=== PATIENT | male | born 1940 | race Caucasian/White ===

== ENCOUNTER 2017-03-12 09:56 | Inpatient (IN) | payer MEDICARE, OTHER ==
[~2017-03-12] VITALS: Ht 182.9 cm; Wt 81.2 kg
[2017-03-12 10:35] VITALS: BP 125/80
[2017-03-12] MEDS ORDERED: EZET10TA3 PO (11:02)
[2017-03-12] MEDS ORDERED: NITR0.4T SL (11:02)
[2017-03-12] MEDS ORDERED: METO25TA4 PO (11:02)
[2017-03-12] MEDS ORDERED: METF500T4 PO (11:02)
[2017-03-12] MEDS ORDERED: ASPI81TA2 PO (11:02)
[2017-03-12] MEDS ORDERED: TRAZ50TA15 PO (11:05)
[2017-03-12] MEDS ORDERED: CRESTOR20 MG PO (11:05)
[2017-03-12] MEDS ORDERED: ACETAMINOPHEN 325 MG TABLET PO PRN (11:15)
[2017-03-12] MEDS ORDERED: MAG HYDROX/AL HYDROX/SIMETH 30 ML ORAL.SUSP PO PRN (11:15)
[2017-03-12] MEDS ORDERED: METHYL SALICYLATE/MENTHOL TOPICAL OINTMENT 29GM TUBE. TP PRN (11:15)
[2017-03-12] MEDS ORDERED: MAGNESIUM HYDROXIDE 2,400 MG/30 ML ORAL.SUSP. PO PRN (11:15)
[2017-03-12 11:37] LABS: BASO % 1 % (0-3); EOS # 0.1 x10^3/uL (0.0-0.7); EOS % 4 % (0-3); HEMATOCRIT 38.8 % (39.0-53.0); LYMPH # 0.7 x10^3/uL (1.0-4.8); LYMPH % 19 % (24-48); MEAN CORPUSCULAR HEMOGLOBIN 32 pg (25-35); MEAN CORPUSCULAR HGB CONC 34 g/dL (31-37); MEAN CORPUSCULAR VOLUME 95 fL (79-100); MONO # 0.4 x10^3/uL (0.0-1.1); MONO % 9 % (0-9); NEUT # 2.5 x10^3uL (1.8-7.7); NEUT % 66 % (31-73); PLATELET COUNT 113 x10^3/uL (140-400); RED BLOOD COUNT 4.08 x10^6/uL (4.30-5.70); RED CELL DISTRIBUTION WIDTH 12.6 % (11.5-14.5); WHITE BLOOD COUNT 3.7 x10^3/uL (4.0-11.0)
[2017-03-12] MEDS ORDERED: NITROGLYCERIN SUBLINGUAL 0.4 MG BOTTLE OF 25. SL PRN (11:45)
[2017-03-12 11:48] LABS: ALBUMIN 3.4 g/dL (3.4-5.0); ALBUMIN/GLOBULIN RATIO 1.1 (1.0-1.7); CALCIUM 10.1 mg/dL (8.5-10.1); CREATININE 1.5 mg/dL (0.7-1.3); GFR 45.5; MAGNESIUM 2.1 mg/dL (1.8-2.4); POTASSIUM 4.8 mmol/L (3.5-5.1); TOTAL BILIRUBIN 1.3 mg/dL (0.2-1.0); TOTAL PROTEIN 6.4 g/dL (6.4-8.2)
[2017-03-12] MEDS ORDERED: INSULIN ASPART 300 UNITS/3 ML INSULN.PEN SQ ONE (12:00)
[2017-03-12] MEDS ORDERED: DEXTROSE 50% 25 GM / 50ML DISP.SYRIN. IV PRN (12:00)
[2017-03-12] MEDS: INSULIN ASPART 300 UNITS/3 ML INSULN.PEN SQ SCH ×3 (12:24→19:51)
[2017-03-12 14:42] LABS: THYROID STIM HORMONE (TSH) 0.644 uIU/mL (0.358-3.740)
[2017-03-12 15:46] VITALS: BP 125/81
[2017-03-12] MEDS: OLANZAPINE ZYDIS 5 MG TAB.RAPDIS PO PRN ×2 (16:36→23:51)
[2017-03-12] MEDS: METFORMIN 500 MG TABLET. PO SCH (16:36)
[2017-03-12 18:08] LABS: T3 TOTAL 77 ng/dL (71-180); THYROXINE 6.7 ug/dL (4.5-12.0)
[2017-03-12] MEDS: GLIMEPIRIDE 1 MG TABLET PO SCH (19:49)
[2017-03-12] MEDS: ATORVASTATIN CALCIUM 20 MG TABLET PO SCH (19:49)
[2017-03-12] MEDS: METOPROLOL TART IMMED RELEASE 25 MG TABLET PO SCH (19:49)
--- NOTE | 2017-03-12 20:55 | EKG ---
[address] [address] Test Date: 2017-03-12 Test Time: 19:55:36 Pat Name: VIJAY DURÁN Department: Room: [facility] 1 Gender: M 911 Emergency Services Dispatcher: : 1940 Requested By: GHULAM LEMON Order Number: [id number] Reading MD: Gino Bryant Measurements Intervals [place] Rate: 101 P: -141 ID: [id number] QRS: -49 QRSD: 104 T: 29 QT: 344 QTc: 447 Interpretive Statements SINUS TACHYCARDIA LEFT AXIS DEVIATION POOR R-WAVE PROGRESSION Electronically Signed On 03-24-2017 12:26:41 CDT by Gino Bryant
[2017-03-12] MEDS ORDERED: traZODone 50 MG TABLET. PO SCH (21:00)
--- NOTE | 2017-03-12 21:12 | PDOC ---
Exam Geraldo Demential Exam: Geraldo Note: Please also refer to the separate dictated note~for this date of service dictated separately.~Patient seen individually. Discussed the patient with Nursing staff reviewed the chart.~Reviewed interim history and current functioning. Reviewed vital signs,~Labs/ Radiology~and current medications noted below. Continue current treatment with the changes noted in the dictated addendum note Assessment: Vital Signs: Vital Signs Date Time Temp Pulse Resp B/P Pulse Ox O2 Delivery O2 Flow Rate FiO2 03/12/17 19:49 92 125/81 03/12/17 15:46 97.3 18 97 03/12/17 10:35 Room Air Labs: Laboratory Tests Test 03/12/17 11:24 03/12/17 12:20 03/12/17 16:29 03/12/17 19:28 White Blood Count 3.7x10^3/uL (4.0-11.0) L Red Blood Count 4.08x10^6/uL (4.30-5.70) L Hemoglobin 13.0g/dL (13.0-17.5) Hematocrit 38.8% (39.0-53.0) L Mean Corpuscular Volume 95fL (79-100) Mean Corpuscular Hemoglobin 32pg (25-35) Mean Corpuscular Hemoglobin Concent 34g/dL (31-37) Red Cell Distribution Width 12.6% (11.5-14.5) Platelet Count 113x10^3/uL (140-400) L Neutrophils (%) (Auto) 66% (31-73) Lymphocytes (%) (Auto) 19% (24-48) L Monocytes (%) (Auto) 9% (0-9) Eosinophils (%) (Auto) 4% (0-3) H Basophils (%) (Auto) 1% (0-3) Neutrophils # (Auto) 2.5x10^3uL (1.8-7.7) Lymphocytes # (Auto) 0.7x10^3/uL (1.0-4.8) L Monocytes # (Auto) 0.4x10^3/uL (0.0-1.1) Eosinophils # (Auto) 0.1x10^3/uL (0.0-0.7) Basophils # (Auto) 0.0x10^3/uL (0.0-0.2) Sodium Level 131mmol/L (136-145) L Potassium Level 4.8mmol/L (3.5-5.1) Chloride Level 99mmol/L (98-107) Carbon Dioxide Level 27mmol/L (21-32) Anion Gap 5 (6-14) L Blood Urea Nitrogen 15mg/dL (8-26) Creatinine 1.5mg/dL (0.7-1.3) H Estimated GFR (Cockcroft-Gault) 45.5 BUN/Creatinine Ratio 10 (6-20) Glucose Level 589mg/dL (70-99) *H Calcium Level 10.1mg/dL (8.5-10.1) Magnesium Level 2.1mg/dL (1.8-2.4) Iron Level 74ug/dL (65-175) Total Iron Binding Capacity 224ug/dL (250-450) L Iron Saturation 33% (15-34) Total Bilirubin 1.3mg/dL (0.2-1.0) H Aspartate Amino Transferase (AST) 11U/L (15-37) L Alanine Aminotransferase (ALT) 18U/L (16-63) Alkaline Phosphatase 95U/L (46-116) Total Protein 6.4g/dL (6.4-8.2) Albumin 3.4g/dL (3.4-5.0) Albumin/Globulin Ratio 1.1 (1.0-1.7) Triglycerides Level 108mg/dL (0-150) Cholesterol Level 124mg/dL (0-200) LDL Cholesterol, Calculated 56mg/dL (0-100) VLDL Cholesterol, Calculated 21mg/dL (0-40) HDL Cholesterol 47mg/dL (40-60) Cholesterol/HDL Ratio 2.0 25-Hydroxy Vitamin D Total Pending Thyroid Stimulating Hormone (TSH) 0.644uIU/mL (0.358-3.740) Thyroxine (T4) 6.7ug/dL (4.5-12.0) Total Triiodothyronine (TT3) 77ng/dL (71-180) RPR Titer Additional Testing Pending Glucose (Fingerstick) 548mg/dL (70-99) *H 246mg/dL (70-99) H 239mg/dL (70-99) H Current Medications: Meds: Current Medications Vitamin D (Vitamin D3) 2,000 unit DAILY PO ; Start 03/13/17 at 09:00 Acetaminophen (Tylenol) 650 mg PRN Q6HRS PRN PO PAIN / TEMP; Start 03/12/17 at 11:15 Multi-Ingredient Ointment (Analgesic [place]) 1 jesus PRN QID PRN TP MUSCLE PAIN; Start 03/12/17 at 11:15 Al Hydroxide/Mg Hydroxide (Mylanta Plus Xs) 15 ml PRN AFTMEALHC PRN PO DYSPEPSIA; Start 03/12/17 at 11:15 Magnesium Hydroxide (Milk Of Magnesia) 2,400 mg PRN QHS PRN PO CONSTIPATION; Start 03/12/17 at 11:15 Aspirin (Children'S Aspirin) 81 mg DAILY PO ; Start 03/13/17 at 09:00 EZETIMIBE (Zetia) 10 mg DAILY PO ; Start 03/13/17 at 09:00 Metformin HCl (Glucophage) 1,000 mg BIDWMEALS PO Last administered on 16:36; Start 03/12/17 at 17:00 Metoprolol Tartrate (Lopressor) 37.5 mg BID PO Last administered on 03/12/17 19:49; Start 03/12/17 at 21:00 Nitroglycerin (Nitrostat) 0.4 mg PRN Q5MIN PRN SL CHEST PAIN; Start 03/12/17 at 11:45 Trazodone HCl (Desyrel) 25 mg QHS PO Last administered on 03/12/17 19:49; Start 03/12/17 at 21:00 Atorvastatin Calcium (Lipitor) 80 mg QHS PO Last administered on 03/12/17 19: 49; Start 03/12/17 at 21:00 Insulin Aspart (Novolog) 10 units 1X ONCE SQ Last administered on 03/12/17 12 :00; Start 03/12/17 at 12:00; Stop 03/12/17 at 12:02; Status DC Insulin Aspart (Novolog) 0-9 UNITS TIDWMEALHC SQ Last administered on 19:51; Start 03/12/17 at 12:00 Dextrose 12.5 gm PRN Q15MIN PRN IV SEE COMMENTS; Start 03/12/17 at 12:00 Olanzapine (Zyprexa Zydis) 2.5 mg PRN Q2HR PRN PO PSYCHOSIS Last administered on 03/12/17 16:36; Start 03/12/17 at 16:30 Polyethylene Glycol (miraLAX) 17 gm DAILY PO ; Start 03/13/17 at 09:00 Glimepiride (Amaryl) 4 mg DAILY PO ; Start 03/13/17 at 09:00 Glimepiride (Amaryl) 1 mg QHS PO Last administered on 03/12/17 19:49; Start at 21:00 Active Scripts Active Reported Trazodone Hcl 50 Mg Tablet 25 Mg PO QHS Crestor (Rosuvastatin Calcium) 20 Mg Tablet 1 Tab PO HS Nitrostat (Nitroglycerin) 0.4 Mg Tab.subl 1 Tab SL UD PRN Metoprolol Tartrate 25 Mg Tablet 37.5 Mg PO BID Metformin Hcl 500 Mg Tablet 1,000 Mg PO BIDWMEALS Zetia (Ezetimibe) 10 Mg Tablet 1 Tab PO DAILY Aspirin 81 Mg Tab.chew 81 Mg PO DAILY GHULAM LEMON MD Mar 12, 2017 21:12
[2017-03-12 23:12] LABS: HEMOGLOBIN A1C 11.5 % (4.8-5.6)
[2017-03-13] MEDS: OLANZAPINE ZYDIS 5 MG TAB.RAPDIS PO PRN ×2 (02:12→19:14)
--- NOTE | 2017-03-13 03:47 | CONS ---
DATE OF CONSULTATION: 03/12/2017 REASON FOR CONSULTATION: Medical management. HISTORY OF PRESENT ILLNESS: The patient a 77-year-old male patient who was admitted directly from home as he has been wondering, agitated, noncompliant with medication, verbally aggressive towards his , who is unable to take care of him and he is also fearful of his aggression. He has a background of Alzheimer dementia and he is here for inpatient psychiatric stabilization. He has been apparently noncompliant with the medication. He is not allowing his to check his blood sugar or give him insulin and his blood sugar was extremely poorly controlled. His primary care physician decided to stop the insulin and put him on metformin. However, by the time he arrived to our facility, his blood sugar was 589 mg/dL. PAST MEDICAL HISTORY: Significant for diabetes mellitus type 2 that is insulin requiring, coronary artery disease, ischemic cardiomyopathy, benign prostatic hypertrophy, aneurysm, prostate cancer, abdominal aortic aneurysm, hyperlipidemia, chronic kidney disease, left ventricular diastolic congestive heart failure. PAST SURGICAL HISTORY: Significant for coronary artery bypass graft surgery as well as mitral valve repair. ALLERGIES: HE IS ALLERGIC TO CODEINE, MEPERIDINE, IODINE, AND SHELLFISH. MEDICATIONS: He is currently on following medications: Aspirin 81 mg once a day, Zetia 10 mg once a day, metformin 1000 mg p.o. b.i.d., metoprolol tartrate 7.5 mg p.o. b.i.d., nitroglycerin 0.4 mg sublingually as needed, Crestor 20 mg at bedtime, and trazodone 25 mg at bedtime. FAMILY HISTORY: Unobtainable. SOCIAL HISTORY: Apparently resides with his . He does not smoke, drink alcohol, or use recreational drugs. REVIEW OF SYSTEMS: Unobtainable. The patient is extremely psychotic, seemed to have some form of visual hallucinations, talking about the people that are not seen; however, he denied any complaint. PHYSICAL EXAMINATION: GENERAL: When I examined him, he was sitting comfortably in his chair, in no apparent respiratory distress, pale. No jaundice, cyanosis or thyromegaly. No jugular venous distention. No limb edema. VITAL SIGNS: His heart rate was 92, blood pressure 125/81, temperature was 97.3, respiratory rate was 18, and oxygen saturation was 97%. HEAD, EARS, EYES, NOSE, AND THROAT: Normocephalic, atraumatic. NECK: Supple. HEART: Showed normal first and second heart sounds with no gallop, rub, or murmur. CHEST: Clear to auscultation. No wheezes or rhonchi. ABDOMEN: Distended, soft, nontender. NEUROLOGIC: He was demented without any obvious lateralizing sign. All his cranial nerves are intact. EXTREMITIES: He moves extremities without difficulty, ambulates without assistance or assistive devices. LABORATORY WORK: This morning showed a serum sodium 131, potassium 4.8, chloride 99, bicarbonate 27, anion gap of 5, BUN 15, creatinine 1.5, estimated GFR was 45 mL per minute. His glucose was 589. His calcium was high at 10.1 and magnesium was 2.1. Total bilirubin, AST, ALT, alkaline phosphatase were normal. Total protein was 6.4, albumin 3.4. Serum iron was 74, total iron binding capacity was 224 and percent saturation was . His triglycerides were 108. Cholesterol 124, LDL cholesterol was 56, VLDL was 21, and HDL cholesterol was 47 and HDL cholesterol ratio was 2. His TSH was 0.644. His white cell count was 3700, hemoglobin 13, hematocrit 39, MCV 95, and platelet count of 113,000. The manual differential showed 66% polymorphs, 19% lymphocytes, and 9% monocytes. ASSESSMENT AND PLAN: In summary, this is a 77-year-old male patient who currently lives at home with his and who is demented, very noncompliant with medication, wondering, agitated and verbally aggressive to his . He refused to have his blood sugar checked or allow her to give him his insulin. His primary care physician decided to stop the insulin and put him on metformin; however, his blood sugar is extremely poorly controlled, in fact on arrival to our facility, his blood sugar was almost 600 mg with the attendant dilutional hyponatremia. PLAN: My plan is to add glimepiride to start with 2 mg 4 mg in the morning and continue with insulin sliding scale and we might have to increase the glimepiride to 4 mg twice a day. We will check his hemoglobin A1c. We will review all the other lab work tests that are still pending at the time of this dictation and make any necessary recommendation. Thank you, Dr. Westfall for allowing me to participate in the care of this patient. GIBSON CORTEZ MD DR: KAILA/germaine JOB#: [id number] / [id number]
--- NOTE | 2017-03-13 09:24 | HP ---
ADMIT DATE: 03/12/2017 PSYCHIATRIC ADMISSION HISTORY/EVALUATION IDENTIFYING DATA: The patient is a 78-year-old male referred to us from the [facility] after he was evaluated by his primary care physician there earlier in the day of admission and referred on account of worsening confusion, wandering agitation, being noncompliant with medications, verbally aggressive. Concerns noted were that he lives at home with his , it is potentially dangerous, unable to be managed by his , needing psychiatric stabilization and perhaps fci placement. Reviewed current past records, records from . CHIEF COMPLAINT: "No." HISTORY OF PRESENT ILLNESS: The patient is extremely confused, unable to answer direct questions, perhaps oriented just to himself. I have already been called on him earlier in the day today on account of his marked agitation, aggression, and I was pages as an emergency and we started Zyprexa p.r.n., which has helped. Additionally, he has blood sugar was elevated at 589 and we started on insulin, which again might be helping somewhat with his agitation. The patient has a long history of dementia, Alzheimer's vascular type. Recently, he has been getting more abrasive, aggressive, agitated with his , wandering out of the house. No clear symptoms of bipolar disorder, suicidal or homicidal ideation. PAST PSYCHIATRIC HISTORY: As above. MEDICAL HISTORY: Diabetes mellitus, mitral valve repair, cardiomegaly, coronary artery disease status post coronary artery bypass graft, BPH, aneurysm, prostate cancer, abdominal aortic aneurysm, hyperlipidemia, chronic kidney disease, left heart failure, upper respiratory tract infection. ALLERGIES: CODEINE, MEPERIDINE, IODINE, SHELLFISH. CURRENT PSYCHOTROPICS: Trazodone 25 mg at bedtime, Zyprexa p.r.n. He is on vitamin D supplements. He is a full code. FAMILY HISTORY: Noncontributory. SOCIAL HISTORY: The patient lives at home with his . No alcohol, drug abuse, physical, sexual or elder abuse history is noted. He is not known to be a perpetrator. MENTAL STATUS EXAMINATION: The patient is oriented to himself. Insight, judgment, recent and remote memory, attention, concentration, fund of knowledge poor, consistent with his diagnosis. He appears quite paranoid, suspicious, labile in his mood, unable to quite follow along how to eat his dinner and staff had to assist him. LABORATORY DATA: Reviewed. VITAL SIGNS: Temperature 97.3, pulse 92 and BP 125/81. IMPRESSION: Major neurocognitive disorder, Alzheimer, vascular with depression, delusion, behavioral disturbance; anxiety disorder, unspecified; impulse control disorder, unspecified. Rest diagnoses as above. PLAN: Admit to geropsychiatry unit at [facility]. I will see the patient daily individually from a psychiatric standpoint and medical followup with Dr. Benjamin/Dr. Jaimes. Continue the patient on his current psychotropics, observe baseline, adjust further as clinically indicated. MAN Telma LEMON MD DR: ARMEN/germaine JOB#: [id number] / [id number]
[2017-03-13] MEDS: METFORMIN 500 MG TABLET. PO SCH ×3 (09:54→17:25)
[2017-03-13] MEDS: METOPROLOL TART IMMED RELEASE 25 MG TABLET PO SCH ×2 (09:55→19:45)
[2017-03-13] MEDS: INSULIN ASPART 300 UNITS/3 ML INSULN.PEN SQ SCH ×4 (09:59→19:49)
[2017-03-13] MEDS: GLIMEPIRIDE 4 MG TABLET PO SCH (10:06)
[2017-03-13] MEDS: CHOLECALCIFEROL (VITAMIN D3) 1,000 UNIT TABLET PO SCH (10:06)
[2017-03-13] MEDS: ASPIRIN 81 MG TAB.CHEW PO SCH (10:06)
[2017-03-13] MEDS: POLYETHYLENE GLYCOL 3350 17 GM PACKET. PO SCH (10:06)
[2017-03-13] MEDS: EZETIMIBE 10 MG TABLET PO SCH (10:07)
[2017-03-13 15:57] VITALS: BP 132/91
--- NOTE | 2017-03-13 16:54 | RAD ---
Renal ultrasound, 03/13/2017: History: Impaired renal function, enlarged prostate The right kidney measures 10.1 cm in length while the left kidney measures 11.5 cm. 4 simple cysts are evident in the right kidney. The largest of these measures 2.2 cm. There is a 3.1 cm cyst in the lower pole of the left kidney. The renal parenchymal echogenicity is otherwise within normal limits. The kidneys show no evidence of obstruction. Limited views of urinary bladder show no abnormality. IMPRESSION: 1. Bilateral renal cysts. 2. No evidence of renal obstruction.
[2017-03-13] MEDS: GLIMEPIRIDE 1 MG TABLET PO SCH (19:42)
[2017-03-13] MEDS: ATORVASTATIN CALCIUM 20 MG TABLET PO SCH (19:43)
[2017-03-13] MEDS ORDERED: traZODone 50 MG TABLET. PO PRN (20:00)
[2017-03-13] MEDS: HYDROXYZINE PAMOATE 25 MG CAPSULE PO PRN (20:13)
--- NOTE | 2017-03-13 20:13 | PDOC ---
Exam Geraldo Demential Exam: Geraldo Note: Please also refer to the separate dictated note~for this date of service dictated separately.~Patient seen individually. Discussed the patient with Nursing staff reviewed the chart.~Reviewed interim history and current functioning. Reviewed vital signs,~Labs/ Radiology~and current medications noted below. Continue current treatment with the changes noted in the dictated addendum note Assessment: Vital Signs: Vital Signs Date Time Temp Pulse Resp B/P Pulse Ox O2 Delivery O2 Flow Rate FiO2 03/13/17 19:45 69 132/91 03/13/17 15:57 97.3 16 96 03/12/17 10:35 Room Air I&O Intake and Output 03/13/17 07:00 Intake Total 1080 ml Balance 1080 ml Intake Oral 1080 ml Labs: Laboratory Tests Test 03/13/17 07:46 03/13/17 11:07 03/13/17 17:06 03/13/17 19:24 Glucose (Fingerstick) 245mg/dL (70-99) H 240mg/dL (70-99) H 149mg/dL (70-99) H 253mg/dL (70-99) H Current Medications: Meds: Current Medications Vitamin D (Vitamin D3) 2,000 unit DAILY PO Last administered on 03/13/17 10:06 ; Start 03/13/17 at 09:00 Acetaminophen (Tylenol) 650 mg PRN Q6HRS PRN PO PAIN / TEMP; Start 03/12/17 at 11:15 Multi-Ingredient Ointment (Analgesic [place]) 1 jesus PRN QID PRN TP MUSCLE PAIN; Start 03/12/17 at 11:15 Al Hydroxide/Mg Hydroxide (Mylanta Plus Xs) 15 ml PRN AFTMEALHC PRN PO DYSPEPSIA; Start 03/12/17 at 11:15 Magnesium Hydroxide (Milk Of Magnesia) 2,400 mg PRN QHS PRN PO CONSTIPATION; Start 03/12/17 at 11:15 Aspirin (Children'S Aspirin) 81 mg DAILY PO Last administered on 03/13/17 10: 06; Start 03/13/17 at 09:00 EZETIMIBE (Zetia) 10 mg DAILY PO Last administered on 03/13/17 10:07; Start at 09:00 Metformin HCl (Glucophage) 1,000 mg BIDWMEALS PO Last administered on 09:54; Start 03/12/17 at 17:00 Metoprolol Tartrate (Lopressor) 37.5 mg BID PO Last administered on 03/13/17 19:45; Start 03/12/17 at 21:00 Nitroglycerin (Nitrostat) 0.4 mg PRN Q5MIN PRN SL CHEST PAIN; Start 03/12/17 at 11:45 Trazodone HCl (Desyrel) 25 mg QHS PO Last administered on 03/12/17 19:49; Start 03/12/17 at 21:00; Stop 03/13/17 at 19:57; Status DC Atorvastatin Calcium (Lipitor) 80 mg QHS PO Last administered on 03/13/17 19: 43; Start 03/12/17 at 21:00 Insulin Aspart (Novolog) 10 units 1X ONCE SQ Last administered on 03/12/17 12 :00; Start 03/12/17 at 12:00; Stop 03/12/17 at 12:02; Status DC Insulin Aspart (Novolog) 0-9 UNITS TIDWMEALHC SQ Last administered on 19:49; Start 03/12/17 at 12:00 Dextrose 12.5 gm PRN Q15MIN PRN IV SEE COMMENTS; Start 03/12/17 at 12:00 Olanzapine (Zyprexa Zydis) 2.5 mg PRN Q2HR PRN PO PSYCHOSIS Last administered on 03/13/17 19:14; Start 03/12/17 at 16:30 Polyethylene Glycol (miraLAX) 17 gm DAILY PO Last administered on 03/13/17 10: 06; Start 03/13/17 at 09:00 Glimepiride (Amaryl) 4 mg DAILY PO Last administered on 03/13/17 10:06; Start 03/13/17 at 09:00 Glimepiride (Amaryl) 1 mg QHS PO Last administered on 03/13/17 19:42; Start at 21:00 Sertraline HCl (Zoloft) 50 mg DAILY PO ; Start 03/14/17 at 09:00 Trazodone HCl (Desyrel) 50 mg QHS PO Last administered on 03/13/17 19:58; Start 03/13/17 at 21:00 Trazodone HCl (Desyrel) 50 mg PRN QHS PRN PO INSOMNIA; Start 03/13/17 at 20:00 Hydroxyzine Pamoate (Vistaril) 25 mg PRN Q2HR PRN PO agitation; Start 03/13/17 at 20:15 Active Scripts Active Reported Trazodone Hcl 50 Mg Tablet 25 Mg PO QHS Crestor (Rosuvastatin Calcium) 20 Mg Tablet 1 Tab PO HS Nitrostat (Nitroglycerin) 0.4 Mg Tab.subl 1 Tab SL UD PRN Metoprolol Tartrate 25 Mg Tablet 37.5 Mg PO BID Metformin Hcl 500 Mg Tablet 1,000 Mg PO BIDWMEALS Zetia (Ezetimibe) 10 Mg Tablet 1 Tab PO DAILY Aspirin 81 Mg Tab.chew 81 Mg PO DAILY GHULAM LEMON MD Mar 13, 2017 20:13
[2017-03-13 20:17] LABS: BILIRUBIN,URINE NEG (NEG); CLARITY,URINE CLEAR; COLOR,URINE YELLOW; GLUCOSE,URINE >=1000 mg/dL (NEG); NITRITE,URINE NEG (NEG); UROBILINOGEN,URINE 1 mg/dL (0.2 mg/dL)
[2017-03-13 20:18] LABS: BACTERIA,URINE FEW /HPF (0-FEW); RBC,URINE 0 /HPF (0-2); SQUAMOUS EPITHELIAL CELL,UR FEW /LPF
[2017-03-13] MEDS ORDERED: traZODone 50 MG TABLET. PO SCH (21:00)
[2017-03-14] MEDS: HYDROXYZINE PAMOATE 25 MG CAPSULE PO PRN
[2017-03-14] MEDS: OLANZAPINE ZYDIS 5 MG TAB.RAPDIS PO PRN (01:47)
[2017-03-14] MEDS: INSULIN ASPART 300 UNITS/3 ML INSULN.PEN SQ SCH ×4 (09:24→20:44)
[2017-03-14] MEDS: POLYETHYLENE GLYCOL 3350 17 GM PACKET. PO SCH (09:25)
[2017-03-14] MEDS: CHOLECALCIFEROL (VITAMIN D3) 1,000 UNIT TABLET PO SCH (09:25)
[2017-03-14] MEDS: GLIMEPIRIDE 4 MG TABLET PO SCH (09:25)
[2017-03-14] MEDS: ASPIRIN 81 MG TAB.CHEW PO SCH (09:25)
[2017-03-14] MEDS: EZETIMIBE 10 MG TABLET PO SCH (09:25)
[2017-03-14] MEDS: METFORMIN 500 MG TABLET. PO SCH ×2 (09:25→17:30)
[2017-03-14] MEDS: METOPROLOL TART IMMED RELEASE 25 MG TABLET PO SCH ×2 (09:28→19:37)
[2017-03-14] MEDS: SERTRALINE 50 MG TABLET. PO SCH (09:32)
[2017-03-14 16:06] VITALS: BP 110/71
[2017-03-14] MEDS: MELATONIN 3 MG TABLET PO SCH ×2 (19:35→19:58)
[2017-03-14] MEDS: GLIMEPIRIDE 1 MG TABLET PO SCH (19:35)
[2017-03-14] MEDS: ATORVASTATIN CALCIUM 20 MG TABLET PO SCH (19:36)
[2017-03-14] MEDS: MIRTAZAPINE 7.5 MG TABLET. PO SCH (20:43)
--- NOTE | 2017-03-14 22:08 | PDOC ---
Exam Geraldo Demential Exam: Geraldo Note: Please also refer to the separate dictated note~for this date of service dictated separately.~Patient seen individually. Discussed the patient with Nursing staff reviewed the chart.~Reviewed interim history and current functioning. Reviewed vital signs,~Labs/ Radiology~and current medications noted below. Continue current treatment with the changes noted in the dictated addendum note Assessment: Vital Signs: Vital Signs Date Time Temp Pulse Resp B/P Pulse Ox O2 Delivery O2 Flow Rate FiO2 03/14/17 19:37 83 110/71 03/14/17 16:06 97.9 20 92 Room Air I&O Intake and Output 03/14/17 07:00 Intake Total 240 ml Balance 240 ml Intake Oral 240 ml Labs: Laboratory Tests Test 03/14/17 07:40 03/14/17 12:54 03/14/17 17:08 03/14/17 19:45 Glucose (Fingerstick) 237mg/dL (70-99) H 166mg/dL (70-99) H 210mg/dL (70-99) H 195mg/dL (70-99) H Current Medications: Meds: Current Medications Vitamin D (Vitamin D3) 2,000 unit DAILY PO Last administered on 03/14/17 09:25 ; Start 03/13/17 at 09:00 Acetaminophen (Tylenol) 650 mg PRN Q6HRS PRN PO PAIN / TEMP; Start 03/12/17 at 11:15 Multi-Ingredient Ointment (Analgesic [place]) 1 jesus PRN QID PRN TP MUSCLE PAIN; Start 03/12/17 at 11:15 Al Hydroxide/Mg Hydroxide (Mylanta Plus Xs) 15 ml PRN AFTMEALHC PRN PO DYSPEPSIA; Start 03/12/17 at 11:15 Magnesium Hydroxide (Milk Of Magnesia) 2,400 mg PRN QHS PRN PO CONSTIPATION; Start 03/12/17 at 11:15 Aspirin (Children'S Aspirin) 81 mg DAILY PO Last administered on 03/14/17 09: 25; Start 03/13/17 at 09:00 EZETIMIBE (Zetia) 10 mg DAILY PO Last administered on 03/14/17 09:25; Start at 09:00 Metformin HCl (Glucophage) 1,000 mg BIDWMEALS PO Last administered on 17:30; Start 03/12/17 at 17:00 Metoprolol Tartrate (Lopressor) 37.5 mg BID PO Last administered on 03/14/17 19:37; Start 03/12/17 at 21:00 Nitroglycerin (Nitrostat) 0.4 mg PRN Q5MIN PRN SL CHEST PAIN; Start 03/12/17 at 11:45 Trazodone HCl (Desyrel) 25 mg QHS PO Last administered on 03/12/17 19:49; Start 03/12/17 at 21:00; Stop 03/13/17 at 19:57; Status DC Atorvastatin Calcium (Lipitor) 80 mg QHS PO Last administered on 03/14/17 19: 36; Start 03/12/17 at 21:00 Insulin Aspart (Novolog) 10 units 1X ONCE SQ Last administered on 03/12/17 12 :00; Start 03/12/17 at 12:00; Stop 03/12/17 at 12:02; Status DC Insulin Aspart (Novolog) 0-9 UNITS TIDWMEALHC SQ Last administered on 20:44; Start 03/12/17 at 12:00 Dextrose 12.5 gm PRN Q15MIN PRN IV SEE COMMENTS; Start 03/12/17 at 12:00 Olanzapine (Zyprexa Zydis) 2.5 mg PRN Q2HR PRN PO PSYCHOSIS Last administered on 03/14/17 01:47; Start 03/12/17 at 16:30 Polyethylene Glycol (miraLAX) 17 gm DAILY PO Last administered on 03/14/17 09: 25; Start 03/13/17 at 09:00 Glimepiride (Amaryl) 4 mg DAILY PO Last administered on 03/14/17 09:25; Start 03/13/17 at 09:00 Glimepiride (Amaryl) 1 mg QHS PO Last administered on 03/14/17 19:35; Start at 21:00 Sertraline HCl (Zoloft) 50 mg DAILY PO Last administered on 03/14/17 09:32; Start 03/14/17 at 09:00 Trazodone HCl (Desyrel) 50 mg QHS PO Last administered on 03/13/17 19:58; Start 03/13/17 at 21:00; Stop 03/14/17 at 06:33; Status DC Trazodone HCl (Desyrel) 50 mg PRN QHS PRN PO INSOMNIA Last administered on 03/13 23:30; Start 03/13/17 at 20:00; Stop 03/14/17 at 06:33; Status DC Hydroxyzine Pamoate (Vistaril) 25 mg PRN Q2HR PRN PO agitation Last administered on 03/14/17 00:00; Start 03/13/17 at 20:15 Melatonin 6 mg QHS PO ; Start 03/14/17 at 21:00 Mirtazapine (Remeron) 7.5 mg QHS PO Last administered on 03/14/17 20:43; Start 03/14/17 at 21:00 Active Scripts Active Reported Trazodone Hcl 50 Mg Tablet 25 Mg PO QHS Crestor (Rosuvastatin Calcium) 20 Mg Tablet 1 Tab PO HS Nitrostat (Nitroglycerin) 0.4 Mg Tab.subl 1 Tab SL UD PRN Metoprolol Tartrate 25 Mg Tablet 37.5 Mg PO BID Metformin Hcl 500 Mg Tablet 1,000 Mg PO BIDWMEALS Zetia (Ezetimibe) 10 Mg Tablet 1 Tab PO DAILY Aspirin 81 Mg Tab.chew 81 Mg PO DAILY Diagnosis: Problems: (1) Anxiety disorder (2) Impulse control disorder (3) Dementia in Alzheimer's disease with delusions (4) Dementia in Alzheimer's disease with depression (5) Dementia, vascular, with depression (6) Diabetes mellitus GHULAM LEMON MD Mar 14, 2017 22:08
[2017-03-15 06:29] VITALS: BP 100/58
[2017-03-15] MEDS: INSULIN ASPART 300 UNITS/3 ML INSULN.PEN SQ SCH ×4 (08:00→21:00)
[2017-03-15] MEDS: GLIMEPIRIDE 4 MG TABLET PO SCH (08:30)
[2017-03-15] MEDS: METOPROLOL TART IMMED RELEASE 25 MG TABLET PO SCH ×2 (08:30→20:39)
[2017-03-15] MEDS: ASPIRIN 81 MG TAB.CHEW PO SCH (08:30)
[2017-03-15] MEDS: CHOLECALCIFEROL (VITAMIN D3) 1,000 UNIT TABLET PO SCH (08:30)
[2017-03-15] MEDS: SERTRALINE 50 MG TABLET. PO SCH (08:30)
[2017-03-15] MEDS: EZETIMIBE 10 MG TABLET PO SCH (08:31)
[2017-03-15] MEDS: METFORMIN 500 MG TABLET. PO SCH ×3 (08:31→17:17)
[2017-03-15] MEDS: POLYETHYLENE GLYCOL 3350 17 GM PACKET. PO SCH (08:31)
[2017-03-15 16:14] VITALS: BP 110/72
[2017-03-15] MEDS: MELATONIN 3 MG TABLET PO SCH (20:36)
[2017-03-15] MEDS: MIRTAZAPINE 7.5 MG TABLET. PO SCH (20:37)
[2017-03-15] MEDS: GLIMEPIRIDE 1 MG TABLET PO SCH (20:39)
[2017-03-15] MEDS: ATORVASTATIN CALCIUM 20 MG TABLET PO SCH (20:40)
--- NOTE | 2017-03-15 21:30 | PDOC ---
Exam Geraldo Demential Exam: Geraldo Note: Please also refer to the separate dictated note~for this date of service dictated separately.~Patient seen individually. Discussed the patient with Nursing staff reviewed the chart.~Reviewed interim history and current functioning. Reviewed vital signs,~Labs/ Radiology~and current medications noted below. Continue current treatment with the changes noted in the dictated addendum note Assessment: Vital Signs: Vital Signs Date Time Temp Pulse Resp B/P Pulse Ox O2 Delivery O2 Flow Rate FiO2 03/15/17 20:39 84 110/72 03/15/17 16:14 97.8 19 97 03/15/17 06:29 Room Air I&O Intake and Output 03/15/17 07:00 Intake Total 240 ml Balance 240 ml Intake Oral 240 ml # Bowel Movements 1 Labs: Laboratory Tests Test 03/15/17 07:30 03/15/17 11:17 03/15/17 16:31 03/15/17 19:38 Glucose (Fingerstick) 94mg/dL (70-99) 98mg/dL (70-99) 332mg/dL (70-99) H 161mg/dL (70-99) H Current Medications: Meds: Current Medications Vitamin D (Vitamin D3) 2,000 unit DAILY PO Last administered on 03/15/17 08:30 ; Start 03/13/17 at 09:00 Acetaminophen (Tylenol) 650 mg PRN Q6HRS PRN PO PAIN / TEMP Last administered on 03/15/17 20:54; Start 03/12/17 at 11:15 Multi-Ingredient Ointment (Analgesic Ewing) 1 jesus PRN QID PRN TP MUSCLE PAIN; Start 03/12/17 at 11:15 Al Hydroxide/Mg Hydroxide (Mylanta Plus Xs) 15 ml PRN AFTMEALHC PRN PO DYSPEPSIA; Start 03/12/17 at 11:15 Magnesium Hydroxide (Milk Of Magnesia) 2,400 mg PRN QHS PRN PO CONSTIPATION; Start 03/12/17 at 11:15 Aspirin (Children'S Aspirin) 81 mg DAILY PO Last administered on 03/15/17 08: 30; Start 03/13/17 at 09:00 EZETIMIBE (Zetia) 10 mg DAILY PO Last administered on 03/15/17 08:31; Start at 09:00 Metformin HCl (Glucophage) 1,000 mg BIDWMEALS PO Last administered on 08:31; Start 03/12/17 at 17:00 Metoprolol Tartrate (Lopressor) 37.5 mg BID PO Last administered on 03/15/17 20:39; Start 03/12/17 at 21:00 Nitroglycerin (Nitrostat) 0.4 mg PRN Q5MIN PRN SL CHEST PAIN; Start 03/12/17 at 11:45 Trazodone HCl (Desyrel) 25 mg QHS PO Last administered on 03/12/17 19:49; Start 03/12/17 at 21:00; Stop 03/13/17 at 19:57; Status DC Atorvastatin Calcium (Lipitor) 80 mg QHS PO Last administered on 03/15/17 20: 40; Start 03/12/17 at 21:00 Insulin Aspart (Novolog) 10 units 1X ONCE SQ Last administered on 03/12/17 12 :00; Start 03/12/17 at 12:00; Stop 03/12/17 at 12:02; Status DC Insulin Aspart (Novolog) 0-9 UNITS TIDWMEALHC SQ Last administered on 17:24; Start 03/12/17 at 12:00 Dextrose 12.5 gm PRN Q15MIN PRN IV SEE COMMENTS; Start 03/12/17 at 12:00 Olanzapine (Zyprexa Zydis) 2.5 mg PRN Q2HR PRN PO PSYCHOSIS Last administered on 03/14/17 01:47; Start 03/12/17 at 16:30 Polyethylene Glycol (miraLAX) 17 gm DAILY PO Last administered on 03/15/17 08: 31; Start 03/13/17 at 09:00 Glimepiride (Amaryl) 4 mg DAILY PO Last administered on 03/15/17 08:30; Start 03/13/17 at 09:00 Glimepiride (Amaryl) 1 mg QHS PO Last administered on 03/15/17 20:39; Start at 21:00 Sertraline HCl (Zoloft) 50 mg DAILY PO Last administered on 03/15/17 08:30; Start 03/14/17 at 09:00 Trazodone HCl (Desyrel) 50 mg QHS PO Last administered on 03/13/17 19:58; Start 03/13/17 at 21:00; Stop 03/14/17 at 06:33; Status DC Trazodone HCl (Desyrel) 50 mg PRN QHS PRN PO INSOMNIA Last administered on 03/13 23:30; Start 03/13/17 at 20:00; Stop 03/14/17 at 06:33; Status DC Hydroxyzine Pamoate (Vistaril) 25 mg PRN Q2HR PRN PO agitation Last administered on 03/14/17 00:00; Start 03/13/17 at 20:15 Melatonin 6 mg QHS PO Last administered on 03/15/17 20:36; Start 03/14/17 at 21:00 Mirtazapine (Remeron) 7.5 mg QHS PO Last administered on 03/15/17 20:37; Start 03/14/17 at 21:00 Active Scripts Active Reported Trazodone Hcl 50 Mg Tablet 25 Mg PO QHS Crestor (Rosuvastatin Calcium) 20 Mg Tablet 1 Tab PO HS Nitrostat (Nitroglycerin) 0.4 Mg Tab.subl 1 Tab SL UD PRN Metoprolol Tartrate 25 Mg Tablet 37.5 Mg PO BID Metformin Hcl 500 Mg Tablet 1,000 Mg PO BIDWMEALS Zetia (Ezetimibe) 10 Mg Tablet 1 Tab PO DAILY Aspirin 81 Mg Tab.chew 81 Mg PO DAILY Diagnosis: Problems: (1) Anxiety disorder (2) Impulse control disorder (3) Dementia in Alzheimer's disease with delusions (4) Dementia in Alzheimer's disease with depression (5) Dementia, vascular, with depression (6) Diabetes mellitus GHULAM LEMON MD Mar 15, 2017 21:30
--- NOTE | 2017-03-15 22:02 | PN ---
DATE: 03/13/2017 PSYCHIATRIC PROGRESS NOTE This is late entry of 03/13/2017, covers elements not covered in my initial note. SUBJECTIVE: The patient was seen individually at length, individually discussed with staff, reviewed the chart. I was also called by nursing staff around midnight the previous night and around 6:00 a.m. again, the patient not sleeping at all, agitated, we increased the trazodone to 50 mg at bedtime, march repeat x 1, started Zyprexa p.r.n., hydroxyzine, all of which were ineffective. He is up all night asking for pliers and switch plate. REVIEW OF SYSTEMS: No eye, ENT, CV, , pulmonary system symptoms on review. Reliability poor. MENTAL STATUS EXAMINATION: Oriented to himself. Insight, judgment, recent and remote memory, attention, concentration, fund of knowledge poor, consistent with his diagnosis. IMPRESSION: Major neurocognitive disorder, Alzheimer, vascular with depression, delusion and behavioral disturbances. Rest diagnosis unchanged from initial note. PLAN: Continue the increased trazodone along with Zyprexa, hydroxyzine, consider Remeron, melatonin for insomnia, started on Zoloft 50 mg a day for his mood and anxiety symptoms, unable to recognize what the toilet is for, extremely disorganized. We will adjust further as clinically indicated. GHULAM LEMON MD DR: ARMEN/germaine JOB#: [id number] / [id number]
[2017-03-16 06:10] VITALS: BP 140/89
--- NOTE | 2017-03-16 06:34 | PN ---
DATE: 03/14/2017 This is a late entry for 03/13/2017 covers elements not covered in my initial note. 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 He has not been sleeping well, agitated, restless, disorganized, disruptive. REVIEW OF SYSTEMS: No CV, , eye, ENT, pulmonary system symptoms on review. Reliability poor. MENTAL STATUS EXAM: Oriented to himself. Insight, judgment, recent and remote memory, attention, concentration, fund of knowledge poor, consistent with his diagnosis mentioned in my initial note. PLAN: Start Remeron 7.5 mg at bedtime. Continue rest of the psychotropics as mentioned in my initial note. Adjust further as clinically indicated. He is also on Zoloft. We will consider Depakote as a mood stabilizer. MAN Temla LEMON MD DR: ARMEN/germaine JOB#: [id number] / [id number]
[2017-03-16] MEDS: INSULIN ASPART 300 UNITS/3 ML INSULN.PEN SQ SCH ×4 (08:00→20:22)
[2017-03-16] MEDS: ASPIRIN 81 MG TAB.CHEW PO SCH (08:58)
[2017-03-16] MEDS: GLIMEPIRIDE 4 MG TABLET PO SCH (08:58)
[2017-03-16] MEDS: POLYETHYLENE GLYCOL 3350 17 GM PACKET. PO SCH (08:58)
[2017-03-16] MEDS: METFORMIN 500 MG TABLET. PO SCH ×2 (08:58→17:15)
[2017-03-16] MEDS: EZETIMIBE 10 MG TABLET PO SCH (08:58)
[2017-03-16] MEDS: SERTRALINE 50 MG TABLET. PO SCH (08:58)
[2017-03-16] MEDS: METOPROLOL TART IMMED RELEASE 25 MG TABLET PO SCH ×2 (08:58→20:17)
[2017-03-16] MEDS: CHOLECALCIFEROL (VITAMIN D3) 1,000 UNIT TABLET PO SCH (08:58)
[2017-03-16 15:29] VITALS: BP 99/66
[2017-03-16] MEDS: ATORVASTATIN CALCIUM 20 MG TABLET PO SCH (20:16)
[2017-03-16] MEDS: MIRTAZAPINE 7.5 MG TABLET. PO SCH (20:16)
[2017-03-16] MEDS: MELATONIN 3 MG TABLET PO SCH (20:16)
[2017-03-16] MEDS: GLIMEPIRIDE 1 MG TABLET PO SCH (20:17)
--- NOTE | 2017-03-16 21:02 | PDOC ---
Exam Geraldo Demential Exam: Geraldo Note: Please also refer to the separate dictated note~for this date of service dictated separately.~Patient seen individually. Discussed the patient with Nursing staff reviewed the chart.~Reviewed interim history and current functioning. Reviewed vital signs,~Labs/ Radiology~and current medications noted below. Continue current treatment with the changes noted in the dictated addendum note Assessment: Vital Signs: Vital Signs Date Time Temp Pulse Resp B/P Pulse Ox O2 Delivery O2 Flow Rate FiO2 03/16/17 20:17 68 99/66 03/16/17 15:29 97.5 19 98 03/15/17 06:29 Room Air I&O Intake and Output 03/16/17 07:00 Intake Total 360 ml Balance 360 ml Intake Oral 360 ml Labs: Laboratory Tests Test 03/16/17 07:09 03/16/17 11:57 03/16/17 17:01 03/16/17 19:11 Glucose (Fingerstick) 146mg/dL (70-99) H 218mg/dL (70-99) H 197mg/dL (70-99) H 202mg/dL (70-99) H Current Medications: Meds: Current Medications Vitamin D (Vitamin D3) 2,000 unit DAILY PO Last administered on 03/16/17 08:58 ; Start 03/13/17 at 09:00 Acetaminophen (Tylenol) 650 mg PRN Q6HRS PRN PO PAIN / TEMP Last administered on 03/15/17 20:54; Start 03/12/17 at 11:15 Multi-Ingredient Ointment (Analgesic [place]kin[place]ones) 1 jesus PRN QID PRN TP MUSCLE PAIN; Start 03/12/17 at 11:15 Al Hydroxide/Mg Hydroxide (Mylanta Plus Xs) 15 ml PRN AFTMEALHC PRN PO DYSPEPSIA; Start 03/12/17 at 11:15 Magnesium Hydroxide (Milk Of Magnesia) 2,400 mg PRN QHS PRN PO CONSTIPATION; Start 03/12/17 at 11:15 Aspirin (Children'S Aspirin) 81 mg DAILY PO Last administered on 03/16/17 08: 58; Start 03/13/17 at 09:00 EZETIMIBE (Zetia) 10 mg DAILY PO Last administered on 03/16/17 08:58; Start at 09:00 Metformin HCl (Glucophage) 1,000 mg BIDWMEALS PO Last administered on 17:15; Start 03/12/17 at 17:00 Metoprolol Tartrate (Lopressor) 37.5 mg BID PO Last administered on 03/16/17 20:17; Start 03/12/17 at 21:00 Nitroglycerin (Nitrostat) 0.4 mg PRN Q5MIN PRN SL CHEST PAIN; Start 03/12/17 at 11:45 Trazodone HCl (Desyrel) 25 mg QHS PO Last administered on 03/12/17 19:49; Start 03/12/17 at 21:00; Stop 03/13/17 at 19:57; Status DC Atorvastatin Calcium (Lipitor) 80 mg QHS PO Last administered on 03/16/17 20: 16; Start 03/12/17 at 21:00 Insulin Aspart (Novolog) 10 units 1X ONCE SQ Last administered on 03/12/17 12 :00; Start 03/12/17 at 12:00; Stop 03/12/17 at 12:02; Status DC Insulin Aspart (Novolog) 0-9 UNITS TIDWMEALHC SQ Last administered on 20:22; Start 03/12/17 at 12:00 Dextrose 12.5 gm PRN Q15MIN PRN IV SEE COMMENTS; Start 03/12/17 at 12:00 Olanzapine (Zyprexa Zydis) 2.5 mg PRN Q2HR PRN PO PSYCHOSIS Last administered on 03/14/17 01:47; Start 03/12/17 at 16:30 Polyethylene Glycol (miraLAX) 17 gm DAILY PO Last administered on 03/16/17 08: 58; Start 03/13/17 at 09:00 Glimepiride (Amaryl) 4 mg DAILY PO Last administered on 03/16/17 08:58; Start 03/13/17 at 09:00 Glimepiride (Amaryl) 1 mg QHS PO Last administered on 03/16/17 20:17; Start at 21:00 Sertraline HCl (Zoloft) 50 mg DAILY PO Last administered on 03/16/17 08:58; Start 03/14/17 at 09:00 Trazodone HCl (Desyrel) 50 mg QHS PO Last administered on 03/13/17 19:58; Start 03/13/17 at 21:00; Stop 03/14/17 at 06:33; Status DC Trazodone HCl (Desyrel) 50 mg PRN QHS PRN PO INSOMNIA Last administered on 03/13 23:30; Start 03/13/17 at 20:00; Stop 03/14/17 at 06:33; Status DC Hydroxyzine Pamoate (Vistaril) 25 mg PRN Q2HR PRN PO agitation Last administered on 03/14/17 00:00; Start 03/13/17 at 20:15 Melatonin 6 mg QHS PO Last administered on 03/16/17 20:16; Start 03/14/17 at 21:00 Mirtazapine (Remeron) 7.5 mg QHS PO Last administered on 03/16/17 20:16; Start 03/14/17 at 21:00 Active Scripts Active Reported Trazodone Hcl 50 Mg Tablet 25 Mg PO QHS Crestor (Rosuvastatin Calcium) 20 Mg Tablet 1 Tab PO HS Nitrostat (Nitroglycerin) 0.4 Mg Tab.subl 1 Tab SL UD PRN Metoprolol Tartrate 25 Mg Tablet 37.5 Mg PO BID Metformin Hcl 500 Mg Tablet 1,000 Mg PO BIDWMEALS Zetia (Ezetimibe) 10 Mg Tablet 1 Tab PO DAILY Aspirin 81 Mg Tab.chew 81 Mg PO DAILY Diagnosis: Problems: (1) Anxiety disorder (2) Impulse control disorder (3) Dementia in Alzheimer's disease with delusions (4) Dementia in Alzheimer's disease with depression (5) Dementia, vascular, with depression (6) Diabetes mellitus GHULAM LEMON MD Mar 16, 2017 21:02
--- NOTE | 2017-03-16 22:06 | PN ---
DATE: 03/15/2017 PSYCHIATRIC PROGRESS NOTE This is late entry of 03/15/2017, covers elements not covered in my initial note. SUBJECTIVE: Per nursing report, the patient slept much better the previous night, 5-3/4 hours as opposed to 0 hours the night before. He had a bowel movement which seemed to help together with starting Remeron. He remains confused, resistive at times during cares, eventually compliant with meds and care, is confused, delusional at 1700 hours, blood sugar was elevated ____ oral medications as times. REVIEW OF SYSTEMS: No CV, , pulmonary, eye, ENT system symptoms on review. MENTAL STATUS EXAMINATION: I met with him in the hallway where he was seated on a sofa and I sat with him. Insight, judgment, recent and remote memory, attention, concentration, fund of knowledge poor, consistent with his diagnosis mentioned in my initial note. PLAN: Continue current psychotropics, Zoloft 50 mg a day, Remeron 7.5 at bedtime, Zyprexa, Vistaril p.r.n. Adjust as indicated. MAN Telma LEMON MD DR: ARMEN/germaine JOB#: [id number] / [id number]
[2017-03-17 05:42] VITALS: BP 113/78
[2017-03-17 06:51] LABS: BASO % 1 % (0-3); EOS # 0.2 x10^3/uL (0.0-0.7); EOS % 6 % (0-3); HEMATOCRIT 39.4 % (39.0-53.0); HEMOGLOBIN 13.6 g/dL (13.0-17.5); LYMPH # 1.2 x10^3/uL (1.0-4.8); LYMPH % 27 % (24-48); MEAN CORPUSCULAR HEMOGLOBIN 32 pg (25-35); MEAN CORPUSCULAR HGB CONC 35 g/dL (31-37); MEAN CORPUSCULAR VOLUME 93 fL (79-100); MONO # 0.4 x10^3/uL (0.0-1.1); MONO % 10 % (0-9); NEUT # 2.5 x10^3uL (1.8-7.7); NEUT % 56 % (31-73); PLATELET COUNT 132 x10^3/uL (140-400); RED BLOOD COUNT 4.23 x10^6/uL (4.30-5.70); RED CELL DISTRIBUTION WIDTH 12.9 % (11.5-14.5); WHITE BLOOD COUNT 4.4 x10^3/uL (4.0-11.0)
[2017-03-17 07:05] LABS: ALBUMIN 3.5 g/dL (3.4-5.0); ALBUMIN/GLOBULIN RATIO 1.1 (1.0-1.7); CALCIUM 10.9 mg/dL (8.5-10.1); CREATININE 1.4 mg/dL (0.7-1.3); GFR 49.3; POTASSIUM 4.2 mmol/L (3.5-5.1); TOTAL BILIRUBIN 1.7 mg/dL (0.2-1.0); TOTAL PROTEIN 6.6 g/dL (6.4-8.2)
[2017-03-17] MEDS: INSULIN ASPART 300 UNITS/3 ML INSULN.PEN SQ SCH ×4 (08:00→19:57)
[2017-03-17] MEDS: METOPROLOL TART IMMED RELEASE 25 MG TABLET PO SCH ×2 (08:39→19:56)
[2017-03-17] MEDS: GLIMEPIRIDE 4 MG TABLET PO SCH (08:39)
[2017-03-17] MEDS: CHOLECALCIFEROL (VITAMIN D3) 1,000 UNIT TABLET PO SCH (08:39)
[2017-03-17] MEDS: METFORMIN 500 MG TABLET. PO SCH ×2 (08:40→16:54)
[2017-03-17] MEDS: ASPIRIN 81 MG TAB.CHEW PO SCH (08:40)
[2017-03-17] MEDS: EZETIMIBE 10 MG TABLET PO SCH (08:40)
[2017-03-17] MEDS: SERTRALINE 50 MG TABLET. PO SCH (08:40)
[2017-03-17] MEDS: POLYETHYLENE GLYCOL 3350 17 GM PACKET. PO SCH (08:41)
[2017-03-17 15:19] VITALS: BP 131/97
[2017-03-17] MEDS: MIRTAZAPINE 7.5 MG TABLET. PO SCH (19:56)
[2017-03-17] MEDS: GLIMEPIRIDE 1 MG TABLET PO SCH (19:56)
[2017-03-17] MEDS: MELATONIN 3 MG TABLET PO SCH (19:56)
[2017-03-17] MEDS: ATORVASTATIN CALCIUM 20 MG TABLET PO SCH (19:57)
--- NOTE | 2017-03-17 20:01 | PN ---
DATE: 03/16/2017 PSYCHIATRIC PROGRESS NOTE This is late entry of 03/16/2017, covers elements not covered in my initial note. SUBJECTIVE: Per nursing report, the patient slept 6-1/2 hours previous night, which is quite an improvement from the first couple of nights he was admitted. He remains confused, oriented to himself, occasionally answers questions, but answers are not connected to the questions asked of him. He wanders the hallways, redirects. REVIEW OF SYSTEMS: No CV, , eye, ENT or pulmonary system symptoms on review. Reliability poor. MENTAL STATUS EXAMINATION: Oriented to himself. Insight, judgment, recent and remote memory, attention, concentration, fund of knowledge poor, consistent with his diagnosis. IMPRESSION: Major neurocognitive disorder, Alzheimer, vascular with depression, delusion, behavioral disturbance; anxiety disorder, unspecified; impulse control disorder, unspecified. PLAN: From a psychiatric standpoint, continue Remeron 7.5 mg at bedtime, Zyprexa p.r.n., Vistaril p.r.n., Zoloft 50 mg a day. Adjust further as clinically indicated. MAN Telma LEMON MD DR: ARMEN/germaine JOB#: [id number] / [id number]
--- NOTE | 2017-03-17 21:04 | PDOC ---
Exam Geraldo Demential Exam: Geraldo Note: Please also refer to the separate dictated note~for this date of service dictated separately.~Patient seen individually. Discussed the patient with Nursing staff reviewed the chart.~Reviewed interim history and current functioning. Reviewed vital signs,~Labs/ Radiology~and current medications noted below. Continue current treatment with the changes noted in the dictated addendum note Assessment: Vital Signs: Vital Signs Date Time Temp Pulse Resp B/P Pulse Ox O2 Delivery O2 Flow Rate FiO2 03/17/17 19:56 77 131/97 03/17/17 15:19 97.8 18 97 03/15/17 06:29 Room Air I&O Intake and Output 03/17/17 07:00 Intake Total 1320 ml Balance 1320 ml Intake Oral 1320 ml # Voids 2 Labs: Laboratory Tests Test 03/17/17 06:29 03/17/17 07:11 03/17/17 11:05 03/17/17 16:47 White Blood Count 4.4x10^3/uL (4.0-11.0) Red Blood Count 4.23x10^6/uL (4.30-5.70) L Hemoglobin 13.6g/dL (13.0-17.5) Hematocrit 39.4% (39.0-53.0) Mean Corpuscular Volume 93fL (79-100) Mean Corpuscular Hemoglobin 32pg (25-35) Mean Corpuscular Hemoglobin Concent 35g/dL (31-37) Red Cell Distribution Width 12.9% (11.5-14.5) Platelet Count 132x10^3/uL (140-400) L Neutrophils (%) (Auto) 56% (31-73) Lymphocytes (%) (Auto) 27% (24-48) Monocytes (%) (Auto) 10% (0-9) H Eosinophils (%) (Auto) 6% (0-3) H Basophils (%) (Auto) 1% (0-3) Neutrophils # (Auto) 2.5x10^3uL (1.8-7.7) Lymphocytes # (Auto) 1.2x10^3/uL (1.0-4.8) Monocytes # (Auto) 0.4x10^3/uL (0.0-1.1) Eosinophils # (Auto) 0.2x10^3/uL (0.0-0.7) Basophils # (Auto) 0.0x10^3/uL (0.0-0.2) Sodium Level 142mmol/L (136-145) Potassium Level 4.2mmol/L (3.5-5.1) Chloride Level 108mmol/L (98-107) H Carbon Dioxide Level 29mmol/L (21-32) Anion Gap 5 (6-14) L Blood Urea Nitrogen 31mg/dL (8-26) H Creatinine 1.4mg/dL (0.7-1.3) H Estimated GFR (Cockcroft-Gault) 49.3 BUN/Creatinine Ratio 22 (6-20) H Glucose Level 137mg/dL (70-99) H Calcium Level 10.9mg/dL (8.5-10.1) H Total Bilirubin 1.7mg/dL (0.2-1.0) H Aspartate Amino Transferase (AST) 18U/L (15-37) Alanine Aminotransferase (ALT) 19U/L (16-63) Alkaline Phosphatase 88U/L (46-116) Total Protein 6.6g/dL (6.4-8.2) Albumin 3.5g/dL (3.4-5.0) Albumin/Globulin Ratio 1.1 (1.0-1.7) Glucose (Fingerstick) 118mg/dL (70-99) H 253mg/dL (70-99) H 134mg/dL (70-99) H Test 03/17/17 19:09 Glucose (Fingerstick) 109mg/dL (70-99) H Current Medications: Meds: Current Medications Vitamin D (Vitamin D3) 2,000 unit DAILY PO Last administered on 03/17/17 08:39 ; Start 03/13/17 at 09:00 Acetaminophen (Tylenol) 650 mg PRN Q6HRS PRN PO PAIN / TEMP Last administered on 03/15/17 20:54; Start 03/12/17 at 11:15 Multi-Ingredient Ointment (Analgesic [place]ater) 1 jesus PRN QID PRN TP MUSCLE PAIN; Start 03/12/17 at 11:15 Al Hydroxide/Mg Hydroxide (Mylanta Plus Xs) 15 ml PRN AFTMEALHC PRN PO DYSPEPSIA; Start 03/12/17 at 11:15 Magnesium Hydroxide (Milk Of Magnesia) 2,400 mg PRN QHS PRN PO CONSTIPATION; Start 03/12/17 at 11:15 Aspirin (Children'S Aspirin) 81 mg DAILY PO Last administered on 03/17/17 08: 40; Start 03/13/17 at 09:00 EZETIMIBE (Zetia) 10 mg DAILY PO Last administered on 03/17/17 08:40; Start at 09:00 Metformin HCl (Glucophage) 1,000 mg BIDWMEALS PO Last administered on 16:54; Start 03/12/17 at 17:00 Metoprolol Tartrate (Lopressor) 37.5 mg BID PO Last administered on 03/17/17 19:56; Start 03/12/17 at 21:00 Nitroglycerin (Nitrostat) 0.4 mg PRN Q5MIN PRN SL CHEST PAIN; Start 03/12/17 at 11:45 Trazodone HCl (Desyrel) 25 mg QHS PO Last administered on 03/12/17 19:49; Start 03/12/17 at 21:00; Stop 03/13/17 at 19:57; Status DC Atorvastatin Calcium (Lipitor) 80 mg QHS PO Last administered on 03/17/17 19: 57; Start 03/12/17 at 21:00 Insulin Aspart (Novolog) 10 units 1X ONCE SQ Last administered on 03/12/17 12 :00; Start 03/12/17 at 12:00; Stop 03/12/17 at 12:02; Status DC Insulin Aspart (Novolog) 0-9 UNITS TIDWMEALHC SQ Last administered on 12:19; Start 03/12/17 at 12:00 Dextrose 12.5 gm PRN Q15MIN PRN IV SEE COMMENTS; Start 03/12/17 at 12:00 Olanzapine (Zyprexa Zydis) 2.5 mg PRN Q2HR PRN PO PSYCHOSIS Last administered on 03/14/17 01:47; Start 03/12/17 at 16:30 Polyethylene Glycol (miraLAX) 17 gm DAILY PO Last administered on 03/17/17 08: 41; Start 03/13/17 at 09:00 Glimepiride (Amaryl) 4 mg DAILY PO Last administered on 03/17/17 08:39; Start 03/13/17 at 09:00 Glimepiride (Amaryl) 1 mg QHS PO Last administered on 03/17/17 19:56; Start at 21:00 Sertraline HCl (Zoloft) 50 mg DAILY PO Last administered on 03/17/17 08:40; Start 03/14/17 at 09:00 Trazodone HCl (Desyrel) 50 mg QHS PO Last administered on 03/13/17 19:58; Start 03/13/17 at 21:00; Stop 03/14/17 at 06:33; Status DC Trazodone HCl (Desyrel) 50 mg PRN QHS PRN PO INSOMNIA Last administered on 03/13 23:30; Start 03/13/17 at 20:00; Stop 03/14/17 at 06:33; Status DC Hydroxyzine Pamoate (Vistaril) 25 mg PRN Q2HR PRN PO agitation Last administered on 03/14/17 00:00; Start 03/13/17 at 20:15 Melatonin 6 mg QHS PO Last administered on 03/17/17 19:56; Start 03/14/17 at 21:00 Mirtazapine (Remeron) 7.5 mg QHS PO Last administered on 03/17/17 19:56; Start 03/14/17 at 21:00 Active Scripts Active Reported Trazodone Hcl 50 Mg Tablet 25 Mg PO QHS Crestor (Rosuvastatin Calcium) 20 Mg Tablet 1 Tab PO HS Nitrostat (Nitroglycerin) 0.4 Mg Tab.subl 1 Tab SL UD PRN Metoprolol Tartrate 25 Mg Tablet 37.5 Mg PO BID Metformin Hcl 500 Mg Tablet 1,000 Mg PO BIDWMEALS Zetia (Ezetimibe) 10 Mg Tablet 1 Tab PO DAILY Aspirin 81 Mg Tab.chew 81 Mg PO DAILY Diagnosis: Problems: (1) Anxiety disorder (2) Impulse control disorder (3) Dementia in Alzheimer's disease with delusions (4) Dementia in Alzheimer's disease with depression (5) Dementia, vascular, with depression (6) Diabetes mellitus GHULAM LEMON MD Mar 17, 2017 21:04
[2017-03-18] MEDS: INSULIN ASPART 300 UNITS/3 ML INSULN.PEN SQ SCH ×4 (08:00→19:39)
[2017-03-18] MEDS: METFORMIN 500 MG TABLET. PO SCH ×2 (08:00→17:00)
[2017-03-18] MEDS: SERTRALINE 50 MG TABLET. PO SCH (08:14)
[2017-03-18] MEDS: ASPIRIN 81 MG TAB.CHEW PO SCH (08:14)
[2017-03-18] MEDS: EZETIMIBE 10 MG TABLET PO SCH (08:14)
[2017-03-18] MEDS: CHOLECALCIFEROL (VITAMIN D3) 1,000 UNIT TABLET PO SCH (08:14)
[2017-03-18] MEDS: POLYETHYLENE GLYCOL 3350 17 GM PACKET. PO SCH (08:14)
[2017-03-18] MEDS: METOPROLOL TART IMMED RELEASE 25 MG TABLET PO SCH ×2 (09:00→19:35)
[2017-03-18] MEDS: GLIMEPIRIDE 4 MG TABLET PO SCH (09:00)
[2017-03-18] MEDS: OLANZAPINE ZYDIS 5 MG TAB.RAPDIS PO PRN ×2 (12:08→18:48)
[2017-03-18 16:17] VITALS: BP 130/63
[2017-03-18] MEDS: MIRTAZAPINE 7.5 MG TABLET. PO SCH (19:32)
[2017-03-18] MEDS: MELATONIN 3 MG TABLET PO SCH (19:35)
[2017-03-18] MEDS: GLIMEPIRIDE 1 MG TABLET PO SCH (19:35)
[2017-03-18] MEDS: ATORVASTATIN CALCIUM 20 MG TABLET PO SCH (19:38)
--- NOTE | 2017-03-18 20:35 | PN ---
DATE: 03/17/2017 PSYCHIATRIC PROGRESS NOTE This is late entry of 03/17/2017, covers elements not covered in my initial note. SUBJECTIVE: The patient remains somewhat delusional. Speech is rambling, non-sensible, not combative, trying to be helpful to other peers, slept 6-1/4 hours. His called. He is oblivious of his circumstances. REVIEW OF SYSTEMS: No CV, , eye, ENT or pulmonary system symptoms on review. MENTAL STATUS EXAMINATION: Oriented to himself. Insight, judgment, recent and remote memory, attention, concentration, fund of knowledge poor, consistent with his diagnosis mentioned in my initial note. IMPRESSION: Major neurocognitive disorder, Alzheimer, vascular with depression, delusion and behavioral disturbance. Rest unchanged. PLAN: Maintain Remeron 7.5 at bedtime, Zyprexa and Vistaril p.r.n., Zoloft 50 mg a day. Adjust as clinically indicated. MAN Telma LEMON MD DR: ARMEN/germaine JOB#: [id number] / [id number]
--- NOTE | 2017-03-18 21:04 | PDOC ---
Exam Geraldo Demential Exam: Geraldo Note: Please also refer to the separate dictated note~for this date of service dictated separately.~Patient seen individually. Discussed the patient with Nursing staff reviewed the chart.~Reviewed interim history and current functioning. Reviewed vital signs,~Labs/ Radiology~and current medications noted below. Continue current treatment with the changes noted in the dictated addendum note Assessment: Vital Signs: Vital Signs Date Time Temp Pulse Resp B/P Pulse Ox O2 Delivery O2 Flow Rate FiO2 03/18/17 19:35 74 130/63 03/18/17 16:17 96.9 18 99 03/15/17 06:29 Room Air I&O Intake and Output 03/18/17 07:00 Intake Total 840 ml Balance 840 ml Intake Oral 840 ml Labs: Laboratory Tests Test 03/18/17 07:28 03/18/17 11:53 03/18/17 16:43 03/18/17 19:18 Glucose (Fingerstick) 83mg/dL (70-99) 237mg/dL (70-99) H 228mg/dL (70-99) H 176mg/dL (70-99) H Current Medications: Meds: Current Medications Vitamin D (Vitamin D3) 2,000 unit DAILY PO Last administered on 03/18/17 08:14 ; Start 03/13/17 at 09:00 Acetaminophen (Tylenol) 650 mg PRN Q6HRS PRN PO PAIN / TEMP Last administered on 03/15/17 20:54; Start 03/12/17 at 11:15 Multi-Ingredient Ointment (Analgesic [place]) 1 jesus PRN QID PRN TP MUSCLE PAIN; Start 03/12/17 at 11:15 Al Hydroxide/Mg Hydroxide (Mylanta Plus Xs) 15 ml PRN AFTMEALHC PRN PO DYSPEPSIA; Start 03/12/17 at 11:15 Magnesium Hydroxide (Milk Of Magnesia) 2,400 mg PRN QHS PRN PO CONSTIPATION; Start 03/12/17 at 11:15 Aspirin (Children'S Aspirin) 81 mg DAILY PO Last administered on 03/18/17 08: 14; Start 03/13/17 at 09:00 EZETIMIBE (Zetia) 10 mg DAILY PO Last administered on 03/18/17 08:14; Start at 09:00 Metformin HCl (Glucophage) 1,000 mg BIDWMEALS PO Last administered on 17:00; Start 03/12/17 at 17:00 Metoprolol Tartrate (Lopressor) 37.5 mg BID PO Last administered on 03/18/17 19:35; Start 03/12/17 at 21:00 Nitroglycerin (Nitrostat) 0.4 mg PRN Q5MIN PRN SL CHEST PAIN; Start 03/12/17 at 11:45 Trazodone HCl (Desyrel) 25 mg QHS PO Last administered on 03/12/17 19:49; Start 03/12/17 at 21:00; Stop 03/13/17 at 19:57; Status DC Atorvastatin Calcium (Lipitor) 80 mg QHS PO Last administered on 03/18/17 19: 38; Start 03/12/17 at 21:00 Insulin Aspart (Novolog) 10 units 1X ONCE SQ Last administered on 03/12/17 12 :00; Start 03/12/17 at 12:00; Stop 03/12/17 at 12:02; Status DC Insulin Aspart (Novolog) 0-9 UNITS TIDWMEALHC SQ Last administered on 19:39; Start 03/12/17 at 12:00 Dextrose 12.5 gm PRN Q15MIN PRN IV SEE COMMENTS; Start 03/12/17 at 12:00 Olanzapine (Zyprexa Zydis) 2.5 mg PRN Q2HR PRN PO PSYCHOSIS Last administered on 03/18/17 18:48; Start 03/12/17 at 16:30 Polyethylene Glycol (miraLAX) 17 gm DAILY PO Last administered on 03/18/17 08: 14; Start 03/13/17 at 09:00 Glimepiride (Amaryl) 4 mg DAILY PO Last administered on 03/17/17 08:39; Start 03/13/17 at 09:00 Glimepiride (Amaryl) 1 mg QHS PO Last administered on 03/18/17 19:35; Start at 21:00 Sertraline HCl (Zoloft) 50 mg DAILY PO Last administered on 03/18/17 08:14; Start 03/14/17 at 09:00 Trazodone HCl (Desyrel) 50 mg QHS PO Last administered on 03/13/17 19:58; Start 03/13/17 at 21:00; Stop 03/14/17 at 06:33; Status DC Trazodone HCl (Desyrel) 50 mg PRN QHS PRN PO INSOMNIA Last administered on 03/13 23:30; Start 03/13/17 at 20:00; Stop 03/14/17 at 06:33; Status DC Hydroxyzine Pamoate (Vistaril) 25 mg PRN Q2HR PRN PO agitation Last administered on 03/14/17 00:00; Start 03/13/17 at 20:15 Melatonin 6 mg QHS PO Last administered on 03/18/17 19:35; Start 03/14/17 at 21:00 Mirtazapine (Remeron) 7.5 mg QHS PO Last administered on 03/18/17 19:32; Start 03/14/17 at 21:00 Divalproex Sodium (Depakote Sprinkles) 125 mg BID92 PO ; Start 03/19/17 at 09:00 Active Scripts Active Reported Trazodone Hcl 50 Mg Tablet 25 Mg PO QHS Crestor (Rosuvastatin Calcium) 20 Mg Tablet 1 Tab PO HS Nitrostat (Nitroglycerin) 0.4 Mg Tab.subl 1 Tab SL UD PRN Metoprolol Tartrate 25 Mg Tablet 37.5 Mg PO BID Metformin Hcl 500 Mg Tablet 1,000 Mg PO BIDWMEALS Zetia (Ezetimibe) 10 Mg Tablet 1 Tab PO DAILY Aspirin 81 Mg Tab.chew 81 Mg PO DAILY Diagnosis: Problems: (1) Anxiety disorder (2) Impulse control disorder (3) Dementia in Alzheimer's disease with delusions (4) Dementia in Alzheimer's disease with depression (5) Dementia, vascular, with depression (6) Diabetes mellitus GHULAM LEMON MD Mar 18, 2017 21:04
[2017-03-19 05:54] VITALS: BP 128/71
[2017-03-19] MEDS: INSULIN ASPART 300 UNITS/3 ML INSULN.PEN SQ SCH ×4 (08:00→21:00)
[2017-03-19] MEDS: POLYETHYLENE GLYCOL 3350 17 GM PACKET. PO SCH (08:45)
[2017-03-19] MEDS: ASPIRIN 81 MG TAB.CHEW PO SCH (08:46)
[2017-03-19] MEDS: EZETIMIBE 10 MG TABLET PO SCH (08:46)
[2017-03-19] MEDS: METOPROLOL TART IMMED RELEASE 25 MG TABLET PO SCH ×2 (08:46→19:47)
[2017-03-19] MEDS: CHOLECALCIFEROL (VITAMIN D3) 1,000 UNIT TABLET PO SCH (08:46)
[2017-03-19] MEDS: GLIMEPIRIDE 4 MG TABLET PO SCH (08:46)
[2017-03-19] MEDS: SERTRALINE 50 MG TABLET. PO SCH (08:46)
[2017-03-19] MEDS: METFORMIN 500 MG TABLET. PO SCH ×2 (08:47→17:04)
[2017-03-19] MEDS: DIVALPROEX 125 MG CAP.SPRINK PO SCH ×2 (08:48→14:49)
[2017-03-19] MEDS: DOCUSATE CALCIUM 240 MG CAPSULE PO SCH (11:00)
[2017-03-19 15:41] VITALS: BP 99/65
[2017-03-19] MEDS: MELATONIN 3 MG TABLET PO SCH (19:44)
[2017-03-19] MEDS: MIRTAZAPINE 7.5 MG TABLET. PO SCH (19:47)
[2017-03-19] MEDS: GLIMEPIRIDE 1 MG TABLET PO SCH (19:47)
[2017-03-19] MEDS: ATORVASTATIN CALCIUM 20 MG TABLET PO SCH (19:48)
[2017-03-19] MEDS: SENNOSIDES 8.6 MG TABLET PO SCH (19:50)
--- NOTE | 2017-03-19 21:08 | PDOC ---
Exam Geraldo Demential Exam: Geraldo Note: Please also refer to the separate dictated note~for this date of service dictated separately.~Patient seen individually. Discussed the patient with Nursing staff reviewed the chart.~Reviewed interim history and current functioning. Reviewed vital signs,~Labs/ Radiology~and current medications noted below. Continue current treatment with the changes noted in the dictated addendum note Assessment: Vital Signs: Vital Signs Date Time Temp Pulse Resp B/P Pulse Ox O2 Delivery O2 Flow Rate FiO2 03/19/17 19:47 70 120/70 03/19/17 15:41 97.2 18 97 03/15/17 06:29 Room Air I&O Intake and Output 03/19/17 07:00 Intake Total 360 ml Balance 360 ml Intake Oral 360 ml Labs: Laboratory Tests Test 03/19/17 07:14 03/19/17 11:10 03/19/17 16:26 03/19/17 19:25 Glucose (Fingerstick) 97mg/dL (70-99) 309mg/dL (70-99) H 115mg/dL (70-99) H 182mg/dL (70-99) H Current Medications: Meds: Current Medications Vitamin D (Vitamin D3) 2,000 unit DAILY PO Last administered on 03/19/17 08:46 ; Start 03/13/17 at 09:00 Acetaminophen (Tylenol) 650 mg PRN Q6HRS PRN PO PAIN / TEMP Last administered on 03/15/17 20:54; Start 03/12/17 at 11:15 Multi-Ingredient Ointment (Analgesic [place]) 1 jesus PRN QID PRN TP MUSCLE PAIN; Start 03/12/17 at 11:15 Al Hydroxide/Mg Hydroxide (Mylanta Plus Xs) 15 ml PRN AFTMEALHC PRN PO DYSPEPSIA; Start 03/12/17 at 11:15 Magnesium Hydroxide (Milk Of Magnesia) 2,400 mg PRN QHS PRN PO CONSTIPATION; Start 03/12/17 at 11:15 Aspirin (Children'S Aspirin) 81 mg DAILY PO Last administered on 03/19/17 08: 46; Start 03/13/17 at 09:00 EZETIMIBE (Zetia) 10 mg DAILY PO Last administered on 03/19/17 08:46; Start at 09:00 Metformin HCl (Glucophage) 1,000 mg BIDWMEALS PO Last administered on 17:04; Start 03/12/17 at 17:00 Metoprolol Tartrate (Lopressor) 37.5 mg BID PO Last administered on 03/19/17 19:47; Start 03/12/17 at 21:00 Nitroglycerin (Nitrostat) 0.4 mg PRN Q5MIN PRN SL CHEST PAIN; Start 03/12/17 at 11:45 Trazodone HCl (Desyrel) 25 mg QHS PO Last administered on 03/12/17 19:49; Start 03/12/17 at 21:00; Stop 03/13/17 at 19:57; Status DC Atorvastatin Calcium (Lipitor) 80 mg QHS PO Last administered on 03/19/17 19: 48; Start 03/12/17 at 21:00 Insulin Aspart (Novolog) 10 units 1X ONCE SQ Last administered on 03/12/17 12 :00; Start 03/12/17 at 12:00; Stop 03/12/17 at 12:02; Status DC Insulin Aspart (Novolog) 0-9 UNITS TIDWMEALHC SQ Last administered on 11:52; Start 03/12/17 at 12:00 Dextrose 12.5 gm PRN Q15MIN PRN IV SEE COMMENTS; Start 03/12/17 at 12:00 Olanzapine (Zyprexa Zydis) 2.5 mg PRN Q2HR PRN PO PSYCHOSIS Last administered on 03/18/17 18:48; Start 03/12/17 at 16:30 Polyethylene Glycol (miraLAX) 17 gm DAILY PO Last administered on 03/19/17 08: 45; Start 03/13/17 at 09:00 Glimepiride (Amaryl) 4 mg DAILY PO Last administered on 03/19/17 08:46; Start 03/13/17 at 09:00 Glimepiride (Amaryl) 1 mg QHS PO Last administered on 03/19/17 19:47; Start at 21:00 Sertraline HCl (Zoloft) 50 mg DAILY PO Last administered on 03/19/17 08:46; Start 03/14/17 at 09:00 Trazodone HCl (Desyrel) 50 mg QHS PO Last administered on 03/13/17 19:58; Start 03/13/17 at 21:00; Stop 03/14/17 at 06:33; Status DC Trazodone HCl (Desyrel) 50 mg PRN QHS PRN PO INSOMNIA Last administered on 03/13 23:30; Start 03/13/17 at 20:00; Stop 03/14/17 at 06:33; Status DC Hydroxyzine Pamoate (Vistaril) 25 mg PRN Q2HR PRN PO agitation Last administered on 03/14/17 00:00; Start 03/13/17 at 20:15 Melatonin 6 mg QHS PO Last administered on 03/19/17 19:44; Start 03/14/17 at 21:00 Mirtazapine (Remeron) 7.5 mg QHS PO Last administered on 03/19/17 19:47; Start 03/14/17 at 21:00 Divalproex Sodium (Depakote Sprinkles) 125 mg BID92 PO Last administered on 14:49; Start 03/19/17 at 09:00 Sennosides (Senna) 8.6 mg BID PO Last administered on 03/19/17 19:50; Start at 21:00 Docusate Calcium (Surfak) 240 mg DAILY PO ; Start 03/19/17 at 11:00 Active Scripts Active Reported Trazodone Hcl 50 Mg Tablet 25 Mg PO QHS Crestor (Rosuvastatin Calcium) 20 Mg Tablet 1 Tab PO HS Nitrostat (Nitroglycerin) 0.4 Mg Tab.subl 1 Tab SL UD PRN Metoprolol Tartrate 25 Mg Tablet 37.5 Mg PO BID Metformin Hcl 500 Mg Tablet 1,000 Mg PO BIDWMEALS Zetia (Ezetimibe) 10 Mg Tablet 1 Tab PO DAILY Aspirin 81 Mg Tab.chew 81 Mg PO DAILY Diagnosis: Problems: (1) Anxiety disorder (2) Impulse control disorder (3) Dementia in Alzheimer's disease with delusions (4) Dementia in Alzheimer's disease with depression (5) Dementia, vascular, with depression (6) Diabetes mellitus GHULAM LEMON MD Mar 19, 2017 21:08
[2017-03-20 05:44] VITALS: BP 117/72
[2017-03-20] MEDS: INSULIN ASPART 300 UNITS/3 ML INSULN.PEN SQ SCH ×4 (08:00→21:00)
[2017-03-20] MEDS: POLYETHYLENE GLYCOL 3350 17 GM PACKET. PO SCH (08:06)
[2017-03-20] MEDS: ASPIRIN 81 MG TAB.CHEW PO SCH (08:07)
[2017-03-20] MEDS: DIVALPROEX 125 MG CAP.SPRINK PO SCH ×2 (08:07→13:50)
[2017-03-20] MEDS: GLIMEPIRIDE 4 MG TABLET PO SCH (08:07)
[2017-03-20] MEDS: SERTRALINE 50 MG TABLET. PO SCH (08:08)
[2017-03-20] MEDS: DOCUSATE CALCIUM 240 MG CAPSULE PO SCH (08:08)
[2017-03-20] MEDS: METOPROLOL TART IMMED RELEASE 25 MG TABLET PO SCH ×2 (08:08→19:17)
[2017-03-20] MEDS: SENNOSIDES 8.6 MG TABLET PO SCH ×2 (08:09→19:15)
[2017-03-20] MEDS: CHOLECALCIFEROL (VITAMIN D3) 1,000 UNIT TABLET PO SCH (08:09)
[2017-03-20] MEDS: EZETIMIBE 10 MG TABLET PO SCH (08:09)
[2017-03-20] MEDS: METFORMIN 500 MG TABLET. PO SCH ×2 (08:11→17:05)
[2017-03-20 15:26] VITALS: BP 104/75
[2017-03-20] MEDS: ATORVASTATIN CALCIUM 20 MG TABLET PO SCH (19:15)
[2017-03-20] MEDS: MIRTAZAPINE 7.5 MG TABLET. PO SCH (19:15)
[2017-03-20] MEDS: GLIMEPIRIDE 1 MG TABLET PO SCH (19:15)
[2017-03-20] MEDS: MELATONIN 3 MG TABLET PO SCH (19:15)
--- NOTE | 2017-03-20 21:01 | PDOC ---
Exam Geraldo Demential Exam: Geraldo Note: Please also refer to the separate dictated note~for this date of service dictated separately.~Patient seen individually. Discussed the patient with Nursing staff reviewed the chart.~Reviewed interim history and current functioning. Reviewed vital signs,~Labs/ Radiology~and current medications noted below. Continue current treatment with the changes noted in the dictated addendum note Assessment: Vital Signs: Vital Signs Date Time Temp Pulse Resp B/P Pulse Ox O2 Delivery O2 Flow Rate FiO2 03/20/17 19:17 90 104/75 03/20/17 15:26 97.8 18 98 03/15/17 06:29 Room Air I&O Intake and Output 03/20/17 07:00 Intake Total 1080 ml Balance 1080 ml Intake Oral 1080 ml Labs: Laboratory Tests Test 03/20/17 07:05 03/20/17 12:56 03/20/17 15:59 03/20/17 19:13 Glucose (Fingerstick) 134mg/dL (70-99) H 170mg/dL (70-99) H 161mg/dL (70-99) H 158mg/dL (70-99) H Current Medications: Meds: Current Medications Vitamin D (Vitamin D3) 2,000 unit DAILY PO Last administered on 03/20/17 08:09 ; Start 03/13/17 at 09:00 Acetaminophen (Tylenol) 650 mg PRN Q6HRS PRN PO PAIN / TEMP Last administered on 03/15/17 20:54; Start 03/12/17 at 11:15 Multi-Ingredient Ointment (Analgesic [place]) 1 jesus PRN QID PRN TP MUSCLE PAIN; Start 03/12/17 at 11:15 Al Hydroxide/Mg Hydroxide (Mylanta Plus Xs) 15 ml PRN AFTMEALHC PRN PO DYSPEPSIA; Start 03/12/17 at 11:15 Magnesium Hydroxide (Milk Of Magnesia) 2,400 mg PRN QHS PRN PO CONSTIPATION; Start 03/12/17 at 11:15 Aspirin (Children'S Aspirin) 81 mg DAILY PO Last administered on 03/20/17 08: 07; Start 03/13/17 at 09:00 EZETIMIBE (Zetia) 10 mg DAILY PO Last administered on 03/20/17 08:09; Start at 09:00 Metformin HCl (Glucophage) 1,000 mg BIDWMEALS PO Last administered on 17:05; Start 03/12/17 at 17:00 Metoprolol Tartrate (Lopressor) 37.5 mg BID PO Last administered on 03/20/17 19:17; Start 03/12/17 at 21:00 Nitroglycerin (Nitrostat) 0.4 mg PRN Q5MIN PRN SL CHEST PAIN; Start 03/12/17 at 11:45 Trazodone HCl (Desyrel) 25 mg QHS PO Last administered on 03/12/17 19:49; Start 03/12/17 at 21:00; Stop 03/13/17 at 19:57; Status DC Atorvastatin Calcium (Lipitor) 80 mg QHS PO Last administered on 03/20/17 19: 15; Start 03/12/17 at 21:00 Insulin Aspart (Novolog) 10 units 1X ONCE SQ Last administered on 03/12/17 12 :00; Start 03/12/17 at 12:00; Stop 03/12/17 at 12:02; Status DC Insulin Aspart (Novolog) 0-9 UNITS TIDWMEALHC SQ Last administered on 17:13; Start 03/12/17 at 12:00 Dextrose 12.5 gm PRN Q15MIN PRN IV SEE COMMENTS; Start 03/12/17 at 12:00 Olanzapine (Zyprexa Zydis) 2.5 mg PRN Q2HR PRN PO PSYCHOSIS Last administered on 03/18/17 18:48; Start 03/12/17 at 16:30 Polyethylene Glycol (miraLAX) 17 gm DAILY PO Last administered on 03/20/17 08: 06; Start 03/13/17 at 09:00 Glimepiride (Amaryl) 4 mg DAILY PO Last administered on 03/20/17 08:07; Start 03/13/17 at 09:00 Glimepiride (Amaryl) 1 mg QHS PO Last administered on 03/20/17 19:15; Start at 21:00 Sertraline HCl (Zoloft) 50 mg DAILY PO Last administered on 03/20/17 08:08; Start 03/14/17 at 09:00 Trazodone HCl (Desyrel) 50 mg QHS PO Last administered on 03/13/17 19:58; Start 03/13/17 at 21:00; Stop 03/14/17 at 06:33; Status DC Trazodone HCl (Desyrel) 50 mg PRN QHS PRN PO INSOMNIA Last administered on 03/13 23:30; Start 03/13/17 at 20:00; Stop 03/14/17 at 06:33; Status DC Hydroxyzine Pamoate (Vistaril) 25 mg PRN Q2HR PRN PO agitation Last administered on 03/14/17 00:00; Start 03/13/17 at 20:15 Melatonin 6 mg QHS PO Last administered on 03/20/17 19:15; Start 03/14/17 at 21:00 Mirtazapine (Remeron) 7.5 mg QHS PO Last administered on 03/20/17 19:15; Start 03/14/17 at 21:00 Divalproex Sodium (Depakote Sprinkles) 125 mg BID92 PO Last administered on 13:50; Start 03/19/17 at 09:00 Sennosides (Senna) 8.6 mg BID PO Last administered on 03/20/17 19:15; Start at 21:00 Docusate Calcium (Surfak) 240 mg DAILY PO Last administered on 03/20/17 08:08 ; Start 03/19/17 at 11:00 Active Scripts Active Reported Trazodone Hcl 50 Mg Tablet 25 Mg PO QHS Crestor (Rosuvastatin Calcium) 20 Mg Tablet 1 Tab PO HS Nitrostat (Nitroglycerin) 0.4 Mg Tab.subl 1 Tab SL UD PRN Metoprolol Tartrate 25 Mg Tablet 37.5 Mg PO BID Metformin Hcl 500 Mg Tablet 1,000 Mg PO BIDWMEALS Zetia (Ezetimibe) 10 Mg Tablet 1 Tab PO DAILY Aspirin 81 Mg Tab.chew 81 Mg PO DAILY Diagnosis: Problems: (1) Anxiety disorder (2) Impulse control disorder (3) Dementia in Alzheimer's disease with delusions (4) Dementia in Alzheimer's disease with depression (5) Dementia, vascular, with depression (6) Diabetes mellitus GHULAM LEMON MD Mar 20, 2017 21:01
--- NOTE | 2017-03-20 23:03 | PN ---
DATE: 03/18/2017 PSYCHIATRIC PROGRESS NOTE This is a late entry for 03/18/2017, covers elements not covered in my initial note. Overall, the patient remains confused, little agitated in the morning, did better with Zyprexa Zydis. He hit at the staff member who would come to draw his blood for the blood sugar, was anxious, exit seeking, but redirectable. REVIEW OF SYSTEMS: No CV, , eye, ENT or pulmonary system symptoms on review. Reliability poor. MENTAL STATUS EXAM: Oriented to himself. Insight, judgment, recent and remote memory, attention, concentration, fund of knowledge poor, consistent with his diagnosis mentioned in my initial note. IMPRESSION: Major neurocognitive disorder, Alzheimer, vascular with depression, delusion, behavioral disturbance, rest of diagnosis unchanged. PLAN: Continue Remeron 7.5 mg at bedtime, Zyprexa p.r.n., Vistaril p.r.n., Zoloft 50 mg a day, start Depakote Sprinkles 125 mg twice a day. Check labs level in 3 days. Adjust further as clinically indicated. MAN Telma LEMON MD DR: ARMEN/germaine JOB#: [id number] / [id number]
--- NOTE | 2017-03-20 23:07 | PN ---
DATE: 03/19/2017 This is a late entry 03/19/2017, covers elements not covered in my initial note. The patient was staffed at a treatment team meeting morning of 03/19/2017, met with him individually evening of 03/19/2017. The patient's participated in the treatment team meeting. We reviewed the patient's history at length, diagnosis, and current medication changes. described how there is extensive family history of GI problems and was not surprised with his constipation problems, which worsened his irritability, but these are better now. Discussed discharge and aftercare plans. REVIEW OF SYSTEMS: No CV, , pulmonary, eye, or ENT system symptoms on review. Reliability poor. MENTAL STATUS EXAM: Oriented to himself. Insight, judgment, recent and remote memory, attention, concentration, fund of knowledge poor, consistent with his diagnosis mentioned in my initial note. IMPRESSION: Major neurocognitive disorder, Alzheimer, vascular with depression, delusions and behavioral disturbance. Rest diagnoses unchanged. PLAN: Check valproic acid level on the 03/21/2017. Continue current psychotropics mentioned in my initial note. Transition plan is for [facility] next week. MAN Telma LEMON MD DR: ARMEN/germaine JOB#: [id number] / [id number]
[2017-03-21 06:30] VITALS: BP 139/87
[2017-03-21 07:51] LABS: BASO % 1 % (0-3); EOS # 0.2 x10^3/uL (0.0-0.7); EOS % 5 % (0-3); HEMATOCRIT 37.6 % (39.0-53.0); HEMOGLOBIN 12.8 g/dL (13.0-17.5); LYMPH # 1.1 x10^3/uL (1.0-4.8); LYMPH % 20 % (24-48); MEAN CORPUSCULAR HEMOGLOBIN 32 pg (25-35); MEAN CORPUSCULAR HGB CONC 34 g/dL (31-37); MEAN CORPUSCULAR VOLUME 93 fL (79-100); MONO # 0.5 x10^3/uL (0.0-1.1); MONO % 9 % (0-9); NEUT # 3.7 x10^3uL (1.8-7.7); NEUT % 66 % (31-73); PLATELET COUNT 136 x10^3/uL (140-400); RED BLOOD COUNT 4.04 x10^6/uL (4.30-5.70); RED CELL DISTRIBUTION WIDTH 12.9 % (11.5-14.5); WHITE BLOOD COUNT 5.6 x10^3/uL (4.0-11.0)
[2017-03-21 08:03] LABS: ALBUMIN 3.3 g/dL (3.4-5.0); ALBUMIN/GLOBULIN RATIO 1.1 (1.0-1.7); ALK PHOS 86 U/L (46-116); ALT (SGPT) 24 U/L (16-63); ANION GAP 8 (6-14); AST (SGOT) 21 U/L (15-37); BLOOD UREA NITROGEN 24 mg/dL (8-26); BUN/CREATININE RATIO 20 (6-20); CALCIUM 10.3 mg/dL (8.5-10.1); CARBON DIOXIDE 27 mmol/L (21-32); CHLORIDE 107 mmol/L (98-107); CREATININE 1.2 mg/dL (0.7-1.3); GFR 58.9; GLUCOSE 102 mg/dL (70-99); POTASSIUM 4.3 mmol/L (3.5-5.1); SODIUM 142 mmol/L (136-145); TOTAL BILIRUBIN 1.1 mg/dL (0.2-1.0); TOTAL PROTEIN 6.4 g/dL (6.4-8.2)
[2017-03-21 08:04] LABS: VAL ACID 17 mcg/mL (50-100)
[2017-03-21] MEDS: INSULIN ASPART 300 UNITS/3 ML INSULN.PEN SQ SCH ×4 (08:09→19:31)
[2017-03-21] MEDS: METFORMIN 500 MG TABLET. PO SCH ×2 (08:09→17:04)
[2017-03-21] MEDS: GLIMEPIRIDE 4 MG TABLET PO SCH (08:09)
[2017-03-21] MEDS: DIVALPROEX 125 MG CAP.SPRINK PO SCH ×2 (08:10→14:14)
[2017-03-21] MEDS: ASPIRIN 81 MG TAB.CHEW PO SCH (08:10)
[2017-03-21] MEDS: DOCUSATE CALCIUM 240 MG CAPSULE PO SCH (08:10)
[2017-03-21] MEDS: POLYETHYLENE GLYCOL 3350 17 GM PACKET. PO SCH (08:11)
[2017-03-21] MEDS: SENNOSIDES 8.6 MG TABLET PO SCH ×2 (08:11→19:30)
[2017-03-21] MEDS: METOPROLOL TART IMMED RELEASE 25 MG TABLET PO SCH ×2 (08:11→19:30)
[2017-03-21] MEDS: CHOLECALCIFEROL (VITAMIN D3) 1,000 UNIT TABLET PO SCH (08:11)
[2017-03-21] MEDS: EZETIMIBE 10 MG TABLET PO SCH (08:11)
[2017-03-21] MEDS: SERTRALINE 50 MG TABLET. PO SCH (08:12)
[2017-03-21 16:13] VITALS: BP 108/66
[2017-03-21] MEDS: GLIMEPIRIDE 1 MG TABLET PO SCH (19:28)
[2017-03-21] MEDS: MELATONIN 3 MG TABLET PO SCH (19:29)
[2017-03-21] MEDS: ATORVASTATIN CALCIUM 20 MG TABLET PO SCH (19:29)
[2017-03-21] MEDS: MIRTAZAPINE 7.5 MG TABLET. PO SCH (19:30)
--- NOTE | 2017-03-21 21:09 | PDOC ---
Exam Geraldo Demential Exam: Geraldo Note: Please also refer to the separate dictated note~for this date of service dictated separately.~Patient seen individually. Discussed the patient with Nursing staff reviewed the chart.~Reviewed interim history and current functioning. Reviewed vital signs,~Labs/ Radiology~and current medications noted below. Continue current treatment with the changes noted in the dictated addendum note Assessment: Vital Signs: Vital Signs Date Time Temp Pulse Resp B/P Pulse Ox O2 Delivery O2 Flow Rate FiO2 03/21/17 19:30 81 108/66 03/21/17 16:13 97.2 18 95 03/21/17 06:30 Room Air I&O Intake and Output 03/21/17 07:00 Intake Total 720 ml Balance 720 ml Intake Oral 720 ml Labs: Laboratory Tests Test 03/21/17 07:10 03/21/17 07:36 03/21/17 11:45 03/21/17 16:51 Glucose (Fingerstick) 108mg/dL (70-99) H 187mg/dL (70-99) H 194mg/dL (70-99) H White Blood Count 5.6x10^3/uL (4.0-11.0) Red Blood Count 4.04x10^6/uL (4.30-5.70) L Hemoglobin 12.8g/dL (13.0-17.5) L Hematocrit 37.6% (39.0-53.0) L Mean Corpuscular Volume 93fL (79-100) Mean Corpuscular Hemoglobin 32pg (25-35) Mean Corpuscular Hemoglobin Concent 34g/dL (31-37) Red Cell Distribution Width 12.9% (11.5-14.5) Platelet Count 136x10^3/uL (140-400) L Neutrophils (%) (Auto) 66% (31-73) Lymphocytes (%) (Auto) 20% (24-48) L Monocytes (%) (Auto) 9% (0-9) Eosinophils (%) (Auto) 5% (0-3) H Basophils (%) (Auto) 1% (0-3) Neutrophils # (Auto) 3.7x10^3uL (1.8-7.7) Lymphocytes # (Auto) 1.1x10^3/uL (1.0-4.8) Monocytes # (Auto) 0.5x10^3/uL (0.0-1.1) Eosinophils # (Auto) 0.2x10^3/uL (0.0-0.7) Basophils # (Auto) 0.0x10^3/uL (0.0-0.2) Sodium Level 142mmol/L (136-145) Potassium Level 4.3mmol/L (3.5-5.1) Chloride Level 107mmol/L (98-107) Carbon Dioxide Level 27mmol/L (21-32) Anion Gap 8 (6-14) Blood Urea Nitrogen 24mg/dL (8-26) Creatinine 1.2mg/dL (0.7-1.3) Estimated GFR (Cockcroft-Gault) 58.9 BUN/Creatinine Ratio 20 (6-20) Glucose Level 102mg/dL (70-99) H Calcium Level 10.3mg/dL (8.5-10.1) H Total Bilirubin 1.1mg/dL (0.2-1.0) H Aspartate Amino Transferase (AST) 21U/L (15-37) Alanine Aminotransferase (ALT) 24U/L (16-63) Alkaline Phosphatase 86U/L (46-116) Total Protein 6.4g/dL (6.4-8.2) Albumin 3.3g/dL (3.4-5.0) L Albumin/Globulin Ratio 1.1 (1.0-1.7) Valproic Acid Level 17mcg/mL (50-100) L Valproic Acid Last Dose Date 03/20/2107 Valproic Acid Last Dose Time 2100 Test 03/21/17 19:18 Glucose (Fingerstick) 165mg/dL (70-99) H Current Medications: Meds: Current Medications Vitamin D (Vitamin D3) 2,000 unit DAILY PO Last administered on 03/21/17 08:11 ; Start 03/13/17 at 09:00 Acetaminophen (Tylenol) 650 mg PRN Q6HRS PRN PO PAIN / TEMP Last administered on 03/15/17 20:54; Start 03/12/17 at 11:15 Multi-Ingredient Ointment (Analgesic [place]) 1 jesus PRN QID PRN TP MUSCLE PAIN; Start 03/12/17 at 11:15 Al Hydroxide/Mg Hydroxide (Mylanta Plus Xs) 15 ml PRN AFTMEALHC PRN PO DYSPEPSIA; Start 03/12/17 at 11:15 Magnesium Hydroxide (Milk Of Magnesia) 2,400 mg PRN QHS PRN PO CONSTIPATION; Start 03/12/17 at 11:15 Aspirin (Children'S Aspirin) 81 mg DAILY PO Last administered on 03/21/17 08: 10; Start 03/13/17 at 09:00 EZETIMIBE (Zetia) 10 mg DAILY PO Last administered on 03/21/17 08:11; Start at 09:00 Metformin HCl (Glucophage) 1,000 mg BIDWMEALS PO Last administered on 17:04; Start 03/12/17 at 17:00 Metoprolol Tartrate (Lopressor) 37.5 mg BID PO Last administered on 03/21/17 19:30; Start 03/12/17 at 21:00 Nitroglycerin (Nitrostat) 0.4 mg PRN Q5MIN PRN SL CHEST PAIN; Start 03/12/17 at 11:45 Trazodone HCl (Desyrel) 25 mg QHS PO Last administered on 03/12/17 19:49; Start 03/12/17 at 21:00; Stop 03/13/17 at 19:57; Status DC Atorvastatin Calcium (Lipitor) 80 mg QHS PO Last administered on 03/21/17 19: 29; Start 03/12/17 at 21:00 Insulin Aspart (Novolog) 10 units 1X ONCE SQ Last administered on 03/12/17 12 :00; Start 03/12/17 at 12:00; Stop 03/12/17 at 12:02; Status DC Insulin Aspart (Novolog) 0-9 UNITS TIDWMEALHC SQ Last administered on 17:05; Start 03/12/17 at 12:00 Dextrose 12.5 gm PRN Q15MIN PRN IV SEE COMMENTS; Start 03/12/17 at 12:00 Olanzapine (Zyprexa Zydis) 2.5 mg PRN Q2HR PRN PO PSYCHOSIS Last administered on 03/18/17 18:48; Start 03/12/17 at 16:30 Polyethylene Glycol (miraLAX) 17 gm DAILY PO Last administered on 03/21/17 08: 11; Start 03/13/17 at 09:00 Glimepiride (Amaryl) 4 mg DAILY PO Last administered on 03/21/17 08:09; Start 03/13/17 at 09:00 Glimepiride (Amaryl) 1 mg QHS PO Last administered on 03/21/17 19:28; Start at 21:00 Sertraline HCl (Zoloft) 50 mg DAILY PO Last administered on 03/21/17 08:12; Start 03/14/17 at 09:00 Trazodone HCl (Desyrel) 50 mg QHS PO Last administered on 03/13/17 19:58; Start 03/13/17 at 21:00; Stop 03/14/17 at 06:33; Status DC Trazodone HCl (Desyrel) 50 mg PRN QHS PRN PO INSOMNIA Last administered on 03/13 23:30; Start 03/13/17 at 20:00; Stop 03/14/17 at 06:33; Status DC Hydroxyzine Pamoate (Vistaril) 25 mg PRN Q2HR PRN PO agitation Last administered on 03/14/17 00:00; Start 03/13/17 at 20:15 Melatonin 6 mg QHS PO Last administered on 03/21/17 19:29; Start 03/14/17 at 21:00 Mirtazapine (Remeron) 7.5 mg QHS PO Last administered on 03/21/17 19:30; Start 03/14/17 at 21:00 Divalproex Sodium (Depakote Sprinkles) 125 mg BID92 PO Last administered on 14:14; Start 03/19/17 at 09:00 Sennosides (Senna) 8.6 mg BID PO Last administered on 03/21/17 19:30; Start at 21:00 Docusate Calcium (Surfak) 240 mg DAILY PO Last administered on 03/21/17 08:10 ; Start 03/19/17 at 11:00 Active Scripts Active Reported Trazodone Hcl 50 Mg Tablet 25 Mg PO QHS Crestor (Rosuvastatin Calcium) 20 Mg Tablet 1 Tab PO HS Nitrostat (Nitroglycerin) 0.4 Mg Tab.subl 1 Tab SL UD PRN Metoprolol Tartrate 25 Mg Tablet 37.5 Mg PO BID Metformin Hcl 500 Mg Tablet 1,000 Mg PO BIDWMEALS Zetia (Ezetimibe) 10 Mg Tablet 1 Tab PO DAILY Aspirin 81 Mg Tab.chew 81 Mg PO DAILY Diagnosis: Problems: (1) Anxiety disorder (2) Impulse control disorder (3) Dementia in Alzheimer's disease with delusions (4) Dementia in Alzheimer's disease with depression (5) Dementia, vascular, with depression (6) Diabetes mellitus GHULAM LEMON MD Mar 21, 2017 21:09
[2017-03-22 07:03] VITALS: BP 99/64
[2017-03-22] MEDS: INSULIN ASPART 300 UNITS/3 ML INSULN.PEN SQ SCH ×4 (08:16→19:45)
[2017-03-22] MEDS: METFORMIN 500 MG TABLET. PO SCH ×2 (08:17→17:17)
[2017-03-22] MEDS: SENNOSIDES 8.6 MG TABLET PO SCH ×2 (08:18→19:43)
[2017-03-22] MEDS: GLIMEPIRIDE 4 MG TABLET PO SCH (08:18)
[2017-03-22] MEDS: DIVALPROEX 125 MG CAP.SPRINK PO SCH ×2 (08:18→13:36)
[2017-03-22] MEDS: ASPIRIN 81 MG TAB.CHEW PO SCH (08:18)
[2017-03-22] MEDS: POLYETHYLENE GLYCOL 3350 17 GM PACKET. PO SCH (08:18)
[2017-03-22] MEDS: EZETIMIBE 10 MG TABLET PO SCH (08:19)
[2017-03-22] MEDS: CHOLECALCIFEROL (VITAMIN D3) 1,000 UNIT TABLET PO SCH (08:19)
[2017-03-22] MEDS: SERTRALINE 50 MG TABLET. PO SCH (08:19)
[2017-03-22] MEDS: DOCUSATE CALCIUM 240 MG CAPSULE PO SCH (08:19)
[2017-03-22] MEDS: METOPROLOL TART IMMED RELEASE 25 MG TABLET PO SCH ×2 (09:38→19:43)
[2017-03-22 17:07] VITALS: BP 116/71
--- NOTE | 2017-03-22 18:16 | PN ---
DATE: 03/20/2017 PSYCHIATRIC PROGRESS NOTE This is late entry of 03/20/2017, covers elements not covered in my initial note. SUBJECTIVE: Per nursing report, the patient remains confused, wanders the hallways, redirects, nonsensical in his speech, not aggressive. REVIEW OF SYSTEMS: No CV, , pulmonary, eye, ENT system symptoms on review. Reliability poor. MENTAL STATUS EXAMINATION: Oriented to himself. Insight, judgment, recent and remote memory, attention, concentration, fund of knowledge poor, consistent with his diagnosis mentioned in my initial note. PLAN: Continue current psychotropics mentioned in my initial note. Adjust as clinically indicated. MAN Telma LEMON MD DR: ARMEN/germaine JOB#: [id number] / [id number]
--- NOTE | 2017-03-22 18:19 | PN ---
DATE: 03/21/2017 PSYCHIATRIC PROGRESS NOTE This is late entry of 03/21/2017, covers elements not covered in my initial note. SUBJECTIVE: Overall, per nursing report, the patient was somewhat delusional previous evening, believed he was at work, at times his verbalization seems a little more coherent, but this is very brief short sentences and then he is back to much of his nonsensical verbalizations consistent with his diagnosis, but paranoia seems better. REVIEW OF SYSTEMS: No CV, , pulmonary, eye, ENT system symptoms on review as I met with him individually. Reliability poor. MENTAL STATUS EXAMINATION: Oriented to himself. Insight, judgment, recent and remote memory, attention, concentration, fund of knowledge poor, consistent with his diagnosis mentioned in my initial note. PLAN: Continue psychotropics mentioned in my initial note. Adjust further as clinically indicated. MAN Telma LEMON MD DR: ARMEN/germaine JOB#: [id number] / [id number]
[2017-03-22] MEDS: GLIMEPIRIDE 1 MG TABLET PO SCH (19:43)
[2017-03-22] MEDS: MELATONIN 3 MG TABLET PO SCH (19:43)
[2017-03-22] MEDS: MIRTAZAPINE 7.5 MG TABLET. PO SCH (19:43)
[2017-03-22] MEDS: ATORVASTATIN CALCIUM 20 MG TABLET PO SCH (19:43)
--- NOTE | 2017-03-22 21:05 | PDOC ---
Exam Geraldo Demential Exam: Geraldo Note: Please also refer to the separate dictated note~for this date of service dictated separately.~Patient seen individually. Discussed the patient with Nursing staff reviewed the chart.~Reviewed interim history and current functioning. Reviewed vital signs,~Labs/ Radiology~and current medications noted below. Continue current treatment with the changes noted in the dictated addendum note Assessment: Vital Signs: Vital Signs Date Time Temp Pulse Resp B/P Pulse Ox O2 Delivery O2 Flow Rate FiO2 03/22/17 19:43 108 116/71 03/22/17 17:07 97.5 18 97 03/21/17 06:30 Room Air I&O Intake and Output 03/22/17 07:00 Intake Total 1200 ml Balance 1200 ml Intake Oral 1200 ml Labs: Laboratory Tests Test 03/22/17 07:10 03/22/17 11:42 03/22/17 17:09 03/22/17 19:02 Glucose (Fingerstick) 112mg/dL (70-99) H 147mg/dL (70-99) H 228mg/dL (70-99) H 172mg/dL (70-99) H Current Medications: Meds: Current Medications Vitamin D (Vitamin D3) 2,000 unit DAILY PO Last administered on 03/22/17 08:19 ; Start 03/13/17 at 09:00 Acetaminophen (Tylenol) 650 mg PRN Q6HRS PRN PO PAIN / TEMP Last administered on 03/15/17 20:54; Start 03/12/17 at 11:15 Multi-Ingredient Ointment (Analgesic [place]) 1 jesus PRN QID PRN TP MUSCLE PAIN; Start 03/12/17 at 11:15 Al Hydroxide/Mg Hydroxide (Mylanta Plus Xs) 15 ml PRN AFTMEALHC PRN PO DYSPEPSIA; Start 03/12/17 at 11:15 Magnesium Hydroxide (Milk Of Magnesia) 2,400 mg PRN QHS PRN PO CONSTIPATION; Start 03/12/17 at 11:15 Aspirin (Children'S Aspirin) 81 mg DAILY PO Last administered on 03/22/17 08: 18; Start 03/13/17 at 09:00 EZETIMIBE (Zetia) 10 mg DAILY PO Last administered on 03/22/17 08:19; Start at 09:00 Metformin HCl (Glucophage) 1,000 mg BIDWMEALS PO Last administered on 17:17; Start 03/12/17 at 17:00 Metoprolol Tartrate (Lopressor) 37.5 mg BID PO Last administered on 03/22/17 19:43; Start 03/12/17 at 21:00 Nitroglycerin (Nitrostat) 0.4 mg PRN Q5MIN PRN SL CHEST PAIN; Start 03/12/17 at 11:45 Trazodone HCl (Desyrel) 25 mg QHS PO Last administered on 03/12/17 19:49; Start 03/12/17 at 21:00; Stop 03/13/17 at 19:57; Status DC Atorvastatin Calcium (Lipitor) 80 mg QHS PO Last administered on 03/22/17 19: 43; Start 03/12/17 at 21:00 Insulin Aspart (Novolog) 10 units 1X ONCE SQ Last administered on 03/12/17 12 :00; Start 03/12/17 at 12:00; Stop 03/12/17 at 12:02; Status DC Insulin Aspart (Novolog) 0-9 UNITS TIDWMEALHC SQ Last administered on 17:18; Start 03/12/17 at 12:00 Dextrose 12.5 gm PRN Q15MIN PRN IV SEE COMMENTS; Start 03/12/17 at 12:00 Olanzapine (Zyprexa Zydis) 2.5 mg PRN Q2HR PRN PO PSYCHOSIS Last administered on 03/18/17 18:48; Start 03/12/17 at 16:30 Polyethylene Glycol (miraLAX) 17 gm DAILY PO Last administered on 03/22/17 08: 18; Start 03/13/17 at 09:00 Glimepiride (Amaryl) 4 mg DAILY PO Last administered on 03/22/17 08:18; Start 03/13/17 at 09:00 Glimepiride (Amaryl) 1 mg QHS PO Last administered on 03/22/17 19:43; Start at 21:00 Sertraline HCl (Zoloft) 50 mg DAILY PO Last administered on 03/22/17 08:19; Start 03/14/17 at 09:00 Trazodone HCl (Desyrel) 50 mg QHS PO Last administered on 03/13/17 19:58; Start 03/13/17 at 21:00; Stop 03/14/17 at 06:33; Status DC Trazodone HCl (Desyrel) 50 mg PRN QHS PRN PO INSOMNIA Last administered on 03/13 23:30; Start 03/13/17 at 20:00; Stop 03/14/17 at 06:33; Status DC Hydroxyzine Pamoate (Vistaril) 25 mg PRN Q2HR PRN PO agitation Last administered on 03/14/17 00:00; Start 03/13/17 at 20:15 Melatonin 6 mg QHS PO Last administered on 03/22/17 19:43; Start 03/14/17 at 21:00 Mirtazapine (Remeron) 7.5 mg QHS PO Last administered on 03/22/17 19:43; Start 03/14/17 at 21:00 Divalproex Sodium (Depakote Sprinkles) 125 mg BID92 PO Last administered on 13:36; Start 03/19/17 at 09:00 Sennosides (Senna) 8.6 mg BID PO Last administered on 03/22/17 19:43; Start at 21:00 Docusate Calcium (Surfak) 240 mg DAILY PO Last administered on 03/22/17 08:19 ; Start 03/19/17 at 11:00 Active Scripts Active Reported Trazodone Hcl 50 Mg Tablet 25 Mg PO QHS Crestor (Rosuvastatin Calcium) 20 Mg Tablet 1 Tab PO HS Nitrostat (Nitroglycerin) 0.4 Mg Tab.subl 1 Tab SL UD PRN Metoprolol Tartrate 25 Mg Tablet 37.5 Mg PO BID Metformin Hcl 500 Mg Tablet 1,000 Mg PO BIDWMEALS Zetia (Ezetimibe) 10 Mg Tablet 1 Tab PO DAILY Aspirin 81 Mg Tab.chew 81 Mg PO DAILY Diagnosis: Problems: (1) Anxiety disorder (2) Impulse control disorder (3) Dementia in Alzheimer's disease with delusions (4) Dementia in Alzheimer's disease with depression (5) Dementia, vascular, with depression (6) Diabetes mellitus GHULAM LEMON MD Mar 22, 2017 21:05
[2017-03-23 06:57] VITALS: BP 117/74
[2017-03-23] MEDS: INSULIN ASPART 300 UNITS/3 ML INSULN.PEN SQ SCH ×4 (08:08→20:35)
[2017-03-23] MEDS: METFORMIN 500 MG TABLET. PO SCH ×2 (08:08→17:29)
[2017-03-23] MEDS: DIVALPROEX 125 MG CAP.SPRINK PO SCH ×2 (08:09→14:05)
[2017-03-23] MEDS: ASPIRIN 81 MG TAB.CHEW PO SCH (08:09)
[2017-03-23] MEDS: METOPROLOL TART IMMED RELEASE 25 MG TABLET PO SCH ×2 (08:09→20:20)
[2017-03-23] MEDS: GLIMEPIRIDE 4 MG TABLET PO SCH (08:09)
[2017-03-23] MEDS: POLYETHYLENE GLYCOL 3350 17 GM PACKET. PO SCH (08:10)
[2017-03-23] MEDS: SENNOSIDES 8.6 MG TABLET PO SCH ×2 (08:10→20:20)
[2017-03-23] MEDS: SERTRALINE 50 MG TABLET. PO SCH (08:10)
[2017-03-23] MEDS: DOCUSATE CALCIUM 240 MG CAPSULE PO SCH (08:10)
[2017-03-23] MEDS: EZETIMIBE 10 MG TABLET PO SCH (08:10)
[2017-03-23] MEDS: CHOLECALCIFEROL (VITAMIN D3) 1,000 UNIT TABLET PO SCH (08:10)
--- NOTE | 2017-03-23 15:57 | PN ---
DATE: 03/22/2017 PSYCHIATRIC PROGRESS NOTE This is late entry of 03/22/2017, covers elements not covered in my initial note. SUBJECTIVE: Per nursing report, the patient remains confused, wanders the hallways, sleeping better. REVIEW OF SYSTEMS: No CV, , pulmonary, eye, ENT system symptoms on review. Reliability poor. MENTAL STATUS EXAMINATION: Oriented to himself. Insight, judgment, recent and remote memory, attention, concentration, fund of knowledge poor, consistent with his diagnosis mentioned in my initial note. PLAN: Continue current psychotropics, Remeron 7.5 at bedtime, Vistaril p.r.n., Zoloft 50 mg a day, Depakote 125 b.i.d., level is 17, despite being subtherapeutic seems clinically adequate for now. MAN Telma LEMON MD DR: ARMEN/germaine JOB#: [id number] / [id number]
[2017-03-23 16:12] VITALS: BP 102/61
[2017-03-23] MEDS ORDERED: ACET325T9 PO (17:42)
[2017-03-23] MEDS ORDERED: CHOL10003 PO (17:43)
[2017-03-23] MEDS ORDERED: DOCU240C30 PO (17:43)
[2017-03-23] MEDS ORDERED: GLIM4TAB PO (17:44)
[2017-03-23] MEDS ORDERED: GLIM1TAB PO (17:44)
[2017-03-23] MEDS ORDERED: INSU100I17 SQ (17:46)
[2017-03-23] MEDS ORDERED: MAG30ORA2 PO (17:52)
[2017-03-23] MEDS ORDERED: METH29OI TP (17:53)
[2017-03-23] MEDS ORDERED: MAGN2400 PO (17:53)
[2017-03-23] MEDS ORDERED: SENN8.6T3 PO (17:54)
[2017-03-23] MEDS ORDERED: POLY17PO5 PO (17:54)
[2017-03-23] MEDS ORDERED: HYDR25CA PO (17:58)
[2017-03-23] MEDS ORDERED: DIVA125C PO (17:58)
[2017-03-23] MEDS ORDERED: MELA3TAB PO (18:01)
[2017-03-23] MEDS ORDERED: MIRT15TA PO (18:10)
[2017-03-23] MEDS ORDERED: OLAN5TAB5 PO (18:10)
[2017-03-23] MEDS ORDERED: SERT50TA PO (18:11)
[2017-03-23] MEDS: MIRTAZAPINE 7.5 MG TABLET. PO SCH (20:19)
[2017-03-23] MEDS: ATORVASTATIN CALCIUM 20 MG TABLET PO SCH (20:19)
[2017-03-23] MEDS: MELATONIN 3 MG TABLET PO SCH (20:19)
[2017-03-23] MEDS: GLIMEPIRIDE 1 MG TABLET PO SCH (20:35)
--- NOTE | 2017-03-23 23:46 | PDOC ---
Exam Geraldo Demential Exam: Geraldo Note: Please also refer to the separate dictated note~for this date of service dictated separately.~Patient seen individually. Discussed the patient with Nursing staff reviewed the chart.~Reviewed interim history and current functioning. Reviewed vital signs,~Labs/ Radiology~and current medications noted below. Continue current treatment with the changes noted in the dictated addendum note Assessment: Vital Signs: Vital Signs Date Time Temp Pulse Resp B/P Pulse Ox O2 Delivery O2 Flow Rate FiO2 03/23/17 16:12 97.5 68 16 102/61 97 03/21/17 06:30 Room Air I&O Intake and Output 03/23/17 07:00 Intake Total 960 ml Balance 960 ml Intake Oral 960 ml Labs: Laboratory Tests Test 03/23/17 07:22 03/23/17 11:45 03/23/17 17:05 03/23/17 19:24 Glucose (Fingerstick) 135mg/dL (70-99) H 198mg/dL (70-99) H 88mg/dL (70-99) 114mg/dL (70-99) H Current Medications: Meds: Current Medications Vitamin D (Vitamin D3) 2,000 unit DAILY PO Last administered on 03/23/17 08:10 ; Start 03/13/17 at 09:00 Acetaminophen (Tylenol) 650 mg PRN Q6HRS PRN PO PAIN / TEMP Last administered on 03/15/17 20:54; Start 03/12/17 at 11:15 Multi-Ingredient Ointment (Analgesic [place]) 1 prisca PRN QID PRN TP MUSCLE PAIN; Start 03/12/17 at 11:15 Al Hydroxide/Mg Hydroxide (Mylanta Plus Xs) 15 ml PRN AFTMEALHC PRN PO DYSPEPSIA; Start 03/12/17 at 11:15 Magnesium Hydroxide (Milk Of Magnesia) 2,400 mg PRN QHS PRN PO CONSTIPATION; Start 03/12/17 at 11:15 Aspirin (Children'S Aspirin) 81 mg DAILY PO Last administered on 03/23/17 08: 09; Start 03/13/17 at 09:00 EZETIMIBE (Zetia) 10 mg DAILY PO Last administered on 03/23/17 08:10; Start at 09:00 Metformin HCl (Glucophage) 1,000 mg BIDWMEALS PO Last administered on 17:29; Start 03/12/17 at 17:00 Metoprolol Tartrate (Lopressor) 37.5 mg BID PO Last administered on 03/23/17 08:09; Start 03/12/17 at 21:00 Nitroglycerin (Nitrostat) 0.4 mg PRN Q5MIN PRN SL CHEST PAIN; Start 03/12/17 at 11:45 Trazodone HCl (Desyrel) 25 mg QHS PO Last administered on 03/12/17 19:49; Start 03/12/17 at 21:00; Stop 03/13/17 at 19:57; Status DC Atorvastatin Calcium (Lipitor) 80 mg QHS PO Last administered on 03/23/17 20: 19; Start 03/12/17 at 21:00 Insulin Aspart (Novolog) 10 units 1X ONCE SQ Last administered on 03/12/17 12 :00; Start 03/12/17 at 12:00; Stop 03/12/17 at 12:02; Status DC Insulin Aspart (Novolog) 0-9 UNITS TIDWMEALHC SQ Last administered on 12:17; Start 03/12/17 at 12:00 Dextrose 12.5 gm PRN Q15MIN PRN IV SEE COMMENTS; Start 03/12/17 at 12:00 Olanzapine (Zyprexa Zydis) 2.5 mg PRN Q2HR PRN PO PSYCHOSIS Last administered on 03/18/17 18:48; Start 03/12/17 at 16:30 Polyethylene Glycol (miraLAX) 17 gm DAILY PO Last administered on 03/23/17 08: 10; Start 03/13/17 at 09:00 Glimepiride (Amaryl) 4 mg DAILY PO Last administered on 03/23/17 08:09; Start 03/13/17 at 09:00 Glimepiride (Amaryl) 1 mg QHS PO Last administered on 03/23/17 20:35; Start at 21:00 Sertraline HCl (Zoloft) 50 mg DAILY PO Last administered on 03/23/17 08:10; Start 03/14/17 at 09:00 Trazodone HCl (Desyrel) 50 mg QHS PO Last administered on 03/13/17 19:58; Start 03/13/17 at 21:00; Stop 03/14/17 at 06:33; Status DC Trazodone HCl (Desyrel) 50 mg PRN QHS PRN PO INSOMNIA Last administered on 03/13 23:30; Start 03/13/17 at 20:00; Stop 03/14/17 at 06:33; Status DC Hydroxyzine Pamoate (Vistaril) 25 mg PRN Q2HR PRN PO agitation Last administered on 03/14/17 00:00; Start 03/13/17 at 20:15 Melatonin 6 mg QHS PO Last administered on 03/23/17 20:19; Start 03/14/17 at 21:00 Mirtazapine (Remeron) 7.5 mg QHS PO Last administered on 03/23/17 20:19; Start 03/14/17 at 21:00 Divalproex Sodium (Depakote Sprinkles) 125 mg BID92 PO Last administered on 14:05; Start 03/19/17 at 09:00 Sennosides (Senna) 8.6 mg BID PO Last administered on 03/23/17 20:20; Start at 21:00 Docusate Calcium (Surfak) 240 mg DAILY PO Last administered on 03/23/17 08:10 ; Start 03/19/17 at 11:00 Active Scripts Active Reported Zoloft (Sertraline Hcl) 50 Mg Tablet 1 Tab PO DAILY Zyprexa Zydis (Olanzapine) 5 Mg Tab.rapdis 2.5 Mg PO PRN Q2HR PRN Remeron (Mirtazapine) 15 Mg Tablet 0.5 Tab PO QHS Melatonin 3 Mg Tablet 2 Tab PO QHS Vistaril (Hydroxyzine Pamoate) 25 Mg Capsule 1 Cap PO PRN Q2HR PRN Depakote Sprinkle (Divalproex Sodium) 125 Mg Cap.sprink 125 Mg PO BID92 Senna (Sennosides) 8.6 Mg Tablet 8.6 Mg PO BID Miralax (Polyethylene Glycol 3350) 17 Gm Powd.pack 1 Packet PO DAILY Analgesic [place] (Methyl Salicylate/Menthol) 29 Gm Oint...g. 1 Prisca TP QIDPRN PRN Milk Of Magnesia (Magnesium Hydroxide) 2,400 Mg/10 Ml Oral.susp 2,400 Mg PO HS PRN Mag-Al Plus Xs Suspension (Mag Hydrox/Al Hydrox/Simeth) 30 Ml Oral.susp 15 Ml PO QIDPRN PRN Novolog Flexpen (Insulin Aspart) 100 Unit/1 Ml Insuln.pen 0-9 Unit SQ TIDWMEALS Amaryl (Glimepiride) 1 Mg Tablet 1 Mg PO HS Amaryl (Glimepiride) 4 Mg Tablet 1 Tab PO DAILY Surfak (Docusate Calcium) 240 Mg Capsule 240 Mg PO DAILY Vitamin D3 (Cholecalciferol (Vitamin D3)) 1,000 Unit Tablet 2 Tab PO DAILY Tylenol (Acetaminophen) 325 Mg Tablet 2 Tab PO PRN Q6HRS PRN Trazodone Hcl 50 Mg Tablet 25 Mg PO QHS Crestor (Rosuvastatin Calcium) 20 Mg Tablet 1 Tab PO HS Nitrostat (Nitroglycerin) 0.4 Mg Tab.subl 1 Tab SL UD PRN Metoprolol Tartrate 25 Mg Tablet 37.5 Mg PO BID Metformin Hcl 500 Mg Tablet 1,000 Mg PO BIDWMEALS Zetia (Ezetimibe) 10 Mg Tablet 1 Tab PO DAILY Aspirin 81 Mg Tab.chew 81 Mg PO DAILY Diagnosis: Problems: (1) Anxiety disorder (2) Impulse control disorder (3) Dementia in Alzheimer's disease with delusions (4) Dementia in Alzheimer's disease with depression (5) Dementia, vascular, with depression GHULAM LEMON MD Mar 23, 2017 23:46
[2017-03-23] MEDS ORDERED: ATORVASTATIN CA80 MG PO (23:53)
[2017-03-24 06:18] VITALS: BP 125/85
[2017-03-24] MEDS: INSULIN ASPART 300 UNITS/3 ML INSULN.PEN SQ SCH ×4 (08:00→20:12)
[2017-03-24] MEDS: DOCUSATE CALCIUM 240 MG CAPSULE PO SCH (09:59)
[2017-03-24] MEDS: ASPIRIN 81 MG TAB.CHEW PO SCH (09:59)
[2017-03-24] MEDS: DIVALPROEX 125 MG CAP.SPRINK PO SCH ×3 (09:59→20:11)
[2017-03-24] MEDS: GLIMEPIRIDE 4 MG TABLET PO SCH (09:59)
[2017-03-24] MEDS: METOPROLOL TART IMMED RELEASE 25 MG TABLET PO SCH ×2 (10:00→20:09)
[2017-03-24] MEDS: SERTRALINE 50 MG TABLET. PO SCH (10:00)
[2017-03-24] MEDS: EZETIMIBE 10 MG TABLET PO SCH (10:01)
[2017-03-24] MEDS: POLYETHYLENE GLYCOL 3350 17 GM PACKET. PO SCH (10:01)
[2017-03-24] MEDS: SENNOSIDES 8.6 MG TABLET PO SCH ×2 (10:01→20:10)
[2017-03-24] MEDS: CHOLECALCIFEROL (VITAMIN D3) 1,000 UNIT TABLET PO SCH (10:01)
[2017-03-24] MEDS: METFORMIN 500 MG TABLET. PO SCH ×3 (10:01→17:45)
[2017-03-24 16:21] VITALS: BP 119/69
[2017-03-24] MEDS: MELATONIN 3 MG TABLET PO SCH (20:09)
[2017-03-24] MEDS: GLIMEPIRIDE 1 MG TABLET PO SCH (20:10)
[2017-03-24] MEDS: ATORVASTATIN CALCIUM 20 MG TABLET PO SCH (20:10)
[2017-03-24] MEDS: MIRTAZAPINE 15 MG TABLET PO SCH (20:11)
--- NOTE | 2017-03-24 21:44 | PDOC ---
Exam Geraldo Demential Exam: Geraldo Note: Please also refer to the separate dictated note~for this date of service dictated separately.~Patient seen individually. Discussed the patient with Nursing staff reviewed the chart.~Reviewed interim history and current functioning. Reviewed vital signs,~Labs/ Radiology~and current medications noted below. Continue current treatment with the changes noted in the dictated addendum note Assessment: Vital Signs: Vital Signs Date Time Temp Pulse Resp B/P Pulse Ox O2 Delivery O2 Flow Rate FiO2 03/24/17 20:09 71 119/69 03/24/17 16:21 97.4 20 98 03/21/17 06:30 Room Air I&O Intake and Output 03/24/17 07:00 Intake Total 720 ml Balance 720 ml Intake Oral 720 ml Labs: Laboratory Tests Test 03/24/17 07:13 03/24/17 11:05 03/24/17 16:43 03/24/17 19:05 Glucose (Fingerstick) 95mg/dL (70-99) 225mg/dL (70-99) H 112mg/dL (70-99) H 105mg/dL (70-99) H Current Medications: Meds: Current Medications Vitamin D (Vitamin D3) 2,000 unit DAILY PO Last administered on 03/24/17 10:01 ; Start 03/13/17 at 09:00 Acetaminophen (Tylenol) 650 mg PRN Q6HRS PRN PO PAIN / TEMP Last administered on 03/15/17 20:54; Start 03/12/17 at 11:15 Multi-Ingredient Ointment (Analgesic [place]) 1 prisca PRN QID PRN TP MUSCLE PAIN; Start 03/12/17 at 11:15 Al Hydroxide/Mg Hydroxide (Mylanta Plus Xs) 15 ml PRN AFTMEALHC PRN PO DYSPEPSIA; Start 03/12/17 at 11:15 Magnesium Hydroxide (Milk Of Magnesia) 2,400 mg PRN QHS PRN PO CONSTIPATION; Start 03/12/17 at 11:15 Aspirin (Children'S Aspirin) 81 mg DAILY PO Last administered on 03/24/17 09: 59; Start 03/13/17 at 09:00 EZETIMIBE (Zetia) 10 mg DAILY PO Last administered on 03/24/17 10:01; Start at 09:00 Metformin HCl (Glucophage) 1,000 mg BIDWMEALS PO Last administered on 10:01; Start 03/12/17 at 17:00 Metoprolol Tartrate (Lopressor) 37.5 mg BID PO Last administered on 03/24/17 20:09; Start 03/12/17 at 21:00 Nitroglycerin (Nitrostat) 0.4 mg PRN Q5MIN PRN SL CHEST PAIN; Start 03/12/17 at 11:45 Trazodone HCl (Desyrel) 25 mg QHS PO Last administered on 03/12/17 19:49; Start 03/12/17 at 21:00; Stop 03/13/17 at 19:57; Status DC Atorvastatin Calcium (Lipitor) 80 mg QHS PO Last administered on 03/24/17 20: 10; Start 03/12/17 at 21:00 Insulin Aspart (Novolog) 10 units 1X ONCE SQ Last administered on 03/12/17 12 :00; Start 03/12/17 at 12:00; Stop 03/12/17 at 12:02; Status DC Insulin Aspart (Novolog) 0-9 UNITS TIDWMEALHC SQ Last administered on 12:53; Start 03/12/17 at 12:00 Dextrose 12.5 gm PRN Q15MIN PRN IV SEE COMMENTS; Start 03/12/17 at 12:00 Olanzapine (Zyprexa Zydis) 2.5 mg PRN Q2HR PRN PO PSYCHOSIS Last administered on 03/18/17 18:48; Start 03/12/17 at 16:30 Polyethylene Glycol (miraLAX) 17 gm DAILY PO Last administered on 03/24/17 10: 01; Start 03/13/17 at 09:00 Glimepiride (Amaryl) 4 mg DAILY PO Last administered on 03/24/17 09:59; Start 03/13/17 at 09:00 Glimepiride (Amaryl) 1 mg QHS PO Last administered on 03/24/17 20:10; Start at 21:00 Sertraline HCl (Zoloft) 50 mg DAILY PO Last administered on 03/24/17 10:00; Start 03/14/17 at 09:00 Trazodone HCl (Desyrel) 50 mg QHS PO Last administered on 03/13/17 19:58; Start 03/13/17 at 21:00; Stop 03/14/17 at 06:33; Status DC Trazodone HCl (Desyrel) 50 mg PRN QHS PRN PO INSOMNIA Last administered on 03/13 23:30; Start 03/13/17 at 20:00; Stop 03/14/17 at 06:33; Status DC Hydroxyzine Pamoate (Vistaril) 25 mg PRN Q2HR PRN PO agitation Last administered on 03/14/17 00:00; Start 03/13/17 at 20:15 Melatonin 6 mg QHS PO Last administered on 03/24/17 20:09; Start 03/14/17 at 21:00 Mirtazapine (Remeron) 7.5 mg QHS PO Last administered on 03/23/17 20:19; Start 03/14/17 at 21:00; Stop 03/24/17 at 18:32; Status DC Divalproex Sodium (Depakote Sprinkles) 125 mg BID92 PO Last administered on 13:22; Start 03/19/17 at 09:00; Stop 03/24/17 at 18:34; Status DC Sennosides (Senna) 8.6 mg BID PO Last administered on 03/24/17 20:10; Start at 21:00 Docusate Calcium (Surfak) 240 mg DAILY PO Last administered on 03/24/17 09:59 ; Start 03/19/17 at 11:00 Mirtazapine (Remeron) 15 mg QHS PO Last administered on 03/24/17 20:11; Start 03/24/17 at 21:00 Divalproex Sodium (Depakote Sprinkles) 125 mg TID PO Last administered on 20:11; Start 03/24/17 at 21:00 Active Scripts Active Reported Atorvastatin Calcium 80 Mg Tablet 1 Tab PO HS Zoloft (Sertraline Hcl) 50 Mg Tablet 1 Tab PO DAILY Zyprexa Zydis (Olanzapine) 5 Mg Tab.rapdis 2.5 Mg PO PRN Q2HR PRN Remeron (Mirtazapine) 15 Mg Tablet 0.5 Tab PO QHS Melatonin 3 Mg Tablet 2 Tab PO QHS Vistaril (Hydroxyzine Pamoate) 25 Mg Capsule 1 Cap PO PRN Q2HR PRN Depakote Sprinkle (Divalproex Sodium) 125 Mg Cap.sprink 125 Mg PO BID92 Senna (Sennosides) 8.6 Mg Tablet 8.6 Mg PO BID Miralax (Polyethylene Glycol 3350) 17 Gm Powd.pack 1 Packet PO DAILY Analgesic [place] (Methyl Salicylate/Menthol) 29 Gm Oint...g. 1 Prisca TP QIDPRN PRN Milk Of Magnesia (Magnesium Hydroxide) 2,400 Mg/10 Ml Oral.susp 2,400 Mg PO HS PRN Mag-Al Plus Xs Suspension (Mag Hydrox/Al Hydrox/Simeth) 30 Ml Oral.susp 15 Ml PO QIDPRN PRN Novolog Flexpen (Insulin Aspart) 100 Unit/1 Ml Insuln.pen 0-9 Unit SQ TIDWMEALS Amaryl (Glimepiride) 1 Mg Tablet 1 Mg PO HS Amaryl (Glimepiride) 4 Mg Tablet 1 Tab PO DAILY Surfak (Docusate Calcium) 240 Mg Capsule 240 Mg PO DAILY Vitamin D3 (Cholecalciferol (Vitamin D3)) 1,000 Unit Tablet 2 Tab PO DAILY Tylenol (Acetaminophen) 325 Mg Tablet 2 Tab PO PRN Q6HRS PRN Trazodone Hcl 50 Mg Tablet 25 Mg PO QHS Crestor (Rosuvastatin Calcium) 20 Mg Tablet 1 Tab PO HS Nitrostat (Nitroglycerin) 0.4 Mg Tab.subl 1 Tab SL UD PRN Metoprolol Tartrate 25 Mg Tablet 37.5 Mg PO BID Metformin Hcl 500 Mg Tablet 1,000 Mg PO BIDWMEALS Zetia (Ezetimibe) 10 Mg Tablet 1 Tab PO DAILY Aspirin 81 Mg Tab.chew 81 Mg PO DAILY Diagnosis: Problems: (1) Anxiety disorder (2) Impulse control disorder (3) Dementia in Alzheimer's disease with delusions (4) Dementia in Alzheimer's disease with depression (5) Dementia, vascular, with depression (6) Diabetes mellitus GHULAM LEMON MD Mar 24, 2017 21:44
--- NOTE | 2017-03-25 03:01 | PN ---
DATE: 03/23/2017 PSYCHIATRIC PROGRESS NOTE This is a late entry for 03/23/2017, covers elements not covered in my initial note. SUBJECTIVE: The patient remains confused, had a good night and reasonably redirectable during the day. He gets a little anxious, restless at times. REVIEW OF SYSTEMS: No CV, , pulmonary, eye, ENT system symptoms on review. Reliability poor. MENTAL STATUS EXAM: Oriented to himself. Insight, judgment, recent and remote memory, attention, concentration, fund of knowledge poor, consistent with his diagnosis mentioned in my initial note. IMPRESSION: Major neurocognitive disorder, Alzheimer, vascular with delusion, depression, behavioral disturbance. Rest unchanged. PLAN: Continue current psychotropics, Remeron 7.5 mg at bedtime, Zyprexa p.r.n., Vistaril p.r.n., Zoloft 50 mg a day, Depakote 125 mg twice a day, level is low at 17. We may need to adjust this depending on his progress. GHULAM LEMON MD DR: ARMEN/germaine JOB#: [id number] / [id number]
[2017-03-25 06:32] VITALS: BP 109/63
[2017-03-25] MEDS: INSULIN ASPART 300 UNITS/3 ML INSULN.PEN SQ SCH ×4 (08:00→21:00)
[2017-03-25] MEDS: POLYETHYLENE GLYCOL 3350 17 GM PACKET. PO SCH (08:20)
[2017-03-25] MEDS: GLIMEPIRIDE 4 MG TABLET PO SCH (08:21)
[2017-03-25] MEDS: SERTRALINE 50 MG TABLET. PO SCH (08:21)
[2017-03-25] MEDS: DOCUSATE CALCIUM 240 MG CAPSULE PO SCH (08:21)
[2017-03-25] MEDS: ASPIRIN 81 MG TAB.CHEW PO SCH (08:21)
[2017-03-25] MEDS: METFORMIN 500 MG TABLET. PO SCH ×2 (08:22→17:39)
[2017-03-25] MEDS: CHOLECALCIFEROL (VITAMIN D3) 1,000 UNIT TABLET PO SCH (08:22)
[2017-03-25] MEDS: DIVALPROEX 125 MG CAP.SPRINK PO SCH ×3 (08:23→21:03)
[2017-03-25] MEDS: EZETIMIBE 10 MG TABLET PO SCH (08:23)
[2017-03-25] MEDS: SENNOSIDES 8.6 MG TABLET PO SCH ×2 (08:23→21:03)
[2017-03-25] MEDS: METOPROLOL TART IMMED RELEASE 25 MG TABLET PO SCH ×2 (08:49→21:02)
[2017-03-25 15:55] VITALS: BP 119/69
[2017-03-25] MEDS: MIRTAZAPINE 15 MG TABLET PO SCH (21:03)
[2017-03-25] MEDS: GLIMEPIRIDE 1 MG TABLET PO SCH (21:03)
[2017-03-25] MEDS: ATORVASTATIN CALCIUM 20 MG TABLET PO SCH (21:03)
[2017-03-25] MEDS: MELATONIN 3 MG TABLET PO SCH (21:03)
--- NOTE | 2017-03-25 21:10 | PDOC ---
Exam Geraldo Demential Exam: Geraldo Note: Please also refer to the separate dictated note~for this date of service dictated separately.~Patient seen individually. Discussed the patient with Nursing staff reviewed the chart.~Reviewed interim history and current functioning. Reviewed vital signs,~Labs/ Radiology~and current medications noted below. Continue current treatment with the changes noted in the dictated addendum note Assessment: Vital Signs: Vital Signs Date Time Temp Pulse Resp B/P Pulse Ox O2 Delivery O2 Flow Rate FiO2 03/25/17 21:02 78 119/69 03/25/17 15:55 97.1 20 97 03/21/17 06:30 Room Air I&O Intake and Output 03/25/17 07:00 Intake Total 1200 ml Balance 1200 ml Intake Oral 1200 ml # Bowel Movements 1 Labs: Laboratory Tests Test 03/25/17 07:58 03/25/17 12:22 03/25/17 16:45 03/25/17 19:12 Glucose (Fingerstick) 88mg/dL (70-99) 110mg/dL (70-99) H 81mg/dL (70-99) 126mg/dL (70-99) H Current Medications: Meds: Current Medications Vitamin D (Vitamin D3) 2,000 unit DAILY PO Last administered on 03/25/17 08:22 ; Start 03/13/17 at 09:00 Acetaminophen (Tylenol) 650 mg PRN Q6HRS PRN PO PAIN / TEMP Last administered on 03/15/17 20:54; Start 03/12/17 at 11:15 Multi-Ingredient Ointment (Analgesic Hope) 1 prisca PRN QID PRN TP MUSCLE PAIN; Start 03/12/17 at 11:15 Al Hydroxide/Mg Hydroxide (Mylanta Plus Xs) 15 ml PRN AFTMEALHC PRN PO DYSPEPSIA; Start 03/12/17 at 11:15 Magnesium Hydroxide (Milk Of Magnesia) 2,400 mg PRN QHS PRN PO CONSTIPATION; Start 03/12/17 at 11:15 Aspirin (Children'S Aspirin) 81 mg DAILY PO Last administered on 03/25/17 08: 21; Start 03/13/17 at 09:00 EZETIMIBE (Zetia) 10 mg DAILY PO Last administered on 03/25/17 08:23; Start at 09:00 Metformin HCl (Glucophage) 1,000 mg BIDWMEALS PO Last administered on 17:39; Start 03/12/17 at 17:00 Metoprolol Tartrate (Lopressor) 37.5 mg BID PO Last administered on 03/25/17 21:02; Start 03/12/17 at 21:00 Nitroglycerin (Nitrostat) 0.4 mg PRN Q5MIN PRN SL CHEST PAIN; Start 03/12/17 at 11:45 Trazodone HCl (Desyrel) 25 mg QHS PO Last administered on 03/12/17 19:49; Start 03/12/17 at 21:00; Stop 03/13/17 at 19:57; Status DC Atorvastatin Calcium (Lipitor) 80 mg QHS PO Last administered on 03/25/17 21: 03; Start 03/12/17 at 21:00 Insulin Aspart (Novolog) 10 units 1X ONCE SQ Last administered on 03/12/17 12 :00; Start 03/12/17 at 12:00; Stop 03/12/17 at 12:02; Status DC Insulin Aspart (Novolog) 0-9 UNITS TIDWMEALHC SQ Last administered on 12:53; Start 03/12/17 at 12:00 Dextrose 12.5 gm PRN Q15MIN PRN IV SEE COMMENTS; Start 03/12/17 at 12:00 Olanzapine (Zyprexa Zydis) 2.5 mg PRN Q2HR PRN PO PSYCHOSIS Last administered on 03/18/17 18:48; Start 03/12/17 at 16:30 Polyethylene Glycol (miraLAX) 17 gm DAILY PO Last administered on 03/25/17 08: 20; Start 03/13/17 at 09:00 Glimepiride (Amaryl) 4 mg DAILY PO Last administered on 03/25/17 08:21; Start 03/13/17 at 09:00 Glimepiride (Amaryl) 1 mg QHS PO Last administered on 03/25/17 21:03; Start at 21:00 Sertraline HCl (Zoloft) 50 mg DAILY PO Last administered on 03/25/17 08:21; Start 03/14/17 at 09:00 Trazodone HCl (Desyrel) 50 mg QHS PO Last administered on 03/13/17 19:58; Start 03/13/17 at 21:00; Stop 03/14/17 at 06:33; Status DC Trazodone HCl (Desyrel) 50 mg PRN QHS PRN PO INSOMNIA Last administered on 03/13 23:30; Start 03/13/17 at 20:00; Stop 03/14/17 at 06:33; Status DC Hydroxyzine Pamoate (Vistaril) 25 mg PRN Q2HR PRN PO agitation Last administered on 03/14/17 00:00; Start 03/13/17 at 20:15 Melatonin 6 mg QHS PO Last administered on 03/25/17 21:03; Start 03/14/17 at 21:00 Mirtazapine (Remeron) 7.5 mg QHS PO Last administered on 03/23/17 20:19; Start 03/14/17 at 21:00; Stop 03/24/17 at 18:32; Status DC Divalproex Sodium (Depakote Sprinkles) 125 mg BID92 PO Last administered on 13:22; Start 03/19/17 at 09:00; Stop 03/24/17 at 18:34; Status DC Sennosides (Senna) 8.6 mg BID PO Last administered on 03/25/17 21:03; Start at 21:00 Docusate Calcium (Surfak) 240 mg DAILY PO Last administered on 03/25/17 08:21 ; Start 03/19/17 at 11:00 Mirtazapine (Remeron) 15 mg QHS PO Last administered on 03/25/17 21:03; Start 03/24/17 at 21:00 Divalproex Sodium (Depakote Sprinkles) 125 mg TID PO Last administered on 21:03; Start 03/24/17 at 21:00 Active Scripts Active Reported Atorvastatin Calcium 80 Mg Tablet 1 Tab PO HS Zoloft (Sertraline Hcl) 50 Mg Tablet 1 Tab PO DAILY Zyprexa Zydis (Olanzapine) 5 Mg Tab.rapdis 2.5 Mg PO PRN Q2HR PRN Remeron (Mirtazapine) 15 Mg Tablet 0.5 Tab PO QHS Melatonin 3 Mg Tablet 2 Tab PO QHS Vistaril (Hydroxyzine Pamoate) 25 Mg Capsule 1 Cap PO PRN Q2HR PRN Depakote Sprinkle (Divalproex Sodium) 125 Mg Cap.sprink 125 Mg PO BID92 Senna (Sennosides) 8.6 Mg Tablet 8.6 Mg PO BID Miralax (Polyethylene Glycol 3350) 17 Gm Powd.pack 1 Packet PO DAILY Analgesic Hope (Methyl Salicylate/Menthol) 29 Gm Oint...g. 1 Prisca TP QIDPRN PRN Milk Of Magnesia (Magnesium Hydroxide) 2,400 Mg/10 Ml Oral.susp 2,400 Mg PO HS PRN Mag-Al Plus Xs Suspension (Mag Hydrox/Al Hydrox/Simeth) 30 Ml Oral.susp 15 Ml PO QIDPRN PRN Novolog Flexpen (Insulin Aspart) 100 Unit/1 Ml Insuln.pen 0-9 Unit SQ TIDWMEALS Amaryl (Glimepiride) 1 Mg Tablet 1 Mg PO HS Amaryl (Glimepiride) 4 Mg Tablet 1 Tab PO DAILY Surfak (Docusate Calcium) 240 Mg Capsule 240 Mg PO DAILY Vitamin D3 (Cholecalciferol (Vitamin D3)) 1,000 Unit Tablet 2 Tab PO DAILY Tylenol (Acetaminophen) 325 Mg Tablet 2 Tab PO PRN Q6HRS PRN Trazodone Hcl 50 Mg Tablet 25 Mg PO QHS Crestor (Rosuvastatin Calcium) 20 Mg Tablet 1 Tab PO HS Nitrostat (Nitroglycerin) 0.4 Mg Tab.subl 1 Tab SL UD PRN Metoprolol Tartrate 25 Mg Tablet 37.5 Mg PO BID Metformin Hcl 500 Mg Tablet 1,000 Mg PO BIDWMEALS Zetia (Ezetimibe) 10 Mg Tablet 1 Tab PO DAILY Aspirin 81 Mg Tab.chew 81 Mg PO DAILY Diagnosis: Problems: (1) Anxiety disorder (2) Impulse control disorder (3) Dementia in Alzheimer's disease with delusions (4) Dementia in Alzheimer's disease with depression (5) Dementia, vascular, with depression (6) Diabetes mellitus GHULAM LEMON MD Mar 25, 2017 21:10
[2017-03-26 06:47] VITALS: BP 135/85
[2017-03-26] MEDS: INSULIN ASPART 300 UNITS/3 ML INSULN.PEN SQ SCH (08:00)
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
[2017-03-26] MEDS: SERTRALINE 50 MG TABLET. PO SCH (08:50)
[2017-03-26] MEDS: POLYETHYLENE GLYCOL 3350 17 GM PACKET. PO SCH (08:50)
[2017-03-26] MEDS: ASPIRIN 81 MG TAB.CHEW PO SCH (08:50)
[2017-03-26] MEDS: DOCUSATE CALCIUM 240 MG CAPSULE PO SCH (08:50)
[2017-03-26] MEDS: CHOLECALCIFEROL (VITAMIN D3) 1,000 UNIT TABLET PO SCH (08:50)
[2017-03-26] MEDS: GLIMEPIRIDE 4 MG TABLET PO SCH (08:50)
[2017-03-26] MEDS: EZETIMIBE 10 MG TABLET PO SCH (08:50)
[2017-03-26] MEDS: DIVALPROEX 125 MG CAP.SPRINK PO SCH (08:50)
[2017-03-26] MEDS: SENNOSIDES 8.6 MG TABLET PO SCH (08:50)
[2017-03-26] MEDS: METFORMIN 500 MG TABLET. PO SCH (08:51)
[2017-03-26 08:52] VITALS: BP 135/85
[2017-03-26] MEDS: METOPROLOL TART IMMED RELEASE 25 MG TABLET PO SCH (08:52)
--- NOTE | 2017-03-27 19:25 | DS ---
DATE OF DISCHARGE: 03/26/2017 DISCHARGE SUMMARY/PSYCHIATRIC PROGRESS NOTE This is late entry of 03/26/2017. REASON FOR ADMISSION: Please refer to the admission history for details. Briefly, the patient is a 77-year-old male referred to us since he was unmanageable being taken care of at home by his due to his progressive dementia. He was wandering outside at night, verbally aggressive with the spouse, noncompliant with medications, paranoid, delusional, agitated. Behaviors were deemed to be dangerous. Having failed outpatient psychiatric interventions, he was referred for inpatient psychiatric stabilization. SIGNIFICANT FINDINGS AND CLINICAL COURSE: Following admission, the patient was seen daily individually by myself, followed medically per Dr. Benjamin/Dr. Jaimes. He was somewhat paranoid, agitated and aggressive initially. Adjustments were made in his psychotropics and he seemed to respond to a combination of Remeron 7.5 mg at bedtime, Zyprexa p.r.n., Vistaril p.r.n., Zoloft 50 mg a day and Depakote 125 mg twice a day. Valproic acid level was subtherapeutic at 17, but clinically adequate as his behaviors and impulse control improved even though the dementia, memory deficits persisted. Prior to discharge on 03/26/2017, temperature 98.2, pulse 74, respirations 18 and BP 117/74. REVIEW OF SYSTEMS: No eye, ENT, CV, , pulmonary system symptoms on review. Reliability poor. MENTAL STATUS EXAMINATION: Oriented to himself. Insight, judgment, recent and remote memory, attention, concentration, fund of knowledge poor, consistent with his diagnosis. No suicidal or homicidal ideation at discharge and he was much less paranoid and psychotic. FINAL DIAGNOSES: Major neurocognitive disorder, Alzheimer, vascular with depression, delusion, behavioral disturbance; anxiety disorder, unspecified; impulse control disorder, unspecified. Rest diagnoses unchanged from admission. DISCHARGE MEDICATIONS: Please refer to the MRAD. DISCHARGE INSTRUCTIONS: Outpatient psychiatric and medical followup at the [facility]. Time for discharge day management greater than 30 minutes. MAN Telma LEMON MD DR: ARMEN/germaine JOB#: [id number] / [id number]
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
== END 2017-03-26 11:08 | DRG 884 ==
LOC: GEROPSY 09:59
PROVIDERS: ADMIT Psychiatry & Neurology Psychiatry; ATTEND Psychiatry & Neurology Psychiatry
DX: F01.51 Vascular dementia, unspecified severity, with behavioral disturbance (principal); F02.81 Dementia in other diseases classified elsewhere, unspecified severity, with behavioral disturbance; E87.1 Hypo-osmolality and hyponatremia; I50.32 Chronic diastolic (congestive) heart failure; G30.9 Alzheimer's disease, unspecified; E11.22 Type 2 diabetes mellitus with diabetic chronic kidney disease; E11.65 Type 2 diabetes mellitus with hyperglycemia; E78.5 Hyperlipidemia, unspecified; F22 Delusional disorders; F32.9 Major depressive disorder, single episode, unspecified; F41.9 Anxiety disorder, unspecified; F63.9 Impulse disorder, unspecified; I25.10 Atherosclerotic heart disease of native coronary artery without angina pectoris; I25.5 Ischemic cardiomyopathy; N18.9 Chronic kidney disease, unspecified; N40.0 Benign prostatic hyperplasia without lower urinary tract symptoms; Z79.4 Long term (current) use of insulin; Z85.46 Personal history of malignant neoplasm of prostate; Z91.14 Patient's other noncompliance with medication regimen; Z95.1 Presence of aortocoronary bypass graft; Z88.5 Allergy status to narcotic agent; Z88.8 Allergy status to other drugs, medicaments and biological substances; Z91.013 Allergy to seafood
CPT/HCPCS: 36415; 76770; 80053; 80061; 80164; 81001; 82306; 82607; 82947; 83036; 83540; 83550; 83735; 84436; 84443; 84480; 85027; 86592; 86593; 87086; 93005; J1815; Q0177

== ENCOUNTER 2017-05-07 10:47 | Inpatient (IN) | payer MEDICARE, OTHER ==
[~2017-05-07] VITALS: Ht 182.9 cm; Wt 79.0 kg
[~2017-05-07 10:47] MED LIST: ACET325T9 PO; ASPI-630 PO; ATORVASTATIN CA80 MG PO; CHOL10003 PO; CRESTOR20 MG PO; DIVA125C PO; DOCU240C30 PO; EZET10TA18 PO; GLIM1TAB PO; GLIM4TAB PO; HYDR25CA PO; INSU100I17 SQ; MAG30ORA2 PO; MAGN2400 PO; MELA3TAB2 PO; METF500T4 PO; METH29OI TP; METO25TA4 PO; MIRT15TA PO; NITR0.4T SL; OLAN5TAB5 PO; POLY17PO5 PO; SENN-79 PO; SERT50TA PO; TRAZ50TA15 PO
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
[2017-05-07] MEDS ORDERED: DOCU100C28 PO (15:56)
[2017-05-07] MEDS ORDERED: TAMS0.4C97 PO (15:58)
[2017-05-07] MEDS ORDERED: NITROGLYCERIN SUBLINGUAL 0.4 MG BOTTLE OF 25. SL PRN (16:00)
[2017-05-07] MEDS ORDERED: CRESTOR20 MG PO (16:08)
[2017-05-07] MEDS ORDERED: TRAM50TA PO (16:08)
[2017-05-07] MEDS ORDERED: INSU100I13 SQ (16:08)
[2017-05-07 16:13] VITALS: BP 134/81
[2017-05-07] MEDS ORDERED: METHYL SALICYLATE/MENTHOL TOPICAL OINTMENT 29GM TUBE. TP PRN (16:15)
[2017-05-07] MEDS ORDERED: MAG HYDROX/AL HYDROX/SIMETH 30 ML ORAL.SUSP PO PRN (16:15)
[2017-05-07] MEDS ORDERED: MAGNESIUM HYDROXIDE 2,400 MG/30 ML ORAL.SUSP. PO PRN (16:30)
[2017-05-07] MEDS: metFORMIN 500 MG TABLET PO SCH (17:00)
[2017-05-07] MEDS: DIVALPROEX 125 MG CAP.SPRINK PO SCH (18:15)
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
[2017-05-07] MEDS ORDERED: INSULIN DETEMIR 300 UNITS/3 ML INSULN.PEN. SQ SCH (21:00)
--- NOTE | 2017-05-07 21:12 | PDOC ---
Exam Geraldo Demential Exam: Geraldo Note: Please also refer to the separate dictated note~for this date of service dictated separately.~Patient seen individually. Discussed the patient with Nursing staff reviewed the chart.~Reviewed interim history and current functioning. Reviewed vital signs,~Labs/ Radiology~and current medications noted below. Continue current treatment with the changes noted in the dictated addendum note Assessment: Vital Signs: Vital Signs Date Time Temp Pulse Resp B/P (MAP) Pulse Ox O2 Delivery O2 Flow Rate FiO2 05/07/17 16:13 97.2 81 18 134/81 (98) 97 Labs: Laboratory Tests Test 05/07/17 16:19 05/07/17 19:19 Glucose (Fingerstick) 151 mg/dL (70-99) H 344 mg/dL (70-99) H Current Medications: Meds: Current Medications Docusate Sodium (Colace) 100 mg DAILY PO ; Start 05/08/17 at 09:00 Aspirin (Children'S Aspirin) 81 mg DAILY PO ; Start 05/08/17 at 09:00 Vitamin D (Vitamin D3) 2,000 unit DAILY PO ; Start 05/08/17 at 09:00 Metformin HCl (Glucophage) 1,000 mg BIDWMEALS PO Last administered on 05/07/17t 17:00; Start 05/07/17 at 17:00 Metoprolol Tartrate (Lopressor) 37.5 mg BID PO ; Start 05/07/17 at 21:00 Nitroglycerin (Nitrostat) 0.4 mg PRN Q15MIN PRN SL CHEST PAIN; Start 05/07/17 at 16:00 Polyethylene Glycol (miraLAX) 17 gm DAILY PO ; Start 05/08/17 at 09:00 Tamsulosin HCl (Flomax) 0.4 mg HS PO ; Start 05/07/17 at 21:00 Acetaminophen (Tylenol) 650 mg PRN Q6HRS PRN PO PAIN / TEMP; Start 05/07/17 at 16:15 Al Hydroxide/Mg Hydroxide (Mylanta Plus Xs) 15 ml QIDPRN PRN PO HEARTBURN / GAS ; Start 05/07/17 at 16:15 Multi-Ingredient Ointment (Analgesic Spencer) 1 prisca QIDPRN PRN TP MUSCLE PAIN; Start 05/07/17 at 16:15 Tramadol HCl (Ultram) 50 mg PRN Q8HRS PRN PO PAIN; Start 05/07/17 at 16:15 Insulin Detemir (Levemir) 8 units QHS SQ ; Start 05/07/17 at 21:00 Magnesium Hydroxide (Milk Of Magnesia) 2,400 mg PRN QHS PRN PO CONSTIPATION; Start 05/07/17 at 16:30 Atorvastatin Calcium (Lipitor) 80 mg QHS PO ; Start 05/07/17 at 21:00 Divalproex Sodium (Depakote Sprinkles) 125 mg BID76 PO Last administered on 05/07t 18:15; Start 05/07/17 at 18:15 Active Scripts Active Reported Lantus Solostar (Insulin Glargine,Hum.rec.anlog) 100 Unit/1 Ml Insuln.pen 8 Unit SQ QHS Tramadol Hcl (Tramadol HCl) 50 Mg Tablet 50 Mg PO PRN Q8HRS PRN Crestor (Rosuvastatin Calcium) 20 Mg Tablet 1 Tab PO HS Flomax (Tamsulosin Hcl) 0.4 Mg Cap.er.24h 1 Cap PO HS Docusate Sodium 100 Mg Capsule 1 Cap PO DAILY Atorvastatin Calcium 80 Mg Tablet 80 Mg PO HS hIGH CHOLESTEROL Zoloft (Sertraline Hcl) 50 Mg Tablet 50 Mg PO DAILY Zyprexa Zydis (Olanzapine) 5 Mg Tab.rapdis 2.5 Mg PO PRN Q2HR PRN Remeron (Mirtazapine) 15 Mg Tablet 15 Mg PO QHS Melatonin 3 Mg Tablet 6 Mg PO QHS Vistaril (Hydroxyzine Pamoate) 25 Mg Capsule 25 Mg PO PRN Q2HR PRN Depakote Sprinkle (Divalproex Sodium) 125 Mg Cap.sprink 125 Mg PO TID Senna (Sennosides) 8.6 Mg Tablet 8.6 Mg PO BID Miralax (Polyethylene Glycol 3350) 17 Gm Powd.pack 1 Packet PO BID Analgesic Spencer (Methyl Salicylate/Menthol) 29 Gm Oint...g. 1 Prisca TP QIDPRN PRN Milk Of Magnesia (Magnesium Hydroxide) 2,400 Mg/10 Ml Oral.susp 2,400 Mg PO HS PRN Mag-Al Plus Xs Suspension (Mag Hydrox/Al Hydrox/Simeth) 30 Ml Oral.susp 15 Ml PO QIDPRN PRN Novolog Flexpen (Insulin Aspart) 100 Unit/1 Ml Insuln.pen 0-9 Unit SQ TIDWMEALS Amaryl (Glimepiride) 1 Mg Tablet 1 Mg PO HS Amaryl (Glimepiride) 4 Mg Tablet 4 Mg PO DAILY Vitamin D3 (Cholecalciferol (Vitamin D3)) 1,000 Unit Tablet 2,000 Unit PO DAILY Tylenol (Acetaminophen) 325 Mg Tablet 650 Mg PO PRN Q6HRS PRN Nitrostat (Nitroglycerin) 0.4 Mg Tab.subl 0.4 Mg SL PRN PRN Metoprolol Tartrate 25 Mg Tablet 37.5 Mg PO BID Metformin Hcl 500 Mg Tablet 1,000 Mg PO BIDWMEALS Zetia (Ezetimibe) 10 Mg Tablet 10 Mg PO DAILY Aspirin 81 Mg Tab.chew 81 Mg PO DAILY Diagnosis: Problems: (1) Anxiety disorder (2) Impulse control disorder (3) Dementia in Alzheimer's disease with delusions (4) Dementia in Alzheimer's disease with depression (5) Dementia, vascular, with depression (6) Diabetes mellitus GHULAM LEMON MD May 07, 2017 21:12
[2017-05-07] MEDS: traMADol 50 MG TABLET PO PRN (21:38)
[2017-05-07] MEDS: METOPROLOL TART IMMED RELEASE 25 MG TABLET PO SCH (21:39)
[2017-05-07] MEDS: ATORVASTATIN CALCIUM 20 MG TABLET PO SCH (21:40)
[2017-05-07] MEDS: ACETAMINOPHEN 325 MG TABLET PO PRN (21:41)
[2017-05-07] MEDS: TAMSULOSIN 0.4 MG CAP.ER.24H. PO SCH (21:41)
--- NOTE | 2017-05-07 23:00 | NUR ---
Behavior Intervention Response and Plan: BIRP Note: Behavior: Assumed Care of patient, patient located in Day Room at shift change. Patient exhibited the following behavior Restless, Interactive, Irritable. Brief assessment on rounds of vital signs, medication needs, lab studies, and pain. Treatment plan problems: Dementia with BD and Fall Risk. Intervention: Patient assessed and the following interventions initiated safety checks 15 Minute Checks Cognitive Assessment , Head to toe Assessment , Medications, Oral Hydration, Nutrition. Response: After interactions and interventions patient responded in the following manner, Calm , Wandering ,Cooperative. Continue to assess behaviors and condition will continue to monitor throughout the shift as needed. Plan: Continue to monitor Master Treatment Plan for patient's progress toward short term goals of Decreased Agitation, Medication Compliance, intermediate designer goals to return to previous living setting vs placement. Continue to assess patient for changes in above assessment. Monitor for medication needs, pain, and safety concerns. Hourly rounding performed to ensure safe environment.
[2017-05-08] MEDS: DIVALPROEX 125 MG CAP.SPRINK PO SCH ×2 (06:08→17:27)
[2017-05-08 06:28] VITALS: BP 105/67
[2017-05-08 07:15] LABS: BASO % 0 % (0-3); EOS # 0.1 x10^3/uL (0.0-0.7); EOS % 2 % (0-3); HEMATOCRIT 36.7 % (39.0-53.0); HEMOGLOBIN 12.5 g/dL (13.0-17.5); LYMPH # 0.7 x10^3/uL (1.0-4.8); LYMPH % 15 % (24-48); MEAN CORPUSCULAR HEMOGLOBIN 32 pg (25-35); MEAN CORPUSCULAR HGB CONC 34 g/dL (31-37); MEAN CORPUSCULAR VOLUME 94 fL (79-100); MONO # 0.5 x10^3/uL (0.0-1.1); MONO % 11 % (0-9); NEUT # 3.4 x10^3uL (1.8-7.7); NEUT % 72 % (31-73); PLATELET COUNT 129 x10^3/uL (140-400); RED BLOOD COUNT 3.92 x10^6/uL (4.30-5.70); WHITE BLOOD COUNT 4.8 x10^3/uL (4.0-11.0)
[2017-05-08 07:17] LABS: ALBUMIN 3.2 g/dL (3.4-5.0); ALBUMIN/GLOBULIN RATIO 1.1 (1.0-1.7); CALCIUM 10.4 mg/dL (8.5-10.1); CREATININE 1.5 mg/dL (0.7-1.3); GFR 45.5; MAGNESIUM 1.8 mg/dL (1.8-2.4); POTASSIUM 3.9 mmol/L (3.5-5.1); TOTAL BILIRUBIN 1.6 mg/dL (0.2-1.0); TOTAL PROTEIN 6.1 g/dL (6.4-8.2)
[2017-05-08] MEDS: metFORMIN 500 MG TABLET PO SCH (08:00)
--- NOTE | 2017-05-08 08:25 | NUR ---
SW reviewed pt insurance upon admit. Face sheet, C-Snap and intake state Pt's insurance is Medicare primary with [employer].
--- NOTE | 2017-05-08 08:28 | NUR ---
SW called Judy (DPOA) left message for her regarding pt.
[2017-05-08] MEDS ORDERED: CHOLECALCIFEROL (VITAMIN D3) 1,000 UNIT TABLET PO SCH (09:00)
[2017-05-08] MEDS: METOPROLOL TART IMMED RELEASE 25 MG TABLET PO SCH ×2 (09:43→22:04)
[2017-05-08] MEDS: DOCUSATE SODIUM 100 MG CAPSULE PO SCH ×2 (09:46→22:05)
[2017-05-08] MEDS: ASPIRIN 81 MG TAB.CHEW PO SCH (09:46)
[2017-05-08] MEDS: POLYETHYLENE GLYCOL 3350 17 GM PACKET. PO SCH (09:46)
[2017-05-08] MEDS: traMADol 50 MG TABLET PO PRN ×2 (09:54→22:05)
--- NOTE | 2017-05-08 10:15 | NUR ---
Patient lying down in quiet room when nurse went to administer medications. Patient states, "my back hurts so bad, I can barely move." PRN tramadol given for pain, will continue to monitor.
--- NOTE | 2017-05-08 11:00 | NUR ---
ACTIVITY THERAPY ASSESSMENT Completed based on observations and interview on this day at this time in the day room. 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 He said he likes to do "just about anything." During assessment, Pt. closed his eyes off and on. For groups, he needs constant prompting. His sentences do not make sense most of the time. Pt. is slow to redirect, needs time to process but is mostly compliant. Pt. has minimal interaction with peers but stays around group. Initial goal aimed to increase socialization and involvement: Pt. will participate in all group activities he is invited to.
--- NOTE | 2017-05-08 11:36 | NUR ---
Behavior Intervention Response and Plan: BIRP Note: Behavior: Assumed Care of patient, patient located in Day Room at shift change. Patient exhibited the following behavior Disorganized, Cooperative, Drowsy. Brief assessment on rounds of vital signs, medication needs, lab studies, and pain. Treatment plan problems . Intervention: Patient assessed and the following interventions initiated safety checks 15 Minute Checks Cognitive Assessment , Head to toe Assessment , Medications. Response: After interactions and interventions patient responded in the following manner, Calm , Compliant ,Cooperative. Continue to assess behaviors and condition will continue to monitor throughout the shift as needed. Plan: Continue to monitor Master Treatment Plan for patient's progress toward short term goals of Decreased Agitation, Decreased Aggression, lobsterman goals to return to previous living setting vs placement. Continue to assess patient for changes in above assessment. Monitor for medication needs, pain, and safety concerns. Hourly rounding performed to ensure safe environment.
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
--- NOTE | 2017-05-08 14:00 | NUR ---
THERAPEUTIC RECREATION GROUP NOTE TITLE :Movie ACTIVITY : Activities and Games GOAL : Increase alertness/focus, decrease stress DURATION : 90 Minutes RESPONSE : No participation.
[2017-05-08] MEDS ORDERED: DEXTROSE 50% 25 GM / 50ML DISP.SYRIN. IV PRN (14:15)
[2017-05-08 15:30] VITALS: BP 105/64
--- NOTE | 2017-05-08 16:32 | ACF ---
Admission Criteria Forms PSYCHIATRIC DISORDERS Clinical Indications for Inpatient Care (Place 'X' for any and all applicable criteria): Ongoing inpatient care may be needed for 1 or more of the following(1)(2)(3)(4)( 6)(7)(8): [ ]I. Danger to self or others not manageable at lower level of care. [ ]II. Grave disability (eg, inability to perform self care necessary at lower level of care) [X ]III. Agitation or inappropriate behavior interfering with care for primary condition (eg, attempting to discontinue lines or drains prematurely, unable to cooperate with respiratory care) [ ]IV. Severe disability or disorder indicated by ALL of the following: [ ]a) Severe behavioral health disorder-related symptoms or condition indicated by 1 or more of the following: [ ]i) Severe problem with cognition, memory, judgment, or impulse control [ ]ii) Severe clinical manifestations (eg, hallucinations, delusions, other acute psychotic symptoms, rosi, extreme agitation or anxiety) [ ]b) Patient management at lower level of care is not feasible until acute intervention or modification is initiated. Extended stay beyond goal length of stay for the primary condition may be needed untilALLof the following are present(1)(2)(3)(4)(722)(23): [ ]a) Danger to self or others is absent or manageable at lower level of care [ ]b) Behavior crisis management, including physical or chemical restraints, is required and is not available at a lower level of care. [ ]c) Behavioral symptoms (e.g., agitation, somnolence, inappropriate behavior) are present, and are not manageable at a lower level of care. [ ]d) Patient cannot understand follow-up treatment and crisis plan. [ ]e) Provider and supports are sufficiently available at lower level of care. [ ]f) Patient can participate (e.g., verify absence of plan for harm) and is in needed of monitoring. The original [facility] [employer] content created by [facility] [email or web address] has been revised. The portions of the content which have been revised are identified through the use of italic text, and [facility] [employer] has neither reviewed nor approved the modified material. All other unmodified content is copyright [facility]. Please see references footnoted in the original [facility] edition 2015 Admission Criteria Met?: Yes STEVIE SHAVER May 08, 2017 16:32
[2017-05-08] MEDS: INSULIN ASPART 300 UNITS/3 ML INSULN.PEN SQ SCH (17:26)
[2017-05-08 19:11] LABS: T3 TOTAL 67 ng/dL (71-180); THYROXINE 7.1 ug/dL (4.5-12.0)
[2017-05-08 21:07] LABS: THYROID STIM HORMONE (TSH) 0.615 uIU/mL (0.358-3.740)
--- NOTE | 2017-05-08 21:33 | PDOC ---
Exam Geraldo Demential Exam: Geraldo Note: Please also refer to the separate dictated note~for this date of service dictated separately.~Patient seen individually. Discussed the patient with Nursing staff reviewed the chart.~Reviewed interim history and current functioning. Reviewed vital signs,~Labs/ Radiology~and current medications noted below. Continue current treatment with the changes noted in the dictated addendum note Assessment: Vital Signs: Vital Signs Date Time Temp Pulse Resp B/P (MAP) Pulse Ox O2 Delivery O2 Flow Rate FiO2 05/08/17 15:30 97.3 76 16 105/64 (78) 100 Room Air I&O Intake and Output 05/08/17 07:00 Intake Total 440 ml Output Total 400 ml Balance 40 ml Intake Oral 440 ml Output Urine Total 400 ml Labs: Laboratory Tests Test 05/08/17 06:34 05/08/17 07:17 05/08/17 11:07 05/08/17 16:48 White Blood Count 4.8 x10^3/uL (4.0-11.0) Red Blood Count 3.92 x10^6/uL (4.30-5.70) L Hemoglobin 12.5 g/dL (13.0-17.5) L Hematocrit 36.7 % (39.0-53.0) L Mean Corpuscular Volume 94 fL (79-100) Mean Corpuscular Hemoglobin 32 pg (25-35) Mean Corpuscular Hemoglobin Concent 34 g/dL (31-37) Red Cell Distribution Width 14.0 % (11.5-14.5) Platelet Count 129 x10^3/uL (140-400) L Neutrophils (%) (Auto) 72 % (31-73) Lymphocytes (%) (Auto) 15 % (24-48) L Monocytes (%) (Auto) 11 % (0-9) H Eosinophils (%) (Auto) 2 % (0-3) Basophils (%) (Auto) 0 % (0-3) Neutrophils # (Auto) 3.4 x10^3uL (1.8-7.7) Lymphocytes # (Auto) 0.7 x10^3/uL (1.0-4.8) L Monocytes # (Auto) 0.5 x10^3/uL (0.0-1.1) Eosinophils # (Auto) 0.1 x10^3/uL (0.0-0.7) Basophils # (Auto) 0.0 x10^3/uL (0.0-0.2) Prothrombin Time 10.5 SEC (9.4-11.4) Prothrombin Time INR 1.0 (0.9-1.1) Sodium Level 145 mmol/L (136-145) Potassium Level 3.9 mmol/L (3.5-5.1) Chloride Level 110 mmol/L (98-107) H Carbon Dioxide Level 25 mmol/L (21-32) Anion Gap 10 (6-14) Blood Urea Nitrogen 22 mg/dL (8-26) Creatinine 1.5 mg/dL (0.7-1.3) H Estimated GFR (Cockcroft-Gault) 45.5 BUN/Creatinine Ratio 15 (6-20) Glucose Level 175 mg/dL (70-99) H Calcium Level 10.4 mg/dL (8.5-10.1) H Magnesium Level 1.8 mg/dL (1.8-2.4) Iron Level 25 ug/dL (65-175) L Total Iron Binding Capacity 187 ug/dL (250-450) L Iron Saturation 13 % (15-34) L Total Bilirubin 1.6 mg/dL (0.2-1.0) H Aspartate Amino Transferase (AST) 15 U/L (15-37) Alanine Aminotransferase (ALT) 16 U/L (16-63) Alkaline Phosphatase 107 U/L (46-116) Total Protein 6.1 g/dL (6.4-8.2) L Albumin 3.2 g/dL (3.4-5.0) L Albumin/Globulin Ratio 1.1 (1.0-1.7) Triglycerides Level 83 mg/dL (0-150) Cholesterol Level 141 mg/dL (0-200) LDL Cholesterol, Calculated 86 mg/dL (0-100) VLDL Cholesterol, Calculated 16 mg/dL (0-40) Non-HDL Cholesterol Calculated 102 mg/dL (0-129) HDL Cholesterol 39 mg/dL (40-60) L Cholesterol/HDL Ratio 3.0 25-Hydroxy Vitamin D Total Pending Thyroid Stimulating Hormone (TSH) 0.615 uIU/mL (0.358-3.740) Thyroxine (T4) 7.1 ug/dL (4.5-12.0) Total Triiodothyronine (TT3) 67 ng/dL (71-180) L RPR Titer Additional Testing Pending Glucose (Fingerstick) 160 mg/dL (70-99) H 170 mg/dL (70-99) H 247 mg/dL (70-99) H Test 05/08/17 19:31 Glucose (Fingerstick) 166 mg/dL (70-99) H Current Medications: Meds: Current Medications Docusate Sodium (Colace) 100 mg DAILY PO Last administered on 05/08/17 09:46; Start 05/08/17 at 09:00 Aspirin (Children'S Aspirin) 81 mg DAILY PO Last administered on 05/08/17 09:46 ; Start 05/08/17 at 09:00 Vitamin D (Vitamin D3) 2,000 unit DAILY PO Last administered on 05/08/17 09:46 ; Start 05/08/17 at 09:00; Stop 05/08/17 at 12:50; Status DC Metformin HCl (Glucophage) 1,000 mg BIDWMEALS PO Last administered on 05/07/17 17:00; Start 05/07/17 at 17:00; Stop 05/08/17 at 14:01; Status DC Metoprolol Tartrate (Lopressor) 37.5 mg BID PO Last administered on 05/08/17 09 :43; Start 05/07/17 at 21:00 Nitroglycerin (Nitrostat) 0.4 mg PRN Q15MIN PRN SL CHEST PAIN; Start 05/07/17 at 16:00 Polyethylene Glycol (miraLAX) 17 gm DAILY PO Last administered on 05/08/17 09: 46; Start 05/08/17 at 09:00 Tamsulosin HCl (Flomax) 0.4 mg HS PO Last administered on 05/07/17 21:41; Start 05/07/17 at 21:00 Acetaminophen (Tylenol) 650 mg PRN Q6HRS PRN PO PAIN / TEMP Last administered on 05/07/17 21:41; Start 05/07/17 at 16:15 Al Hydroxide/Mg Hydroxide (Mylanta Plus Xs) 15 ml QIDPRN PRN PO HEARTBURN / GAS ; Start 05/07/17 at 16:15 Multi-Ingredient Ointment (Analgesic [place]) 1 prisca QIDPRN PRN TP MUSCLE PAIN; Start 05/07/17 at 16:15 Tramadol HCl (Ultram) 50 mg PRN Q8HRS PRN PO PAIN Last administered on 09:54; Start 05/07/17 at 16:15 Insulin Detemir (Levemir) 8 units QHS SQ Last administered on 05/07/17 21:44; Start 05/07/17 at 21:00; Stop 05/08/17 at 14:01; Status DC Magnesium Hydroxide (Milk Of Magnesia) 2,400 mg PRN QHS PRN PO CONSTIPATION; Start 05/07/17 at 16:30 Atorvastatin Calcium (Lipitor) 80 mg QHS PO Last administered on 05/07/17 21:40 ; Start 05/07/17 at 21:00 Divalproex Sodium (Depakote Sprinkles) 125 mg BID76 PO Last administered on 05/08 17:27; Start 05/07/17 at 18:15 Insulin Detemir (Levemir) 10 units QHS SQ ; Start 05/08/17 at 21:00 Insulin Aspart (NovoLOG) 0-5 UNITS TIDAC SQ Last administered on 05/08/17 17:26 ; Start 05/08/17 at 16:30 Dextrose 12.5 gm PRN Q15MIN PRN IV SEE COMMENTS; Start 05/08/17 at 14:15 Escitalopram Oxalate (Lexapro) 5 mg DAILY PO ; Start 05/09/17 at 09:00 Mirtazapine (Remeron) 7.5 mg QHS PO ; Start 05/08/17 at 21:00 Active Scripts Active Reported Lantus Solostar (Insulin Glargine,Hum.rec.anlog) 100 Unit/1 Ml Insuln.pen 8 Unit SQ QHS Tramadol Hcl (Tramadol HCl) 50 Mg Tablet 50 Mg PO PRN Q8HRS PRN Crestor (Rosuvastatin Calcium) 20 Mg Tablet 1 Tab PO HS Flomax (Tamsulosin Hcl) 0.4 Mg Cap.er.24h 1 Cap PO HS Docusate Sodium 100 Mg Capsule 1 Cap PO DAILY Atorvastatin Calcium 80 Mg Tablet 80 Mg PO HS hIGH CHOLESTEROL Zoloft (Sertraline Hcl) 50 Mg Tablet 50 Mg PO DAILY Zyprexa Zydis (Olanzapine) 5 Mg Tab.rapdis 2.5 Mg PO PRN Q2HR PRN Remeron (Mirtazapine) 15 Mg Tablet 15 Mg PO QHS Melatonin 3 Mg Tablet 6 Mg PO QHS Vistaril (Hydroxyzine Pamoate) 25 Mg Capsule 25 Mg PO PRN Q2HR PRN Depakote Sprinkle (Divalproex Sodium) 125 Mg Cap.sprink 125 Mg PO TID Senna (Sennosides) 8.6 Mg Tablet 8.6 Mg PO BID Miralax (Polyethylene Glycol 3350) 17 Gm Powd.pack 1 Packet PO BID Analgesic [place] (Methyl Salicylate/Menthol) 29 Gm Oint...g. 1 Prisca TP QIDPRN PRN Milk Of Magnesia (Magnesium Hydroxide) 2,400 Mg/10 Ml Oral.susp 2,400 Mg PO HS PRN Mag-Al Plus Xs Suspension (Mag Hydrox/Al Hydrox/Simeth) 30 Ml Oral.susp 15 Ml PO QIDPRN PRN Novolog Flexpen (Insulin Aspart) 100 Unit/1 Ml Insuln.pen 0-9 Unit SQ TIDWMEALS Amaryl (Glimepiride) 1 Mg Tablet 1 Mg PO HS Amaryl (Glimepiride) 4 Mg Tablet 4 Mg PO DAILY Vitamin D3 (Cholecalciferol (Vitamin D3)) 1,000 Unit Tablet 2,000 Unit PO DAILY Tylenol (Acetaminophen) 325 Mg Tablet 650 Mg PO PRN Q6HRS PRN Nitrostat (Nitroglycerin) 0.4 Mg Tab.subl 0.4 Mg SL PRN PRN Metoprolol Tartrate 25 Mg Tablet 37.5 Mg PO BID Metformin Hcl 500 Mg Tablet 1,000 Mg PO BIDWMEALS Zetia (Ezetimibe) 10 Mg Tablet 10 Mg PO DAILY Aspirin 81 Mg Tab.chew 81 Mg PO DAILY Diagnosis: Problems: (1) Anxiety disorder (2) Impulse control disorder (3) Dementia in Alzheimer's disease with delusions (4) Dementia in Alzheimer's disease with depression (5) Dementia, vascular, with depression GHULAM LEMON MD May 08, 2017 21:33
[2017-05-08] MEDS: MIRTAZAPINE 7.5 MG TABLET. PO SCH (22:05)
[2017-05-08] MEDS: ACETAMINOPHEN 325 MG TABLET PO PRN (22:06)
[2017-05-08] MEDS: TAMSULOSIN 0.4 MG CAP.ER.24H. PO SCH (22:06)
[2017-05-08] MEDS: ATORVASTATIN CALCIUM 20 MG TABLET PO SCH (22:07)
[2017-05-08] MEDS: INSULIN DETEMIR 300 UNITS/3 ML INSULN.PEN. SQ SCH (22:11)
--- NOTE | 2017-05-08 22:30 | NUR ---
Behavior Intervention Response and Plan: BIRP Note: Behavior: Assumed Care of patient, patient located in Day Room at shift change. Patient exhibited the following behavior Disorganized, Cooperative, Drowsy. Brief assessment on rounds of vital signs, medication needs, lab studies, and pain. Treatment plan problems: 1-2. Intervention: Patient assessed and the following interventions initiated safety checks 15 Minute Checks Cognitive Assessment , Head to toe Assessment , Medications, Oral Hydration, Nutrition. Response: After interactions and interventions patient responded in the following manner, Calm , Compliant ,Cooperative. Continue to assess behaviors and condition will continue to monitor throughout the shift as needed. Plan: Continue to monitor Master Treatment Plan for patient's progress toward short term goals of Decreased Agitation, Decreased Aggression, correction goals to return to previous living setting vs placement. Continue to assess patient for changes in above assessment. Monitor for medication needs, pain, and safety concerns. Hourly rounding performed to ensure safe environment.
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
[2017-05-09] MEDS: DIVALPROEX 125 MG CAP.SPRINK PO SCH ×2 (05:08→17:05)
[2017-05-09 06:24] VITALS: BP 92/52
[2017-05-09] MEDS: INSULIN ASPART 300 UNITS/3 ML INSULN.PEN SQ SCH ×3 (08:36→17:05)
[2017-05-09] MEDS: ASPIRIN 81 MG TAB.CHEW PO SCH (08:37)
[2017-05-09] MEDS: DOCUSATE SODIUM 100 MG CAPSULE PO SCH (08:37)
[2017-05-09] MEDS: ESCITALOPRAM 5 MG TABLET PO SCH (08:38)
[2017-05-09] MEDS: POLYETHYLENE GLYCOL 3350 17 GM PACKET. PO SCH (08:39)
[2017-05-09] MEDS: METOPROLOL TART IMMED RELEASE 25 MG TABLET PO SCH ×2 (10:58→21:00)
--- NOTE | 2017-05-09 11:12 | PDOC ---
Exam Geraldo Demential Exam: Geraldo Note: Please also refer to the separate dictated note~for this date of service dictated separately.~Patient seen individually. Discussed the patient with Nursing staff reviewed the chart.~Reviewed interim history and current functioning. Reviewed vital signs,~Labs/ Radiology~and current medications noted below. Continue current treatment with the changes noted in the dictated addendum note Assessment: Vital Signs: Vital Signs Date Time Temp Pulse Resp B/P (MAP) Pulse Ox O2 Delivery O2 Flow Rate FiO2 05/09/17 06:24 97.3 94 16 92/52 (65) 95 Room Air I&O Intake and Output 05/09/17 07:00 Intake Total 160 ml Output Total 225 ml Balance -65 ml Intake Oral 160 ml Output Urine Total 225 ml Labs: Laboratory Tests Test 05/08/17 16:48 05/08/17 19:31 05/09/17 07:25 Glucose (Fingerstick) 247 mg/dL (70-99) H 166 mg/dL (70-99) H 174 mg/dL (70-99) H Current Medications: Meds: Current Medications Docusate Sodium (Colace) 100 mg DAILY PO Last administered on 05/09/17 08:37; Start 05/08/17 at 09:00 Aspirin (Children'S Aspirin) 81 mg DAILY PO Last administered on 05/09/17 08: 37; Start 05/08/17 at 09:00 Vitamin D (Vitamin D3) 2,000 unit DAILY PO Last administered on 05/08/17 09:46 ; Start 05/08/17 at 09:00; Stop 05/08/17 at 12:50; Status DC Metformin HCl (Glucophage) 1,000 mg BIDWMEALS PO Last administered on 05/07/17 17:00; Start 05/07/17 at 17:00; Stop 05/08/17 at 14:01; Status DC Metoprolol Tartrate (Lopressor) 37.5 mg BID PO Last administered on 05/08/17 22 :04; Start 05/07/17 at 21:00 Nitroglycerin (Nitrostat) 0.4 mg PRN Q15MIN PRN SL CHEST PAIN; Start 05/07/17 at 16:00 Polyethylene Glycol (miraLAX) 17 gm DAILY PO Last administered on 05/09/17 08: 39; Start 05/08/17 at 09:00 Tamsulosin HCl (Flomax) 0.4 mg HS PO Last administered on 05/08/17 22:06; Start 05/07/17 at 21:00 Acetaminophen (Tylenol) 650 mg PRN Q6HRS PRN PO PAIN / TEMP Last administered on 05/08/17 22:06; Start 05/07/17 at 16:15 Al Hydroxide/Mg Hydroxide (Mylanta Plus Xs) 15 ml QIDPRN PRN PO HEARTBURN / GAS ; Start 05/07/17 at 16:15 Multi-Ingredient Ointment (Analgesic [place]) 1 prisca QIDPRN PRN TP MUSCLE PAIN; Start 05/07/17 at 16:15 Tramadol HCl (Ultram) 50 mg PRN Q8HRS PRN PO PAIN Last administered on 22:05; Start 05/07/17 at 16:15 Insulin Detemir (Levemir) 8 units QHS SQ Last administered on 05/07/17 21:44; Start 05/07/17 at 21:00; Stop 05/08/17 at 14:01; Status DC Magnesium Hydroxide (Milk Of Magnesia) 2,400 mg PRN QHS PRN PO CONSTIPATION; Start 05/07/17 at 16:30 Atorvastatin Calcium (Lipitor) 80 mg QHS PO Last administered on 05/08/17 22:07 ; Start 05/07/17 at 21:00 Divalproex Sodium (Depakote Sprinkles) 125 mg BID76 PO Last administered on 05:08; Start 05/07/17 at 18:15 Insulin Detemir (Levemir) 10 units QHS SQ Last administered on 05/08/17 22:11; Start 05/08/17 at 21:00 Insulin Aspart (NovoLOG) 0-5 UNITS TIDAC SQ Last administered on 05/09/17 08: 36; Start 05/08/17 at 16:30 Dextrose 12.5 gm PRN Q15MIN PRN IV SEE COMMENTS; Start 05/08/17 at 14:15 Escitalopram Oxalate (Lexapro) 5 mg DAILY PO Last administered on 05/09/17 08: 38; Start 05/09/17 at 09:00 Mirtazapine (Remeron) 7.5 mg QHS PO Last administered on 05/08/17t 22:05; Start 05/08/17 at 21:00 Active Scripts Active Reported Lantus Solostar (Insulin Glargine,Hum.rec.anlog) 100 Unit/1 Ml Insuln.pen 8 Unit SQ QHS Tramadol Hcl (Tramadol HCl) 50 Mg Tablet 50 Mg PO PRN Q8HRS PRN Crestor (Rosuvastatin Calcium) 20 Mg Tablet 1 Tab PO HS Flomax (Tamsulosin Hcl) 0.4 Mg Cap.er.24h 1 Cap PO HS Docusate Sodium 100 Mg Capsule 1 Cap PO DAILY Atorvastatin Calcium 80 Mg Tablet 80 Mg PO HS hIGH CHOLESTEROL Zoloft (Sertraline Hcl) 50 Mg Tablet 50 Mg PO DAILY Zyprexa Zydis (Olanzapine) 5 Mg Tab.rapdis 2.5 Mg PO PRN Q2HR PRN Remeron (Mirtazapine) 15 Mg Tablet 15 Mg PO QHS Melatonin 3 Mg Tablet 6 Mg PO QHS Vistaril (Hydroxyzine Pamoate) 25 Mg Capsule 25 Mg PO PRN Q2HR PRN Depakote Sprinkle (Divalproex Sodium) 125 Mg Cap.sprink 125 Mg PO TID Senna (Sennosides) 8.6 Mg Tablet 8.6 Mg PO BID Miralax (Polyethylene Glycol 3350) 17 Gm Powd.pack 1 Packet PO BID Analgesic [place] (Methyl Salicylate/Menthol) 29 Gm Oint...g. 1 Prisca TP QIDPRN PRN Milk Of Magnesia (Magnesium Hydroxide) 2,400 Mg/10 Ml Oral.susp 2,400 Mg PO HS PRN Mag-Al Plus Xs Suspension (Mag Hydrox/Al Hydrox/Simeth) 30 Ml Oral.susp 15 Ml PO QIDPRN PRN Novolog Flexpen (Insulin Aspart) 100 Unit/1 Ml Insuln.pen 0-9 Unit SQ TIDWMEALS Amaryl (Glimepiride) 1 Mg Tablet 1 Mg PO HS Amaryl (Glimepiride) 4 Mg Tablet 4 Mg PO DAILY Vitamin D3 (Cholecalciferol (Vitamin D3)) 1,000 Unit Tablet 2,000 Unit PO DAILY Tylenol (Acetaminophen) 325 Mg Tablet 650 Mg PO PRN Q6HRS PRN Nitrostat (Nitroglycerin) 0.4 Mg Tab.subl 0.4 Mg SL PRN PRN Metoprolol Tartrate 25 Mg Tablet 37.5 Mg PO BID Metformin Hcl 500 Mg Tablet 1,000 Mg PO BIDWMEALS Zetia (Ezetimibe) 10 Mg Tablet 10 Mg PO DAILY Aspirin 81 Mg Tab.chew 81 Mg PO DAILY Diagnosis: Problems: (1) Anxiety disorder (2) Impulse control disorder (3) Dementia in Alzheimer's disease with delusions (4) Dementia in Alzheimer's disease with depression (5) Dementia, vascular, with depression GHULAM LEMON MD May 09, 2017 11:12
--- NOTE | 2017-05-09 13:09 | NUR ---
Behavior Intervention Response and Plan: BIRP Note: Behavior: Assumed Care of patient, patient located in Day Room at shift change. Patient exhibited the following behavior Disorganized, Cooperative, wandering, putting self on the floor. Brief assessment on rounds of vital signs, medication needs, lab studies, and pain. Treatment plan problems: 1-2. Intervention: Patient assessed and the following interventions initiated safety checks 15 Minute Checks Cognitive Assessment , Head to toe Assessment , Medications, Oral Hydration, Nutrition. Response: After interactions and interventions patient responded in the following manner, Calm, Compliant, confused, Cooperative. Continue to assess behaviors and condition will continue to monitor throughout the shift as needed. 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 Continue to assess patient for changes in above assessment. Monitor for medication needs, pain, and safety concerns. Hourly rounding performed to ensure safe environment.
[2017-05-09 15:47] VITALS: BP 103/64
[2017-05-09] MEDS: TAMSULOSIN 0.4 MG CAP.ER.24H. PO SCH (21:58)
[2017-05-09] MEDS: MIRTAZAPINE 7.5 MG TABLET. PO SCH (21:59)
[2017-05-09] MEDS: ATORVASTATIN CALCIUM 20 MG TABLET PO SCH (22:00)
[2017-05-09] MEDS: INSULIN DETEMIR 300 UNITS/3 ML INSULN.PEN. SQ SCH (22:02)
[2017-05-10 06:01] VITALS: BP 102/63
[2017-05-10] MEDS: DIVALPROEX 125 MG CAP.SPRINK PO SCH ×2 (07:05→17:40)
[2017-05-10 07:55] LABS: HEMATOCRIT 34.8 % (39.0-53.0); HEMOGLOBIN 11.9 g/dL (13.0-17.5); RED BLOOD COUNT 3.67 x10^6/uL (4.30-5.70); RED CELL DISTRIBUTION WIDTH 14.2 % (11.5-14.5); WHITE BLOOD COUNT 3.8 x10^3/uL (4.0-11.0)
[2017-05-10] MEDS: ASPIRIN 81 MG TAB.CHEW PO SCH (08:26)
[2017-05-10] MEDS: DOCUSATE SODIUM 100 MG CAPSULE PO SCH (08:26)
[2017-05-10 08:28] LABS: ALBUMIN 3.4 g/dL (3.4-5.0); ALBUMIN/GLOBULIN RATIO 1.3 (1.0-1.7); ALK PHOS 112 U/L (46-116); ALT (SGPT) 29 U/L (16-63); ANION GAP 9 (6-14); AST (SGOT) 69 U/L (15-37); BLOOD UREA NITROGEN 36 mg/dL (8-26); BUN/CREATININE RATIO 24 (6-20); CALCIUM 10.3 mg/dL (8.5-10.1); CARBON DIOXIDE 26 mmol/L (21-32); CHLORIDE 111 mmol/L (98-107); CREATININE 1.5 mg/dL (0.7-1.3); GFR 45.5; GLUCOSE 113 mg/dL (70-99); POTASSIUM 3.4 mmol/L (3.5-5.1); SODIUM 146 mmol/L (136-145); TOTAL BILIRUBIN 1.3 mg/dL (0.2-1.0)
[2017-05-10] MEDS: ESCITALOPRAM 5 MG TABLET PO SCH (08:31)
[2017-05-10] MEDS: POLYETHYLENE GLYCOL 3350 17 GM PACKET. PO SCH (08:31)
[2017-05-10 08:34] LABS: VAL ACID 15 mcg/mL (50-100)
[2017-05-10] MEDS: METOPROLOL TART IMMED RELEASE 25 MG TABLET PO SCH ×2 (08:43→19:41)
[2017-05-10] MEDS: INSULIN ASPART 300 UNITS/3 ML INSULN.PEN SQ SCH ×3 (08:43→17:41)
--- NOTE | 2017-05-10 10:44 | NUR ---
Behavior Intervention Response and Plan: BIRP Note: Behavior: Assumed Care of patient, patient located in Day Room at shift change. Patient exhibited the following behavior Disorganized, Cooperative, wandering, and confused. Brief assessment on rounds of vital signs, medication needs, lab studies, and pain. Treatment plan problems: 1-2. Intervention: Patient assessed and the following interventions initiated safety checks 15 Minute Checks Cognitive Assessment , Head to toe Assessment , Medications, Oral Hydration, Nutrition. Response: After interactions and interventions patient responded in the following manner, Calm, Compliant, confused, Cooperative. Continue to assess behaviors and condition will continue to monitor throughout the shift as needed. Plan: Continue to monitor Master Treatment Plan for patient's progress toward short term goals of Decreased Agitation, Decreased Aggression, residential goals to return to previous living setting vs placement. Continue to assess patient for changes in above assessment. Monitor for medication needs, pain, and safety concerns. Hourly rounding performed to ensure safe environment.
--- NOTE | 2017-05-10 11:25 | PN ---
DATE: 05/08/2017 SUBJECTIVE: This is a late entry covers elements not covered in my note on 05/08/2017. The patient slept 5-1/2 hours. According to nursing staff, he has been confused, wandering, and has been indwelling catheter ____ he tries to pull it out. REVIEW OF SYSTEMS: No CV, , eye, ENT, or pulmonary system symptoms on review. Reliability poor. MENTAL STATUS EXAM: Oriented to himself. Insight, judgment, recent and remote memory, attention, concentration, fund of knowledge poor consistent with his diagnosis mentioned in my initial note. PLAN: Continue Depakote Sprinkles 125 b.i.d. Start Lexapro 5 mg a day and Remeron 7.5 mg p.o. at bedtime. Follow labs level on the Depakote. Adjust further as clinically indicated. May need low dose Seroquel depending on his progress. GHULAM LEMON MD DR: ARMEN/germaine JOB#: [id number] / [id number]
--- NOTE | 2017-05-10 11:27 | PN ---
DATE: 05/09/2017 PSYCHIATRIC PROGRESS NOTE This note covers the elements not covered in my initial note. SUBJECTIVE: The patient seen individually. He did not sleep very much last night despite the Remeron, was wandering, went into the quiet room then slept later. REVIEW OF SYSTEMS: No CV, , eye, ENT or pulmonary system symptoms on review. Reliability poor. MENTAL STATUS EXAM: Oriented to himself. Insight, judgment, recent and remote memory, attention, concentration, fund of knowledge poor, consistent with his diagnosis mentioned in my initial note. PLAN: Continue Depakote, Lexapro, Remeron. Start trazodone 50 mg at bedtime p.r.n., march repeat x 1 for insomnia. Adjust further as clinically indicated. MAN Telma LEMON MD DR: ARMEN/germaine JOB#: [id number] / [id number]
[2017-05-10] MEDS ORDERED: POTASSIUM CHLORIDE 20 MEQ TABLET.ER. PO ONE (14:15)
[2017-05-10 16:16] VITALS: BP 129/92
[2017-05-10] MEDS: TAMSULOSIN 0.4 MG CAP.ER.24H. PO SCH (19:40)
[2017-05-10] MEDS: ATORVASTATIN CALCIUM 20 MG TABLET PO SCH (19:40)
[2017-05-10] MEDS: MIRTAZAPINE 7.5 MG TABLET. PO SCH (19:41)
[2017-05-10] MEDS: INSULIN DETEMIR 300 UNITS/3 ML INSULN.PEN. SQ SCH (19:44)
[2017-05-10] MEDS: traZODone 50 MG TABLET. PO PRN (19:47)
[2017-05-10] MEDS: traMADol 50 MG TABLET PO PRN (19:47)
--- NOTE | 2017-05-10 21:10 | PDOC ---
Exam Geraldo Demential Exam: Geraldo Note: Please also refer to the separate dictated note~for this date of service dictated separately.~Patient seen individually. Discussed the patient with Nursing staff reviewed the chart.~Reviewed interim history and current functioning. Reviewed vital signs,~Labs/ Radiology~and current medications noted below. Continue current treatment with the changes noted in the dictated addendum note Assessment: Vital Signs: Vital Signs Date Time Temp Pulse Resp B/P (MAP) Pulse Ox O2 Delivery O2 Flow Rate FiO2 05/10/17 19:47 18 Room Air 05/10/17 19:41 60 05/10/17 16:16 97.8 129/92 (104) 97 I&O Intake and Output 05/10/17 07:00 Intake Total 600 ml Output Total 200 ml Balance 400 ml Intake Oral 600 ml Output Urine Total 200 ml Labs: Laboratory Tests Test 05/10/17 07:31 05/10/17 07:40 05/10/17 11:47 05/10/17 16:45 Glucose (Fingerstick) 123 mg/dL (70-99) H 327 mg/dL (70-99) H 288 mg/dL (70-99) H White Blood Count 3.8 x10^3/uL (4.0-11.0) L Red Blood Count 3.67 x10^6/uL (4.30-5.70) L Hemoglobin 11.9 g/dL (13.0-17.5) L Hematocrit 34.8 % (39.0-53.0) L Mean Corpuscular Volume 95 fL (79-100) Mean Corpuscular Hemoglobin 32 pg (25-35) Mean Corpuscular Hemoglobin Concent 34 g/dL (31-37) Red Cell Distribution Width 14.2 % (11.5-14.5) Platelet Count 114 x10^3/uL (140-400) L Sodium Level 146 mmol/L (136-145) H Potassium Level 3.4 mmol/L (3.5-5.1) L Chloride Level 111 mmol/L (98-107) H Carbon Dioxide Level 26 mmol/L (21-32) Anion Gap 9 (6-14) Blood Urea Nitrogen 36 mg/dL (8-26) H Creatinine 1.5 mg/dL (0.7-1.3) H Estimated GFR (Cockcroft-Gault) 45.5 BUN/Creatinine Ratio 24 (6-20) H Glucose Level 113 mg/dL (70-99) H Calcium Level 10.3 mg/dL (8.5-10.1) H Total Bilirubin 1.3 mg/dL (0.2-1.0) H Aspartate Amino Transferase (AST) 69 U/L (15-37) H Alanine Aminotransferase (ALT) 29 U/L (16-63) Alkaline Phosphatase 112 U/L (46-116) Total Protein 6.0 g/dL (6.4-8.2) L Albumin 3.4 g/dL (3.4-5.0) Albumin/Globulin Ratio 1.3 (1.0-1.7) Valproic Acid Level 15 mcg/mL (50-100) L Valproic Acid Last Dose Date 05/09/17 Valproic Acid Last Dose Time 2100 Test 05/10/17 19:28 Glucose (Fingerstick) 276 mg/dL (70-99) H Current Medications: Meds: Current Medications Docusate Sodium (Colace) 100 mg DAILY PO Last administered on 05/10/17 08:26; Start 05/08/17 at 09:00 Aspirin (Children'S Aspirin) 81 mg DAILY PO Last administered on 05/10/17 08: 26; Start 05/08/17 at 09:00 Vitamin D (Vitamin D3) 2,000 unit DAILY PO Last administered on 05/08/17 09:46 ; Start 05/08/17 at 09:00; Stop 05/08/17 at 12:50; Status DC Metformin HCl (Glucophage) 1,000 mg BIDWMEALS PO Last administered on 05/07/17 17:00; Start 05/07/17 at 17:00; Stop 05/08/17 at 14:01; Status DC Metoprolol Tartrate (Lopressor) 37.5 mg BID PO Last administered on 05/08/17 22 :04; Start 05/07/17 at 21:00 Nitroglycerin (Nitrostat) 0.4 mg PRN Q15MIN PRN SL CHEST PAIN; Start 05/07/17 at 16:00 Polyethylene Glycol (miraLAX) 17 gm DAILY PO Last administered on 05/10/17 08: 31; Start 05/08/17 at 09:00 Tamsulosin HCl (Flomax) 0.4 mg HS PO Last administered on 05/10/17 19:40; Start 05/07/17 at 21:00 Acetaminophen (Tylenol) 650 mg PRN Q6HRS PRN PO PAIN / TEMP Last administered on 05/08/17 22:06; Start 05/07/17 at 16:15 Al Hydroxide/Mg Hydroxide (Mylanta Plus Xs) 15 ml QIDPRN PRN PO HEARTBURN / GAS ; Start 05/07/17 at 16:15 Multi-Ingredient Ointment (Analgesic [place]) 1 prisca QIDPRN PRN TP MUSCLE PAIN; Start 05/07/17 at 16:15 Tramadol HCl (Ultram) 50 mg PRN Q8HRS PRN PO PAIN Last administered on 19:47; Start 05/07/17 at 16:15 Insulin Detemir (Levemir) 8 units QHS SQ Last administered on 05/07/17 21:44; Start 05/07/17 at 21:00; Stop 05/08/17 at 14:01; Status DC Magnesium Hydroxide (Milk Of Magnesia) 2,400 mg PRN QHS PRN PO CONSTIPATION; Start 05/07/17 at 16:30 Atorvastatin Calcium (Lipitor) 80 mg QHS PO Last administered on 05/10/17 19: 40; Start 05/07/17 at 21:00 Divalproex Sodium (Depakote Sprinkles) 125 mg BID76 PO Last administered on 17:40; Start 05/07/17 at 18:15 Insulin Detemir (Levemir) 10 units QHS SQ Last administered on 05/10/17 19:44 ; Start 05/08/17 at 21:00 Insulin Aspart (NovoLOG) 0-5 UNITS TIDAC SQ Last administered on 05/10/17 17: 41; Start 05/08/17 at 16:30 Dextrose 12.5 gm PRN Q15MIN PRN IV SEE COMMENTS; Start 05/08/17 at 14:15 Escitalopram Oxalate (Lexapro) 5 mg DAILY PO Last administered on 05/10/17 08: 31; Start 05/09/17 at 09:00 Mirtazapine (Remeron) 7.5 mg QHS PO Last administered on 05/10/17 19:41; Start 05/08/17 at 21:00 Trazodone HCl (Desyrel) 50 mg PRN QHS PRN PO INSOMNIA, MAY REPEAT X1 Last administered on 05/10/17 19:47; Start 05/09/17 at 19:00 Potassium Chloride (Klor-Con) 20 meq 1X ONCE PO Last administered on 14:37; Start 05/10/17 at 14:15; Stop 05/10/17 at 14:16; Status DC Active Scripts Active Reported Lantus Solostar (Insulin Glargine,Hum.rec.anlog) 100 Unit/1 Ml Insuln.pen 8 Unit SQ QHS Tramadol Hcl (Tramadol HCl) 50 Mg Tablet 50 Mg PO PRN Q8HRS PRN Crestor (Rosuvastatin Calcium) 20 Mg Tablet 1 Tab PO HS Flomax (Tamsulosin Hcl) 0.4 Mg Cap.er.24h 1 Cap PO HS Docusate Sodium 100 Mg Capsule 1 Cap PO DAILY Atorvastatin Calcium 80 Mg Tablet 80 Mg PO HS hIGH CHOLESTEROL Zoloft (Sertraline Hcl) 50 Mg Tablet 50 Mg PO DAILY Zyprexa Zydis (Olanzapine) 5 Mg Tab.rapdis 2.5 Mg PO PRN Q2HR PRN Remeron (Mirtazapine) 15 Mg Tablet 15 Mg PO QHS Melatonin 3 Mg Tablet 6 Mg PO QHS Vistaril (Hydroxyzine Pamoate) 25 Mg Capsule 25 Mg PO PRN Q2HR PRN Depakote Sprinkle (Divalproex Sodium) 125 Mg Cap.sprink 125 Mg PO TID Senna (Sennosides) 8.6 Mg Tablet 8.6 Mg PO BID Miralax (Polyethylene Glycol 3350) 17 Gm Powd.pack 1 Packet PO BID Analgesic [place] (Methyl Salicylate/Menthol) 29 Gm Oint...g. 1 Prisca TP QIDPRN PRN Milk Of Magnesia (Magnesium Hydroxide) 2,400 Mg/10 Ml Oral.susp 2,400 Mg PO HS PRN Mag-Al Plus Xs Suspension (Mag Hydrox/Al Hydrox/Simeth) 30 Ml Oral.susp 15 Ml PO QIDPRN PRN Novolog Flexpen (Insulin Aspart) 100 Unit/1 Ml Insuln.pen 0-9 Unit SQ TIDWMEALS Amaryl (Glimepiride) 1 Mg Tablet 1 Mg PO HS Amaryl (Glimepiride) 4 Mg Tablet 4 Mg PO DAILY Vitamin D3 (Cholecalciferol (Vitamin D3)) 1,000 Unit Tablet 2,000 Unit PO DAILY Tylenol (Acetaminophen) 325 Mg Tablet 650 Mg PO PRN Q6HRS PRN Nitrostat (Nitroglycerin) 0.4 Mg Tab.subl 0.4 Mg SL PRN PRN Metoprolol Tartrate 25 Mg Tablet 37.5 Mg PO BID Metformin Hcl 500 Mg Tablet 1,000 Mg PO BIDWMEALS Zetia (Ezetimibe) 10 Mg Tablet 10 Mg PO DAILY Aspirin 81 Mg Tab.chew 81 Mg PO DAILY Diagnosis: Problems: (1) Anxiety disorder (2) Impulse control disorder (3) Dementia in Alzheimer's disease with delusions (4) Dementia in Alzheimer's disease with depression (5) Dementia, vascular, with depression (6) Diabetes mellitus GHULAM LEMON MD May 10, 2017 21:10
--- NOTE | 2017-05-11 00:53 | NUR ---
Behavior Intervention Response and Plan: BIRP Note: Behavior: Assumed Care of patient, patient located in Hallway at shift change. Patient exhibited the following behavior Calm, Compliant, Cooperative. Brief assessment on rounds of vital signs, medication needs, lab studies, and pain. Treatment plan problems 1-2. Intervention: Patient assessed and the following interventions initiated safety checks 15 Minute Checks Cognitive Assessment , Head to toe Assessment , Medications. Response: After interactions and interventions patient responded in the following manner, Calm , Disorganized ,Cooperative. Continue to assess behaviors and condition will continue to monitor throughout the shift as needed. 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 Continue to assess patient for changes in above assessment. Monitor for medication needs, pain, and safety concerns. Hourly rounding performed to ensure safe environment.
[2017-05-11] MEDS: DIVALPROEX 125 MG CAP.SPRINK PO SCH ×2 (04:47→17:17)
[2017-05-11 06:13] VITALS: BP 100/64
[2017-05-11 07:34] LABS: CALCIUM 10.5 mg/dL (8.5-10.1); CREATININE 1.2 mg/dL (0.7-1.3); GFR 58.9; POTASSIUM 3.6 mmol/L (3.5-5.1)
[2017-05-11] MEDS: INSULIN ASPART 300 UNITS/3 ML INSULN.PEN SQ SCH ×3 (08:21→17:19)
[2017-05-11] MEDS: ESCITALOPRAM 5 MG TABLET PO SCH (08:22)
[2017-05-11] MEDS: ASPIRIN 81 MG TAB.CHEW PO SCH (08:22)
[2017-05-11] MEDS: DOCUSATE SODIUM 100 MG CAPSULE PO SCH (08:22)
[2017-05-11] MEDS: POLYETHYLENE GLYCOL 3350 17 GM PACKET. PO SCH (08:22)
[2017-05-11] MEDS: METOPROLOL TART IMMED RELEASE 25 MG TABLET PO SCH ×2 (08:31→18:59)
--- NOTE | 2017-05-11 10:00 | NUR ---
THERAPEUTIC RECREATION GROUP NOTE TITLE :Color [employer] Flag ACTIVITY : [employer] GOAL : Increase creativity and fine motor functioning, reduce stress, anxiety. DURATION : Available for 90 minutes RESPONSE : No participation.
--- NOTE | 2017-05-11 11:15 | NUR ---
Behavior Intervention Response and Plan: BIRP Note: Behavior: Assumed Care of patient, patient located in Day Room at shift change. Patient exhibited the following behavior Disorganized, Cooperative, wandering, and confused. Brief assessment on rounds of vital signs, medication needs, lab studies, and pain. Treatment plan problems: 1-2. Intervention: Patient assessed and the following interventions initiated safety checks 15 Minute Checks Cognitive Assessment , Head to toe Assessment , Medications, Oral Hydration, Nutrition. Response: After interactions and interventions patient responded in the following manner, Calm, Compliant, confused. Continue to assess behaviors and condition will continue to monitor throughout the shift as needed. Plan: Continue to monitor Master Treatment Plan for patient's progress toward short term goals of Decreased Agitation, Decreased Aggression, retirement goals to return to previous living setting vs placement. Continue to assess patient for changes in above assessment. Monitor for medication needs, pain, and safety concerns. Hourly rounding performed to ensure safe environment.
--- NOTE | 2017-05-11 13:30 | NUR ---
THERAPEUTIC RECREATION GROUP NOTE TITLE :Musical Flags ACTIVITY : Activities and Games GOAL : Increase alertness/focus, socialization, group cohesion DURATION : 40 Minutes RESPONSE : Moderate participation. Pt. had trouble following directions but was alert and talkative. He sat with the group the entire time and smiled a few times. He did not make sense when he talked but was calm the entire session. He needed prompting to pass the flag at first but did it on his own towards the end of the session.
[2017-05-11 15:48] VITALS: BP 123/73
[2017-05-11] MEDS: MIRTAZAPINE 7.5 MG TABLET. PO SCH (18:58)
[2017-05-11] MEDS: ATORVASTATIN CALCIUM 20 MG TABLET PO SCH (18:59)
[2017-05-11] MEDS: TAMSULOSIN 0.4 MG CAP.ER.24H. PO SCH (18:59)
[2017-05-11] MEDS: INSULIN DETEMIR 300 UNITS/3 ML INSULN.PEN. SQ SCH (19:53)
--- NOTE | 2017-05-11 23:11 | PDOC ---
Exam Geraldo Demential Exam: Geraldo Note: Please also refer to the separate dictated note~for this date of service dictated separately.~Patient seen individually. Discussed the patient with Nursing staff reviewed the chart.~Reviewed interim history and current functioning. Reviewed vital signs,~Labs/ Radiology~and current medications noted below. Continue current treatment with the changes noted in the dictated addendum note Assessment: Vital Signs: Vital Signs Date Time Temp Pulse Resp B/P (MAP) Pulse Ox O2 Delivery O2 Flow Rate FiO2 05/11/17 18:59 77 123/73 05/11/17 15:48 97.7 18 97 Room Air I&O Intake and Output 05/11/17 07:00 Intake Total 1080 ml Output Total 150 ml Balance 930 ml Intake Oral 1080 ml Output Urine Total 150 ml Labs: Laboratory Tests Test 05/11/17 06:34 05/11/17 07:26 Sodium Level 138 mmol/L (136-145) Potassium Level 3.6 mmol/L (3.5-5.1) Chloride Level 105 mmol/L (98-107) Carbon Dioxide Level 26 mmol/L (21-32) Anion Gap 7 (6-14) Blood Urea Nitrogen 29 mg/dL (8-26) H Creatinine 1.2 mg/dL (0.7-1.3) Estimated GFR (Cockcroft-Gault) 58.9 Glucose Level 213 mg/dL (70-99) H Calcium Level 10.5 mg/dL (8.5-10.1) H Glucose (Fingerstick) 223 mg/dL (70-99) H Current Medications: Meds: Current Medications Docusate Sodium (Colace) 100 mg DAILY PO Last administered on 05/11/17 08:22; Start 05/08/17 at 09:00 Aspirin (Children'S Aspirin) 81 mg DAILY PO Last administered on 05/11/17 08: 22; Start 05/08/17 at 09:00 Vitamin D (Vitamin D3) 2,000 unit DAILY PO Last administered on 05/08/17 09:46 ; Start 05/08/17 at 09:00; Stop 05/08/17 at 12:50; Status DC Metformin HCl (Glucophage) 1,000 mg BIDWMEALS PO Last administered on 05/07/17 17:00; Start 05/07/17 at 17:00; Stop 05/08/17 at 14:01; Status DC Metoprolol Tartrate (Lopressor) 37.5 mg BID PO Last administered on 05/11/17 18:59; Start 05/07/17 at 21:00 Nitroglycerin (Nitrostat) 0.4 mg PRN Q15MIN PRN SL CHEST PAIN; Start 05/07/17 at 16:00 Polyethylene Glycol (miraLAX) 17 gm DAILY PO Last administered on 05/11/17 08: 22; Start 05/08/17 at 09:00 Tamsulosin HCl (Flomax) 0.4 mg HS PO Last administered on 05/11/17 18:59; Start 05/07/17 at 21:00 Acetaminophen (Tylenol) 650 mg PRN Q6HRS PRN PO PAIN / TEMP Last administered on 05/08/17 22:06; Start 05/07/17 at 16:15 Al Hydroxide/Mg Hydroxide (Mylanta Plus Xs) 15 ml QIDPRN PRN PO HEARTBURN / GAS ; Start 05/07/17 at 16:15 Multi-Ingredient Ointment (Analgesic [place]) 1 prisca QIDPRN PRN TP MUSCLE PAIN; Start 05/07/17 at 16:15 Tramadol HCl (Ultram) 50 mg PRN Q8HRS PRN PO PAIN Last administered on 19:47; Start 05/07/17 at 16:15 Insulin Detemir (Levemir) 8 units QHS SQ Last administered on 05/07/17 21:44; Start 05/07/17 at 21:00; Stop 05/08/17 at 14:01; Status DC Magnesium Hydroxide (Milk Of Magnesia) 2,400 mg PRN QHS PRN PO CONSTIPATION; Start 05/07/17 at 16:30 Atorvastatin Calcium (Lipitor) 80 mg QHS PO Last administered on 05/11/17 18: 59; Start 05/07/17 at 21:00 Divalproex Sodium (Depakote Sprinkles) 125 mg BID76 PO Last administered on 17:17; Start 05/07/17 at 18:15 Insulin Detemir (Levemir) 10 units QHS SQ Last administered on 05/11/17 19:53 ; Start 05/08/17 at 21:00 Insulin Aspart (NovoLOG) 0-5 UNITS TIDAC SQ Last administered on 05/11/17 17: 19; Start 05/08/17 at 16:30 Dextrose 12.5 gm PRN Q15MIN PRN IV SEE COMMENTS; Start 05/08/17 at 14:15 Escitalopram Oxalate (Lexapro) 5 mg DAILY PO Last administered on 05/11/17 08: 22; Start 05/09/17 at 09:00 Mirtazapine (Remeron) 7.5 mg QHS PO Last administered on 05/11/17 18:58; Start 05/08/17 at 21:00 Trazodone HCl (Desyrel) 50 mg PRN QHS PRN PO INSOMNIA, MAY REPEAT X1 Last administered on 05/10/17 19:47; Start 05/09/17 at 19:00 Potassium Chloride (Klor-Con) 20 meq 1X ONCE PO Last administered on 14:37; Start 05/10/17 at 14:15; Stop 05/10/17 at 14:16; Status DC Active Scripts Active Reported Lantus Solostar (Insulin Glargine,Hum.rec.anlog) 100 Unit/1 Ml Insuln.pen 8 Unit SQ QHS Tramadol Hcl (Tramadol HCl) 50 Mg Tablet 50 Mg PO PRN Q8HRS PRN Crestor (Rosuvastatin Calcium) 20 Mg Tablet 1 Tab PO HS Flomax (Tamsulosin Hcl) 0.4 Mg Cap.er.24h 1 Cap PO HS Docusate Sodium 100 Mg Capsule 1 Cap PO DAILY Atorvastatin Calcium 80 Mg Tablet 80 Mg PO HS hIGH CHOLESTEROL Zoloft (Sertraline Hcl) 50 Mg Tablet 50 Mg PO DAILY Zyprexa Zydis (Olanzapine) 5 Mg Tab.rapdis 2.5 Mg PO PRN Q2HR PRN Remeron (Mirtazapine) 15 Mg Tablet 15 Mg PO QHS Melatonin 3 Mg Tablet 6 Mg PO QHS Vistaril (Hydroxyzine Pamoate) 25 Mg Capsule 25 Mg PO PRN Q2HR PRN Depakote Sprinkle (Divalproex Sodium) 125 Mg Cap.sprink 125 Mg PO TID Senna (Sennosides) 8.6 Mg Tablet 8.6 Mg PO BID Miralax (Polyethylene Glycol 3350) 17 Gm Powd.pack 1 Packet PO BID Analgesic [place] (Methyl Salicylate/Menthol) 29 Gm Oint...g. 1 Prisca TP QIDPRN PRN Milk Of Magnesia (Magnesium Hydroxide) 2,400 Mg/10 Ml Oral.susp 2,400 Mg PO HS PRN Mag-Al Plus Xs Suspension (Mag Hydrox/Al Hydrox/Simeth) 30 Ml Oral.susp 15 Ml PO QIDPRN PRN Novolog Flexpen (Insulin Aspart) 100 Unit/1 Ml Insuln.pen 0-9 Unit SQ TIDWMEALS Amaryl (Glimepiride) 1 Mg Tablet 1 Mg PO HS Amaryl (Glimepiride) 4 Mg Tablet 4 Mg PO DAILY Vitamin D3 (Cholecalciferol (Vitamin D3)) 1,000 Unit Tablet 2,000 Unit PO DAILY Tylenol (Acetaminophen) 325 Mg Tablet 650 Mg PO PRN Q6HRS PRN Nitrostat (Nitroglycerin) 0.4 Mg Tab.subl 0.4 Mg SL PRN PRN Metoprolol Tartrate 25 Mg Tablet 37.5 Mg PO BID Metformin Hcl 500 Mg Tablet 1,000 Mg PO BIDWMEALS Zetia (Ezetimibe) 10 Mg Tablet 10 Mg PO DAILY Aspirin 81 Mg Tab.chew 81 Mg PO DAILY Diagnosis: Problems: (1) Anxiety disorder (2) Impulse control disorder (3) Dementia in Alzheimer's disease with delusions (4) Dementia in Alzheimer's disease with depression (5) Dementia, vascular, with depression GHULAM LEMON MD May 11, 2017 23:11
--- NOTE | 2017-05-12 00:25 | NUR ---
Behavior Intervention Response and Plan: BIRP Note: Behavior: Assumed Care of patient, patient located in day room at shift change. Patient exhibited the following behavior Calm, Compliant, Cooperative. Brief assessment on rounds of vital signs, medication needs, lab studies, and pain. Treatment plan problems 1-2. Intervention: Patient assessed and the following interventions initiated safety checks 15 Minute Checks Cognitive Assessment , Head to toe Assessment , Medications. Response: After interactions and interventions patient responded in the following manner, Calm , Disorganized ,Cooperative. Continue to assess behaviors and condition will continue to monitor throughout the shift as needed. 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 Continue to assess patient for changes in above assessment. Monitor for medication needs, pain, and safety concerns. Hourly rounding performed to ensure safe environment.
--- NOTE | 2017-05-12 00:31 | PN ---
DATE: 05/11/2017 This is a late entry 05/10/2017, covers the elements not covered in my initial note. SUBJECTIVE: The patient is somewhat dehydrated and is being addressed by Dr. Jaimes. Reportedly, he has had a better night and done better during the day on 05/10/2017, less agitated, less kicking of doors and wall, less attention seeking. REVIEW OF SYSTEMS: No CV, , pulmonary, eye system symptoms on review. MENTAL STATUS EXAM: Oriented to himself. Insight, judgment, recent and remote memory, attention, concentration, fund of knowledge poor, consistent with his diagnosis as mentioned in my initial note. PLAN: Continue psychotropics as mentioned in my initial note and he slept better on Remeron seven hours previous night. We will adjust Depakote as clinically indicated. Maintain Lexapro 5 mg a day, Depakote Sprinkle 125 b.i.d., trazodone p.r.n., and Remeron 7.5 at bedtime. MAN Telma LEMON MD DR: ARMEN/geramine JOB#: [id number] / [id number]
[2017-05-12] MEDS: DIVALPROEX 125 MG CAP.SPRINK PO SCH ×2 (05:29→17:32)
[2017-05-12 05:58] VITALS: BP 113/83
[2017-05-12] MEDS: INSULIN ASPART 300 UNITS/3 ML INSULN.PEN SQ SCH ×3 (07:30→17:32)
--- NOTE | 2017-05-12 09:00 | NUR ---
THERAPEUTIC RECREATION GROUP NOTE TITLE :[employer] Ball [employer]op ACTIVITY : Movement/ Exercise GOAL : Increase morale, attention, endurance, socialization. Decrease stress/anxiety. DURATION : 50 Minutes RESPONSE : No participation.
[2017-05-12] MEDS: POLYETHYLENE GLYCOL 3350 17 GM PACKET. PO SCH (09:25)
[2017-05-12] MEDS: DOCUSATE SODIUM 100 MG CAPSULE PO SCH (09:25)
[2017-05-12] MEDS: ESCITALOPRAM 5 MG TABLET PO SCH (09:25)
[2017-05-12] MEDS: ASPIRIN 81 MG TAB.CHEW PO SCH (09:25)
[2017-05-12] MEDS: METOPROLOL TART IMMED RELEASE 25 MG TABLET PO SCH ×2 (09:25→20:48)
--- NOTE | 2017-05-12 11:30 | NUR ---
THERAPEUTIC RECREATION GROUP NOTE TITLE :Movement to Music: Flexibility ACTIVITY : Movement/ Exercise GOAL : Increase morale, attention, flexibility. Decrease stress/anxiety. DURATION : 20 Minutes RESPONSE : No participation.
--- NOTE | 2017-05-12 15:45 | NUR ---
Behavior Intervention Response and Plan: BIRP Note: Behavior: Assumed Care of patient, patient located in Patient Room at shift change. Patient exhibited the following behavior Calm, Compliant, Drowsy. Brief assessment on rounds of vital signs, medication needs, lab studies, and pain. Treatment plan problems . Intervention: Patient assessed and the following interventions initiated safety checks 15 Minute Checks Cognitive Assessment , Head to toe Assessment , Medications. Response: After interactions and interventions patient responded in the following manner, Calm , Compliant ,Cooperative. Continue to assess behaviors and condition will continue to monitor throughout the shift as needed. Plan: Continue to monitor Master Treatment Plan for patient's progress toward short term goals of Decreased Agitation, Decreased Aggression, longterm goals to return to previous living setting vs placement. Continue to assess patient for changes in above assessment. Monitor for medication needs, pain, and safety concerns. Hourly rounding performed to ensure safe environment.
[2017-05-12 15:58] VITALS: BP 104/73
--- NOTE | 2017-05-12 19:42 | PDOC ---
Exam Geraldo Demential Exam: Geraldo Note: Please also refer to the separate dictated note~for this date of service dictated separately.~Patient seen individually. Discussed the patient with Nursing staff reviewed the chart.~Reviewed interim history and current functioning. Reviewed vital signs,~Labs/ Radiology~and current medications noted below. Continue current treatment with the changes noted in the dictated addendum note Assessment: Vital Signs: Vital Signs Date Time Temp Pulse Resp B/P (MAP) Pulse Ox O2 Delivery O2 Flow Rate FiO2 05/12/17 15:58 98.0 75 19 104/73 (83) 99 05/12/17 05:58 Room Air I&O Intake and Output 05/12/17 07:00 Intake Total 720 ml Output Total 200 ml Balance 520 ml Intake Oral 720 ml Output Urine Total 200 ml Labs: Laboratory Tests Test 05/12/17 08:20 05/12/17 11:34 05/12/17 16:22 05/12/17 19:28 Glucose (Fingerstick) 132 mg/dL (70-99) H 134 mg/dL (70-99) H 338 mg/dL (70-99) H 153 mg/dL (70-99) H Current Medications: Meds: Current Medications Docusate Sodium (Colace) 100 mg DAILY PO Last administered on 05/12/17 09:25; Start 05/08/17 at 09:00 Aspirin (Children'S Aspirin) 81 mg DAILY PO Last administered on 05/12/17 09: 25; Start 05/08/17 at 09:00 Vitamin D (Vitamin D3) 2,000 unit DAILY PO Last administered on 05/08/17 09:46 ; Start 05/08/17 at 09:00; Stop 05/08/17 at 12:50; Status DC Metformin HCl (Glucophage) 1,000 mg BIDWMEALS PO Last administered on 05/07/17 17:00; Start 05/07/17 at 17:00; Stop 05/08/17 at 14:01; Status DC Metoprolol Tartrate (Lopressor) 37.5 mg BID PO Last administered on 05/12/17 09:25; Start 05/07/17 at 21:00 Nitroglycerin (Nitrostat) 0.4 mg PRN Q15MIN PRN SL CHEST PAIN; Start 05/07/17 at 16:00 Polyethylene Glycol (miraLAX) 17 gm DAILY PO Last administered on 05/12/17 09: 25; Start 05/08/17 at 09:00 Tamsulosin HCl (Flomax) 0.4 mg HS PO Last administered on 05/11/17 18:59; Start 05/07/17 at 21:00 Acetaminophen (Tylenol) 650 mg PRN Q6HRS PRN PO PAIN / TEMP Last administered on 05/08/17 22:06; Start 05/07/17 at 16:15 Al Hydroxide/Mg Hydroxide (Mylanta Plus Xs) 15 ml QIDPRN PRN PO HEARTBURN / GAS ; Start 05/07/17 at 16:15 Multi-Ingredient Ointment (Analgesic [place]) 1 prisca QIDPRN PRN TP MUSCLE PAIN; Start 05/07/17 at 16:15 Tramadol HCl (Ultram) 50 mg PRN Q8HRS PRN PO PAIN Last administered on 19:47; Start 05/07/17 at 16:15 Insulin Detemir (Levemir) 8 units QHS SQ Last administered on 05/07/17 21:44; Start 05/07/17 at 21:00; Stop 05/08/17 at 14:01; Status DC Magnesium Hydroxide (Milk Of Magnesia) 2,400 mg PRN QHS PRN PO CONSTIPATION; Start 05/07/17 at 16:30 Atorvastatin Calcium (Lipitor) 80 mg QHS PO Last administered on 05/11/17 18: 59; Start 05/07/17 at 21:00 Divalproex Sodium (Depakote Sprinkles) 125 mg BID76 PO Last administered on 17:32; Start 05/07/17 at 18:15 Insulin Detemir (Levemir) 10 units QHS SQ Last administered on 05/11/17 19:53 ; Start 05/08/17 at 21:00 Insulin Aspart (NovoLOG) 0-5 UNITS TIDAC SQ Last administered on 05/12/17 17: 32; Start 05/08/17 at 16:30 Dextrose 12.5 gm PRN Q15MIN PRN IV SEE COMMENTS; Start 05/08/17 at 14:15 Escitalopram Oxalate (Lexapro) 5 mg DAILY PO Last administered on 05/12/17 09: 25; Start 05/09/17 at 09:00 Mirtazapine (Remeron) 7.5 mg QHS PO Last administered on 05/11/17 18:58; Start 05/08/17 at 21:00 Trazodone HCl (Desyrel) 50 mg PRN QHS PRN PO INSOMNIA, MAY REPEAT X1 Last administered on 05/10/17 19:47; Start 05/09/17 at 19:00 Potassium Chloride (Klor-Con) 20 meq 1X ONCE PO Last administered on 14:37; Start 05/10/17 at 14:15; Stop 05/10/17 at 14:16; Status DC Active Scripts Active Reported Lantus Solostar (Insulin Glargine,Hum.rec.anlog) 100 Unit/1 Ml Insuln.pen 8 Unit SQ QHS Tramadol Hcl (Tramadol HCl) 50 Mg Tablet 50 Mg PO PRN Q8HRS PRN Crestor (Rosuvastatin Calcium) 20 Mg Tablet 1 Tab PO HS Flomax (Tamsulosin Hcl) 0.4 Mg Cap.er.24h 1 Cap PO HS Docusate Sodium 100 Mg Capsule 1 Cap PO DAILY Atorvastatin Calcium 80 Mg Tablet 80 Mg PO HS hIGH CHOLESTEROL Zoloft (Sertraline Hcl) 50 Mg Tablet 50 Mg PO DAILY Zyprexa Zydis (Olanzapine) 5 Mg Tab.rapdis 2.5 Mg PO PRN Q2HR PRN Remeron (Mirtazapine) 15 Mg Tablet 15 Mg PO QHS Melatonin 3 Mg Tablet 6 Mg PO QHS Vistaril (Hydroxyzine Pamoate) 25 Mg Capsule 25 Mg PO PRN Q2HR PRN Depakote Sprinkle (Divalproex Sodium) 125 Mg Cap.sprink 125 Mg PO TID Senna (Sennosides) 8.6 Mg Tablet 8.6 Mg PO BID Miralax (Polyethylene Glycol 3350) 17 Gm Powd.pack 1 Packet PO BID Analgesic [place] (Methyl Salicylate/Menthol) 29 Gm Oint...g. 1 Prisca TP QIDPRN PRN Milk Of Magnesia (Magnesium Hydroxide) 2,400 Mg/10 Ml Oral.susp 2,400 Mg PO HS PRN Mag-Al Plus Xs Suspension (Mag Hydrox/Al Hydrox/Simeth) 30 Ml Oral.susp 15 Ml PO QIDPRN PRN Novolog Flexpen (Insulin Aspart) 100 Unit/1 Ml Insuln.pen 0-9 Unit SQ TIDWMEALS Amaryl (Glimepiride) 1 Mg Tablet 1 Mg PO HS Amaryl (Glimepiride) 4 Mg Tablet 4 Mg PO DAILY Vitamin D3 (Cholecalciferol (Vitamin D3)) 1,000 Unit Tablet 2,000 Unit PO DAILY Tylenol (Acetaminophen) 325 Mg Tablet 650 Mg PO PRN Q6HRS PRN Nitrostat (Nitroglycerin) 0.4 Mg Tab.subl 0.4 Mg SL PRN PRN Metoprolol Tartrate 25 Mg Tablet 37.5 Mg PO BID Metformin Hcl 500 Mg Tablet 1,000 Mg PO BIDWMEALS Zetia (Ezetimibe) 10 Mg Tablet 10 Mg PO DAILY Aspirin 81 Mg Tab.chew 81 Mg PO DAILY Diagnosis: Problems: (1) Anxiety disorder (2) Impulse control disorder (3) Dementia in Alzheimer's disease with delusions (4) Dementia in Alzheimer's disease with depression (5) Dementia, vascular, with depression (6) Diabetes mellitus GHULAM LEMON MD May 12, 2017 19:42
[2017-05-12] MEDS: TAMSULOSIN 0.4 MG CAP.ER.24H. PO SCH (20:46)
[2017-05-12] MEDS: ATORVASTATIN CALCIUM 20 MG TABLET PO SCH (20:48)
[2017-05-12] MEDS: MIRTAZAPINE 7.5 MG TABLET. PO SCH (20:48)
[2017-05-12] MEDS: INSULIN DETEMIR 300 UNITS/3 ML INSULN.PEN. SQ SCH (20:50)
--- NOTE | 2017-05-12 21:26 | PN ---
DATE: 05/11/2017 PSYCHIATRIC PROGRESS NOTE This is late entry of 05/11/2017, covers elements not covered in my initial note. SUBJECTIVE: The patient slept 5 hours, did well the previous evening, confused, wanders. REVIEW OF SYSTEMS: No CV, , pulmonary, eye, ENT system symptoms on review. Reliability poor. MENTAL STATUS EXAMINATION: Oriented to himself. Insight, judgment, recent and remote memory, attention, concentration, fund of knowledge poor, consistent with his diagnosis. He seemed oblivious of his surroundings as I met with him. LABORATORY DATA: Reviewed. IMPRESSION: Unchanged from initial note, which also has his current psychotropics listed. MAN Telma LEMON MD DR: ARMEN/germaine JOB#: [id number] / [id number]
--- NOTE | 2017-05-12 21:45 | NUR ---
Nursing Note: During HS care pt was found to have small amount of hematuria most likely d/t pulling on Scott catheter. Pt is known for this behavior. Citrus Fruit Colorer was on the floor and was informed and witnessed. Two securing devices were placed and a very small amount of Calazime cream was place on the tip of pt's penis to sooth any irritation. Will continue to monitor.
--- NOTE | 2017-05-12 23:08 | NUR ---
Behavior Intervention Response and Plan: BIRP Note: Behavior: Assumed Care of patient, patient located in Hallway at shift change. Patient exhibited the following behavior Wandering, Calm, Cooperative. Brief assessment on rounds of vital signs, medication needs, lab studies, and pain. Treatment plan problems Dementia W/ BD and Fall Risk. Intervention: Patient assessed and the following interventions initiated safety checks 15 Minute Checks Cognitive Assessment , Head to toe Assessment , Medications. Response: After interactions and interventions patient responded in the following manner, Wandering , Calm ,Cooperative. Continue to assess behaviors and condition will continue to monitor throughout the shift as needed. Plan: Continue to monitor Master Treatment Plan for patient's progress toward short term goals of Decreased Agitation, Decreased Aggression, usp goals to return to previous living setting vs placement. Continue to assess patient for changes in above assessment. Monitor for medication needs, pain, and safety concerns. Hourly rounding performed to ensure safe environment.
[2017-05-13] MEDS: traZODone 50 MG TABLET. PO PRN (00:03)
--- NOTE | 2017-05-13 01:33 | NUR ---
Nursing Note: Pt was given repeat Trazodone just after midnight d/t inability to sleep/restlessness. Pt still awake at this time. Will continue to monitor.
[2017-05-13 05:23] VITALS: BP 111/63
[2017-05-13] MEDS: DIVALPROEX 125 MG CAP.SPRINK PO SCH ×4 (05:42→20:24)
--- NOTE | 2017-05-13 06:46 | NUR ---
NURSING NOTE: Pt refused AM medication. Pt sleepy and would not take AM medication. Multiple attempts made.
[2017-05-13] MEDS: ASPIRIN 81 MG TAB.CHEW PO SCH (08:02)
[2017-05-13] MEDS: DOCUSATE SODIUM 100 MG CAPSULE PO SCH (08:02)
[2017-05-13] MEDS: ESCITALOPRAM 5 MG TABLET PO SCH (08:02)
[2017-05-13] MEDS: METOPROLOL TART IMMED RELEASE 25 MG TABLET PO SCH ×2 (08:03→20:25)
[2017-05-13] MEDS: POLYETHYLENE GLYCOL 3350 17 GM PACKET. PO SCH (08:04)
[2017-05-13] MEDS: INSULIN ASPART 300 UNITS/3 ML INSULN.PEN SQ SCH ×3 (08:05→17:52)
--- NOTE | 2017-05-13 09:30 | NUR ---
Behavior Intervention Response and Plan: BIRP Note: Behavior: Assumed Care of patient, patient located in Hallway at shift change. Patient exhibited the following behavior Wandering, Disorganized, Cooperative. Brief assessment on rounds of vital signs, medication needs, lab studies, and pain. Treatment plan problems 1 & 2. Intervention: Patient assessed and the following interventions initiated safety checks 15 Minute Checks Cognitive Assessment , Head to toe Assessment , Medications. Response: After interactions and interventions patient responded in the following manner, Calm , Appropriate ,Compliant. Continue to assess behaviors and condition will continue to monitor throughout the shift as needed. Plan: Continue to monitor Master Treatment Plan for patient's progress toward short term goals of Decreased Agitation, Medication Compliance, long-term goals to return to previous living setting vs placement. Continue to assess patient for changes in above assessment. Monitor for medication needs, pain, and safety concerns. Hourly rounding performed to ensure safe environment.
--- NOTE | 2017-05-13 11:15 | NUR ---
THERAPEUTIC RECREATION GROUP NOTE TITLE :Match the Flag ACTIVITY : Cognitive Stimulation GOAL : Maintain or improve cognitive functioning and memory. DURATION : 45 Minutes RESPONSE : No participation.
--- NOTE | 2017-05-13 12:11 | PN ---
DATE: 05/12/2017 SUBJECTIVE: This is a late entry 05/12/2017 covers elements not covered in my initial note. The patient has been quite disorganized. Slept in the morning of 05/12/2017. No agitation noted and oblivious of his surroundings. REVIEW OF SYSTEMS: No CV, , pulmonary, eye, or ENT system symptoms on review. Reliability poor. MENTAL STATUS EXAM: Oriented to himself. Insight, judgment, recent and remote memory, attention, concentration, fund of knowledge poor consistent with his diagnosis mentioned in my initial note. PLAN: Continue current psychotropics. Adjust further as clinically indicated. MAN Telma LEMON MD DR: ARMEN/germaine JOB#: [id number] / [id number]
[2017-05-13 16:00] VITALS: BP 126/80
[2017-05-13] MEDS: traMADol 50 MG TABLET PO PRN (16:26)
--- NOTE | 2017-05-13 20:06 | PDOC ---
Exam Geraldo Demential Exam: Geraldo Note: Please also refer to the separate dictated note~for this date of service dictated separately.~Patient seen individually. Discussed the patient with Nursing staff reviewed the chart.~Reviewed interim history and current functioning. Reviewed vital signs,~Labs/ Radiology~and current medications noted below. Continue current treatment with the changes noted in the dictated addendum note Assessment: Vital Signs: Vital Signs Date Time Temp Pulse Resp B/P (MAP) Pulse Ox O2 Delivery O2 Flow Rate FiO2 05/13/17 18:12 18 96 Room Air 05/13/17 16:00 98.0 72 126/80 (95) I&O Intake and Output 05/13/17 07:00 Intake Total 600 ml Output Total 350 ml Balance 250 ml Intake Oral 600 ml Output Urine Total 350 ml Labs: Laboratory Tests Test 05/13/17 07:52 05/13/17 11:38 05/13/17 17:04 05/13/17 19:02 Glucose (Fingerstick) 193 mg/dL (70-99) H 297 mg/dL (70-99) H 242 mg/dL (70-99) H 298 mg/dL (70-99) H Current Medications: Meds: Current Medications Docusate Sodium (Colace) 100 mg DAILY PO Last administered on 05/13/17 08:02; Start 05/08/17 at 09:00 Aspirin (Children'S Aspirin) 81 mg DAILY PO Last administered on 05/13/17 08: 02; Start 05/08/17 at 09:00 Vitamin D (Vitamin D3) 2,000 unit DAILY PO Last administered on 05/08/17 09:46 ; Start 05/08/17 at 09:00; Stop 05/08/17 at 12:50; Status DC Metformin HCl (Glucophage) 1,000 mg BIDWMEALS PO Last administered on 05/07/17 17:00; Start 05/07/17 at 17:00; Stop 05/08/17 at 14:01; Status DC Metoprolol Tartrate (Lopressor) 37.5 mg BID PO Last administered on 05/13/17 08:03; Start 05/07/17 at 21:00 Nitroglycerin (Nitrostat) 0.4 mg PRN Q15MIN PRN SL CHEST PAIN; Start 05/07/17 at 16:00 Polyethylene Glycol (miraLAX) 17 gm DAILY PO Last administered on 05/13/17 08: 04; Start 05/08/17 at 09:00 Tamsulosin HCl (Flomax) 0.4 mg HS PO Last administered on 05/12/17 20:46; Start 05/07/17 at 21:00 Acetaminophen (Tylenol) 650 mg PRN Q6HRS PRN PO PAIN / TEMP Last administered on 05/08/17 22:06; Start 05/07/17 at 16:15 Al Hydroxide/Mg Hydroxide (Mylanta Plus Xs) 15 ml QIDPRN PRN PO HEARTBURN / GAS ; Start 05/07/17 at 16:15 Multi-Ingredient Ointment (Analgesic [place]) 1 prisca QIDPRN PRN TP MUSCLE PAIN; Start 05/07/17 at 16:15 Tramadol HCl (Ultram) 50 mg PRN Q8HRS PRN PO PAIN Last administered on 16:26; Start 05/07/17 at 16:15 Insulin Detemir (Levemir) 8 units QHS SQ Last administered on 05/07/17 21:44; Start 05/07/17 at 21:00; Stop 05/08/17 at 14:01; Status DC Magnesium Hydroxide (Milk Of Magnesia) 2,400 mg PRN QHS PRN PO CONSTIPATION; Start 05/07/17 at 16:30 Atorvastatin Calcium (Lipitor) 80 mg QHS PO Last administered on 05/12/17 20: 48; Start 05/07/17 at 21:00 Divalproex Sodium (Depakote Sprinkles) 125 mg BID76 PO Last administered on 17:25; Start 05/07/17 at 18:15; Stop 05/13/17 at 18:35; Status DC Insulin Detemir (Levemir) 10 units QHS SQ Last administered on 05/12/17 20:50 ; Start 05/08/17 at 21:00 Insulin Aspart (NovoLOG) 0-5 UNITS TIDAC SQ Last administered on 05/13/17 17: 52; Start 05/08/17 at 16:30 Dextrose 12.5 gm PRN Q15MIN PRN IV SEE COMMENTS; Start 05/08/17 at 14:15 Escitalopram Oxalate (Lexapro) 5 mg DAILY PO Last administered on 05/13/17 08: 02; Start 05/09/17 at 09:00 Mirtazapine (Remeron) 7.5 mg QHS PO Last administered on 05/12/17 20:48; Start 05/08/17 at 21:00 Trazodone HCl (Desyrel) 50 mg PRN QHS PRN PO INSOMNIA, MAY REPEAT X1 Last administered on 05/13/17 00:03; Start 05/09/17 at 19:00 Potassium Chloride (Klor-Con) 20 meq 1X ONCE PO Last administered on 14:37; Start 05/10/17 at 14:15; Stop 05/10/17 at 14:16; Status DC Vitamin A/Vitamin D (Vitamin A & D Ointment) 1 prisca BID TP ; Start 05/13/17 at 21 :00 Divalproex Sodium (Depakote Sprinkles) 125 mg TID PO ; Start 05/13/17 at 21:00 Active Scripts Active Reported Lantus Solostar (Insulin Glargine,Hum.rec.anlog) 100 Unit/1 Ml Insuln.pen 8 Unit SQ QHS Tramadol Hcl (Tramadol HCl) 50 Mg Tablet 50 Mg PO PRN Q8HRS PRN Crestor (Rosuvastatin Calcium) 20 Mg Tablet 1 Tab PO HS Flomax (Tamsulosin Hcl) 0.4 Mg Cap.er.24h 1 Cap PO HS Docusate Sodium 100 Mg Capsule 1 Cap PO DAILY Atorvastatin Calcium 80 Mg Tablet 80 Mg PO HS hIGH CHOLESTEROL Zoloft (Sertraline Hcl) 50 Mg Tablet 50 Mg PO DAILY Zyprexa Zydis (Olanzapine) 5 Mg Tab.rapdis 2.5 Mg PO PRN Q2HR PRN Remeron (Mirtazapine) 15 Mg Tablet 15 Mg PO QHS Melatonin 3 Mg Tablet 6 Mg PO QHS Vistaril (Hydroxyzine Pamoate) 25 Mg Capsule 25 Mg PO PRN Q2HR PRN Depakote Sprinkle (Divalproex Sodium) 125 Mg Cap.sprink 125 Mg PO TID Senna (Sennosides) 8.6 Mg Tablet 8.6 Mg PO BID Miralax (Polyethylene Glycol 3350) 17 Gm Powd.pack 1 Packet PO BID Analgesic [place] (Methyl Salicylate/Menthol) 29 Gm Oint...g. 1 Prisca TP QIDPRN PRN Milk Of Magnesia (Magnesium Hydroxide) 2,400 Mg/10 Ml Oral.susp 2,400 Mg PO HS PRN Mag-Al Plus Xs Suspension (Mag Hydrox/Al Hydrox/Simeth) 30 Ml Oral.susp 15 Ml PO QIDPRN PRN Novolog Flexpen (Insulin Aspart) 100 Unit/1 Ml Insuln.pen 0-9 Unit SQ TIDWMEALS Amaryl (Glimepiride) 1 Mg Tablet 1 Mg PO HS Amaryl (Glimepiride) 4 Mg Tablet 4 Mg PO DAILY Vitamin D3 (Cholecalciferol (Vitamin D3)) 1,000 Unit Tablet 2,000 Unit PO DAILY Tylenol (Acetaminophen) 325 Mg Tablet 650 Mg PO PRN Q6HRS PRN Nitrostat (Nitroglycerin) 0.4 Mg Tab.subl 0.4 Mg SL PRN PRN Metoprolol Tartrate 25 Mg Tablet 37.5 Mg PO BID Metformin Hcl 500 Mg Tablet 1,000 Mg PO BIDWMEALS Zetia (Ezetimibe) 10 Mg Tablet 10 Mg PO DAILY Aspirin 81 Mg Tab.chew 81 Mg PO DAILY Diagnosis: Problems: (1) Anxiety disorder (2) Impulse control disorder (3) Dementia in Alzheimer's disease with delusions (4) Dementia in Alzheimer's disease with depression (5) Dementia, vascular, with depression GHULAM LEMON MD May 13, 2017 20:06
[2017-05-13] MEDS: TAMSULOSIN 0.4 MG CAP.ER.24H. PO SCH (20:24)
[2017-05-13] MEDS: ATORVASTATIN CALCIUM 20 MG TABLET PO SCH (20:26)
[2017-05-13] MEDS: INSULIN DETEMIR 300 UNITS/3 ML INSULN.PEN. SQ SCH (20:27)
[2017-05-13] MEDS: MIRTAZAPINE 7.5 MG TABLET. PO SCH (20:28)
[2017-05-13] MEDS: VITS A & D/LANOLIN TOPICAL OINTMENT 56GM TUBE. TP SCH (20:28)
--- NOTE | 2017-05-13 23:19 | NUR ---
Behavior Intervention Response and Plan: BIRP Note: Behavior: Assumed Care of patient, patient located in Day Room at shift change. Patient exhibited the following behavior Calm, Compliant, Cooperative. Brief assessment on rounds of vital signs, medication needs, lab studies, and pain. Treatment plan problems Dementia W/ BD and Fall Risk. Intervention: Patient assessed and the following interventions initiated safety checks 15 Minute Checks Cognitive Assessment , Head to toe Assessment , Medications. Response: After interactions and interventions patient responded in the following manner, Calm , Disorganized ,Cooperative. Continue to assess behaviors and condition will continue to monitor throughout the shift as needed. 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 Continue to assess patient for changes in above assessment. Monitor for medication needs, pain, and safety concerns. Hourly rounding performed to ensure safe environment.
--- NOTE | 2017-05-14 01:21 | PN ---
DATE: 05/13/2017 This note covers elements not covered in my initial note. SUBJECTIVE: Per nursing report, the patient remains confused, but pleasant. He has not been aggressive, seems to have some incontinence of urine. REVIEW OF SYSTEMS: No CV, , pulmonary, eye, ENT system symptoms on review. MENTAL STATUS EXAM: Oriented to himself. Insight, judgment, recent and remote memory, attention, concentration, fund of knowledge poor, consistent with his diagnosis mentioned in my initial note. PLAN: Increase Depakote Sprinkles from 125 b.i.d. to 125 three times a day. Check labs level. Continue rest of the psychotropics, unchanged. MAN Telma LEMON MD DR: ARMEN/germaine JOB#: [id number] / [id number]
--- NOTE | 2017-05-14 05:44 | NUR ---
Nursing Note: Pt in bed and noted with Scott cath to be leaking a large amount of urine. Call placed to Dr. Benjamin, informed of leaking Scott and pt being started on Flomax recently for Urinary Retention, Order received to DC Scott and perform Bladder scans to monitor urinary output. Scott removed at this time
[2017-05-14 05:48] VITALS: BP 121/66
[2017-05-14] MEDS: DOCUSATE SODIUM 100 MG CAPSULE PO SCH (08:57)
[2017-05-14] MEDS: METOPROLOL TART IMMED RELEASE 25 MG TABLET PO SCH ×3 (08:57→19:53)
[2017-05-14] MEDS: ASPIRIN 81 MG TAB.CHEW PO SCH (08:58)
[2017-05-14] MEDS: DIVALPROEX 125 MG CAP.SPRINK PO SCH ×4 (08:58→19:55)
[2017-05-14] MEDS: POLYETHYLENE GLYCOL 3350 17 GM PACKET. PO SCH (08:58)
[2017-05-14] MEDS: ESCITALOPRAM 5 MG TABLET PO SCH (08:58)
[2017-05-14] MEDS: INSULIN ASPART 300 UNITS/3 ML INSULN.PEN SQ SCH ×3 (08:59→17:21)
[2017-05-14] MEDS: VITS A & D/LANOLIN TOPICAL OINTMENT 56GM TUBE. TP SCH ×2 (09:00→21:55)
--- NOTE | 2017-05-14 11:00 | NUR ---
THERAPEUTIC RECREATION GROUP NOTE TITLE :Instrument Play Along ACTIVITY : Music GOAL : Increase socialization and self expression, elevate mood, stimulate memory DURATION : 60 minutes RESPONSE : No participation.
[2017-05-14 13:49] LABS: BILIRUBIN,URINE NEG (NEG); CLARITY,URINE CLOUDY; COLOR,URINE AMBER; GLUCOSE,URINE >=1000 mg/dL (NEG)
[2017-05-14 13:50] LABS: NITRITE,URINE POS (NEG); UROBILINOGEN,URINE 1 mg/dL (0.2 mg/dL)
[2017-05-14 13:51] LABS: BACTERIA,URINE MANY /HPF (0-FEW); RBC,URINE 20-40 /HPF (0-2); SQUAMOUS EPITHELIAL CELL,UR OCC /LPF; WBC,URINE >40 /HPF (0-4)
--- NOTE | 2017-05-14 14:15 | NUR ---
THERAPEUTIC RECREATION GROUP NOTE TITLE :Movie ACTIVITY : Activities and Games GOAL : Increase alertness/focus, decrease stress DURATION : 105 Minutes RESPONSE : No participation.
[2017-05-14 15:53] VITALS: BP 104/63
--- NOTE | 2017-05-14 16:00 | NUR ---
Behavior Intervention Response and Plan: BIRP Note: Behavior: Assumed Care of patient, patient located in Patient Room at shift change. Patient exhibited the following behavior Calm, Compliant, Disorganized. Brief assessment on rounds of vital signs, medication needs, lab studies, and pain. Treatment plan problems . Intervention: Patient assessed and the following interventions initiated safety checks 15 Minute Checks Cognitive Assessment , Head to toe Assessment , Medications. Response: After interactions and interventions patient responded in the following manner, Calm , Compliant ,Cooperative. Continue to assess behaviors and condition will continue to monitor throughout the shift as needed. 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 Continue to assess patient for changes in above assessment. Monitor for medication needs, pain, and safety concerns. Hourly rounding performed to ensure safe environment.
--- NOTE | 2017-05-14 16:00 | NUR ---
Patient had indwelling catheter removed yesterday d/t pt pulling on it. Patient has history of retention, nursing has been monitoring output. Patient has voided at least three times of urine and had medium bowel movement. Patient was bladder scanned in afternoon and had 220ml of urine in bladder. UA has been obtained and was sent to culture. Patient has been given teja care several times today, and shows no s/s of distention, no tenderness observed. Dr. Benjamin is aware of patient's status, and has asked we push fluids/gatorade and monitor his urine output- not to exceed 250ml if bladder scanned, will continue to monitor.
[2017-05-14] MEDS: CHOLECALCIFEROL (VITAMIN D3) 1,000 UNIT TABLET PO SCH (17:20)
[2017-05-14] MEDS: CYANOCOBALAMIN (VITAMIN B-12) 1,000 MCG TABLET. PO SCH (17:20)
[2017-05-14] MEDS: MIRTAZAPINE 7.5 MG TABLET. PO SCH ×2 (19:00→19:53)
[2017-05-14] MEDS: ATORVASTATIN CALCIUM 20 MG TABLET PO SCH ×2 (19:30→19:54)
[2017-05-14] MEDS: TAMSULOSIN 0.4 MG CAP.ER.24H. PO SCH ×2 (19:30→19:54)
[2017-05-14] MEDS: INSULIN DETEMIR 300 UNITS/3 ML INSULN.PEN. SQ SCH (19:57)
--- NOTE | 2017-05-14 19:58 | PDOC ---
Exam Geraldo Demential Exam: Geraldo Note: Please also refer to the separate dictated note~for this date of service dictated separately.~Patient seen individually. Discussed the patient with Nursing staff reviewed the chart.~Reviewed interim history and current functioning. Reviewed vital signs,~Labs/ Radiology~and current medications noted below. Continue current treatment with the changes noted in the dictated addendum note Assessment: Vital Signs: Vital Signs Date Time Temp Pulse Resp B/P (MAP) Pulse Ox O2 Delivery O2 Flow Rate FiO2 05/14/17 15:53 98.4 73 18 104/63 (77) 99 Room Air I&O Intake and Output 05/14/17 07:00 Intake Total 600 ml Balance 600 ml Intake Oral 600 ml # Bowel Movements 1 Labs: Laboratory Tests Test 05/14/17 07:17 05/14/17 11:44 05/14/17 13:23 05/14/17 13:42 Glucose (Fingerstick) 171 mg/dL (70-99) H 310 mg/dL (70-99) H Urine Collection Type Unknown Urine Color [place] Urine Clarity Cloudy Urine pH 5.5 Urine Specific [place] 1.020 Urine Protein 100 mg/dl (NEG-TRACE) Urine Glucose (UA) >=1000 mg/dL (NEG) Urine Ketones (Stick) Neg mg/dL (NEG) Urine Blood Large (NEG) Urine Nitrite Pos (NEG) Urine Bilirubin Neg (NEG) Urine Urobilinogen Dipstick 1 mg/dL (0.2 mg/dL) Urine Leukocyte Esterase Small (NEG) Urine RBC 20-40 /HPF (0-2) Urine WBC >40 /HPF (0-4) Urine Squamous Epithelial Cells Occ /LPF Urine Bacteria Many /HPF (0-FEW) Urine Mucus Mod /LPF Magnesium Level 1.7 mg/dL (1.8-2.4) L Test 05/14/17 17:01 05/14/17 19:09 Glucose (Fingerstick) 200 mg/dL (70-99) H 198 mg/dL (70-99) H Current Medications: Meds: Current Medications Docusate Sodium (Colace) 100 mg DAILY PO Last administered on 05/14/17 08:57; Start 05/08/17 at 09:00 Aspirin (Children'S Aspirin) 81 mg DAILY PO Last administered on 05/14/17 08: 58; Start 05/08/17 at 09:00 Vitamin D (Vitamin D3) 2,000 unit DAILY PO Last administered on 05/08/17 09:46 ; Start 05/08/17 at 09:00; Stop 05/08/17 at 12:50; Status DC Metformin HCl (Glucophage) 1,000 mg BIDWMEALS PO Last administered on 05/07/17 17:00; Start 05/07/17 at 17:00; Stop 05/08/17 at 14:01; Status DC Metoprolol Tartrate (Lopressor) 37.5 mg BID PO Last administered on 05/14/17 08:57; Start 05/07/17 at 21:00 Nitroglycerin (Nitrostat) 0.4 mg PRN Q15MIN PRN SL CHEST PAIN; Start 05/07/17 at 16:00 Polyethylene Glycol (miraLAX) 17 gm DAILY PO Last administered on 05/14/17 08: 58; Start 05/08/17 at 09:00 Tamsulosin HCl (Flomax) 0.4 mg HS PO Last administered on 05/13/17 20:24; Start 05/07/17 at 21:00 Acetaminophen (Tylenol) 650 mg PRN Q6HRS PRN PO PAIN / TEMP Last administered on 05/08/17 22:06; Start 05/07/17 at 16:15 Al Hydroxide/Mg Hydroxide (Mylanta Plus Xs) 15 ml QIDPRN PRN PO HEARTBURN / GAS ; Start 05/07/17 at 16:15 Multi-Ingredient Ointment (Analgesic [place]) 1 prisca QIDPRN PRN TP MUSCLE PAIN; Start 05/07/17 at 16:15 Tramadol HCl (Ultram) 50 mg PRN Q8HRS PRN PO PAIN Last administered on 16:26; Start 05/07/17 at 16:15 Insulin Detemir (Levemir) 8 units QHS SQ Last administered on 05/07/17 21:44; Start 05/07/17 at 21:00; Stop 05/08/17 at 14:01; Status DC Magnesium Hydroxide (Milk Of Magnesia) 2,400 mg PRN QHS PRN PO CONSTIPATION; Start 05/07/17 at 16:30 Atorvastatin Calcium (Lipitor) 80 mg QHS PO Last administered on 05/13/17 20: 26; Start 05/07/17 at 21:00 Divalproex Sodium (Depakote Sprinkles) 125 mg BID76 PO Last administered on 17:25; Start 05/07/17 at 18:15; Stop 05/13/17 at 18:35; Status DC Insulin Detemir (Levemir) 10 units QHS SQ Last administered on 05/13/17 20:27 ; Start 05/08/17 at 21:00 Insulin Aspart (NovoLOG) 0-5 UNITS TIDAC SQ Last administered on 05/14/17 17: 21; Start 05/08/17 at 16:30 Dextrose 12.5 gm PRN Q15MIN PRN IV SEE COMMENTS; Start 05/08/17 at 14:15 Escitalopram Oxalate (Lexapro) 5 mg DAILY PO Last administered on 05/14/17 08: 58; Start 05/09/17 at 09:00 Mirtazapine (Remeron) 7.5 mg QHS PO Last administered on 05/13/17 20:28; Start 05/08/17 at 21:00 Trazodone HCl (Desyrel) 50 mg PRN QHS PRN PO INSOMNIA, MAY REPEAT X1 Last administered on 05/13/17 00:03; Start 05/09/17 at 19:00 Potassium Chloride (Klor-Con) 20 meq 1X ONCE PO Last administered on 14:37; Start 05/10/17 at 14:15; Stop 05/10/17 at 14:16; Status DC Vitamin A/Vitamin D (Vitamin A & D Ointment) 1 prisca BID TP Last administered on 05/14/17 09:00; Start 05/13/17 at 21:00 Divalproex Sodium (Depakote Sprinkles) 125 mg TID PO Last administered on 14:14; Start 05/13/17 at 21:00 Vitamin D (Vitamin D3) 2,000 unit DAILYBFRSUP PO Last administered on 17:20; Start 05/14/17 at 17:00 Cyanocobalamin (Vitamin B-12) 1,000 mcg DAILYBFRSUP PO Last administered on 17:20; Start 05/14/17 at 17:00 Prenat 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/ 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/Iron/Folic Ac (Multivitamin ) 1 tab DAILY PO ; Start 05/15/17 at 09:00 Active Scripts Active Reported Lantus Solostar (Insulin Glargine,Hum.rec.anlog) 100 Unit/1 Ml Insuln.pen 8 Unit SQ QHS Tramadol Hcl (Tramadol HCl) 50 Mg Tablet 50 Mg PO PRN Q8HRS PRN Crestor (Rosuvastatin Calcium) 20 Mg Tablet 1 Tab PO HS Flomax (Tamsulosin Hcl) 0.4 Mg Cap.er.24h 1 Cap PO HS Docusate Sodium 100 Mg Capsule 1 Cap PO DAILY Atorvastatin Calcium 80 Mg Tablet 80 Mg PO HS hIGH CHOLESTEROL Zoloft (Sertraline Hcl) 50 Mg Tablet 50 Mg PO DAILY Zyprexa Zydis (Olanzapine) 5 Mg Tab.rapdis 2.5 Mg PO PRN Q2HR PRN Remeron (Mirtazapine) 15 Mg Tablet 15 Mg PO QHS Melatonin 3 Mg Tablet 6 Mg PO QHS Vistaril (Hydroxyzine Pamoate) 25 Mg Capsule 25 Mg PO PRN Q2HR PRN Depakote Sprinkle (Divalproex Sodium) 125 Mg Cap.sprink 125 Mg PO TID Senna (Sennosides) 8.6 Mg Tablet 8.6 Mg PO BID Miralax (Polyethylene Glycol 3350) 17 Gm Powd.pack 1 Packet PO BID Analgesic [place] (Methyl Salicylate/Menthol) 29 Gm Oint...g. 1 Prisca TP QIDPRN PRN Milk Of Magnesia (Magnesium Hydroxide) 2,400 Mg/10 Ml Oral.susp 2,400 Mg PO HS PRN Mag-Al Plus Xs Suspension (Mag Hydrox/Al Hydrox/Simeth) 30 Ml Oral.susp 15 Ml PO QIDPRN PRN Novolog Flexpen (Insulin Aspart) 100 Unit/1 Ml Insuln.pen 0-9 Unit SQ TIDWMEALS Amaryl (Glimepiride) 1 Mg Tablet 1 Mg PO HS Amaryl (Glimepiride) 4 Mg Tablet 4 Mg PO DAILY Vitamin D3 (Cholecalciferol (Vitamin D3)) 1,000 Unit Tablet 2,000 Unit PO DAILY Tylenol (Acetaminophen) 325 Mg Tablet 650 Mg PO PRN Q6HRS PRN Nitrostat (Nitroglycerin) 0.4 Mg Tab.subl 0.4 Mg SL PRN PRN Metoprolol Tartrate 25 Mg Tablet 37.5 Mg PO BID Metformin Hcl 500 Mg Tablet 1,000 Mg PO BIDWMEALS Zetia (Ezetimibe) 10 Mg Tablet 10 Mg PO DAILY Aspirin 81 Mg Tab.chew 81 Mg PO DAILY Diagnosis: Problems: (1) Anxiety disorder (2) Impulse control disorder (3) Dementia in Alzheimer's disease with delusions (4) Dementia in Alzheimer's disease with depression (5) Dementia, vascular, with depression (6) Diabetes mellitus GHULAM LEMON MD May 14, 2017 19:58
--- NOTE | 2017-05-14 20:07 | NUR ---
Nursing Note: Pt resistive to HS medication. Will attempt to administer again later.
--- NOTE | 2017-05-14 23:04 | NUR ---
Nursing Note: Pt continued to refuse. Levemir given in the right arm once patient was settled into bed. Pt did not resist when given Levemir.
--- NOTE | 2017-05-15 02:41 | NUR ---
Behavior Intervention Response and Plan: BIRP Note: Behavior: Assumed Care of patient, patient located in Hallway at shift change. Patient exhibited the following behavior Wandering, Non Compliant, Disorganized. Brief assessment on rounds of vital signs, medication needs, lab studies, and pain. Treatment plan problems Dementia with BD and Fall risk. Intervention: Patient assessed and the following interventions initiated safety checks 15 Minute Checks Cognitive Assessment , Head to toe Assessment , Medications. Response: After interactions and interventions patient responded in the following manner, Restless , Disorganized ,Cooperative. Continue to assess behaviors and condition will continue to monitor throughout the shift as needed. 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 Continue to assess patient for changes in above assessment. Monitor for medication needs, pain, and safety concerns. Hourly rounding performed to ensure safe environment.
[2017-05-15 06:13] VITALS: BP_SYST 115; BP_SYST 130; BP_DIAS 78; BP_DIAS 90
[2017-05-15] MEDS: INSULIN ASPART 300 UNITS/3 ML INSULN.PEN SQ SCH ×3 (07:30→16:30)
--- NOTE | 2017-05-15 07:42 | PN ---
DATE: 05/14/2017 SUBJECTIVE: This is a late entry 05/14/2017 covers elements not covered in my initial note. The patient was staffed at treatment team meeting with entire team morning of 05/14/2017 and I met with him individually morning of 05/14/2017 and evening of 05/14/2017. Sleeping about 5-1/2 hours. Appetite 60% of meals, compliant with medications, and pulled his catheter. We reviewed his history about placement that gotten ____ and circumstances of admission at . UA has been collected and sent for culture. Catheter removed by the evening. We will defer medical management to Dr. Benjamin. REVIEW OF SYSTEMS: No CV, , pulmonary, eye, or ENT system symptoms on review. Reliability poor. MENTAL STATUS EXAM: Oriented to himself. Insight, judgment, recent and remote memory, attention, concentration, fund and of knowledge poor consistent with his diagnosis mentioned in my initial note. PLAN: Continue current psychotropics, Depakote Sprinkles 125 three times a day, Lexapro 5 mg a day, Remeron 7.5 at bedtime, and trazodone 50 at bedtime p.r.n., may repeat x 1. We will adjust further with respect to psychotropics depending on his progress and transition to custodial middle of next week. MAN Telma LEMON MD DR: ARMEN/germaine JOB#: [id number] / [id number]
[2017-05-15 09:54] LABS: BASO % 1 % (0-3); EOS # 0.2 x10^3/uL (0.0-0.7); EOS % 3 % (0-3); HEMATOCRIT 34.1 % (39.0-53.0); HEMOGLOBIN 11.7 g/dL (13.0-17.5); LYMPH # 0.6 x10^3/uL (1.0-4.8); LYMPH % 10 % (24-48); MEAN CORPUSCULAR HEMOGLOBIN 33 pg (25-35); MEAN CORPUSCULAR HGB CONC 35 g/dL (31-37); MEAN CORPUSCULAR VOLUME 94 fL (79-100); MONO # 0.6 x10^3/uL (0.0-1.1); MONO % 10 % (0-9); NEUT # 4.4 x10^3uL (1.8-7.7); NEUT % 76 % (31-73); PLATELET COUNT 157 x10^3/uL (140-400); RED BLOOD COUNT 3.62 x10^6/uL (4.30-5.70); RED CELL DISTRIBUTION WIDTH 13.8 % (11.5-14.5); WHITE BLOOD COUNT 5.7 x10^3/uL (4.0-11.0)
[2017-05-15 10:13] LABS: ALBUMIN 3.1 g/dL (3.4-5.0); CALCIUM 9.9 mg/dL (8.5-10.1); CREATININE 1.1 mg/dL (0.7-1.3); GFR 65.1; POTASSIUM 4.3 mmol/L (3.5-5.1); TOTAL BILIRUBIN 1.1 mg/dL (0.2-1.0); TOTAL PROTEIN 6.2 g/dL (6.4-8.2)
[2017-05-15] MEDS: DIVALPROEX 125 MG CAP.SPRINK PO SCH ×3 (10:16→20:46)
[2017-05-15] MEDS: POLYETHYLENE GLYCOL 3350 17 GM PACKET. PO SCH (10:16)
[2017-05-15] MEDS: ESCITALOPRAM 5 MG TABLET PO SCH (10:16)
[2017-05-15] MEDS: METOPROLOL TART IMMED RELEASE 25 MG TABLET PO SCH ×2 (10:17→20:46)
[2017-05-15] MEDS: DOCUSATE SODIUM 100 MG CAPSULE PO SCH (10:17)
[2017-05-15] MEDS: ASPIRIN 81 MG TAB.CHEW PO SCH (10:17)
[2017-05-15] MEDS: PRENATAL MULTIVITAMIN TABLET. PO SCH (10:18)
[2017-05-15] MEDS: CHOLECALCIFEROL (VITAMIN D3) 1,000 UNIT TABLET PO SCH (10:18)
[2017-05-15] MEDS: CYANOCOBALAMIN (VITAMIN B-12) 1,000 MCG TABLET. PO SCH (10:18)
[2017-05-15] MEDS: VITS A & D/LANOLIN TOPICAL OINTMENT 56GM TUBE. TP SCH ×2 (10:19→21:00)
--- NOTE | 2017-05-15 12:57 | NUR ---
Behavior Intervention Response and Plan: BIRP Note: Behavior: Assumed Care of patient, patient located in Patient Room at shift change. Patient exhibited the following behavior Disorganized, Compliant, Drowsy. Brief assessment on rounds of vital signs, medication needs, lab studies, and pain. Treatment plan problems . Intervention: Patient assessed and the following interventions initiated safety checks 15 Minute Checks Cognitive Assessment , Head to toe Assessment , Medications. Response: After interactions and interventions patient responded in the following manner, Calm , Disorganized ,Drowsy. Continue to assess behaviors and condition will continue to monitor throughout the shift as needed. Plan: Continue to monitor Master Treatment Plan for patient's progress toward short term goals of Decreased Agitation, Improved Mood, longterm goals to return to previous living setting vs placement. Continue to assess patient for changes in above assessment. Monitor for medication needs, pain, and safety concerns. Hourly rounding performed to ensure safe environment.
--- NOTE | 2017-05-15 13:15 | NUR ---
THERAPEUTIC RECREATION GROUP NOTE TITLE :Sing along/ Karaoke ACTIVITY : Music GOAL : Increase socialization, elevate mood, stimulate memory DURATION : 120 Minutes RESPONSE : No participation.
--- NOTE | 2017-05-15 14:22 | NUR ---
Patient drowsy, withdrawn today- urine has been sent to culture. He has voided urine several times without issues. Bladder scan showed 200ml of urine, patient taken to bathroom and voided urine, will continue to monitor. Addendum: 05/15/17 at 1834 by RENE KOHLI RN Culture shows greater than 100,000 gram negative- Dr. Benjamin notified- new orders to start cipro 250mg BID x 7days. Patient restless at this time and will not stay seated to eat dinner- novolog held.
[2017-05-15 16:25] VITALS: BP 143/77
[2017-05-15] MEDS: ATORVASTATIN CALCIUM 20 MG TABLET PO SCH (20:46)
[2017-05-15] MEDS: MIRTAZAPINE 7.5 MG TABLET. PO SCH (20:46)
[2017-05-15] MEDS: TAMSULOSIN 0.4 MG CAP.ER.24H. PO SCH (20:48)
[2017-05-15] MEDS: CIPROFLOXACIN HCL 250 MG TABLET PO SCH (20:48)
--- NOTE | 2017-05-15 20:49 | PDOC ---
Exam Geraldo Demential Exam: Geraldo Note: Please also refer to the separate dictated note~for this date of service dictated separately.~Patient seen individually. Discussed the patient with Nursing staff reviewed the chart.~Reviewed interim history and current functioning. Reviewed vital signs,~Labs/ Radiology~and current medications noted below. Continue current treatment with the changes noted in the dictated addendum note Assessment: Vital Signs: Vital Signs Date Time Temp Pulse Resp B/P (MAP) Pulse Ox O2 Delivery O2 Flow Rate FiO2 05/15/17 16:25 98.8 73 20 143/77 (99) 98 05/14/17 15:53 Room Air I&O Intake and Output 05/15/17 07:00 Intake Total 840 ml Balance 840 ml Intake Oral 840 ml Labs: Laboratory Tests Test 05/15/17 07:44 05/15/17 09:40 05/15/17 12:01 05/15/17 16:52 Glucose (Fingerstick) 137 mg/dL (70-99) H 275 mg/dL (70-99) H 192 mg/dL (70-99) H White Blood Count 5.7 x10^3/uL (4.0-11.0) Red Blood Count 3.62 x10^6/uL (4.30-5.70) L Hemoglobin 11.7 g/dL (13.0-17.5) L Hematocrit 34.1 % (39.0-53.0) L Mean Corpuscular Volume 94 fL (79-100) Mean Corpuscular Hemoglobin 33 pg (25-35) Mean Corpuscular Hemoglobin Concent 35 g/dL (31-37) Red Cell Distribution Width 13.8 % (11.5-14.5) Platelet Count 157 x10^3/uL (140-400) Neutrophils (%) (Auto) 76 % (31-73) H Lymphocytes (%) (Auto) 10 % (24-48) L Monocytes (%) (Auto) 10 % (0-9) H Eosinophils (%) (Auto) 3 % (0-3) Basophils (%) (Auto) 1 % (0-3) Neutrophils # (Auto) 4.4 x10^3uL (1.8-7.7) Lymphocytes # (Auto) 0.6 x10^3/uL (1.0-4.8) L Monocytes # (Auto) 0.6 x10^3/uL (0.0-1.1) Eosinophils # (Auto) 0.2 x10^3/uL (0.0-0.7) Basophils # (Auto) 0.0 x10^3/uL (0.0-0.2) Sodium Level 141 mmol/L (136-145) Potassium Level 4.3 mmol/L (3.5-5.1) Chloride Level 107 mmol/L (98-107) Carbon Dioxide Level 29 mmol/L (21-32) Anion Gap 5 (6-14) L Blood Urea Nitrogen 30 mg/dL (8-26) H Creatinine 1.1 mg/dL (0.7-1.3) Estimated GFR (Cockcroft-Gault) 65.1 BUN/Creatinine Ratio 27 (6-20) H Glucose Level 235 mg/dL (70-99) H Calcium Level 9.9 mg/dL (8.5-10.1) Total Bilirubin 1.1 mg/dL (0.2-1.0) H Aspartate Amino Transferase (AST) 20 U/L (15-37) Alanine Aminotransferase (ALT) 30 U/L (16-63) Alkaline Phosphatase 121 U/L (46-116) H Total Protein 6.2 g/dL (6.4-8.2) L Albumin 3.1 g/dL (3.4-5.0) L Albumin/Globulin Ratio 1.0 (1.0-1.7) Test 05/15/17 19:16 Glucose (Fingerstick) 178 mg/dL (70-99) H Current Medications: Meds: Current Medications Docusate Sodium (Colace) 100 mg DAILY PO Last administered on 05/15/17 10:17; Start 05/08/17 at 09:00 Aspirin (Children'S Aspirin) 81 mg DAILY PO Last administered on 05/15/17 10: 17; Start 05/08/17 at 09:00 Vitamin D (Vitamin D3) 2,000 unit DAILY PO Last administered on 05/08/17 09:46 ; Start 05/08/17 at 09:00; Stop 05/08/17 at 12:50; Status DC Metformin HCl (Glucophage) 1,000 mg BIDWMEALS PO Last administered on 05/07/17 17:00; Start 05/07/17 at 17:00; Stop 05/08/17 at 14:01; Status DC Metoprolol Tartrate (Lopressor) 37.5 mg BID PO Last administered on 05/15/17 10:17; Start 05/07/17 at 21:00 Nitroglycerin (Nitrostat) 0.4 mg PRN Q15MIN PRN SL CHEST PAIN; Start 05/07/17 at 16:00 Polyethylene Glycol (miraLAX) 17 gm DAILY PO Last administered on 05/15/17 10: 16; Start 05/08/17 at 09:00 Tamsulosin HCl (Flomax) 0.4 mg HS PO Last administered on 05/13/17 20:24; Start 05/07/17 at 21:00 Acetaminophen (Tylenol) 650 mg PRN Q6HRS PRN PO PAIN / TEMP Last administered on 05/08/17 22:06; Start 05/07/17 at 16:15 Al Hydroxide/Mg Hydroxide (Mylanta Plus Xs) 15 ml QIDPRN PRN PO HEARTBURN / GAS ; Start 05/07/17 at 16:15 Multi-Ingredient Ointment (Analgesic [place]) 1 prisca QIDPRN PRN TP MUSCLE PAIN; Start 05/07/17 at 16:15 Tramadol HCl (Ultram) 50 mg PRN Q8HRS PRN PO PAIN Last administered on 16:26; Start 05/07/17 at 16:15 Insulin Detemir (Levemir) 8 units QHS SQ Last administered on 05/07/17 21:44; Start 05/07/17 at 21:00; Stop 05/08/17 at 14:01; Status DC Magnesium Hydroxide (Milk Of Magnesia) 2,400 mg PRN QHS PRN PO CONSTIPATION; Start 05/07/17 at 16:30 Atorvastatin Calcium (Lipitor) 80 mg QHS PO Last administered on 05/13/17 20: 26; Start 05/07/17 at 21:00 Divalproex Sodium (Depakote Sprinkles) 125 mg BID76 PO Last administered on 17:25; Start 05/07/17 at 18:15; Stop 05/13/17 at 18:35; Status DC Insulin Detemir (Levemir) 10 units QHS SQ Last administered on 05/14/17 19:57 ; Start 05/08/17 at 21:00 Insulin Aspart (NovoLOG) 0-5 UNITS TIDAC SQ Last administered on 05/15/17 12: 08; Start 05/08/17 at 16:30 Dextrose 12.5 gm PRN Q15MIN PRN IV SEE COMMENTS; Start 05/08/17 at 14:15 Escitalopram Oxalate (Lexapro) 5 mg DAILY PO Last administered on 05/15/17 10: 16; Start 05/09/17 at 09:00 Mirtazapine (Remeron) 7.5 mg QHS PO Last administered on 05/13/17 20:28; Start 05/08/17 at 21:00 Trazodone HCl (Desyrel) 50 mg PRN QHS PRN PO INSOMNIA, MAY REPEAT X1 Last administered on 05/13/17 00:03; Start 05/09/17 at 19:00 Potassium Chloride (Klor-Con) 20 meq 1X ONCE PO Last administered on 14:37; Start 05/10/17 at 14:15; Stop 05/10/17 at 14:16; Status DC Vitamin A/Vitamin D (Vitamin A & D Ointment) 1 prisca BID TP Last administered on 05/15/17 10:19; Start 05/13/17 at 21:00 Divalproex Sodium (Depakote Sprinkles) 125 mg TID PO Last administered on 16:28; Start 05/13/17 at 21:00 Vitamin D (Vitamin D3) 2,000 unit DAILYBFRSUP PO Last administered on 10:18; Start 05/14/17 at 17:00 Cyanocobalamin (Vitamin B-12) 1,000 mcg DAILYBFRSUP PO Last administered on 10:18; Start 05/14/17 at 17:00 Prenat Multivit/ [place]/Iron/Folic Ac (Multivitamin ) 1 tab DAILY PO Last administered on 05/15/17 10:18; Start 05/15/17 at 09:00 Ciprofloxacin (Cipro) 250 mg BID PO ; Start 05/15/17 at 21:00; Stop 6/23/17 at 21:00 Active Scripts Active Reported Lantus Solostar (Insulin Glargine,Hum.rec.anlog) 100 Unit/1 Ml Insuln.pen 8 Unit SQ QHS Tramadol Hcl (Tramadol HCl) 50 Mg Tablet 50 Mg PO PRN Q8HRS PRN Crestor (Rosuvastatin Calcium) 20 Mg Tablet 1 Tab PO HS Flomax (Tamsulosin Hcl) 0.4 Mg Cap.er.24h 1 Cap PO HS Docusate Sodium 100 Mg Capsule 1 Cap PO DAILY Atorvastatin Calcium 80 Mg Tablet 80 Mg PO HS hIGH CHOLESTEROL Zoloft (Sertraline Hcl) 50 Mg Tablet 50 Mg PO DAILY Zyprexa Zydis (Olanzapine) 5 Mg Tab.rapdis 2.5 Mg PO PRN Q2HR PRN Remeron (Mirtazapine) 15 Mg Tablet 15 Mg PO QHS Melatonin 3 Mg Tablet 6 Mg PO QHS Vistaril (Hydroxyzine Pamoate) 25 Mg Capsule 25 Mg PO PRN Q2HR PRN Depakote Sprinkle (Divalproex Sodium) 125 Mg Cap.sprink 125 Mg PO TID Senna (Sennosides) 8.6 Mg Tablet 8.6 Mg PO BID Miralax (Polyethylene Glycol 3350) 17 Gm Powd.pack 1 Packet PO BID Analgesic [place] (Methyl Salicylate/Menthol) 29 Gm Oint...g. 1 Prisca TP QIDPRN PRN Milk Of Magnesia (Magnesium Hydroxide) 2,400 Mg/10 Ml Oral.susp 2,400 Mg PO HS PRN Mag-Al Plus Xs Suspension (Mag Hydrox/Al Hydrox/Simeth) 30 Ml Oral.susp 15 Ml PO QIDPRN PRN Novolog Flexpen (Insulin Aspart) 100 Unit/1 Ml Insuln.pen 0-9 Unit SQ TIDWMEALS Amaryl (Glimepiride) 1 Mg Tablet 1 Mg PO HS Amaryl (Glimepiride) 4 Mg Tablet 4 Mg PO DAILY Vitamin D3 (Cholecalciferol (Vitamin D3)) 1,000 Unit Tablet 2,000 Unit PO DAILY Tylenol (Acetaminophen) 325 Mg Tablet 650 Mg PO PRN Q6HRS PRN Nitrostat (Nitroglycerin) 0.4 Mg Tab.subl 0.4 Mg SL PRN PRN Metoprolol Tartrate 25 Mg Tablet 37.5 Mg PO BID Metformin Hcl 500 Mg Tablet 1,000 Mg PO BIDWMEALS Zetia (Ezetimibe) 10 Mg Tablet 10 Mg PO DAILY Aspirin 81 Mg Tab.chew 81 Mg PO DAILY Diagnosis: Problems: (1) Anxiety disorder (2) Impulse control disorder (3) Dementia in Alzheimer's disease with delusions (4) Dementia in Alzheimer's disease with depression (5) Dementia, vascular, with depression GHULAM LEMON MD May 15, 2017 20:49
[2017-05-15] MEDS: INSULIN DETEMIR 300 UNITS/3 ML INSULN.PEN. SQ SCH (20:53)
--- NOTE | 2017-05-16 00:09 | NUR ---
Behavior Intervention Response and Plan: BIRP Note: Behavior: Assumed Care of patient, patient located in Patient Room at shift change. Patient exhibited the following behavior Disorganized, Compliant, Drowsy. Brief assessment on rounds of vital signs, medication needs, lab studies, and pain. Treatment plan problems . Intervention: Patient assessed and the following interventions initiated safety checks 15 Minute Checks Cognitive Assessment , Head to toe Assessment , Medications. Response: After interactions and interventions patient responded in the following manner, Calm , Disorganized ,Drowsy. Continue to assess behaviors and condition will continue to monitor throughout the shift as needed. Plan: Continue to monitor Master Treatment Plan for patient's progress toward short term goals of Decreased Agitation, Improved Mood, prison goals to return to previous living setting vs placement. Continue to assess patient for changes in above assessment. Monitor for medication needs, pain, and safety concerns. Hourly rounding performed to ensure safe environment.
[2017-05-16 06:07] VITALS: BP 107/65
[2017-05-16 08:14] LABS: BASO % 1 % (0-3); EOS # 0.1 x10^3/uL (0.0-0.7); EOS % 2 % (0-3); HEMATOCRIT 36.8 % (39.0-53.0); HEMOGLOBIN 12.7 g/dL (13.0-17.5); LYMPH # 0.7 x10^3/uL (1.0-4.8); LYMPH % 12 % (24-48); MEAN CORPUSCULAR HEMOGLOBIN 32 pg (25-35); MEAN CORPUSCULAR HGB CONC 35 g/dL (31-37); MEAN CORPUSCULAR VOLUME 94 fL (79-100); MONO # 0.6 x10^3/uL (0.0-1.1); MONO % 11 % (0-9); NEUT # 4.2 x10^3uL (1.8-7.7); NEUT % 74 % (31-73); PLATELET COUNT 173 x10^3/uL (140-400); RED BLOOD COUNT 3.94 x10^6/uL (4.30-5.70); RED CELL DISTRIBUTION WIDTH 14.1 % (11.5-14.5); WHITE BLOOD COUNT 5.7 x10^3/uL (4.0-11.0)
[2017-05-16 08:23] LABS: ALBUMIN 3.4 g/dL (3.4-5.0); ALK PHOS 133 U/L (46-116); ALT (SGPT) 30 U/L (16-63); ANION GAP 4 (6-14); AST (SGOT) 16 U/L (15-37); BLOOD UREA NITROGEN 28 mg/dL (8-26); BUN/CREATININE RATIO 23 (6-20); CALCIUM 10.8 mg/dL (8.5-10.1); CARBON DIOXIDE 31 mmol/L (21-32); CHLORIDE 105 mmol/L (98-107); CREATININE 1.2 mg/dL (0.7-1.3); GFR 58.9; GLUCOSE 182 mg/dL (70-99); POTASSIUM 4.2 mmol/L (3.5-5.1); SODIUM 140 mmol/L (136-145); TOTAL BILIRUBIN 1.5 mg/dL (0.2-1.0); TOTAL PROTEIN 6.9 g/dL (6.4-8.2)
[2017-05-16 08:24] LABS: VAL ACID 27 mcg/mL (50-100)
--- NOTE | 2017-05-16 08:37 | PN ---
DATE: 05/15/2017 PSYCHIATRIC PROGRESS NOTE This is a late entry 05/15/2017, covers elements not covered in my initial note. SUBJECTIVE: Per nursing report, the patient has had poor appetite, urine output is fair and he has been voiding. He does have a UTI, we will defer to Dr. Benjamin. REVIEW OF SYSTEMS: No CV, , pulmonary, eye system symptoms on review. Reliability poor. MENTAL STATUS EXAM: Oriented to himself. Insight, judgment, recent and remote memory, attention, concentration, fund of knowledge poor, consistent with his diagnosis. IMPRESSION: Unchanged from initial note. PLAN: Treat UTI. Maintain the rest of the psychotropics as noted. MAN Telma LEMON MD DR: ARMEN/germaine JOB#: [id number] / [id number]
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
[2017-05-16] MEDS: CIPROFLOXACIN HCL 250 MG TABLET PO SCH ×2 (09:52→20:17)
[2017-05-16] MEDS: ASPIRIN 81 MG TAB.CHEW PO SCH (09:52)
[2017-05-16] MEDS: ESCITALOPRAM 5 MG TABLET PO SCH (09:53)
[2017-05-16] MEDS: PRENATAL MULTIVITAMIN TABLET. PO SCH (09:53)
[2017-05-16] MEDS: POLYETHYLENE GLYCOL 3350 17 GM PACKET. PO SCH (09:53)
[2017-05-16] MEDS: DIVALPROEX 125 MG CAP.SPRINK PO SCH ×3 (09:53→20:16)
[2017-05-16] MEDS: METOPROLOL TART IMMED RELEASE 25 MG TABLET PO SCH ×2 (09:53→20:17)
[2017-05-16] MEDS: DOCUSATE SODIUM 100 MG CAPSULE PO SCH (09:53)
[2017-05-16] MEDS: CYANOCOBALAMIN (VITAMIN B-12) 1,000 MCG TABLET. PO SCH (09:55)
[2017-05-16] MEDS: CHOLECALCIFEROL (VITAMIN D3) 1,000 UNIT TABLET PO SCH (09:55)
[2017-05-16] MEDS: VITS A & D/LANOLIN TOPICAL OINTMENT 56GM TUBE. TP SCH ×2 (09:56→20:18)
[2017-05-16] MEDS: INSULIN ASPART 300 UNITS/3 ML INSULN.PEN SQ SCH ×3 (09:58→17:54)
--- NOTE | 2017-05-16 15:09 | NUR ---
Behavior Intervention Response and Plan: BIRP Note: Behavior: Assumed Care of patient, patient located in Hallway at shift change. Patient exhibited the following behavior Wandering, Disorganized, Withdrawn. Brief assessment on rounds of vital signs, medication needs, lab studies, and pain. Treatment plan problems . Intervention: Patient assessed and the following interventions initiated safety checks 15 Minute Checks Cognitive Assessment , Head to toe Assessment , Medications. Response: After interactions and interventions patient responded in the following manner, Calm , Disorganized ,Compliant. Continue to assess behaviors and condition will continue to monitor throughout the shift as needed. 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 Continue to assess patient for changes in above assessment. Monitor for medication needs, pain, and safety concerns. Hourly rounding performed to ensure safe environment.
[2017-05-16 16:34] VITALS: BP 146/76
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
[2017-05-16] MEDS: TAMSULOSIN 0.4 MG CAP.ER.24H. PO SCH (20:16)
[2017-05-16] MEDS: MIRTAZAPINE 7.5 MG TABLET. PO SCH (20:16)
[2017-05-16] MEDS: ATORVASTATIN CALCIUM 20 MG TABLET PO SCH (20:17)
[2017-05-16] MEDS: INSULIN DETEMIR 300 UNITS/3 ML INSULN.PEN. SQ SCH (20:20)
--- NOTE | 2017-05-16 20:20 | NUR ---
Behavior Intervention Response and Plan: BIRP Note: Behavior: Assumed Care of patient, patient located in Day Room at shift change. Patient exhibited the following behavior Wandering, Restless, Compliant. Brief assessment on rounds of vital signs, medication needs, lab studies, and pain. Treatment plan problems . Intervention: Patient assessed and the following interventions initiated safety checks 15 Minute Checks Cognitive Assessment , Head to toe Assessment , Medications. Response: After interactions and interventions patient responded in the following manner, Wandering , Restless ,Compliant. Continue to assess behaviors and condition will continue to monitor throughout the shift as needed. 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 Continue to assess patient for changes in above assessment. Monitor for medication needs, pain, and safety concerns. Hourly rounding performed to ensure safe environment.
--- NOTE | 2017-05-16 22:38 | PDOC ---
Exam Geraldo Demential Exam: Geraldo Note: Please also refer to the separate dictated note~for this date of service dictated separately.~Patient seen individually. Discussed the patient with Nursing staff reviewed the chart.~Reviewed interim history and current functioning. Reviewed vital signs,~Labs/ Radiology~and current medications noted below. Continue current treatment with the changes noted in the dictated addendum note Assessment: Vital Signs: Vital Signs Date Time Temp Pulse Resp B/P (MAP) Pulse Ox O2 Delivery O2 Flow Rate FiO2 05/16/17 20:17 73 146/76 05/16/17 16:34 97.6 18 98 05/14/17 15:53 Room Air I&O Intake and Output 05/16/17 07:00 Intake Total 0 ml Balance 0 ml Intake Oral 0 ml # Bowel Movements 1 Labs: Laboratory Tests Test 05/16/17 07:19 05/16/17 07:54 05/16/17 12:03 05/16/17 16:35 Glucose (Fingerstick) 164 mg/dL (70-99) H 303 mg/dL (70-99) H 222 mg/dL (70-99) H White Blood Count 5.7 x10^3/uL (4.0-11.0) Red Blood Count 3.94 x10^6/uL (4.30-5.70) L Hemoglobin 12.7 g/dL (13.0-17.5) L Hematocrit 36.8 % (39.0-53.0) L Mean Corpuscular Volume 94 fL (79-100) Mean Corpuscular Hemoglobin 32 pg (25-35) Mean Corpuscular Hemoglobin Concent 35 g/dL (31-37) Red Cell Distribution Width 14.1 % (11.5-14.5) Platelet Count 173 x10^3/uL (140-400) Neutrophils (%) (Auto) 74 % (31-73) H Lymphocytes (%) (Auto) 12 % (24-48) L Monocytes (%) (Auto) 11 % (0-9) H Eosinophils (%) (Auto) 2 % (0-3) Basophils (%) (Auto) 1 % (0-3) Neutrophils # (Auto) 4.2 x10^3uL (1.8-7.7) Lymphocytes # (Auto) 0.7 x10^3/uL (1.0-4.8) L Monocytes # (Auto) 0.6 x10^3/uL (0.0-1.1) Eosinophils # (Auto) 0.1 x10^3/uL (0.0-0.7) Basophils # (Auto) 0.0 x10^3/uL (0.0-0.2) Sodium Level 140 mmol/L (136-145) Potassium Level 4.2 mmol/L (3.5-5.1) Chloride Level 105 mmol/L (98-107) Carbon Dioxide Level 31 mmol/L (21-32) Anion Gap 4 (6-14) L Blood Urea Nitrogen 28 mg/dL (8-26) H Creatinine 1.2 mg/dL (0.7-1.3) Estimated GFR (Cockcroft-Gault) 58.9 BUN/Creatinine Ratio 23 (6-20) H Glucose Level 182 mg/dL (70-99) H Calcium Level 10.8 mg/dL (8.5-10.1) H Total Bilirubin 1.5 mg/dL (0.2-1.0) H Aspartate Amino Transferase (AST) 16 U/L (15-37) Alanine Aminotransferase (ALT) 30 U/L (16-63) Alkaline Phosphatase 133 U/L (46-116) H Total Protein 6.9 g/dL (6.4-8.2) Albumin 3.4 g/dL (3.4-5.0) Albumin/Globulin Ratio 1.0 (1.0-1.7) Valproic Acid Level 27 mcg/mL (50-100) L Valproic Acid Last Dose Date 05/15/17 Valproic Acid Last Dose Time 2100 Test 05/16/17 19:28 Glucose (Fingerstick) 237 mg/dL (70-99) H Current Medications: Meds: Current Medications Docusate Sodium (Colace) 100 mg DAILY PO Last administered on 05/16/17 09:53; Start 05/08/17 at 09:00 Aspirin (Children'S Aspirin) 81 mg DAILY PO Last administered on 05/16/17 09: 52; Start 05/08/17 at 09:00 Vitamin D (Vitamin D3) 2,000 unit DAILY PO Last administered on 05/08/17 09:46 ; Start 05/08/17 at 09:00; Stop 05/08/17 at 12:50; Status DC Metformin HCl (Glucophage) 1,000 mg BIDWMEALS PO Last administered on 05/07/17 17:00; Start 05/07/17 at 17:00; Stop 05/08/17 at 14:01; Status DC Metoprolol Tartrate (Lopressor) 37.5 mg BID PO Last administered on 05/16/17 20:17; Start 05/07/17 at 21:00 Nitroglycerin (Nitrostat) 0.4 mg PRN Q15MIN PRN SL CHEST PAIN; Start 05/07/17 at 16:00 Polyethylene Glycol (miraLAX) 17 gm DAILY PO Last administered on 05/16/17 09: 53; Start 05/08/17 at 09:00 Tamsulosin HCl (Flomax) 0.4 mg HS PO Last administered on 05/16/17 20:16; Start 05/07/17 at 21:00 Acetaminophen (Tylenol) 650 mg PRN Q6HRS PRN PO PAIN / TEMP Last administered on 05/08/17 22:06; Start 05/07/17 at 16:15 Al Hydroxide/Mg Hydroxide (Mylanta Plus Xs) 15 ml QIDPRN PRN PO HEARTBURN / GAS ; Start 05/07/17 at 16:15 Multi-Ingredient Ointment (Analgesic [place]) 1 prisca QIDPRN PRN TP MUSCLE PAIN; Start 05/07/17 at 16:15 Tramadol HCl (Ultram) 50 mg PRN Q8HRS PRN PO PAIN Last administered on 16:26; Start 05/07/17 at 16:15 Insulin Detemir (Levemir) 8 units QHS SQ Last administered on 05/07/17 21:44; Start 05/07/17 at 21:00; Stop 05/08/17 at 14:01; Status DC Magnesium Hydroxide (Milk Of Magnesia) 2,400 mg PRN QHS PRN PO CONSTIPATION; Start 05/07/17 at 16:30 Atorvastatin Calcium (Lipitor) 80 mg QHS PO Last administered on 05/16/17 20: 17; Start 05/07/17 at 21:00 Divalproex Sodium (Depakote Sprinkles) 125 mg BID76 PO Last administered on 17:25; Start 05/07/17 at 18:15; Stop 05/13/17 at 18:35; Status DC Insulin Detemir (Levemir) 10 units QHS SQ Last administered on 05/16/17 20:20 ; Start 05/08/17 at 21:00 Insulin Aspart (NovoLOG) 0-5 UNITS TIDAC SQ Last administered on 05/16/17 17: 54; Start 05/08/17 at 16:30 Dextrose 12.5 gm PRN Q15MIN PRN IV SEE COMMENTS; Start 05/08/17 at 14:15 Escitalopram Oxalate (Lexapro) 5 mg DAILY PO Last administered on 05/16/17 09: 53; Start 05/09/17 at 09:00 Mirtazapine (Remeron) 7.5 mg QHS PO Last administered on 05/16/17 20:16; Start 05/08/17 at 21:00 Trazodone HCl (Desyrel) 50 mg PRN QHS PRN PO INSOMNIA, MAY REPEAT X1 Last administered on 05/13/17 00:03; Start 05/09/17 at 19:00 Potassium Chloride (Klor-Con) 20 meq 1X ONCE PO Last administered on 14:37; Start 05/10/17 at 14:15; Stop 05/10/17 at 14:16; Status DC Vitamin A/Vitamin D (Vitamin A & D Ointment) 1 prisca BID TP Last administered on 05/16/17 20:18; Start 05/13/17 at 21:00 Divalproex Sodium (Depakote Sprinkles) 125 mg TID PO Last administered on 20:16; Start 05/13/17 at 21:00 Vitamin D (Vitamin D3) 2,000 unit DAILYBFRSUP PO Last administered on 09:55; Start 05/14/17 at 17:00 Cyanocobalamin (Vitamin B-12) 1,000 mcg DAILYBFRSUP PO Last administered on 09:55; Start 05/14/17 at 17:00 Prenat Multivit/ [place]/Iron/Folic Ac (Multivitamin ) 1 tab DAILY PO Last administered on 05/16/17 09:53; Start 05/15/17 at 09:00 Ciprofloxacin (Cipro) 250 mg BID PO Last administered on 05/16/17t 20:17; Start 05/15/17 at 21:00; Stop 05/22/17 at 21:00 Active Scripts Active Reported Lantus Solostar (Insulin Glargine,Hum.rec.anlog) 100 Unit/1 Ml Insuln.pen 8 Unit SQ QHS Tramadol Hcl (Tramadol HCl) 50 Mg Tablet 50 Mg PO PRN Q8HRS PRN Crestor (Rosuvastatin Calcium) 20 Mg Tablet 1 Tab PO HS Flomax (Tamsulosin Hcl) 0.4 Mg Cap.er.24h 1 Cap PO HS Docusate Sodium 100 Mg Capsule 1 Cap PO DAILY Atorvastatin Calcium 80 Mg Tablet 80 Mg PO HS hIGH CHOLESTEROL Zoloft (Sertraline Hcl) 50 Mg Tablet 50 Mg PO DAILY Zyprexa Zydis (Olanzapine) 5 Mg Tab.rapdis 2.5 Mg PO PRN Q2HR PRN Remeron (Mirtazapine) 15 Mg Tablet 15 Mg PO QHS Melatonin 3 Mg Tablet 6 Mg PO QHS Vistaril (Hydroxyzine Pamoate) 25 Mg Capsule 25 Mg PO PRN Q2HR PRN Depakote Sprinkle (Divalproex Sodium) 125 Mg Cap.sprink 125 Mg PO TID Senna (Sennosides) 8.6 Mg Tablet 8.6 Mg PO BID Miralax (Polyethylene Glycol 3350) 17 Gm Powd.pack 1 Packet PO BID Analgesic [place] (Methyl Salicylate/Menthol) 29 Gm Oint...g. 1 Prisca TP QIDPRN PRN Milk Of Magnesia (Magnesium Hydroxide) 2,400 Mg/10 Ml Oral.susp 2,400 Mg PO HS PRN Mag-Al Plus Xs Suspension (Mag Hydrox/Al Hydrox/Simeth) 30 Ml Oral.susp 15 Ml PO QIDPRN PRN Novolog Flexpen (Insulin Aspart) 100 Unit/1 Ml Insuln.pen 0-9 Unit SQ TIDWMEALS Amaryl (Glimepiride) 1 Mg Tablet 1 Mg PO HS Amaryl (Glimepiride) 4 Mg Tablet 4 Mg PO DAILY Vitamin D3 (Cholecalciferol (Vitamin D3)) 1,000 Unit Tablet 2,000 Unit PO DAILY Tylenol (Acetaminophen) 325 Mg Tablet 650 Mg PO PRN Q6HRS PRN Nitrostat (Nitroglycerin) 0.4 Mg Tab.subl 0.4 Mg SL PRN PRN Metoprolol Tartrate 25 Mg Tablet 37.5 Mg PO BID Metformin Hcl 500 Mg Tablet 1,000 Mg PO BIDWMEALS Zetia (Ezetimibe) 10 Mg Tablet 10 Mg PO DAILY Aspirin 81 Mg Tab.chew 81 Mg PO DAILY Diagnosis: Problems: (1) Anxiety disorder (2) Impulse control disorder (3) Dementia in Alzheimer's disease with delusions (4) Dementia in Alzheimer's disease with depression (5) Dementia, vascular, with depression GHULAM LEMON MD May 16, 2017 22:38
[2017-05-17] MEDS: traZODone 50 MG TABLET. PO PRN (01:21)
[2017-05-17 06:36] VITALS: BP 149/87
[2017-05-17] MEDS: INSULIN ASPART 300 UNITS/3 ML INSULN.PEN SQ SCH ×3 (08:21→17:19)
[2017-05-17] MEDS: CIPROFLOXACIN HCL 250 MG TABLET PO SCH ×2 (08:22→20:04)
[2017-05-17] MEDS: ASPIRIN 81 MG TAB.CHEW PO SCH (08:22)
[2017-05-17] MEDS: DOCUSATE SODIUM 100 MG CAPSULE PO SCH (08:22)
[2017-05-17] MEDS: DIVALPROEX 125 MG CAP.SPRINK PO SCH ×3 (08:23→20:08)
[2017-05-17] MEDS: ESCITALOPRAM 5 MG TABLET PO SCH (08:23)
[2017-05-17] MEDS: METOPROLOL TART IMMED RELEASE 25 MG TABLET PO SCH ×2 (08:24→20:05)
[2017-05-17] MEDS: POLYETHYLENE GLYCOL 3350 17 GM PACKET. PO SCH (08:24)
[2017-05-17] MEDS: PRENATAL MULTIVITAMIN TABLET. PO SCH (08:24)
[2017-05-17] MEDS: VITS A & D/LANOLIN TOPICAL OINTMENT 56GM TUBE. TP SCH ×2 (08:24→20:13)
--- NOTE | 2017-05-17 10:45 | NUR ---
Behavior Intervention Response and Plan: BIRP Note: Behavior: Assumed Care of patient, patient located in Day Room at shift change. Patient exhibited the following behavior Disorganized, Cooperative, wandering, urinating in the hallway, and confused. Brief assessment on rounds of vital signs, medication needs, lab studies, and pain. Treatment plan problems: 1-2. Intervention: Patient assessed and the following interventions initiated safety checks 15 Minute Checks Cognitive Assessment , Head to toe Assessment , Medications, Oral Hydration, Nutrition. Response: After interactions and interventions patient responded in the following manner, Calm, Compliant, confused. Continue to assess behaviors and condition will continue to monitor throughout the shift as needed. Plan: Continue to monitor Master Treatment Plan for patient's progress toward short term goals of Decreased Agitation, Decreased Aggression, intermediate card tender goals to return to previous living setting vs placement. Continue to assess patient for changes in above assessment. Monitor for medication needs, pain, and safety concerns. Hourly rounding performed to ensure safe environment.
[2017-05-17 16:29] VITALS: BP 113/66
[2017-05-17] MEDS: CHOLECALCIFEROL (VITAMIN D3) 1,000 UNIT TABLET PO SCH (17:00)
[2017-05-17] MEDS: CYANOCOBALAMIN (VITAMIN B-12) 1,000 MCG TABLET. PO SCH (17:00)
[2017-05-17] MEDS: ATORVASTATIN CALCIUM 20 MG TABLET PO SCH (20:05)
[2017-05-17] MEDS: TAMSULOSIN 0.4 MG CAP.ER.24H. PO SCH (20:08)
[2017-05-17] MEDS: MIRTAZAPINE 7.5 MG TABLET. PO SCH (20:09)
[2017-05-17] MEDS: INSULIN DETEMIR 300 UNITS/3 ML INSULN.PEN. SQ SCH (20:11)
--- NOTE | 2017-05-17 21:13 | PDOC ---
Exam Geraldo Demential Exam: Geraldo Note: Please also refer to the separate dictated note~for this date of service dictated separately.~Patient seen individually. Discussed the patient with Nursing staff reviewed the chart.~Reviewed interim history and current functioning. Reviewed vital signs,~Labs/ Radiology~and current medications noted below. Continue current treatment with the changes noted in the dictated addendum note Assessment: Vital Signs: Vital Signs Date Time Temp Pulse Resp B/P (MAP) Pulse Ox O2 Delivery O2 Flow Rate FiO2 05/17/17 20:05 80 113/66 05/17/17 16:29 97.0 18 97 Room Air I&O Intake and Output 05/17/17 07:00 Intake Total 960 ml Balance 960 ml Intake Oral 960 ml Labs: Laboratory Tests Test 05/17/17 07:25 05/17/17 12:14 05/17/17 17:05 05/17/17 19:12 Glucose (Fingerstick) 227 mg/dL (70-99) H 240 mg/dL (70-99) H 290 mg/dL (70-99) H 348 mg/dL (70-99) H Current Medications: Meds: Current Medications Docusate Sodium (Colace) 100 mg DAILY PO Last administered on 05/17/17 08:22; Start 05/08/17 at 09:00 Aspirin (Children'S Aspirin) 81 mg DAILY PO Last administered on 05/17/17 08: 22; Start 05/08/17 at 09:00 Vitamin D (Vitamin D3) 2,000 unit DAILY PO Last administered on 05/08/17 09:46 ; Start 05/08/17 at 09:00; Stop 05/08/17 at 12:50; Status DC Metformin HCl (Glucophage) 1,000 mg BIDWMEALS PO Last administered on 05/07/17 17:00; Start 05/07/17 at 17:00; Stop 05/08/17 at 14:01; Status DC Metoprolol Tartrate (Lopressor) 37.5 mg BID PO Last administered on 05/17/17 20:05; Start 05/07/17 at 21:00 Nitroglycerin (Nitrostat) 0.4 mg PRN Q15MIN PRN SL CHEST PAIN; Start 05/07/17 at 16:00 Polyethylene Glycol (miraLAX) 17 gm DAILY PO Last administered on 05/17/17 08: 24; Start 05/08/17 at 09:00 Tamsulosin HCl (Flomax) 0.4 mg HS PO Last administered on 05/17/17 20:08; Start 05/07/17 at 21:00 Acetaminophen (Tylenol) 650 mg PRN Q6HRS PRN PO PAIN / TEMP Last administered on 05/08/17 22:06; Start 05/07/17 at 16:15 Al Hydroxide/Mg Hydroxide (Mylanta Plus Xs) 15 ml QIDPRN PRN PO HEARTBURN / GAS ; Start 05/07/17 at 16:15 Multi-Ingredient Ointment (Analgesic [place]) 1 prisca QIDPRN PRN TP MUSCLE PAIN; Start 05/07/17 at 16:15 Tramadol HCl (Ultram) 50 mg PRN Q8HRS PRN PO PAIN Last administered on 16:26; Start 05/07/17 at 16:15 Insulin Detemir (Levemir) 8 units QHS SQ Last administered on 05/07/17 21:44; Start 05/07/17 at 21:00; Stop 05/08/17 at 14:01; Status DC Magnesium Hydroxide (Milk Of Magnesia) 2,400 mg PRN QHS PRN PO CONSTIPATION; Start 05/07/17 at 16:30 Atorvastatin Calcium (Lipitor) 80 mg QHS PO Last administered on 05/17/17 20: 05; Start 05/07/17 at 21:00 Divalproex Sodium (Depakote Sprinkles) 125 mg BID76 PO Last administered on 17:25; Start 05/07/17 at 18:15; Stop 05/13/17 at 18:35; Status DC Insulin Detemir (Levemir) 10 units QHS SQ Last administered on 05/17/17 20:11 ; Start 05/08/17 at 21:00 Insulin Aspart (NovoLOG) 0-5 UNITS TIDAC SQ Last administered on 05/17/17 17: 19; Start 05/08/17 at 16:30 Dextrose 12.5 gm PRN Q15MIN PRN IV SEE COMMENTS; Start 05/08/17 at 14:15 Escitalopram Oxalate (Lexapro) 5 mg DAILY PO Last administered on 05/17/17 08: 23; Start 05/09/17 at 09:00 Mirtazapine (Remeron) 7.5 mg QHS PO Last administered on 05/17/17 20:09; Start 05/08/17 at 21:00 Trazodone HCl (Desyrel) 50 mg PRN QHS PRN PO INSOMNIA, MAY REPEAT X1 Last administered on 05/17/17 01:21; Start 05/09/17 at 19:00 Potassium Chloride (Klor-Con) 20 meq 1X ONCE PO Last administered on 14:37; Start 05/10/17 at 14:15; Stop 05/10/17 at 14:16; Status DC Vitamin A/Vitamin D (Vitamin A & D Ointment) 1 prisca BID TP Last administered on 05/17/17 08:24; Start 05/13/17 at 21:00 Divalproex Sodium (Depakote Sprinkles) 125 mg TID PO Last administered on 20:08; Start 05/13/17 at 21:00 Vitamin D (Vitamin D3) 2,000 unit DAILYBFRSUP PO Last administered on 09:55; Start 05/14/17 at 17:00 Cyanocobalamin (Vitamin B-12) 1,000 mcg DAILYBFRSUP PO Last administered on 09:55; Start 05/14/17 at 17:00 Prenat Multivit/ [place]/Iron/Folic Ac (Multivitamin ) 1 tab DAILY PO Last administered on 05/17/17 08:24; Start 05/15/17 at 09:00 Ciprofloxacin (Cipro) 250 mg BID PO Last administered on 05/17/17 20:04; Start 05/15/17 at 21:00; Stop 05/22/17 at 21:00 Olanzapine (ZyPREXA ZYDIS) 2.5 mg PRN Q2HR PRN PO PSYCHOSIS; Start 05/17/17 at 11:30 Active Scripts Active Reported Lantus Solostar (Insulin Glargine,Hum.rec.anlog) 100 Unit/1 Ml Insuln.pen 8 Unit SQ QHS Tramadol Hcl (Tramadol HCl) 50 Mg Tablet 50 Mg PO PRN Q8HRS PRN Crestor (Rosuvastatin Calcium) 20 Mg Tablet 1 Tab PO HS Flomax (Tamsulosin Hcl) 0.4 Mg Cap.er.24h 1 Cap PO HS Docusate Sodium 100 Mg Capsule 1 Cap PO DAILY Atorvastatin Calcium 80 Mg Tablet 80 Mg PO HS hIGH CHOLESTEROL Zoloft (Sertraline Hcl) 50 Mg Tablet 50 Mg PO DAILY Zyprexa Zydis (Olanzapine) 5 Mg Tab.rapdis 2.5 Mg PO PRN Q2HR PRN Remeron (Mirtazapine) 15 Mg Tablet 15 Mg PO QHS Melatonin 3 Mg Tablet 6 Mg PO QHS Vistaril (Hydroxyzine Pamoate) 25 Mg Capsule 25 Mg PO PRN Q2HR PRN Depakote Sprinkle (Divalproex Sodium) 125 Mg Cap.sprink 125 Mg PO TID Senna (Sennosides) 8.6 Mg Tablet 8.6 Mg PO BID Miralax (Polyethylene Glycol 3350) 17 Gm Powd.pack 1 Packet PO BID Analgesic [place] (Methyl Salicylate/Menthol) 29 Gm Oint...g. 1 Prisca TP QIDPRN PRN Milk Of Magnesia (Magnesium Hydroxide) 2,400 Mg/10 Ml Oral.susp 2,400 Mg PO HS PRN Mag-Al Plus Xs Suspension (Mag Hydrox/Al Hydrox/Simeth) 30 Ml Oral.susp 15 Ml PO QIDPRN PRN Novolog Flexpen (Insulin Aspart) 100 Unit/1 Ml Insuln.pen 0-9 Unit SQ TIDWMEALS Amaryl (Glimepiride) 1 Mg Tablet 1 Mg PO HS Amaryl (Glimepiride) 4 Mg Tablet 4 Mg PO DAILY Vitamin D3 (Cholecalciferol (Vitamin D3)) 1,000 Unit Tablet 2,000 Unit PO DAILY Tylenol (Acetaminophen) 325 Mg Tablet 650 Mg PO PRN Q6HRS PRN Nitrostat (Nitroglycerin) 0.4 Mg Tab.subl 0.4 Mg SL PRN PRN Metoprolol Tartrate 25 Mg Tablet 37.5 Mg PO BID Metformin Hcl 500 Mg Tablet 1,000 Mg PO BIDWMEALS Zetia (Ezetimibe) 10 Mg Tablet 10 Mg PO DAILY Aspirin 81 Mg Tab.chew 81 Mg PO DAILY Diagnosis: Problems: (1) Anxiety disorder (2) Impulse control disorder (3) Dementia in Alzheimer's disease with delusions (4) Dementia in Alzheimer's disease with depression (5) Dementia, vascular, with depression (6) Diabetes mellitus GHULAM LEMON MD May 17, 2017 21:13
--- NOTE | 2017-05-17 21:44 | NUR ---
Behavior Intervention Response and Plan: BIRP Note: Behavior: Assumed Care of patient, patient located in Day Room at shift change. Patient exhibited the following behavior Disorganized, Cooperative, wandering, urinating in the hallway, and confused. Brief assessment on rounds of vital signs, medication needs, lab studies, and pain. Treatment plan problems: 1-2. Intervention: Patient assessed and the following interventions initiated safety checks 15 Minute Checks Cognitive Assessment , Head to toe Assessment , Medications, Oral Hydration, Nutrition. Response: After interactions and interventions patient responded in the following manner, Calm, Compliant, confused. Continue to assess behaviors and condition will continue to monitor throughout the shift as needed. Plan: Continue to monitor Master Treatment Plan for patient's progress toward short term goals of Decreased Agitation, Decreased Aggression, exterminator goals to return to previous living setting vs placement. Continue to assess patient for changes in above assessment. Monitor for medication needs, pain, and safety concerns. Hourly rounding performed to ensure safe environment.
--- NOTE | 2017-05-17 23:30 | NUR ---
Nurses Note Pt walks around unit urinating all over. He urinated behind a sofa and on the cabinets of the day room this pm. Told him to stop and attempted redirection, but failed. Pt became combative and continued to urinate on the floor. 2 techs had to escort him to his room to get him ready for bed after he had urinated all over himself.
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
--- NOTE | 2017-05-18 01:25 | PN ---
DATE: 05/17/2017 PSYCHIATRIC PROGRESS NOTE This note covers elements not covered in my initial note of 05/17/2017. SUBJECTIVE: The patient was seen individually evening of 05/17/2017. Nursing staff had called me earlier in the day as the patient is increasingly agitated nonredirectable. We added Zyprexa Zydis p.r.n., but he seemed to settle down soon thereafter. REVIEW OF SYSTEMS: No CV, , pulmonary, eye, ENT system symptoms on review. Reliability poor. MENTAL STATUS EXAM: Oriented to himself. Insight, judgment, recent and remote memory, attention, concentration, fund of knowledge poor, consistent with his diagnosis mentioned in my initial note. IMPRESSION: Major neurocognitive disorder, Alzheimer, vascular with depression, delusion, behavioral disturbance. PLAN: Continue psychotropics, Depakote Sprinkles 125 t.i.d., Lexapro 5 mg a day, Remeron 7.5 at bedtime, trazodone p.r.n. Valproic acid level is 27 at last check despite being subtherapeutic it is clinically adequate for now. MAN Telma LEMON MD DR: ARMEN/germaine JOB#: [id number] / [id number]
[2017-05-18 06:20] VITALS: BP 136/52
[2017-05-18] MEDS: INSULIN ASPART 300 UNITS/3 ML INSULN.PEN SQ SCH ×5 (08:00→17:21)
--- NOTE | 2017-05-18 09:15 | NUR ---
THERAPEUTIC RECREATION GROUP NOTE TITLE :Beach Ball Bop ACTIVITY : Movement/ Exercise GOAL : Increase morale, attention, endurance, socialization. Decrease stress/anxiety. DURATION : 35 Minutes RESPONSE : No participation.
--- NOTE | 2017-05-18 10:12 | NUR ---
Behavior Intervention Response and Plan: BIRP Note: Behavior: Assumed Care of patient, patient located in Day Room at shift change. Patient exhibited the following behavior Disorganized, resistive with medication and assessment but then compliant with assessment. Brief assessment on rounds of vital signs, medication needs, lab studies, and pain. Treatment plan problems: 1-2. Intervention: Patient assessed and the following interventions initiated safety checks 15 Minute Checks Cognitive Assessment , Head to toe Assessment , Medications, Oral Hydration, Nutrition. Response: After interactions and interventions patient responded in the following manner, confused, disorganized. Continue to assess behaviors and condition will continue to monitor throughout the shift as needed. Plan: Continue to monitor Master Treatment Plan for patient's progress toward short term goals of Decreased Agitation, Decreased Aggression, detention goals to return to previous living setting vs placement. Continue to assess patient for changes in above assessment. Monitor for medication needs, pain, and safety concerns. Hourly rounding performed to ensure safe environment.
--- NOTE | 2017-05-18 11:15 | NUR ---
THERAPEUTIC RECREATION GROUP NOTE TITLE :Movement to Music: Strength ACTIVITY : Movement/ Exercise GOAL : Increase morale, attention, flexibility. Decrease stress/anxiety. DURATION : 45 Minutes RESPONSE : No participation.
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
[2017-05-18] MEDS: ASPIRIN 81 MG TAB.CHEW PO SCH (12:34)
[2017-05-18] MEDS: CIPROFLOXACIN HCL 250 MG TABLET PO SCH ×2 (12:34→21:45)
[2017-05-18] MEDS: ESCITALOPRAM 5 MG TABLET PO SCH (12:35)
[2017-05-18] MEDS: DOCUSATE SODIUM 100 MG CAPSULE PO SCH (12:35)
[2017-05-18] MEDS: METOPROLOL TART IMMED RELEASE 25 MG TABLET PO SCH ×2 (12:35→21:46)
[2017-05-18] MEDS: DIVALPROEX 125 MG CAP.SPRINK PO SCH ×3 (12:35→21:46)
[2017-05-18] MEDS: POLYETHYLENE GLYCOL 3350 17 GM PACKET. PO SCH (12:36)
[2017-05-18] MEDS: PRENATAL MULTIVITAMIN TABLET. PO SCH (12:36)
[2017-05-18] MEDS: VITS A & D/LANOLIN TOPICAL OINTMENT 56GM TUBE. TP SCH ×2 (12:36→21:00)
--- NOTE | 2017-05-18 14:15 | NUR ---
THERAPEUTIC RECREATION GROUP NOTE TITLE :ABC's of Leisure ACTIVITY : Leisure Awareness GOAL : Increase knowledge of leisure activities DURATION : 60 Minutes RESPONSE : No participation.
[2017-05-18 16:46] VITALS: BP 112/58
[2017-05-18] MEDS: CYANOCOBALAMIN (VITAMIN B-12) 1,000 MCG TABLET. PO SCH (17:21)
[2017-05-18] MEDS ORDERED: INSULIN DETEMIR 300 UNITS/3 ML INSULN.PEN. SQ SCH (21:00)
[2017-05-18] MEDS: ATORVASTATIN CALCIUM 20 MG TABLET PO SCH (21:45)
[2017-05-18] MEDS: TAMSULOSIN 0.4 MG CAP.ER.24H. PO SCH (21:45)
[2017-05-18] MEDS: MIRTAZAPINE 7.5 MG TABLET. PO SCH (21:47)
--- NOTE | 2017-05-18 22:38 | PDOC ---
Exam Geraldo Demential Exam: Geraldo Note: Please also refer to the separate dictated note~for this date of service dictated separately.~Patient seen individually. Discussed the patient with Nursing staff reviewed the chart.~Reviewed interim history and current functioning. Reviewed vital signs,~Labs/ Radiology~and current medications noted below. Continue current treatment with the changes noted in the dictated addendum note Assessment: Vital Signs: Vital Signs Date Time Temp Pulse Resp B/P (MAP) Pulse Ox O2 Delivery O2 Flow Rate FiO2 05/18/17 21:46 83 112/58 05/18/17 16:46 98.0 18 91 05/17/17 16:29 Room Air I&O Intake and Output 05/18/17 07:00 Intake Total 2020 ml Balance 2020 ml Intake Oral 2020 ml # Voids 2 # Bowel Movements 1 Labs: Laboratory Tests Test 05/18/17 07:26 05/18/17 11:54 05/18/17 16:58 05/18/17 19:19 Glucose (Fingerstick) 150 mg/dL (70-99) H 242 mg/dL (70-99) H 285 mg/dL (70-99) H 366 mg/dL (70-99) H Current Medications: Meds: Current Medications Docusate Sodium (Colace) 100 mg DAILY PO Last administered on 05/17/17 08:22; Start 05/08/17 at 09:00 Aspirin (Children'S Aspirin) 81 mg DAILY PO Last administered on 05/17/17 08: 22; Start 05/08/17 at 09:00 Vitamin D (Vitamin D3) 2,000 unit DAILY PO Last administered on 05/08/17 09:46 ; Start 05/08/17 at 09:00; Stop 05/08/17 at 12:50; Status DC Metformin HCl (Glucophage) 1,000 mg BIDWMEALS PO Last administered on 05/07/17 17:00; Start 05/07/17 at 17:00; Stop 05/08/17 at 14:01; Status DC Metoprolol Tartrate (Lopressor) 37.5 mg BID PO Last administered on 05/18/17 21:46; Start 05/07/17 at 21:00 Nitroglycerin (Nitrostat) 0.4 mg PRN Q15MIN PRN SL CHEST PAIN; Start 05/07/17 at 16:00 Polyethylene Glycol (miraLAX) 17 gm DAILY PO Last administered on 05/17/17 08: 24; Start 05/08/17 at 09:00 Tamsulosin HCl (Flomax) 0.4 mg HS PO Last administered on 05/18/17 21:45; Start 05/07/17 at 21:00 Acetaminophen (Tylenol) 650 mg PRN Q6HRS PRN PO PAIN / TEMP Last administered on 05/08/17 22:06; Start 05/07/17 at 16:15 Al Hydroxide/Mg Hydroxide (Mylanta Plus Xs) 15 ml QIDPRN PRN PO HEARTBURN / GAS ; Start 05/07/17 at 16:15 Multi-Ingredient Ointment (Analgesic [place]) 1 prisca QIDPRN PRN TP MUSCLE PAIN; Start 05/07/17 at 16:15 Tramadol HCl (Ultram) 50 mg PRN Q8HRS PRN PO PAIN Last administered on 16:26; Start 05/07/17 at 16:15 Insulin Detemir (Levemir) 8 units QHS SQ Last administered on 05/07/17 21:44; Start 05/07/17 at 21:00; Stop 05/08/17 at 14:01; Status DC Magnesium Hydroxide (Milk Of Magnesia) 2,400 mg PRN QHS PRN PO CONSTIPATION; Start 05/07/17 at 16:30 Atorvastatin Calcium (Lipitor) 80 mg QHS PO Last administered on 05/18/17 21: 45; Start 05/07/17 at 21:00 Divalproex Sodium (Depakote Sprinkles) 125 mg BID76 PO Last administered on 17:25; Start 05/07/17 at 18:15; Stop 05/13/17 at 18:35; Status DC Insulin Detemir (Levemir) 10 units QHS SQ Last administered on 05/17/17 20:11 ; Start 05/08/17 at 21:00; Stop 05/18/17 at 15:39; Status DC Insulin Aspart (NovoLOG) 0-5 UNITS TIDAC SQ Last administered on 05/18/17 12: 46; Start 05/08/17 at 16:30; Stop 05/18/17 at 15:43; Status DC Dextrose 12.5 gm PRN Q15MIN PRN IV SEE COMMENTS; Start 05/08/17 at 14:15 Escitalopram Oxalate (Lexapro) 5 mg DAILY PO Last administered on 05/17/17 08: 23; Start 05/09/17 at 09:00 Mirtazapine (Remeron) 7.5 mg QHS PO Last administered on 05/18/17 21:47; Start 05/08/17 at 21:00 Trazodone HCl (Desyrel) 50 mg PRN QHS PRN PO INSOMNIA, MAY REPEAT X1 Last administered on 05/17/17 01:21; Start 05/09/17 at 19:00 Potassium Chloride (Klor-Con) 20 meq 1X ONCE PO Last administered on 14:37; Start 05/10/17 at 14:15; Stop 05/10/17 at 14:16; Status DC Vitamin A/Vitamin D (Vitamin A & D Ointment) 1 prisca BID TP Last administered on 05/17/17 08:24; Start 05/13/17 at 21:00 Divalproex Sodium (Depakote Sprinkles) 125 mg TID PO Last administered on 20:08; Start 05/13/17 at 21:00; Stop 05/18/17 at 18:21; Status DC Vitamin D (Vitamin D3) 2,000 unit DAILYBFRSUP PO Last administered on 09:55; Start 05/14/17 at 17:00; Stop 05/18/17 at 15:40; Status DC Cyanocobalamin (Vitamin B-12) 1,000 mcg DAILYBFRSUP PO Last administered on 17:21; Start 05/14/17 at 17:00 Prenat Multivit/ [place]/Iron/Folic Ac (Multivitamin ) 1 tab DAILY PO Last administered on 05/17/17 08:24; Start 05/15/17 at 09:00 Ciprofloxacin (Cipro) 250 mg BID PO Last administered on 05/18/17 21:45; Start 05/15/17 at 21:00; Stop 05/22/17 at 21:00 Olanzapine (ZyPREXA ZYDIS) 2.5 mg PRN Q2HR PRN PO PSYCHOSIS; Start 05/17/17 at 11:30 Insulin Detemir (Levemir) 15 units QHS SQ Last administered on 05/18/17 21:52 ; Start 05/18/17 at 21:00 Insulin Aspart (NovoLOG) 5 units TIDAC SQ Last administered on 05/18/17 17:21 ; Start 05/18/17 at 16:30 Divalproex Sodium (Depakote Sprinkles) 125 mg QID PO Last administered on 21:46; Start 05/18/17 at 21:00 Active Scripts Active Reported Lantus Solostar (Insulin Glargine,Hum.rec.anlog) 100 Unit/1 Ml Insuln.pen 8 Unit SQ QHS Tramadol Hcl (Tramadol HCl) 50 Mg Tablet 50 Mg PO PRN Q8HRS PRN Crestor (Rosuvastatin Calcium) 20 Mg Tablet 1 Tab PO HS Flomax (Tamsulosin Hcl) 0.4 Mg Cap.er.24h 1 Cap PO HS Docusate Sodium 100 Mg Capsule 1 Cap PO DAILY Atorvastatin Calcium 80 Mg Tablet 80 Mg PO HS hIGH CHOLESTEROL Zoloft (Sertraline Hcl) 50 Mg Tablet 50 Mg PO DAILY Zyprexa Zydis (Olanzapine) 5 Mg Tab.rapdis 2.5 Mg PO PRN Q2HR PRN Remeron (Mirtazapine) 15 Mg Tablet 15 Mg PO QHS Melatonin 3 Mg Tablet 6 Mg PO QHS Vistaril (Hydroxyzine Pamoate) 25 Mg Capsule 25 Mg PO PRN Q2HR PRN Depakote Sprinkle (Divalproex Sodium) 125 Mg Cap.sprink 125 Mg PO TID Senna (Sennosides) 8.6 Mg Tablet 8.6 Mg PO BID Miralax (Polyethylene Glycol 3350) 17 Gm Powd.pack 1 Packet PO BID Analgesic [place] (Methyl Salicylate/Menthol) 29 Gm Oint...g. 1 Prisca TP QIDPRN PRN Milk Of Magnesia (Magnesium Hydroxide) 2,400 Mg/10 Ml Oral.susp 2,400 Mg PO HS PRN Mag-Al Plus Xs Suspension (Mag Hydrox/Al Hydrox/Simeth) 30 Ml Oral.susp 15 Ml PO QIDPRN PRN Novolog Flexpen (Insulin Aspart) 100 Unit/1 Ml Insuln.pen 0-9 Unit SQ TIDWMEALS Amaryl (Glimepiride) 1 Mg Tablet 1 Mg PO HS Amaryl (Glimepiride) 4 Mg Tablet 4 Mg PO DAILY Vitamin D3 (Cholecalciferol (Vitamin D3)) 1,000 Unit Tablet 2,000 Unit PO DAILY Tylenol (Acetaminophen) 325 Mg Tablet 650 Mg PO PRN Q6HRS PRN Nitrostat (Nitroglycerin) 0.4 Mg Tab.subl 0.4 Mg SL PRN PRN Metoprolol Tartrate 25 Mg Tablet 37.5 Mg PO BID Metformin Hcl 500 Mg Tablet 1,000 Mg PO BIDWMEALS Zetia (Ezetimibe) 10 Mg Tablet 10 Mg PO DAILY Aspirin 81 Mg Tab.chew 81 Mg PO DAILY Diagnosis: Problems: (1) Dementia, vascular, 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
--- NOTE | 2017-05-19 00:30 | PN ---
DATE: 05/18/2017 This note covers the elements not covered in my initial note. SUBJECTIVE: The patient slept 6-1/4 hours last night. Last night, he was agitated when redirected from urinating on the floor, refused this assessments and medications, anxious during the day. REVIEW OF SYSTEMS: No CV, , pulmonary, eye, ENT system symptoms on review. Reliability poor. MENTAL STATUS EXAM: Oriented to himself. Insight, judgment, recent and remote memory, attention, concentration, fund of knowledge poor, consistent with his diagnosis. He is having difficulty cutting his chicken breast supper as I met with him, I have cut this for him, and he seemed to appreciate it. LABORATORY DATA: Reviewed. IMPRESSION: Major neurocognitive disorder, Alzheimer vascular with depression, delusion and behavioral disturbance. Rest unchanged from initial note. PLAN: Increase Depakote from 125 t.i.d. to 125 four times a day. Check labs level and ammonia level in 3 days. Maintain Lexapro 5 mg a day, Remeron 7.5 at bedtime, trazodone p.r.n. MAN Telma LEMON MD DR: ARMEN/germaine JOB#: [id number] / [id number]
--- NOTE | 2017-05-19 00:48 | NUR ---
Behavior Intervention Response and Plan: BIRP Note: Behavior: Assumed Care of patient, patient located in Day Room at shift change. Patient exhibited the following behavior Wandering, Disorganized, Resistive. Brief assessment on rounds of vital signs, medication needs, lab studies, and pain. Treatment plan problems Dementia W/ BD and Fall Risk. Intervention: Patient assessed and the following interventions initiated safety checks 15 Minute Checks Cognitive Assessment , Head to toe Assessment , Medications. Response: After interactions and interventions patient responded in the following manner, Calm , Disorganized ,Sleeping. Continue to assess behaviors and condition will continue to monitor throughout the shift as needed. 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 Continue to assess patient for changes in above assessment. Monitor for medication needs, pain, and safety concerns. Hourly rounding performed to ensure safe environment.
[2017-05-19 05:52] VITALS: BP 99/58
[2017-05-19] MEDS: INSULIN ASPART 300 UNITS/3 ML INSULN.PEN SQ SCH ×3 (08:54→17:04)
[2017-05-19] MEDS: METOPROLOL TART IMMED RELEASE 25 MG TABLET PO SCH ×2 (08:55→20:40)
[2017-05-19] MEDS: POLYETHYLENE GLYCOL 3350 17 GM PACKET. PO SCH (08:56)
[2017-05-19] MEDS: ESCITALOPRAM 5 MG TABLET PO SCH (08:56)
[2017-05-19] MEDS: PRENATAL MULTIVITAMIN TABLET. PO SCH (08:56)
[2017-05-19] MEDS: VITS A & D/LANOLIN TOPICAL OINTMENT 56GM TUBE. TP SCH ×2 (08:56→20:46)
[2017-05-19] MEDS: DOCUSATE SODIUM 100 MG CAPSULE PO SCH (08:56)
[2017-05-19] MEDS: DIVALPROEX 125 MG CAP.SPRINK PO SCH ×4 (08:56→20:40)
[2017-05-19] MEDS: CIPROFLOXACIN HCL 250 MG TABLET PO SCH ×2 (08:56→20:39)
[2017-05-19] MEDS: ASPIRIN 81 MG TAB.CHEW PO SCH (08:56)
--- NOTE | 2017-05-19 09:20 | NUR ---
THERAPEUTIC RECREATION GROUP NOTE TITLE :Table Ball ACTIVITY : Movement/ Exercise GOAL : Increase morale, attention, endurance, socialization. Decrease stress/anxiety. DURATION : 70 Minutes RESPONSE : No participation.
--- NOTE | 2017-05-19 11:30 | NUR ---
THERAPEUTIC RECREATION GROUP NOTE TITLE :Movement to Music: Flexibility ACTIVITY : Movement/ Exercise GOAL : Increase morale, attention, flexibility. Decrease stress/anxiety. DURATION : 30 Minutes RESPONSE : Minimal participation. Pt. joined the activity towards the very end, sat with the group and moved his body to the music but did not follow along with the moves.
--- NOTE | 2017-05-19 13:05 | NUR ---
Behavior Intervention Response and Plan: BIRP Note: Behavior: Assumed Care of patient, patient located in Hallway at shift change. Patient exhibited the following behavior Wandering, Disorganized, Non Compliant with Meds. Brief assessment on rounds of vital signs, medication needs, lab studies, and pain. Treatment plan problems 1-2. Intervention: Patient assessed and the following interventions initiated safety checks 15 Minute Checks Cognitive Assessment , Head to toe Assessment , Medications. Response: After interactions and interventions patient responded in the following manner, Disorganized , Non Compliant with Meds ,Wandering. Continue to assess behaviors and condition will continue to monitor throughout the shift as needed. 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 Continue to assess patient for changes in above assessment. Monitor for medication needs, pain, and safety concerns. Hourly rounding performed to ensure safe environment.
--- NOTE | 2017-05-19 14:00 | NUR ---
THERAPEUTIC RECREATION GROUP NOTE TITLE :Sing along with Drea ACTIVITY : Music GOAL : Increase socialization, elevate mood, stimulate memory DURATION : 45 minutes RESPONSE : No participation.
--- NOTE | 2017-05-19 14:17 | NUR ---
ELVIS faxed information to [facility], Tristen Fletcher, Clarendon Blaine, Delores murrell, Miki, at this time ELVIS has only heard back form [facility] will be calling back if they will have possible male bed open in the next couple of days. Delores murrell will come and see pt in the am.
[2017-05-19 16:01] VITALS: BP 145/88
[2017-05-19] MEDS: CYANOCOBALAMIN (VITAMIN B-12) 1,000 MCG TABLET. PO SCH (17:01)
--- NOTE | 2017-05-19 19:51 | PDOC ---
Exam Geraldo Demential Exam: Geraldo Note: Please also refer to the separate dictated note~for this date of service dictated separately.~Patient seen individually. Discussed the patient with Nursing staff reviewed the chart.~Reviewed interim history and current functioning. Reviewed vital signs,~Labs/ Radiology~and current medications noted below. Continue current treatment with the changes noted in the dictated addendum note Assessment: Vital Signs: Vital Signs Date Time Temp Pulse Resp B/P (MAP) Pulse Ox O2 Delivery O2 Flow Rate FiO2 05/19/17 16:01 97.0 100 18 145/88 (107) 98 05/19/17 05:52 Room Air I&O Intake and Output 05/19/17 07:00 Intake Total 480 ml Balance 480 ml Intake Oral 480 ml # Voids 1 # Bowel Movements 2 Labs: Laboratory Tests Test 05/19/17 07:20 05/19/17 11:33 05/19/17 16:51 05/19/17 19:06 Glucose (Fingerstick) 300 mg/dL (70-99) H 371 mg/dL (70-99) H 412 mg/dL (70-99) H 415 mg/dL (70-99) H Current Medications: Meds: Current Medications Docusate Sodium (Colace) 100 mg DAILY PO Last administered on 05/19/17 08:56; Start 05/08/17 at 09:00 Aspirin (Children'S Aspirin) 81 mg DAILY PO Last administered on 05/19/17 08: 56; Start 05/08/17 at 09:00 Vitamin D (Vitamin D3) 2,000 unit DAILY PO Last administered on 05/08/17 09:46 ; Start 05/08/17 at 09:00; Stop 05/08/17 at 12:50; Status DC Metformin HCl (Glucophage) 1,000 mg BIDWMEALS PO Last administered on 05/07/17 17:00; Start 05/07/17 at 17:00; Stop 05/08/17 at 14:01; Status DC Metoprolol Tartrate (Lopressor) 37.5 mg BID PO Last administered on 05/18/17 21:46; Start 05/07/17 at 21:00 Nitroglycerin (Nitrostat) 0.4 mg PRN Q15MIN PRN SL CHEST PAIN; Start 05/07/17 at 16:00 Polyethylene Glycol (miraLAX) 17 gm DAILY PO Last administered on 05/19/17 08: 56; Start 05/08/17 at 09:00 Tamsulosin HCl (Flomax) 0.4 mg HS PO Last administered on 05/18/17 21:45; Start 05/07/17 at 21:00 Acetaminophen (Tylenol) 650 mg PRN Q6HRS PRN PO PAIN / TEMP Last administered on 05/08/17 22:06; Start 05/07/17 at 16:15 Al Hydroxide/Mg Hydroxide (Mylanta Plus Xs) 15 ml QIDPRN PRN PO HEARTBURN / GAS ; Start 05/07/17 at 16:15 Multi-Ingredient Ointment (Analgesic [place]) 1 prisca QIDPRN PRN TP MUSCLE PAIN; Start 05/07/17 at 16:15 Tramadol HCl (Ultram) 50 mg PRN Q8HRS PRN PO PAIN Last administered on 16:26; Start 05/07/17 at 16:15 Insulin Detemir (Levemir) 8 units QHS SQ Last administered on 05/07/17 21:44; Start 05/07/17 at 21:00; Stop 05/08/17 at 14:01; Status DC Magnesium Hydroxide (Milk Of Magnesia) 2,400 mg PRN QHS PRN PO CONSTIPATION; Start 05/07/17 at 16:30 Atorvastatin Calcium (Lipitor) 80 mg QHS PO Last administered on 05/18/17 21: 45; Start 05/07/17 at 21:00 Divalproex Sodium (Depakote Sprinkles) 125 mg BID76 PO Last administered on 17:25; Start 05/07/17 at 18:15; Stop 05/13/17 at 18:35; Status DC Insulin Detemir (Levemir) 10 units QHS SQ Last administered on 05/17/17 20:11 ; Start 05/08/17 at 21:00; Stop 05/18/17 at 15:39; Status DC Insulin Aspart (NovoLOG) 0-5 UNITS TIDAC SQ Last administered on 05/18/17 12: 46; Start 05/08/17 at 16:30; Stop 05/18/17 at 15:43; Status DC Dextrose 12.5 gm PRN Q15MIN PRN IV SEE COMMENTS; Start 05/08/17 at 14:15 Escitalopram Oxalate (Lexapro) 5 mg DAILY PO Last administered on 05/19/17 08: 56; Start 05/09/17 at 09:00 Mirtazapine (Remeron) 7.5 mg QHS PO Last administered on 05/18/17 21:47; Start 05/08/17 at 21:00 Trazodone HCl (Desyrel) 50 mg PRN QHS PRN PO INSOMNIA, MAY REPEAT X1 Last administered on 05/17/17 01:21; Start 05/09/17 at 19:00 Potassium Chloride (Klor-Con) 20 meq 1X ONCE PO Last administered on 14:37; Start 05/10/17 at 14:15; Stop 05/10/17 at 14:16; Status DC Vitamin A/Vitamin D (Vitamin A & D Ointment) 1 prisca BID TP Last administered on 05/19/17 08:56; Start 05/13/17 at 21:00 Divalproex Sodium (Depakote Sprinkles) 125 mg TID PO Last administered on 20:08; Start 05/13/17 at 21:00; Stop 05/18/17 at 18:21; Status DC Vitamin D (Vitamin D3) 2,000 unit DAILYBFRSUP PO Last administered on 09:55; Start 05/14/17 at 17:00; Stop 05/18/17 at 15:40; Status DC Cyanocobalamin (Vitamin B-12) 1,000 mcg DAILYBFRSUP PO Last administered on 17:01; Start 05/14/17 at 17:00 Prenat Multivit/ [place]/Iron/Folic Ac (Multivitamin ) 1 tab DAILY PO Last administered on 05/19/17 08:56; Start 05/15/17 at 09:00 Ciprofloxacin (Cipro) 250 mg BID PO Last administered on 05/19/17 08:56; Start 05/15/17 at 21:00; Stop 05/22/17 at 21:00 Olanzapine (ZyPREXA ZYDIS) 2.5 mg PRN Q2HR PRN PO PSYCHOSIS; Start 05/17/17 at 11:30 Insulin Detemir (Levemir) 15 units QHS SQ Last administered on 05/18/17 21:52 ; Start 05/18/17 at 21:00; Stop 05/19/17 at 16:30; Status DC Insulin Aspart (NovoLOG) 5 units TIDAC SQ Last administered on 05/19/17 12:35 ; Start 05/18/17 at 16:30; Stop 05/19/17 at 16:30; Status DC Divalproex Sodium (Depakote Sprinkles) 125 mg QID PO Last administered on 17:01; Start 05/18/17 at 21:00 Insulin Aspart (NovoLOG) 8 units TIDAC SQ Last administered on 05/19/17 17:04 ; Start 05/19/17 at 16:30 Insulin Detemir (Levemir) 15 units BID SQ ; Start 05/19/17 at 21:00 Active Scripts Active Reported Lantus Solostar (Insulin Glargine,Hum.rec.anlog) 100 Unit/1 Ml Insuln.pen 8 Unit SQ QHS Tramadol Hcl (Tramadol HCl) 50 Mg Tablet 50 Mg PO PRN Q8HRS PRN Crestor (Rosuvastatin Calcium) 20 Mg Tablet 1 Tab PO HS Flomax (Tamsulosin Hcl) 0.4 Mg Cap.er.24h 1 Cap PO HS Docusate Sodium 100 Mg Capsule 1 Cap PO DAILY Atorvastatin Calcium 80 Mg Tablet 80 Mg PO HS hIGH CHOLESTEROL Zoloft (Sertraline Hcl) 50 Mg Tablet 50 Mg PO DAILY Zyprexa Zydis (Olanzapine) 5 Mg Tab.rapdis 2.5 Mg PO PRN Q2HR PRN Remeron (Mirtazapine) 15 Mg Tablet 15 Mg PO QHS Melatonin 3 Mg Tablet 6 Mg PO QHS Vistaril (Hydroxyzine Pamoate) 25 Mg Capsule 25 Mg PO PRN Q2HR PRN Depakote Sprinkle (Divalproex Sodium) 125 Mg Cap.sprink 125 Mg PO TID Senna (Sennosides) 8.6 Mg Tablet 8.6 Mg PO BID Miralax (Polyethylene Glycol 3350) 17 Gm Powd.pack 1 Packet PO BID Analgesic [place] (Methyl Salicylate/Menthol) 29 Gm Oint...g. 1 Prisca TP QIDPRN PRN Milk Of Magnesia (Magnesium Hydroxide) 2,400 Mg/10 Ml Oral.susp 2,400 Mg PO HS PRN Mag-Al Plus Xs Suspension (Mag Hydrox/Al Hydrox/Simeth) 30 Ml Oral.susp 15 Ml PO QIDPRN PRN Novolog Flexpen (Insulin Aspart) 100 Unit/1 Ml Insuln.pen 0-9 Unit SQ TIDWMEALS Amaryl (Glimepiride) 1 Mg Tablet 1 Mg PO HS Amaryl (Glimepiride) 4 Mg Tablet 4 Mg PO DAILY Vitamin D3 (Cholecalciferol (Vitamin D3)) 1,000 Unit Tablet 2,000 Unit PO DAILY Tylenol (Acetaminophen) 325 Mg Tablet 650 Mg PO PRN Q6HRS PRN Nitrostat (Nitroglycerin) 0.4 Mg Tab.subl 0.4 Mg SL PRN PRN Metoprolol Tartrate 25 Mg Tablet 37.5 Mg PO BID Metformin Hcl 500 Mg Tablet 1,000 Mg PO BIDWMEALS Zetia (Ezetimibe) 10 Mg Tablet 10 Mg PO DAILY Aspirin 81 Mg Tab.chew 81 Mg PO DAILY Diagnosis: Problems: (1) Anxiety disorder (2) Impulse control disorder (3) Dementia in Alzheimer's disease with delusions (4) Dementia in Alzheimer's disease with depression (5) Dementia, vascular, with depression GHULAM LEMON MD May 19, 2017 19:51
[2017-05-19] MEDS: TAMSULOSIN 0.4 MG CAP.ER.24H. PO SCH (20:39)
[2017-05-19] MEDS: MIRTAZAPINE 7.5 MG TABLET. PO SCH (20:40)
[2017-05-19] MEDS: ATORVASTATIN CALCIUM 20 MG TABLET PO SCH (20:41)
[2017-05-19] MEDS: INSULIN DETEMIR 300 UNITS/3 ML INSULN.PEN. SQ SCH (20:43)
--- NOTE | 2017-05-19 23:36 | NUR ---
Behavior Intervention Response and Plan: BIRP Note: Behavior: Assumed Care of patient, patient located in Day Room at shift change. Patient exhibited the following behavior Restless, Disorganized, Resistive. Brief assessment on rounds of vital signs, medication needs, lab studies, and pain. Treatment plan problems dementia w/ BD and fall risk. Intervention: Patient assessed and the following interventions initiated safety checks 15 Minute Checks Cognitive Assessment , Head to toe Assessment , Medications. Response: After interactions and interventions patient responded in the following manner, Restless , Disorganized ,Cooperative. Continue to assess behaviors and condition will continue to monitor throughout the shift as needed. Plan: Continue to monitor Master Treatment Plan for patient's progress toward short term goals of Decreased Agitation, Decreased Aggression, penitentiary goals to return to previous living setting vs placement. Continue to assess patient for changes in above assessment. Monitor for medication needs, pain, and safety concerns. Hourly rounding performed to ensure safe environment.
[2017-05-20] MEDS: traZODone 50 MG TABLET. PO PRN (01:59)
--- NOTE | 2017-05-20 02:03 | NUR ---
Nursing Note: Pt continues to be restless, disturbing roommate, and unable to sleep. PRN given.
--- NOTE | 2017-05-20 03:47 | PN ---
DATE: 05/19/2017 This note covers elements not covered in my initial note. SUBJECTIVE: I met with the patient individually in the evening of 05/19/2017. Per nursing staff, the patient is confused, noncompliant with medications, takes it crushed. REVIEW OF SYSTEMS: No CV, , pulmonary, eye, ENT system symptoms on review. MENTAL STATUS EXAM: Oriented to himself. Insight, judgment, recent and remote memory, attention, concentration, fund of knowledge poor, consistent with his diagnosis mentioned in my initial note. PLAN: Continue Depakote Sprinkles 125 mg t.i.d., Lexapro 5 mg a day, Remeron 7.5 mg at bedtime, trazodone p.r.n. Valproic acid level is 27, subtherapeutic, but clinically adequate for now. Adjust further as clinically indicated. MAN Telma LEMON MD DR: ARMEN/germaine JOB#: [id number] / [id number]
[2017-05-20 05:49] VITALS: BP 116/65
[2017-05-20] MEDS: DIVALPROEX 125 MG CAP.SPRINK PO SCH ×4 (09:16→20:38)
[2017-05-20] MEDS: ASPIRIN 81 MG TAB.CHEW PO SCH (09:16)
[2017-05-20] MEDS: PRENATAL MULTIVITAMIN TABLET. PO SCH (09:16)
[2017-05-20] MEDS: METOPROLOL TART IMMED RELEASE 25 MG TABLET PO SCH ×2 (09:17→20:36)
[2017-05-20] MEDS: DOCUSATE SODIUM 100 MG CAPSULE PO SCH (09:17)
[2017-05-20] MEDS: ESCITALOPRAM 5 MG TABLET PO SCH (09:17)
[2017-05-20] MEDS: CIPROFLOXACIN HCL 250 MG TABLET PO SCH ×2 (09:17→20:38)
[2017-05-20] MEDS: VITS A & D/LANOLIN TOPICAL OINTMENT 56GM TUBE. TP SCH (09:18)
[2017-05-20] MEDS: POLYETHYLENE GLYCOL 3350 17 GM PACKET. PO SCH (09:18)
[2017-05-20] MEDS: INSULIN DETEMIR 300 UNITS/3 ML INSULN.PEN. SQ SCH ×2 (09:22→20:40)
[2017-05-20] MEDS: INSULIN ASPART 300 UNITS/3 ML INSULN.PEN SQ SCH ×3 (09:22→16:55)
--- NOTE | 2017-05-20 09:45 | NUR ---
Behavior Intervention Response and Plan: BIRP Note: Behavior: Assumed Care of patient, patient located in Hallway at shift change. Patient exhibited the following behavior Restless, Disorganized, Compliant. Brief assessment on rounds of vital signs, medication needs, lab studies, and pain. Treatment plan problems 1 & 2. Intervention: Patient assessed and the following interventions initiated safety checks 15 Minute Checks Cognitive Assessment , Head to toe Assessment , Medications. Response: After interactions and interventions patient responded in the following manner, Calm , Appropriate ,Calm. Continue to assess behaviors and condition will continue to monitor throughout the shift as needed. Plan: Continue to monitor Master Treatment Plan for patient's progress toward short term goals of Decreased Agitation, Decreased Anxiety, fpc goals to return to previous living setting vs placement. Continue to assess patient for changes in above assessment. Monitor for medication needs, pain, and safety concerns. Hourly rounding performed to ensure safe environment.
--- NOTE | 2017-05-20 10:30 | NUR ---
THERAPEUTIC RECREATION GROUP NOTE TITLE :Music Bingo ACTIVITY : Music GOAL : Increase socialization, elevate mood, stimulate memory DURATION : 60 minutes RESPONSE : No participation.
--- NOTE | 2017-05-20 14:45 | NUR ---
THERAPEUTIC RECREATION GROUP NOTE TITLE :Coloring Infini[employer] ACTIVITY : Arts and Crafts GOAL : Reduce stress, anxiety. Increase creativity and fine motor functioning DURATION : 60 minutes RESPONSE : No participation.
[2017-05-20 16:02] VITALS: BP 127/83
[2017-05-20] MEDS: CYANOCOBALAMIN (VITAMIN B-12) 1,000 MCG TABLET. PO SCH (16:54)
[2017-05-20] MEDS ORDERED: VITS A & D/LANOLIN TOPICAL OINTMENT 56GM TUBE. TP PRN (18:00)
[2017-05-20] MEDS ORDERED: OLANZapine 2.5 MG TABLET PO PRN (18:30)
--- NOTE | 2017-05-20 20:12 | PDOC ---
Exam Geraldo Demential Exam: Geraldo Note: Please also refer to the separate dictated note~for this date of service dictated separately.~Patient seen individually. Discussed the patient with Nursing staff reviewed the chart.~Reviewed interim history and current functioning. Reviewed vital signs,~Labs/ Radiology~and current medications noted below. Continue current treatment with the changes noted in the dictated addendum note Assessment: Vital Signs: Vital Signs Date Time Temp Pulse Resp B/P (MAP) Pulse Ox O2 Delivery O2 Flow Rate FiO2 05/20/17 16:02 98.2 98 18 127/83 (98) 100 Room Air I&O Intake and Output 05/20/17 07:00 Intake Total 600 ml Balance 600 ml Intake Oral 600 ml # Voids 2 Labs: Laboratory Tests Test 05/20/17 07:15 Glucose (Fingerstick) 160 mg/dL (70-99) H Current Medications: Meds: Current Medications Docusate Sodium (Colace) 100 mg DAILY PO Last administered on 05/20/17 09:17; Start 05/08/17 at 09:00 Aspirin (Children'S Aspirin) 81 mg DAILY PO Last administered on 05/20/17 09: 16; Start 05/08/17 at 09:00 Vitamin D (Vitamin D3) 2,000 unit DAILY PO Last administered on 05/08/17 09:46 ; Start 05/08/17 at 09:00; Stop 05/08/17 at 12:50; Status DC Metformin HCl (Glucophage) 1,000 mg BIDWMEALS PO Last administered on 05/07/17 17:00; Start 05/07/17 at 17:00; Stop 05/08/17 at 14:01; Status DC Metoprolol Tartrate (Lopressor) 37.5 mg BID PO Last administered on 05/20/17 09:17; Start 05/07/17 at 21:00 Nitroglycerin (Nitrostat) 0.4 mg PRN Q15MIN PRN SL CHEST PAIN; Start 05/07/17 at 16:00 Polyethylene Glycol (miraLAX) 17 gm DAILY PO Last administered on 05/20/17 09: 18; Start 05/08/17 at 09:00 Tamsulosin HCl (Flomax) 0.4 mg HS PO Last administered on 05/19/17 20:39; Start 05/07/17 at 21:00 Acetaminophen (Tylenol) 650 mg PRN Q6HRS PRN PO PAIN / TEMP Last administered on 05/08/17 22:06; Start 05/07/17 at 16:15 Al Hydroxide/Mg Hydroxide (Mylanta Plus Xs) 15 ml QIDPRN PRN PO HEARTBURN / GAS ; Start 05/07/17 at 16:15 Multi-Ingredient Ointment (Analgesic [place]) 1 prisca QIDPRN PRN TP MUSCLE PAIN; Start 05/07/17 at 16:15 Tramadol HCl (Ultram) 50 mg PRN Q8HRS PRN PO PAIN Last administered on 16:26; Start 05/07/17 at 16:15 Insulin Detemir (Levemir) 8 units QHS SQ Last administered on 05/07/17 21:44; Start 05/07/17 at 21:00; Stop 05/08/17 at 14:01; Status DC Magnesium Hydroxide (Milk Of Magnesia) 2,400 mg PRN QHS PRN PO CONSTIPATION; Start 05/07/17 at 16:30 Atorvastatin Calcium (Lipitor) 80 mg QHS PO Last administered on 05/19/17 20: 41; Start 05/07/17 at 21:00 Divalproex Sodium (Depakote Sprinkles) 125 mg BID76 PO Last administered on 17:25; Start 05/07/17 at 18:15; Stop 05/13/17 at 18:35; Status DC Insulin Detemir (Levemir) 10 units QHS SQ Last administered on 05/17/17 20:11 ; Start 05/08/17 at 21:00; Stop 05/18/17 at 15:39; Status DC Insulin Aspart (NovoLOG) 0-5 UNITS TIDAC SQ Last administered on 05/18/17 12: 46; Start 05/08/17 at 16:30; Stop 05/18/17 at 15:43; Status DC Dextrose 12.5 gm PRN Q15MIN PRN IV SEE COMMENTS; Start 05/08/17 at 14:15 Escitalopram Oxalate (Lexapro) 5 mg DAILY PO Last administered on 05/20/17 09: 17; Start 05/09/17 at 09:00; Stop 05/20/17 at 18:21; Status DC Mirtazapine (Remeron) 7.5 mg QHS PO Last administered on 05/19/17 20:40; Start 05/08/17 at 21:00 Trazodone HCl (Desyrel) 50 mg PRN QHS PRN PO INSOMNIA, MAY REPEAT X1 Last administered on 05/20/17 01:59; Start 05/09/17 at 19:00 Potassium Chloride (Klor-Con) 20 meq 1X ONCE PO Last administered on 14:37; Start 05/10/17 at 14:15; Stop 05/10/17 at 14:16; Status DC Vitamin A/Vitamin D (Vitamin A & D Ointment) 1 prisca BID TP Last administered on 05/20/17 09:18; Start 05/13/17 at 21:00; Stop 05/20/17 at 17:54; Status DC Divalproex Sodium (Depakote Sprinkles) 125 mg TID PO Last administered on 20:08; Start 05/13/17 at 21:00; Stop 05/18/17 at 18:21; Status DC Vitamin D (Vitamin D3) 2,000 unit DAILYBFRSUP PO Last administered on 09:55; Start 05/14/17 at 17:00; Stop 05/18/17 at 15:40; Status DC Cyanocobalamin (Vitamin B-12) 1,000 mcg DAILYBFRSUP PO Last administered on 16:54; Start 05/14/17 at 17:00 Prenat Multivit/ [place]/Iron/Folic Ac (Multivitamin ) 1 tab DAILY PO Last administered on 05/20/17 09:16; Start 05/15/17 at 09:00 Ciprofloxacin (Cipro) 250 mg BID PO Last administered on 05/20/17 09:17; Start 05/15/17 at 21:00; Stop 05/22/17 at 21:00 Olanzapine (ZyPREXA ZYDIS) 2.5 mg PRN Q2HR PRN PO PSYCHOSIS; Start 05/17/17 at 11:30 Insulin Detemir (Levemir) 15 units QHS SQ Last administered on 05/18/17 21:52 ; Start 05/18/17 at 21:00; Stop 05/19/17 at 16:30; Status DC Insulin Aspart (NovoLOG) 5 units TIDAC SQ Last administered on 05/19/17 12:35 ; Start 05/18/17 at 16:30; Stop 05/19/17 at 16:30; Status DC Divalproex Sodium (Depakote Sprinkles) 125 mg QID PO Last administered on 16:54; Start 05/18/17 at 21:00 Insulin Aspart (NovoLOG) 8 units TIDAC SQ Last administered on 05/20/17 16:55 ; Start 05/19/17 at 16:30 Insulin Detemir (Levemir) 15 units BID SQ Last administered on 05/20/17 09:22 ; Start 05/19/17 at 21:00 Vitamin A/Vitamin D (Vitamin A & D Ointment) 1 prisca PRN BID PRN TP SKIN PROTECTION; Start 05/20/17 at 18:00 Escitalopram Oxalate (Lexapro) 10 mg DAILY PO ; Start 05/21/17 at 09:00 Olanzapine (ZyPREXA) 2.5 mg PRN Q2HR PRN PO AGITATION; Start 05/20/17 at 18:30 Active Scripts Active Reported Lantus Solostar (Insulin Glargine,Hum.rec.anlog) 100 Unit/1 Ml Insuln.pen 8 Unit SQ QHS Tramadol Hcl (Tramadol HCl) 50 Mg Tablet 50 Mg PO PRN Q8HRS PRN Crestor (Rosuvastatin Calcium) 20 Mg Tablet 1 Tab PO HS Flomax (Tamsulosin Hcl) 0.4 Mg Cap.er.24h 1 Cap PO HS Docusate Sodium 100 Mg Capsule 1 Cap PO DAILY Atorvastatin Calcium 80 Mg Tablet 80 Mg PO HS hIGH CHOLESTEROL Zoloft (Sertraline Hcl) 50 Mg Tablet 50 Mg PO DAILY Zyprexa Zydis (Olanzapine) 5 Mg Tab.rapdis 2.5 Mg PO PRN Q2HR PRN Remeron (Mirtazapine) 15 Mg Tablet 15 Mg PO QHS Melatonin 3 Mg Tablet 6 Mg PO QHS Vistaril (Hydroxyzine Pamoate) 25 Mg Capsule 25 Mg PO PRN Q2HR PRN Depakote Sprinkle (Divalproex Sodium) 125 Mg Cap.sprink 125 Mg PO TID Senna (Sennosides) 8.6 Mg Tablet 8.6 Mg PO BID Miralax (Polyethylene Glycol 3350) 17 Gm Powd.pack 1 Packet PO BID Analgesic [place] (Methyl Salicylate/Menthol) 29 Gm Oint...g. 1 Prisca TP QIDPRN PRN Milk Of Magnesia (Magnesium Hydroxide) 2,400 Mg/10 Ml Oral.susp 2,400 Mg PO HS PRN Mag-Al Plus Xs Suspension (Mag Hydrox/Al Hydrox/Simeth) 30 Ml Oral.susp 15 Ml PO QIDPRN PRN Novolog Flexpen (Insulin Aspart) 100 Unit/1 Ml Insuln.pen 0-9 Unit SQ TIDWMEALS Amaryl (Glimepiride) 1 Mg Tablet 1 Mg PO HS Amaryl (Glimepiride) 4 Mg Tablet 4 Mg PO DAILY Vitamin D3 (Cholecalciferol (Vitamin D3)) 1,000 Unit Tablet 2,000 Unit PO DAILY Tylenol (Acetaminophen) 325 Mg Tablet 650 Mg PO PRN Q6HRS PRN Nitrostat (Nitroglycerin) 0.4 Mg Tab.subl 0.4 Mg SL PRN PRN Metoprolol Tartrate 25 Mg Tablet 37.5 Mg PO BID Metformin Hcl 500 Mg Tablet 1,000 Mg PO BIDWMEALS Zetia (Ezetimibe) 10 Mg Tablet 10 Mg PO DAILY Aspirin 81 Mg Tab.chew 81 Mg PO DAILY Diagnosis: Problems: (1) Anxiety disorder (2) Impulse control disorder (3) Dementia in Alzheimer's disease with delusions (4) Dementia in Alzheimer's disease with depression (5) Dementia, vascular, with depression (6) Diabetes mellitus GHULAM LEMON MD May 20, 2017 20:12
[2017-05-20] MEDS: MIRTAZAPINE 7.5 MG TABLET. PO SCH (20:36)
[2017-05-20] MEDS: ATORVASTATIN CALCIUM 20 MG TABLET PO SCH (20:37)
[2017-05-20] MEDS: TAMSULOSIN 0.4 MG CAP.ER.24H. PO SCH (20:38)
--- NOTE | 2017-05-21 00:56 | PN ---
DATE: 05/20/2017 PSYCHIATRIC PROGRESS NOTE This notes covers element not covered in my initial note of 05/20/2017 SUBJECTIVE: I met with the patient the evening of 05/20/2017. The patient has been confused, withdrawn, wandering, and slightly resistive to medications. He received Zyprexa and then trazodone last night to help him sleep. He remains somewhat depressed. REVIEW OF SYSTEMS: No CV, , pulmonary, eye, ENT system symptoms on review. Reliability poor. MENTAL STATUS EXAM: Oriented to himself. Insight, judgment, recent and remote memory, attention, concentration, fund of knowledge poor, consistent with his diagnosis mentioned in my initial note. IMPRESSION: Major neurocognitive disorder, Alzheimer, vascular with depression, delusion, behavioral disturbance. Rest unchanged. PLAN: Continue Depakote Sprinkles 125 t.i.d., increase Lexapro from 5 mg a day to 10 mg a day. Continue Remeron 7.5 at bedtime, trazodone 50 at bedtime p.r.n., march repeat x 1 and add Zyprexa p.r.n. for psychosis agitation. MAN Telma LEMON MD DR: ARMEN/germaine JOB#: [id number] / [id number]
--- NOTE | 2017-05-21 01:36 | NUR ---
Behavior Intervention Response and Plan: BIRP Note: Behavior: Assumed Care of patient, patient located in Hallway at shift change. Patient exhibited the following behavior Wandering, Restless, Disorganized. Brief assessment on rounds of vital signs, medication needs, lab studies, and pain. Treatment plan problems Dementia w/ BD and Fall Risk Intervention: Patient assessed and the following interventions initiated safety checks 15 Minute Checks Cognitive Assessment , Head to toe Assessment , Medications. Response: After interactions and interventions patient responded in the following manner, Restless , Disorganized ,Compliant. Continue to assess behaviors and condition will continue to monitor throughout the shift as needed. Plan: Continue to monitor Master Treatment Plan for patient's progress toward short term goals of Decreased Agitation, Decreased Aggression, usp goals to return to previous living setting vs placement. Continue to assess patient for changes in above assessment. Monitor for medication needs, pain, and safety concerns. Hourly rounding performed to ensure safe environment.
[2017-05-21 05:55] VITALS: BP 121/81
[2017-05-21 07:11] LABS: BASO % 1 % (0-3); EOS # 0.1 x10^3/uL (0.0-0.7); EOS % 1 % (0-3); HEMATOCRIT 37.8 % (39.0-53.0); HEMOGLOBIN 12.9 g/dL (13.0-17.5); LYMPH # 0.7 x10^3/uL (1.0-4.8); LYMPH % 9 % (24-48); MEAN CORPUSCULAR HEMOGLOBIN 32 pg (25-35); MEAN CORPUSCULAR HGB CONC 34 g/dL (31-37); MEAN CORPUSCULAR VOLUME 94 fL (79-100); MONO # 0.7 x10^3/uL (0.0-1.1); MONO % 9 % (0-9); NEUT # 6.5 x10^3uL (1.8-7.7); NEUT % 81 % (31-73); PLATELET COUNT 177 x10^3/uL (140-400); RED CELL DISTRIBUTION WIDTH 13.7 % (11.5-14.5); WHITE BLOOD COUNT 8.1 x10^3/uL (4.0-11.0)
[2017-05-21 07:30] LABS: ALBUMIN 3.3 g/dL (3.4-5.0); ALBUMIN/GLOBULIN RATIO 0.9 (1.0-1.7); ALK PHOS 122 U/L (46-116); ALT (SGPT) 32 U/L (16-63); ANION GAP 9 (6-14); AST (SGOT) 30 U/L (15-37); BLOOD UREA NITROGEN 34 mg/dL (8-26); BUN/CREATININE RATIO 18 (6-20); CALCIUM 10.6 mg/dL (8.5-10.1); CARBON DIOXIDE 27 mmol/L (21-32); CHLORIDE 106 mmol/L (98-107); CREATININE 1.9 mg/dL (0.7-1.3); GFR 34.6; GLUCOSE 128 mg/dL (70-99); SODIUM 142 mmol/L (136-145); TOTAL BILIRUBIN 1.2 mg/dL (0.2-1.0); TOTAL PROTEIN 7.1 g/dL (6.4-8.2)
[2017-05-21 07:31] LABS: VAL ACID 18 mcg/mL (50-100)
[2017-05-21] MEDS: PRENATAL MULTIVITAMIN TABLET. PO SCH (07:56)
[2017-05-21] MEDS: POLYETHYLENE GLYCOL 3350 17 GM PACKET. PO SCH (07:56)
[2017-05-21] MEDS: CIPROFLOXACIN HCL 250 MG TABLET PO SCH ×2 (07:57→19:34)
[2017-05-21] MEDS: DOCUSATE SODIUM 100 MG CAPSULE PO SCH (07:57)
[2017-05-21] MEDS: ASPIRIN 81 MG TAB.CHEW PO SCH (07:57)
[2017-05-21] MEDS: DIVALPROEX 125 MG CAP.SPRINK PO SCH ×4 (07:57→19:34)
[2017-05-21] MEDS: METOPROLOL TART IMMED RELEASE 25 MG TABLET PO SCH ×2 (07:57→19:35)
[2017-05-21] MEDS: ESCITALOPRAM 10 MG TABLET. PO SCH (07:59)
[2017-05-21] MEDS: INSULIN ASPART 300 UNITS/3 ML INSULN.PEN SQ SCH ×3 (08:01→17:43)
[2017-05-21] MEDS: INSULIN DETEMIR 300 UNITS/3 ML INSULN.PEN. SQ SCH ×2 (08:02→19:38)
--- NOTE | 2017-05-21 08:30 | NUR ---
Behavior Intervention Response and Plan: BIRP Note: Behavior: Assumed Care of patient, patient located in Dining Room at shift change. Patient exhibited the following behavior Disorganized, Interactive, Compliant. Brief assessment on rounds of vital signs, medication needs, lab studies, and pain. Treatment plan problems 1 & 2. Intervention: Patient assessed and the following interventions initiated safety checks 15 Minute Checks Cognitive Assessment , Head to toe Assessment , Medications. Response: After interactions and interventions patient responded in the following manner, Calm , Appropriate ,Compliant. Continue to assess behaviors and condition will continue to monitor throughout the shift as needed. 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 Continue to assess patient for changes in above assessment. Monitor for medication needs, pain, and safety concerns. Hourly rounding performed to ensure safe environment.
--- NOTE | 2017-05-21 13:43 | NUR ---
SW spoke with about placement options. Pt informed SW if she doesn't like the option or feels it is too far from her she will be taking pt home with her as she cannot drive very far to see him.
--- NOTE | 2017-05-21 13:44 | NUR ---
SW called [facility] again per 's request, no beds open on their unit.
--- NOTE | 2017-05-21 13:45 | NUR ---
Delores murrell came to screen pt., SW sending updated information out to [place], [facility], [facility] and [place].
--- NOTE | 2017-05-21 14:15 | NUR ---
THERAPEUTIC RECREATION GROUP NOTE TITLE :Radio Hour: [employer] Comedy Show ACTIVITY : Cognitive stimulation GOAL : Maintain or improve cognitive functioning, memory, imagination DURATION : 45 Minutes RESPONSE : No participation.
--- NOTE | 2017-05-21 15:44 | NUR ---
[facility] declined pt, states they had left this SW another message prior and state unable to meet pt needs.
[2017-05-21 16:49] VITALS: BP 111/65
[2017-05-21] MEDS: CYANOCOBALAMIN (VITAMIN B-12) 1,000 MCG TABLET. PO SCH (16:57)
--- NOTE | 2017-05-21 18:00 | NUR ---
Patient bladderscanned, scan reports >465mL of urine. Results printed and placed in chart. Scott initiated per orders, patient tolerated procedure well. Leg bag attached to Scott catheter.
[2017-05-21] MEDS: MIRTAZAPINE 7.5 MG TABLET. PO SCH (19:34)
[2017-05-21] MEDS: TAMSULOSIN 0.4 MG CAP.ER.24H. PO SCH (19:34)
[2017-05-21] MEDS: ATORVASTATIN CALCIUM 20 MG TABLET PO SCH (19:37)
--- NOTE | 2017-05-21 19:46 | PDOC ---
Exam Geraldo Demential Exam: Geraldo Note: Please also refer to the separate dictated note~for this date of service dictated separately.~Patient seen individually. Discussed the patient with Nursing staff reviewed the chart.~Reviewed interim history and current functioning. Reviewed vital signs,~Labs/ Radiology~and current medications noted below. Continue current treatment with the changes noted in the dictated addendum note Assessment: Vital Signs: Vital Signs Date Time Temp Pulse Resp B/P (MAP) Pulse Ox O2 Delivery O2 Flow Rate FiO2 05/21/17 19:35 70 111/65 05/21/17 16:49 98.2 16 100 05/20/17 16:02 Room Air I&O Intake and Output 05/21/17 07:00 Intake Total 1200 ml Balance 1200 ml Intake Oral 1200 ml Labs: Laboratory Tests Test 05/21/17 06:52 05/21/17 07:22 05/21/17 11:27 05/21/17 17:09 White Blood Count 8.1 x10^3/uL (4.0-11.0) Red Blood Count 4.00 x10^6/uL (4.30-5.70) L Hemoglobin 12.9 g/dL (13.0-17.5) L Hematocrit 37.8 % (39.0-53.0) L Mean Corpuscular Volume 94 fL (79-100) Mean Corpuscular Hemoglobin 32 pg (25-35) Mean Corpuscular Hemoglobin Concent 34 g/dL (31-37) Red Cell Distribution Width 13.7 % (11.5-14.5) Platelet Count 177 x10^3/uL (140-400) Neutrophils (%) (Auto) 81 % (31-73) H Lymphocytes (%) (Auto) 9 % (24-48) L Monocytes (%) (Auto) 9 % (0-9) Eosinophils (%) (Auto) 1 % (0-3) Basophils (%) (Auto) 1 % (0-3) Neutrophils # (Auto) 6.5 x10^3uL (1.8-7.7) Lymphocytes # (Auto) 0.7 x10^3/uL (1.0-4.8) L Monocytes # (Auto) 0.7 x10^3/uL (0.0-1.1) Eosinophils # (Auto) 0.1 x10^3/uL (0.0-0.7) Basophils # (Auto) 0.0 x10^3/uL (0.0-0.2) Sodium Level 142 mmol/L (136-145) Potassium Level 4.0 mmol/L (3.5-5.1) Chloride Level 106 mmol/L (98-107) Carbon Dioxide Level 27 mmol/L (21-32) Anion Gap 9 (6-14) Blood Urea Nitrogen 34 mg/dL (8-26) H Creatinine 1.9 mg/dL (0.7-1.3) H Estimated GFR (Cockcroft-Gault) 34.6 BUN/Creatinine Ratio 18 (6-20) Glucose Level 128 mg/dL (70-99) H Calcium Level 10.6 mg/dL (8.5-10.1) H Total Bilirubin 1.2 mg/dL (0.2-1.0) H Aspartate Amino Transferase (AST) 30 U/L (15-37) Alanine Aminotransferase (ALT) 32 U/L (16-63) Alkaline Phosphatase 122 U/L (46-116) H Ammonia < 10 mcmol/L (11-34) L Total Protein 7.1 g/dL (6.4-8.2) Albumin 3.3 g/dL (3.4-5.0) L Albumin/Globulin Ratio 0.9 (1.0-1.7) L Valproic Acid Level 18 mcg/mL (50-100) L Valproic Acid Last Dose Date 05/20/17 Valproic Acid Last Dose Time 2100 Glucose (Fingerstick) 133 mg/dL (70-99) H 77 mg/dL (70-99) 213 mg/dL (70-99) H Test 05/21/17 19:05 Glucose (Fingerstick) 203 mg/dL (70-99) H Current Medications: Meds: Current Medications Docusate Sodium (Colace) 100 mg DAILY PO Last administered on 05/21/17 07:57; Start 05/08/17 at 09:00 Aspirin (Children'S Aspirin) 81 mg DAILY PO Last administered on 05/21/17 07: 57; Start 05/08/17 at 09:00 Vitamin D (Vitamin D3) 2,000 unit DAILY PO Last administered on 05/08/17 09:46 ; Start 05/08/17 at 09:00; Stop 05/08/17 at 12:50; Status DC Metformin HCl (Glucophage) 1,000 mg BIDWMEALS PO Last administered on 05/07/17 17:00; Start 05/07/17 at 17:00; Stop 05/08/17 at 14:01; Status DC Metoprolol Tartrate (Lopressor) 37.5 mg BID PO Last administered on 05/21/17 19:35; Start 05/07/17 at 21:00 Nitroglycerin (Nitrostat) 0.4 mg PRN Q15MIN PRN SL CHEST PAIN; Start 05/07/17 at 16:00 Polyethylene Glycol (miraLAX) 17 gm DAILY PO Last administered on 05/21/17 07: 56; Start 05/08/17 at 09:00 Tamsulosin HCl (Flomax) 0.4 mg HS PO Last administered on 05/21/17 19:34; Start 05/07/17 at 21:00 Acetaminophen (Tylenol) 650 mg PRN Q6HRS PRN PO PAIN / TEMP Last administered on 05/08/17 22:06; Start 05/07/17 at 16:15 Al Hydroxide/Mg Hydroxide (Mylanta Plus Xs) 15 ml QIDPRN PRN PO HEARTBURN / GAS ; Start 05/07/17 at 16:15 Multi-Ingredient Ointment (Analgesic [place]) 1 prisca QIDPRN PRN TP MUSCLE PAIN; Start 05/07/17 at 16:15 Tramadol HCl (Ultram) 50 mg PRN Q8HRS PRN PO PAIN Last administered on 16:26; Start 05/07/17 at 16:15 Insulin Detemir (Levemir) 8 units QHS SQ Last administered on 05/07/17 21:44; Start 05/07/17 at 21:00; Stop 05/08/17 at 14:01; Status DC Magnesium Hydroxide (Milk Of Magnesia) 2,400 mg PRN QHS PRN PO CONSTIPATION; Start 05/07/17 at 16:30 Atorvastatin Calcium (Lipitor) 80 mg QHS PO Last administered on 05/21/17 19: 37; Start 05/07/17 at 21:00 Divalproex Sodium (Depakote Sprinkles) 125 mg BID76 PO Last administered on 17:25; Start 05/07/17 at 18:15; Stop 05/13/17 at 18:35; Status DC Insulin Detemir (Levemir) 10 units QHS SQ Last administered on 05/17/17 20:11 ; Start 05/08/17 at 21:00; Stop 05/18/17 at 15:39; Status DC Insulin Aspart (NovoLOG) 0-5 UNITS TIDAC SQ Last administered on 05/18/17 12: 46; Start 05/08/17 at 16:30; Stop 05/18/17 at 15:43; Status DC Dextrose 12.5 gm PRN Q15MIN PRN IV SEE COMMENTS; Start 05/08/17 at 14:15 Escitalopram Oxalate (Lexapro) 5 mg DAILY PO Last administered on 05/20/17 09: 17; Start 05/09/17 at 09:00; Stop 05/20/17 at 18:21; Status DC Mirtazapine (Remeron) 7.5 mg QHS PO Last administered on 05/21/17 19:34; Start 05/08/17 at 21:00 Trazodone HCl (Desyrel) 50 mg PRN QHS PRN PO INSOMNIA, MAY REPEAT X1 Last administered on 05/20/17 01:59; Start 05/09/17 at 19:00 Potassium Chloride (Klor-Con) 20 meq 1X ONCE PO Last administered on 14:37; Start 05/10/17 at 14:15; Stop 05/10/17 at 14:16; Status DC Vitamin A/Vitamin D (Vitamin A & D Ointment) 1 prisca BID TP Last administered on 05/20/17 09:18; Start 05/13/17 at 21:00; Stop 05/20/17 at 17:54; Status DC Divalproex Sodium (Depakote Sprinkles) 125 mg TID PO Last administered on 20:08; Start 05/13/17 at 21:00; Stop 05/18/17 at 18:21; Status DC Vitamin D (Vitamin D3) 2,000 unit DAILYBFRSUP PO Last administered on 09:55; Start 05/14/17 at 17:00; Stop 05/18/17 at 15:40; Status DC Cyanocobalamin (Vitamin B-12) 1,000 mcg DAILYBFRSUP PO Last administered on 16:57; Start 05/14/17 at 17:00 Prenat Multivit/ [place]/Iron/Folic Ac (Multivitamin ) 1 tab DAILY PO Last administered on 05/21/17 07:56; Start 05/15/17 at 09:00 Ciprofloxacin (Cipro) 250 mg BID PO Last administered on 05/21/17 19:34; Start 05/15/17 at 21:00; Stop 05/22/17 at 21:00 Olanzapine (ZyPREXA ZYDIS) 2.5 mg PRN Q2HR PRN PO PSYCHOSIS; Start 05/17/17 at 11:30 Insulin Detemir (Levemir) 15 units QHS SQ Last administered on 05/18/17 21:52 ; Start 05/18/17 at 21:00; Stop 05/19/17 at 16:30; Status DC Insulin Aspart (NovoLOG) 5 units TIDAC SQ Last administered on 05/19/17 12:35 ; Start 05/18/17 at 16:30; Stop 05/19/17 at 16:30; Status DC Divalproex Sodium (Depakote Sprinkles) 125 mg QID PO Last administered on 07:57; Start 05/18/17 at 21:00; Stop 05/21/17 at 10:34; Status DC Insulin Aspart (NovoLOG) 8 units TIDAC SQ Last administered on 05/21/17 17:43 ; Start 05/19/17 at 16:30 Insulin Detemir (Levemir) 15 units BID SQ Last administered on 05/21/17 19:38 ; Start 05/19/17 at 21:00 Vitamin A/Vitamin D (Vitamin A & D Ointment) 1 prisca PRN BID PRN TP SKIN PROTECTION; Start 05/20/17 at 18:00 Escitalopram Oxalate (Lexapro) 10 mg DAILY PO Last administered on 05/21/17 07 :59; Start 05/21/17 at 09:00 Olanzapine (ZyPREXA) 2.5 mg PRN Q2HR PRN PO AGITATION; Start 6/21/17 at 18:30 Divalproex Sodium (Depakote Sprinkles) 125 mg QID PO Last administered on t 19:34; Start 05/21/17 at 13:00 Active Scripts Active Reported Lantus Solostar (Insulin Glargine,Hum.rec.anlog) 100 Unit/1 Ml Insuln.pen 8 Unit SQ QHS Tramadol Hcl (Tramadol HCl) 50 Mg Tablet 50 Mg PO PRN Q8HRS PRN Crestor (Rosuvastatin Calcium) 20 Mg Tablet 1 Tab PO HS Flomax (Tamsulosin Hcl) 0.4 Mg Cap.er.24h 1 Cap PO HS Docusate Sodium 100 Mg Capsule 1 Cap PO DAILY Atorvastatin Calcium 80 Mg Tablet 80 Mg PO HS hIGH CHOLESTEROL Zoloft (Sertraline Hcl) 50 Mg Tablet 50 Mg PO DAILY Zyprexa Zydis (Olanzapine) 5 Mg Tab.rapdis 2.5 Mg PO PRN Q2HR PRN Remeron (Mirtazapine) 15 Mg Tablet 15 Mg PO QHS Melatonin 3 Mg Tablet 6 Mg PO QHS Vistaril (Hydroxyzine Pamoate) 25 Mg Capsule 25 Mg PO PRN Q2HR PRN Depakote Sprinkle (Divalproex Sodium) 125 Mg Cap.sprink 125 Mg PO TID Senna (Sennosides) 8.6 Mg Tablet 8.6 Mg PO BID Miralax (Polyethylene Glycol 3350) 17 Gm Powd.pack 1 Packet PO BID Analgesic [place] (Methyl Salicylate/Menthol) 29 Gm Oint...g. 1 Prisca TP QIDPRN PRN Milk Of Magnesia (Magnesium Hydroxide) 2,400 Mg/10 Ml Oral.susp 2,400 Mg PO HS PRN Mag-Al Plus Xs Suspension (Mag Hydrox/Al Hydrox/Simeth) 30 Ml Oral.susp 15 Ml PO QIDPRN PRN Novolog Flexpen (Insulin Aspart) 100 Unit/1 Ml Insuln.pen 0-9 Unit SQ TIDWMEALS Amaryl (Glimepiride) 1 Mg Tablet 1 Mg PO HS Amaryl (Glimepiride) 4 Mg Tablet 4 Mg PO DAILY Vitamin D3 (Cholecalciferol (Vitamin D3)) 1,000 Unit Tablet 2,000 Unit PO DAILY Tylenol (Acetaminophen) 325 Mg Tablet 650 Mg PO PRN Q6HRS PRN Nitrostat (Nitroglycerin) 0.4 Mg Tab.subl 0.4 Mg SL PRN PRN Metoprolol Tartrate 25 Mg Tablet 37.5 Mg PO BID Metformin Hcl 500 Mg Tablet 1,000 Mg PO BIDWMEALS Zetia (Ezetimibe) 10 Mg Tablet 10 Mg PO DAILY Aspirin 81 Mg Tab.chew 81 Mg PO DAILY Diagnosis: Problems: (1) Anxiety disorder (2) Impulse control disorder (3) Dementia in Alzheimer's disease with delusions (4) Dementia in Alzheimer's disease with depression (5) Dementia, vascular, with depression (6) Diabetes mellitus GHULAM LEMON MD May 21, 2017 19:46
[2017-05-21] MEDS: traZODone 50 MG TABLET. PO PRN (22:30)
--- NOTE | 2017-05-21 22:30 | NUR ---
Pt restless, irritable and attempting to pull on marin catheter tubing. Staff attempted to redirect several times without success. PRN Zydis and Trazodone administered as ordered crushed in applesauce. Pt then assisted back to bed.
--- NOTE | 2017-05-21 23:09 | NUR ---
Behavior Intervention Response and Plan: BIRP Note: Behavior: Assumed Care of patient, patient located in Patient Room at shift change. Patient exhibited the following behavior Restless, Disorganized, Cooperative. Brief assessment on rounds of vital signs, medication needs, lab studies, and pain. Treatment plan problems 1 and 2. Intervention: Patient assessed and the following interventions initiated safety checks 15 Minute Checks Cognitive Assessment , Head to toe Assessment , Medications. Response: After interactions and interventions patient responded in the following manner, Restless , Compliant ,Cooperative. Continue to assess behaviors and condition will continue to monitor throughout the shift as needed. 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 Continue to assess patient for changes in above assessment. Monitor for medication needs, pain, and safety concerns. Hourly rounding performed to ensure safe environment.
--- NOTE | 2017-05-22 01:26 | PN ---
DATE: 05/21/2017 SUBJECTIVE: The patient was seen today and requested the nursing staff as his lab work was noted to be abnormal. His kidney function has worsened, his BUN has risen from 22 to 34, and creatinine has risen from 1.2 to 1.9. His calcium was also high at 10.6 and corrected for, albumin is more than 11. He is currently on no calcium supplement or vitamin D supplement; however, he used to have a Scott catheter that was removed facing the possibility that he has obstructive uropathy. OBJECTIVE: GENERAL: On examining him, he looked well and was clearly in no apparent respiratory distress, somewhat pale, but no jaundice, cyanosis, or thyromegaly. No jugular venous distention. No lower limb edema. VITAL SIGNS: His heart rate was 88, blood pressure 121/81, temperature was 97.9, respiratory rate was 18 and oxygen saturation was 98%. HEAD, EYES, EARS, NOSE AND THROAT: Showed normocephalic, atraumatic. NECK: Supple. HEART: Showed normal first and second heart sounds with no gallop, rub or murmur. CHEST: Clear to auscultation. No crepitation or rhonchi. ABDOMEN: Distended, soft, nontender. No guarding or rigidity. No organomegaly. Hernial orifices intact. Bowel sounds normal. NEUROLOGIC: He is alert to himself, disoriented; however, all his cranial nerves are intact. He has a 2-person assist. He is unable to walk on his own with a walker. LABORATORY DATA: Today showed his white cell count to be 8100, hemoglobin 13, hematocrit 38, MCV 94 and platelet count of 177,000. His chemistry showed a serum sodium 142, potassium 4, chloride 106, bicarbonate 27, anion gap of 9, BUN 34, creatinine 1.9, estimated GFR was 35 mL per minute, his glucose 128, calcium was 10.6. Total bilirubin, AST, ALT, alkaline phosphatase were normal. Ammonia is less than 10. Total protein was 7.1, albumin was 3.3. PLAN: My plan is to scan his bladder and if he has postvoid volume more than [address] a catheter in and repeat his labs tomorrow. GIBSON CORTEZ MD DR: KAILA/germaine JOB#: [id number] / [id number]
[2017-05-22 05:55] VITALS: BP 92/59
[2017-05-22] MEDS: INSULIN ASPART 300 UNITS/3 ML INSULN.PEN SQ SCH ×3 (07:30→18:08)
--- NOTE | 2017-05-22 07:41 | NUR ---
ELVIS had message from pt regarding placement options, she would like SW to fax information to [facility]. ELVIS fax information to [facility], however they do not have a locked dementia unit.
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
--- NOTE | 2017-05-22 07:52 | NUR ---
SW faxed information this am to [facility] as well as [facility]. ELVIS will follow up at a later time regarding these referrals.
[2017-05-22 07:54] LABS: ALBUMIN 3.3 g/dL (3.4-5.0); ALBUMIN/GLOBULIN RATIO 0.9 (1.0-1.7); CALCIUM 10.6 mg/dL (8.5-10.1); CREATININE 2.1 mg/dL (0.7-1.3); GFR 30.9; POTASSIUM 3.4 mmol/L (3.5-5.1); TOTAL BILIRUBIN 1.1 mg/dL (0.2-1.0)
[2017-05-22] MEDS: DIVALPROEX 125 MG CAP.SPRINK PO SCH ×3 (08:39→18:07)
[2017-05-22] MEDS: ESCITALOPRAM 10 MG TABLET. PO SCH (08:39)
[2017-05-22] MEDS: POLYETHYLENE GLYCOL 3350 17 GM PACKET. PO SCH (08:39)
[2017-05-22] MEDS: DOCUSATE SODIUM 100 MG CAPSULE PO SCH (08:39)
[2017-05-22] MEDS: CIPROFLOXACIN HCL 250 MG TABLET PO SCH (08:40)
[2017-05-22] MEDS: METOPROLOL TART IMMED RELEASE 25 MG TABLET PO SCH (08:40)
[2017-05-22] MEDS: PRENATAL MULTIVITAMIN TABLET. PO SCH (08:40)
[2017-05-22] MEDS: ASPIRIN 81 MG TAB.CHEW PO SCH (08:40)
[2017-05-22] MEDS: INSULIN DETEMIR 300 UNITS/3 ML INSULN.PEN. SQ SCH (08:44)
--- NOTE | 2017-05-22 11:23 | NUR ---
Behavior Intervention Response and Plan: BIRP Note: Behavior: Assumed Care of patient, patient located in Dining Room at shift change. Patient exhibited the following behavior Disorganized, Calm, Sleeping. Brief assessment on rounds of vital signs, medication needs, lab studies, and pain. Treatment plan problems . Intervention: Patient assessed and the following interventions initiated safety checks 15 Minute Checks Cognitive Assessment , Head to toe Assessment , Medications. Response: After interactions and interventions patient responded in the following manner, Disorganized , Compliant ,Drowsy. Continue to assess behaviors and condition will continue to monitor throughout the shift as needed. Plan: Continue to monitor Master Treatment Plan for patient's progress toward short term goals of Decreased Agitation, Decreased Aggression, road mender goals to return to previous living setting vs placement. Continue to assess patient for changes in above assessment. Monitor for medication needs, pain, and safety concerns. Hourly rounding performed to ensure safe environment.
[2017-05-22] MEDS: CYANOCOBALAMIN (VITAMIN B-12) 1,000 MCG TABLET. PO SCH (13:30)
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
--- NOTE | 2017-05-22 16:30 | NUR ---
Dr Jaimes here to see pt. Bun Creat elevated from yest. Dr Jaimes spoke with . agreed to getting IV fluids on one south.
[2017-05-22 16:31] VITALS: BP 88/58
[2017-05-22] MEDS ORDERED: TRAZ50TA15 PO (17:27)
[2017-05-22] MEDS ORDERED: CYAN10005 PO (17:29)
[2017-05-22] MEDS ORDERED: ESCITALOPRAM OX10 MG PO (17:30)
[2017-05-22] MEDS ORDERED: PREN1TAB58 PO (17:31)
[2017-05-22] MEDS ORDERED: PETR113O TP (17:38)
--- NOTE | 2017-05-22 18:14 | NUR ---
Discharge Note [facility] Patient is not currently a tobacco user. Follow up Appointment made: Date and Time 05/22/17 1700 instructions and Social Work Discharge planning sheet sent to next level of care. [facility] contact Number for 24 hour support [phone] Discharge Packet Sent, and discusssed with patient and caregiver that includes Copies from the record of current medications with indications and frequencies, history and physical, Psychiatric Eval with reason and justification for admission, Lab values, Radiology results , follow up instructions for continuation of care, and Social Work discharge planning form: yes Discharge Packet Faxed to Provider/Next Level of Care: yes Discharge Packet Faxed with discharge Order and Discharge diagnosis sent to: Discharge Packet Discussed, and report Given to:1 [facility] Discharge instruction sheet was included in the packet and sent with the patient upon discharge. Any Pending lab results can be obtained by calling [phone] Discharge Summary will be sent to next care provider when available. This includes the reason for admission, DC diagnosis, and next level of care recommendations.
--- NOTE | 2017-05-22 23:22 | PN ---
DATE: 05/21/2017 OBJECTIVE: This is a late entry for 05/21/2017, covers elements not covered in my initial note of 05/21/2017. The patient was staffed at a treatment team meeting with the entire team morning of 05/21/2017, was seen individually evening of 05/21/2017. Discussed with nursing staff. Appetite about 60%, sleeping about 5 hours average, previous night 7-3/4 hours. BUN 34, creatinine 1.9. Valproic acid level 18, prior one was 27. He remains confused, wandering, restless and redirects. REVIEW OF SYSTEMS: No CV, , pulmonary, eye, ENT system symptoms on review. Reliability poor. MENTAL STATUS EXAM: Oriented to himself. Insight, judgment, recent and remote memory, attention, concentration, fund of knowledge poor, consistent with his diagnosis. LABORATORY DATA: Reviewed. IMPRESSION: Major neurocognitive disorder, Alzheimer, vascular with depression, delusion and behavioral disturbance. Rest unchanged. PLAN: Increase Depakote Sprinkle from 125 three times a day to 125 four times a day. Check labs level in 3 days. Continue Lexapro, Remeron, and trazodone along with Zyprexa p.r.n. as before. GHULAM LEMON MD DR: ARMEN/geramine JOB#: [id number] / [id number]
[2017-05-23 02:08] LABS: CALCIUM PTH 10.7 mg/dL (8.6-10.2); CREATININE PTH 1.95 mg/dL (0.76-1.27); PTH INTACT 127 pg/mL (15-65)
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
== END 2017-05-22 18:17 | disposition short-term general hospital (02) | DRG 884 ==
LOC: GEROPSY 15:29
PROVIDERS: ADMIT Psychiatry & Neurology Psychiatry; ATTEND Psychiatry & Neurology Psychiatry
DX: F01.51 Vascular dementia, unspecified severity, with behavioral disturbance (principal); F02.81 Dementia in other diseases classified elsewhere, unspecified severity, with behavioral disturbance; E44.0 Moderate protein-calorie malnutrition; I50.32 Chronic diastolic (congestive) heart failure; N39.0 Urinary tract infection, site not specified; G30.9 Alzheimer's disease, unspecified; E11.9 Type 2 diabetes mellitus without complications; E78.5 Hyperlipidemia, unspecified; F41.9 Anxiety disorder, unspecified; F63.9 Impulse disorder, unspecified; G47.00 Insomnia, unspecified; H90.5 Unspecified sensorineural hearing loss; I11.0 Hypertensive heart disease with heart failure; I25.10 Atherosclerotic heart disease of native coronary artery without angina pectoris; N40.1 Benign prostatic hyperplasia with lower urinary tract symptoms; F32.9 Major depressive disorder, single episode, unspecified; E86.0 Dehydration; E21.3 Hyperparathyroidism, unspecified; E55.9 Vitamin D deficiency, unspecified; Z66 Do not resuscitate; Z78.1 Physical restraint status; Z79.899 Other long term (current) drug therapy; Z82.49 Family history of ischemic heart disease and other diseases of the circulatory system; Z85.46 Personal history of malignant neoplasm of prostate; Z86.79 Personal history of other diseases of the circulatory system; Z87.01 Personal history of pneumonia (recurrent); Z90.79 Acquired absence of other genital organ(s); Z91.14 Patient's other noncompliance with medication regimen; Z95.1 Presence of aortocoronary bypass graft; Z95.2 Presence of prosthetic heart valve; Z91.041 Radiographic dye allergy status; Z88.5 Allergy status to narcotic agent; Z91.013 Allergy to seafood
CPT/HCPCS: 36415; 80048; 80053; 80061; 80164; 81001; 82140; 82306; 82607; 82947; 83036; 83540; 83550; 83735; 83970; 84100; 84436; 84443; 84480; 85027; 85610; 86592; 86593; 87086; 87186; J1815; 97530

== ENCOUNTER 2017-05-22 17:00 | Inpatient (IN) | payer MEDICARE, OTHER ==
[~2017-05-22] VITALS: Ht 182.9 cm; Wt 73.6 kg
--- NOTE | 2017-05-22 00:05 | NUR ---
Pt resting in the cardiac chair at this time. Will continue to monitor. Addendum: 05/23/17 at 0012 by AMANDEEP LUGO RN Actual time and date is 05/23 at 0005.
[~2017-05-22 17:00] MED LIST changes: +DOCU100C28 PO; +INSU100I13 SQ; +TAMS0.4C97 PO; +TRAM50TA PO
[2017-05-22] MEDS ORDERED: TRAZ50TA15 PO (17:27)
[2017-05-22] MEDS ORDERED: CYAN10005 PO (17:29)
[2017-05-22] MEDS ORDERED: ESCITALOPRAM OX10 MG PO (17:30)
[2017-05-22] MEDS ORDERED: PREN1TAB58 PO (17:31)
[2017-05-22] MEDS ORDERED: PETR113O TP (17:38)
[2017-05-22] MEDS ORDERED: DEXTROSE 50% 25 GM / 50ML DISP.SYRIN. IV PRN (19:00)
--- NOTE | 2017-05-22 19:00 | NUR ---
The patient, VIJAY DURÁN, 77 y/o, M admitted by GIBSON CORTEZ MD, was given written information regarding hospital policies, unit procedures and contact persons. Valuables were checked and logged. Pt resting peacefully. Will continue to monitor.
[2017-05-22 19:07] VITALS: BP 88/56
[2017-05-22] MEDS ORDERED: ACETAMINOPHEN 325 MG TABLET PO PRN (19:15)
[2017-05-22] MEDS ORDERED: NITROGLYCERIN SUBLINGUAL 0.4 MG BOTTLE OF 25. SL PRN (19:15)
[2017-05-22] MEDS ORDERED: METHYL SALICYLATE/MENTHOL TOPICAL OINTMENT 29GM TUBE. TP PRN (19:15)
[2017-05-22] MEDS ORDERED: MAG HYDROX/AL HYDROX/SIMETH 30 ML ORAL.SUSP PO PRN (19:15)
[2017-05-22 19:43] LABS: BASO % 1 % (0-3); EOS # 0.1 x10^3/uL (0.0-0.7); EOS % 2 % (0-3); HEMATOCRIT 31.9 % (39.0-53.0); HEMOGLOBIN 11.1 g/dL (13.0-17.5); LYMPH # 0.5 x10^3/uL (1.0-4.8); LYMPH % 9 % (24-48); MEAN CORPUSCULAR HEMOGLOBIN 33 pg (25-35); MEAN CORPUSCULAR HGB CONC 35 g/dL (31-37); MEAN CORPUSCULAR VOLUME 95 fL (79-100); MONO # 0.4 x10^3/uL (0.0-1.1); MONO % 7 % (0-9); NEUT # 5.1 x10^3uL (1.8-7.7); NEUT % 82 % (31-73); PLATELET COUNT 147 x10^3/uL (140-400); RED BLOOD COUNT 3.38 x10^6/uL (4.30-5.70); RED CELL DISTRIBUTION WIDTH 13.5 % (11.5-14.5); WHITE BLOOD COUNT 6.2 x10^3/uL (4.0-11.0)
[2017-05-22] MEDS ORDERED: PETROLATUM WHITE TP PRN (20:15)
[2017-05-22] MEDS ORDERED: MAGNESIUM HYDROXIDE 2,400 MG/30 ML ORAL.SUSP. PO PRN (20:15)
[2017-05-22] MEDS: METOPROLOL TART IMMED RELEASE 25 MG TABLET PO SCH (20:44)
[2017-05-22] MEDS: IV DEXTROSE 5% 1,000 ML IV SCH (20:59)
[2017-05-22] MEDS: MIRTAZAPINE 7.5 MG TABLET. PO SCH (21:00)
[2017-05-22] MEDS: TAMSULOSIN 0.4 MG CAP.ER.24H. PO SCH (21:00)
[2017-05-22] MEDS: ATORVASTATIN CALCIUM 20 MG TABLET PO SCH (21:00)
[2017-05-22] MEDS ORDERED: INSULIN DETEMIR 300 UNITS/3 ML INSULN.PEN. SQ SCH (21:00)
[2017-05-22] MEDS: DIVALPROEX 125 MG CAP.SPRINK PO SCH (21:00)
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
[2017-05-22] MEDS: traMADol 50 MG TABLET PO PRN ×2 (22:45→23:30)
[2017-05-22] MEDS: traZODone 50 MG TABLET. PO PRN ×2 (22:45→23:30)
[2017-05-22] MEDS ORDERED: HALOPERIDOL LACT 5 MG/ML VIAL. IVP PRN (23:00)
--- NOTE | 2017-05-22 23:00 | NUR ---
Pt ripped off tele, playing with the phone, and was pushing staff. Tried to redirect. Will continue to monitor.
[2017-05-22] MEDS: HALOPERIDOL LACT 5 MG/ML VIAL. IM PRN (23:08)
--- NOTE | 2017-05-22 23:45 | NUR ---
Pt has been fighting staff since he has woken up. Pt is pocketing medications and will not swallow. Pt finally swallowed medications. Will continue to monitor.
--- NOTE | 2017-05-23 00:03 | NUR ---
Pt in cardiac chair and resting peacefully. IV restarted. Will continue to monitor.
[2017-05-23 02:07] VITALS: BP 115/71
[2017-05-23 05:20] VITALS: BP 125/70
[2017-05-23] MEDS: IV DEXTROSE 5% 1,000 ML IV SCH ×2 (05:50→15:10)
[2017-05-23 05:57] LABS: BASO % 1 % (0-3); EOS # 0.1 x10^3/uL (0.0-0.7); EOS % 3 % (0-3); HEMATOCRIT 32.9 % (39.0-53.0); HEMOGLOBIN 11.5 g/dL (13.0-17.5); LYMPH # 0.9 x10^3/uL (1.0-4.8); LYMPH % 17 % (24-48); MEAN CORPUSCULAR HEMOGLOBIN 33 pg (25-35); MEAN CORPUSCULAR HGB CONC 35 g/dL (31-37); MEAN CORPUSCULAR VOLUME 94 fL (79-100); MONO # 0.5 x10^3/uL (0.0-1.1); MONO % 9 % (0-9); NEUT # 3.8 x10^3uL (1.8-7.7); NEUT % 70 % (31-73); PLATELET COUNT 141 x10^3/uL (140-400); RED BLOOD COUNT 3.51 x10^6/uL (4.30-5.70); RED CELL DISTRIBUTION WIDTH 13.5 % (11.5-14.5); WHITE BLOOD COUNT 5.5 x10^3/uL (4.0-11.0)
[2017-05-23 05:58] LABS: ALBUMIN 2.7 g/dL (3.4-5.0); ALBUMIN/GLOBULIN RATIO 0.8 (1.0-1.7); CREATININE 2.1 mg/dL (0.7-1.3); GFR 30.9; POTASSIUM 4.1 mmol/L (3.5-5.1); TOTAL BILIRUBIN 0.8 mg/dL (0.2-1.0)
--- NOTE | 2017-05-23 08:18 | NUR ---
Resumed pt care. pt resting quietly in cardiac chair. IV infusing.
[2017-05-23] MEDS: INSULIN ASPART 300 UNITS/3 ML INSULN.PEN SQ SCH ×3 (08:25→17:30)
[2017-05-23] MEDS ORDERED: ESCITALOPRAM 10 MG TABLET. ONE (09:00)
[2017-05-23] MEDS ORDERED: NON FORMULARY ITEM (Escitalopram Oxalate 10 MG) PO SCH (09:00)
[2017-05-23] MEDS: PRENATAL MULTIVITAMIN TABLET. PO SCH (09:35)
[2017-05-23] MEDS: DIVALPROEX 125 MG CAP.SPRINK PO SCH ×4 (09:35→20:26)
[2017-05-23] MEDS: POLYETHYLENE GLYCOL 3350 17 GM PACKET. PO SCH (09:35)
[2017-05-23] MEDS: ASPIRIN 81 MG TAB.CHEW PO SCH (09:35)
[2017-05-23] MEDS: CYANOCOBALAMIN (VITAMIN B-12) 1,000 MCG TABLET. PO SCH (09:35)
[2017-05-23] MEDS: DOCUSATE SODIUM 100 MG CAPSULE PO SCH (09:35)
[2017-05-23] MEDS: METOPROLOL TART IMMED RELEASE 25 MG TABLET PO SCH ×2 (09:36→20:26)
[2017-05-23 10:40] VITALS: BP 117/61
--- NOTE | 2017-05-23 12:08 | NUR ---
Dr Jaimes here to see pt. Pt bladder scanned with no residual noted. Order recieved for CT abd no contrast.
[2017-05-23] MEDS ORDERED: INSULIN ASPART 300 UNITS/3 ML INSULN.PEN SQ PRN (13:00)
[2017-05-23] MEDS ORDERED: DEXTROSE 50% 25 GM / 50ML DISP.SYRIN. IV PRN (13:00)
[2017-05-23] MEDS ORDERED: IV NORMAL SALINE 1,000ML 1,000 ML IV ONE (13:00)
--- NOTE | 2017-05-23 13:48 | HP ---
ADMIT DATE: 05/22/2017 HISTORY OF PRESENT ILLNESS: The patient is a 77-year-old male patient who was transferred from [facility] on the account of worsening kidney function. His sodium was high at 146, potassium was low and creatinine has risen dramatically from 1.1 up to 2.1 and despite placement of a Scott catheter, his creatinine continued to rise and also his calcium was high was at 10.6 corrected for his serum albumin. The calcium was 11.6 and therefore, a decision was made to transfer him to [address] [place] [address] to continue treatment. His intact PTH was found to be high at 127 with the normal range between 15 to 65. Given his hypernatremia and hypokalemia, he was started on D5W at 100 mL per hour. We will follow up with his labs closely and particular his sodium, potassium, and his creatinine and decide on further management accordingly. PAST MEDICAL HISTORY: Significant for hyperlipidemia, atherosclerotic cardiovascular disease, type 2 diabetes, coronary artery disease, hypertension, peripheral vascular disease, prostate cancer, vitamin D deficiency, hyperparathyroidism, sensorineural deafness, and memory loss. PAST SURGICAL HISTORY: Significant for cholecystectomy, abdominal aortic aneurysm repair, coronary bypass graft surgery and mitral valve replacement, tonsillectomy, and adenoidectomy. FAMILY HISTORY: Significant for hypertension, hyperlipidemia, coronary artery disease and dementia in his mother, cataract in his father. His brother also had dementia. SOCIAL HISTORY: He is , currently retired. Never smoked. He does not drink alcohol or use any recreational drugs. 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 ALLERGIES: He is allergic to CODEINE, MEPERIDINE, IODINE, AND SHELLFISH CONTAINING PRODUCTS. MEDICATIONS: He is currently on the following medications: Tylenol 650 mg every 6 hours as needed, aspirin 81 mg once a day, atorvastatin calcium 80 mg at bedtime, cyanocobalamin 1000 mcg once a day, divalproex 125 mcg 4 times a day, Colace 100 mg twice a day, Lexapro 10 mg once a day, NovoLog insulin 8 units with meals and 15 units of Lantus insulin at bedtime. He is on Mylanta 15 mL 4 times a day, milk of magnesia 30 mL p.o. daily p.r.n. for constipation, metoprolol tartrate 37.5 mg twice a day, mirtazapine 7.5 mg at bedtime, olanzapine 2.5 mg every 2 hours as needed, vitamin A and D ointment applied topically twice a day, polyethylene glycol 17 grams in 8 ounces of water daily p.r.n. for constipation, vitamins 1 tablet once a day, tamsulosin 0.4 mg once a day, tramadol 50 mg every 8 hours and trazodone 50 mg p.o. at bedtime. PHYSICAL EXAMINATION: GENERAL: On examining him, he looked well and was clearly in no apparent respiratory distress. He was pale, but not jaundiced, cyanosis, or thyromegaly. No jugular venous distention. No lower limb edema. VITAL SIGNS: His heart rate was 93, blood pressure was 88/56, temperature was 98.2, respiratory rate was 18, and oxygen saturation was 98% on room air. HEAD, EYES, EARS, NOSE, THROAT: Showed normocephalic, atraumatic. NECK: Supple. HEART: Showed normal first and second heart sounds with no gallop, rub, or murmur. CHEST: Clear to auscultation. No crepitation or rhonchi. ABDOMEN: Distended, soft, nontender. No guarding or rigidity. No organomegaly. Hernial orifices intact. Bowel sounds normal. NEUROLOGIC: He was very confused and demented restless, agitated. All his cranial nerves are intact. EXTREMITIES: He moves extremities without difficulty. He ambulates without assistance at least when he was up stairs. LABORATORY DATA: His lab work prior to transfer to [address] [place] [address] showed that his white cell count was 8100, hemoglobin 13, hematocrit 38, MCV 94 and platelet count of 177,000. His chemistry showed that his serum sodium was high at 146, potassium 3.4, chloride 108, bicarbonate 29, anion gap of 9, BUN 37, creatinine 2.1, estimated GFR was 30 mL per minute. His glucose was 64, calcium was 10.6, phosphorus was 3.9. Total bilirubin, AST, ALT normal. Alkaline phosphatase slightly elevated. His total protein was 7, albumin 3.3. His parathyroid hormone was high at 127, calcium was 10.7, and phosphorus was 3.8. ASSESSMENT AND PLAN: So in summary, this is a 77-year-old male patient who was admitted to [address] [place] [address] with acute kidney injury. Creatinine has risen from 1 to 2.1. Hyponatremia, hypokalemia has also hypercalcemia most likely due to secondary hyperparathyroidism as his intact PTH was 127 and his phosphorus was high at 3.8 consistent with secondary hyperparathyroidism, most likely due to chronic kidney disease. He has already had an indwelling Scott catheter. We will start him with IV fluid in the form of D5W at 100 mL per hour. We will discontinue any medication that has calcium. I will hold also his ciprofloxacin. We will follow his labs closely. We will do Accu-Cheks before meals every 6 hours as if he is not able to eat as he is on D5W and decide on further management accordingly. GIBSON CORTEZ MD DR: KAILA/germaine JOB#: [id number] / [id number]
--- NOTE | 2017-05-23 14:30 | NUR ---
pt to have CT abd/pelvis. Tolerated well. Dr Jaimes here to see pt. New orders noted.
[2017-05-23 14:31] VITALS: BP 99/72
[2017-05-23] MEDS ORDERED: PETROLATUM WHITE TP PRN (14:42)
--- NOTE | 2017-05-23 15:31 | RAD ---
PQRS Compliance Statement: One or more of the following individualized dose reduction techniques were utilized for this examination: 1. Automated exposure control 2. Adjustment of the mA and/or kV according to patient size 3. Use of iterative reconstruction technique CT ABDOMEN PELVIS WO CONTRAST Clinical Indication: urinary retention Comparison: None. Technique: Helical CT imaging of the abdomen and pelvis is performed without IV or oral contrast. Findings: Calcified granulomas posterior right lower lobe. Mild atelectasis or scarring in the right lower lobe. There are median sternotomy wires. There is mitral valve prosthesis. Cardiac size normal. Respiratory motion artifact in the upper abdomen. The liver, gallbladder, spleen, and adrenal glands are normal. Fatty replacement of the pancreas especially in the head. There is abdominal aortic aneurysm treated with aortobiiliac endovascular stent. In maximum dimension the aneurysm measures 5.5 cm. No stranding surrounding the aneurysm is seen. There is left lower pole renal cyst. There are 2 tiny nonobstructing left renal calculi versus vascular calcifications. The left ureter is normal. There are at least 4 small right renal cysts. There is a 5 mm nonobstructing calculus towards the lower pole of the right kidney. There is mild to moderate right hydroureteronephrosis secondary to a 8 x 4 mm calculus at the ureterovesicular junction, image 127. No obvious abnormality of the stomach. No dilated small bowel. There is no colon wall thickening. The appendix is normal. There is moderate stool throughout the colon. There is a Scott catheter in the bladder. Bladder is completely decompressed. The wall is thickened and irregular. Prostate size upper limits of normal. Left inguinal surgical clips. No pelvic free fluid. No acute bone abnormality. Schmorl's node superior endplates of L2 and L3. IMPRESSION: 1. Mild to moderate right obstructive uropathy secondary to an 8 x 4 mm calculus at the ureterovesicular junction. 2. Scott catheter in the bladder. Bladder is completely decompressed. The wall appears thickened and irregular. Suggest correlation with urinalysis to exclude cystitis. 3. Bilateral renal cysts. Bilateral nonobstructing renal calculi. 4. Moderate colon stool volume. 5. Abdominal aortic aneurysm post EVAR. Maximum diameter of the aneurysm is 5.5 cm.
--- NOTE | 2017-05-23 16:26 | NUR ---
called dr Jaimes CT results. Pt has kidney stone on right with mild/mod hydronephrosis. New order for Rocephin qd. will talk with family tomorrow about possible transfer to [facility] for treatment of stone.
[2017-05-23] MEDS: traMADol 50 MG TABLET PO PRN (17:14)
[2017-05-23 19:00] VITALS: BP 109/64
[2017-05-23] MEDS: MIRTAZAPINE 7.5 MG TABLET. PO SCH (20:26)
[2017-05-23] MEDS: TAMSULOSIN 0.4 MG CAP.ER.24H. PO SCH (20:26)
[2017-05-23] MEDS: ATORVASTATIN CALCIUM 20 MG TABLET PO SCH (20:26)
[2017-05-23] MEDS: traZODone 50 MG TABLET. PO PRN ×2 (21:50→23:34)
--- NOTE | 2017-05-23 21:56 | PDOC ---
Exam Geraldo Demential Exam: Geraldo Note: Please also refer to the separate dictated note~for this date of service dictated separately.~Patient seen individually. Discussed the patient with Nursing staff reviewed the chart.~Reviewed interim history and current functioning. Reviewed vital signs,~Labs/ Radiology~and current medications noted below. Continue current treatment with the changes noted in the dictated addendum note Assessment: Vital Signs: Vital Signs Date Time Temp Pulse Resp B/P (MAP) Pulse Ox O2 Delivery O2 Flow Rate FiO2 05/23/17 20:26 76 109/64 05/23/17 19:00 98.4 18 97 05/23/17 14:31 Room Air I&O Intake and Output 05/23/17 07:00 Intake Total 670 ml Output Total 550 ml Balance 120 ml IV Total 670 ml Output Urine Total 550 ml Labs: Laboratory Tests Test 05/23/17 05:10 05/23/17 07:45 05/23/17 11:42 05/23/17 17:26 White Blood Count 5.5 x10^3/uL (4.0-11.0) Red Blood Count 3.51 x10^6/uL (4.30-5.70) L Hemoglobin 11.5 g/dL (13.0-17.5) L Hematocrit 32.9 % (39.0-53.0) L Mean Corpuscular Volume 94 fL (79-100) Mean Corpuscular Hemoglobin 33 pg (25-35) Mean Corpuscular Hemoglobin Concent 35 g/dL (31-37) Red Cell Distribution Width 13.5 % (11.5-14.5) Platelet Count 141 x10^3/uL (140-400) Neutrophils (%) (Auto) 70 % (31-73) Lymphocytes (%) (Auto) 17 % (24-48) L Monocytes (%) (Auto) 9 % (0-9) Eosinophils (%) (Auto) 3 % (0-3) Basophils (%) (Auto) 1 % (0-3) Neutrophils # (Auto) 3.8 x10^3uL (1.8-7.7) Lymphocytes # (Auto) 0.9 x10^3/uL (1.0-4.8) L Monocytes # (Auto) 0.5 x10^3/uL (0.0-1.1) Eosinophils # (Auto) 0.1 x10^3/uL (0.0-0.7) Basophils # (Auto) 0.0 x10^3/uL (0.0-0.2) Sodium Level 140 mmol/L (136-145) Potassium Level 4.1 mmol/L (3.5-5.1) Chloride Level 105 mmol/L (98-107) Carbon Dioxide Level 29 mmol/L (21-32) Anion Gap 6 (6-14) Blood Urea Nitrogen 37 mg/dL (8-26) H Creatinine 2.1 mg/dL (0.7-1.3) H Estimated GFR (Cockcroft-Gault) 30.9 BUN/Creatinine Ratio 18 (6-20) Glucose Level 164 mg/dL (70-99) H Calcium Level 10.0 mg/dL (8.5-10.1) Total Bilirubin 0.8 mg/dL (0.2-1.0) Aspartate Amino Transferase (AST) 24 U/L (15-37) Alanine Aminotransferase (ALT) 28 U/L (16-63) Alkaline Phosphatase 100 U/L (46-116) Total Protein 6.0 g/dL (6.4-8.2) L Albumin 2.7 g/dL (3.4-5.0) L Albumin/Globulin Ratio 0.8 (1.0-1.7) L Glucose (Fingerstick) 177 mg/dL (70-99) H 134 mg/dL (70-99) H 187 mg/dL (70-99) H Current Medications: Meds: Current Medications Dextrose 1,000 ml @ 100 mls/hr Q10H IV Last administered on 05/23/17 15:10; Start 05/22/17 at 19:10 Dextrose 12.5 gm PRN Q15MIN PRN IV SEE COMMENTS; Start 05/22/17 at 19:00 Acetaminophen (Tylenol) 650 mg PRN Q6HRS PRN PO PAIN / TEMP; Start 05/22/17 at 19:15 Aspirin (Children'S Aspirin) 81 mg DAILY PO Last administered on 05/23/17 09: 35; Start 05/23/17 at 09:00 Cyanocobalamin (Vitamin B-12) 1,000 mcg DAILY PO Last administered on 09:35; Start 05/23/17 at 09:00 Divalproex Sodium (Depakote Sprinkles) 125 mg QID PO Last administered on 20:26; Start 05/22/17 at 21:00 Docusate Sodium (Colace) 100 mg DAILY PO Last administered on 05/23/17 09:35; Start 05/23/17 at 09:00 Insulin Aspart (NovoLOG) 8 units TIDWMEALS SQ Last administered on 05/23/17 12 :12; Start 05/23/17 at 08:00; Stop 05/23/17 at 12:56; Status DC Al Hydroxide/Mg Hydroxide (Mylanta Plus Xs) 15 ml QIDPRN PRN PO HEARTBURN / GAS ; Start 05/22/17 at 19:15 Multi-Ingredient Ointment (Analgesic Marshall) 1 prisca QIDPRN PRN TP MUSCLE PAIN; Start 05/22/17 at 19:15 Metoprolol Tartrate (Lopressor) 37.5 mg BID PO Last administered on 05/23/17 09:36; Start 05/22/17 at 21:00 Mirtazapine (Remeron) 7.5 mg QHS PO Last administered on 05/23/17 20:26; Start 05/22/17 at 21:00 Nitroglycerin (Nitrostat) 0.4 mg PRN Q5MIN PRN SL CHEST PAIN; Start 05/22/17 at 19:15 Olanzapine (ZyPREXA ZYDIS) 2.5 mg PRN Q2HR PRN PO ANXIETY / AGITATION Last administered on 05/23/17 21:25; Start 05/22/17 at 19:15 Polyethylene Glycol (miraLAX) 17 gm DAILY PO Last administered on 05/23/17 09: 35; Start 05/23/17 at 09:00 Tamsulosin HCl (Flomax) 0.4 mg HS PO Last administered on 05/23/17 20:26; Start 05/22/17 at 21:00 Tramadol HCl (Ultram) 50 mg PRN Q8HRS PRN PO PAIN Last administered on 17:14; Start 05/22/17 at 19:15 Trazodone HCl (Desyrel) 50 mg PRN QHS PRN PO INSOMNIA, MAY REPEAT X1 Last administered on 05/23/17 21:50; Start 05/22/17 at 19:15 Atorvastatin Calcium (Lipitor) 80 mg QHS PO Last administered on 05/23/17 20: 26; Start 05/22/17 at 21:00 Non-Formulary Medication 10 mg DAILY PO Last administered on 05/23/17 09:00; Start 05/23/17 at 09:00; Stop 05/23/17 at 10:03; Status DC Insulin Detemir (Levemir) 15 units QHS SQ Last administered on 05/22/17 21:01 ; Start 05/22/17 at 21:00; Stop 05/23/17 at 12:56; Status DC Magnesium Hydroxide (Milk Of Magnesia) 2,400 mg PRN QHS PRN PO CONSTIPATION Last administered on 05/23/17 17:13; Start 05/22/17 at 20:15 Petrolatum (Aquaphor Healing) 1 prisca PRN BID PRN TP meatus; Start 05/22/17 at 20 :15; Stop 05/23/17 at 14:42; Status DC Prenat Multivit/ Sample Sewer/Iron/Folic Ac (Multivitamin ) 1 tab DAILY PO Last administered on 05/23/17 09:35; Start 05/23/17 at 09:00 Haloperidol Lactate (Haldol) 5 mg PRN Q4HRS PRN IM ANXIETY / AGITATION Last administered on 05/22/17 23:08; Start 05/22/17 at 23:00 Haloperidol Lactate (Haldol) 5 mg PRN Q4HRS PRN IVP AGITATION; Start 05/22/17 at 23:00; Stop 05/22/17 at 23:05; Status DC Escitalopram Oxalate (Lexapro) 10 mg DAILY PO ; Start 05/24/17 at 09:00 Insulin Aspart (NovoLOG) 0-5 UNITS Q6H PRN SQ SEE COMMENTS; Start 05/23/17 at 13:00; Stop 05/23/17 at 14:37; Status DC Dextrose 12.5 gm PRN Q15MIN PRN IV SEE COMMENTS; Start 05/23/17 at 13:00; Status UNV Sodium Chloride 1,000 ml @ 1,000 mls/hr 1X ONCE IV Last administered on 13:36; Start 05/23/17 at 13:00; Stop 05/23/17 at 13:59; Status DC Insulin Aspart (NovoLOG) 0-5 UNITS Q6H SQ Last administered on 05/23/17 17:30 ; Start 05/23/17 at 18:00 Petrolatum (Aquaphor Healing) 1 prisca PRN BID PRN TP meatus; Start 05/23/17 at 14 :42 Ceftriaxone Sodium 1 gm/ Sodium Chloride 50 ml @ 100 mls/hr Q24H IV ; Start at 17:00; Stop 05/23/17 at 17:00; Status DC Ceftriaxone Sodium 1 gm/ Sodium Chloride 50 ml @ 100 mls/hr Q24H IV Last administered on 05/23/17 17:03; Start 05/23/17 at 17:00 Active Scripts Active Reported Vitamin A & D Ointment (Petrolatum,White/Lanolin) 113 Gm Oint...g. 1 Prisca TP PRN BID PRN Vitamins ( Vits W-Ca,Fe,Fa(<1MG)) 1 Each Tablet 1 Each PO DAILY Escitalopram Oxalate 10 Mg Tablet 10 Mg PO DAILY Vitamin B-12 (Cyanocobalamin (Vitamin B-12)) 1,000 Mcg Tablet 1,000 Mcg PO DAILY Trazodone Hcl 50 Mg Tablet 50 Mg PO PRN QHS PRN Lantus Solostar (Insulin Glargine,Hum.rec.anlog) 100 Unit/1 Ml Insuln.pen 15 Unit SQ QHS Tramadol Hcl (Tramadol HCl) 50 Mg Tablet 50 Mg PO PRN Q8HRS PRN Flomax (Tamsulosin Hcl) 0.4 Mg Cap.er.24h 1 Cap PO HS Docusate Sodium 100 Mg Capsule 1 Cap PO DAILY Atorvastatin Calcium 80 Mg Tablet 80 Mg PO HS hIGH CHOLESTEROL Zyprexa Zydis (Olanzapine) 5 Mg Tab.rapdis 2.5 Mg PO PRN Q2HR PRN Remeron (Mirtazapine) 15 Mg Tablet 7.5 Mg PO QHS Depakote Sprinkle (Divalproex Sodium) 125 Mg Cap.sprink 125 Mg PO QID Miralax (Polyethylene Glycol 3350) 17 Gm Powd.pack 1 Packet PO DAILY Analgesic Marshall (Methyl Salicylate/Menthol) 29 Gm Oint...g. 1 Prisca TP QIDPRN PRN Milk Of Magnesia (Magnesium Hydroxide) 2,400 Mg/10 Ml Oral.susp 2,400 Mg PO HS PRN Mag-Al Plus Xs Suspension (Mag Hydrox/Al Hydrox/Simeth) 30 Ml Oral.susp 15 Ml PO QIDPRN PRN Novolog Flexpen (Insulin Aspart) 100 Unit/1 Ml Insuln.pen 8 Unit SQ TIDWMEALS Tylenol (Acetaminophen) 325 Mg Tablet 650 Mg PO PRN Q6HRS PRN Nitrostat (Nitroglycerin) 0.4 Mg Tab.subl 0.4 Mg SL PRN PRN Metoprolol Tartrate 25 Mg Tablet 37.5 Mg PO BID Aspirin 81 Mg Tab.chew 81 Mg PO DAILY Diagnosis: Problems: (1) Anxiety disorder (2) Impulse control disorder (3) Dementia in Alzheimer's disease with delusions (4) Dementia in Alzheimer's disease with depression (5) Dementia, vascular, with depression (6) Diabetes mellitus GHULAM LEMON MD May 23, 2017 21:56
--- NOTE | 2017-05-23 22:30 | NUR ---
Pt agitated and will not remain in cardiac chair. Pt attempting to rip out IV and hit staff. Redirection given without success. PRN's given, see eMAR. 1:1 remaining with pt. Continuing to redirect pt. Will CTM.
[2017-05-23] MEDS: HALOPERIDOL LACT 5 MG/ML VIAL. IM PRN (22:33)
--- NOTE | 2017-05-23 23:04 | PN ---
DATE: 05/23/2017 SUBJECTIVE: The patient is resting slightly propped up, sleeping comfortably in no apparent distress. He apparently has been restless, agitated, and has received Haldol together with trazodone and olanzapine and he is somewhat sleepy. PHYSICAL EXAMINATION: GENERAL: When I examined him he looked pale, but not jaundiced, cyanosis, or thyromegaly. No jugular venous distention. No limb edema. VITAL SIGNS: His heart rate was 68, blood pressure 117/61, temperature was 97.3, respiratory rate was 18 and oxygen saturation was 98%. HEAD, EYES, EARS, NOSE AND THROAT: Showed normocephalic, atraumatic. NECK: Supple. HEART: Showed normal first and second heart sounds with no gallop, rub or murmur. CHEST: Clear to auscultation. No crepitation or rhonchi. ABDOMEN: Mild distended, soft, nontender. No guarding or rigidity. No organomegaly. Hernial orifices intact. Bowel sounds normal. NEUROLOGIC: He was sleepy, but arousable. He has cognitive impairment overall cranial nerves are intact. He moves extremities without difficulty. His intake over the last 24 hours was 670, output was 550. LABORATORY DATA: His lab work this morning showed a white cell count 5500, hemoglobin 11.5, hematocrit 33, MCV 94 and platelet count of 141,000. His chemistry showed a serum sodium of 140, potassium 4.1, chloride 105, bicarbonate 29, anion gap of 6, BUN 37, creatinine was 2.1, estimated GFR was 90 with 31 mL per minute. His glucose was 164, calcium was 10, magnesium 2. Total bilirubin, AST, ALT, alkaline phosphatase were normal. Total protein was 6, albumin 2.7. ASSESSMENT: Acute kidney injury. The serum creatinine has not really changed from yesterday. His serum creatinine is still the same at 2.1 and the BUN is still the same at 37. His sodium has improved from 146 to 140 and his potassium has improved to 4.1. His calcium is high at 10.7. PTH was 127. Phosphorus is high at 3.8. Apparently he is known to have hyperparathyroidism and surgical removal. The parathyroid gland was recommended, but given his age that recommendation was not carried out. PLAN: My plan is to give him a liter of normal saline today, do a CT scan of the abdomen and pelvis without contrast. Continue with D5W after he gets a liter of fluid. I spoke to his about all day finding. We will repeat his lab work tomorrow and decide on further management accordingly. GIBSON CORTEZ MD DR: KAILA/germaine JOB#: [id number] / [id number]
[2017-05-23 23:28] VITALS: BP 109/64
--- NOTE | 2017-05-23 23:35 | NUR ---
Pt restless and attempting to kick and punch staff. PRN's given, see eMAR. Continual redirection given. CTM.
[2017-05-24] MEDS: INSULIN ASPART 300 UNITS/3 ML INSULN.PEN SQ SCH ×4 (00:08→21:43)
--- NOTE | 2017-05-24 01:04 | NUR ---
Pt continues to be restless but remains in bed, cooperating to an extent. 1:1 still at bedside with pt. Will CTM.
[2017-05-24] MEDS: IV DEXTROSE 5% 1,000 ML IV SCH ×3 (01:10→21:10)
[2017-05-24 05:24] VITALS: BP 113/67
[2017-05-24 07:20] LABS: ALBUMIN 2.7 g/dL (3.4-5.0); ALBUMIN/GLOBULIN RATIO 0.8 (1.0-1.7); CALCIUM 9.8 mg/dL (8.5-10.1); CREATININE 1.8 mg/dL (0.7-1.3); GFR 36.9; POTASSIUM 4.3 mmol/L (3.5-5.1); TOTAL BILIRUBIN 0.7 mg/dL (0.2-1.0)
--- NOTE | 2017-05-24 07:34 | PDOC ---
Exam Geraldo Demential Exam: Geraldo Note: This is a late entry for 05/23/17. Please also refer to the separate dictated note~for this date of service dictated separately.~Patient seen individually. Discussed the patient with Nursing staff reviewed the chart.~Reviewed interim history and current functioning. Reviewed vital signs,~Labs/ Radiology~and current medications noted below. Continue current treatment with the changes noted in the dictated addendum note Assessment: Vital Signs: Vital Signs Date Time Temp Pulse Resp B/P (MAP) Pulse Ox O2 Delivery O2 Flow Rate FiO2 05/24/17 05:24 97.6 115 18 113/67 (82) 100 Room Air I&O Intake and Output 05/24/17 07:00 Intake Total 2559 ml Output Total 2250 ml Balance 309 ml Intake Oral 580 ml IV Total 1979 ml Output Urine Total 2250 ml # Bowel Movements 1 Labs: Laboratory Tests Test 05/23/17 07:45 05/23/17 11:42 05/23/17 17:26 05/24/17 00:00 Glucose (Fingerstick) 177 mg/dL (70-99) H 134 mg/dL (70-99) H 187 mg/dL (70-99) H 242 mg/dL (70-99) H Test 05/24/17 05:54 05/24/17 06:20 Glucose (Fingerstick) 229 mg/dL (70-99) H Sodium Level 141 mmol/L (136-145) Potassium Level 4.3 mmol/L (3.5-5.1) Chloride Level 106 mmol/L (98-107) Carbon Dioxide Level 29 mmol/L (21-32) Anion Gap 6 (6-14) Blood Urea Nitrogen 29 mg/dL (8-26) H Creatinine 1.8 mg/dL (0.7-1.3) H Estimated GFR (Cockcroft-Gault) 36.9 BUN/Creatinine Ratio 16 (6-20) Glucose Level 237 mg/dL (70-99) H Calcium Level 9.8 mg/dL (8.5-10.1) Magnesium Level 2.0 mg/dL (1.8-2.4) Total Bilirubin 0.7 mg/dL (0.2-1.0) Aspartate Amino Transferase (AST) 22 U/L (15-37) Alanine Aminotransferase (ALT) 28 U/L (16-63) Alkaline Phosphatase 103 U/L (46-116) C-Reactive Protein 21.0 mg/L (0-3.3) H Total Protein 6.0 g/dL (6.4-8.2) L Albumin 2.7 g/dL (3.4-5.0) L Albumin/Globulin Ratio 0.8 (1.0-1.7) L Current Medications: Meds: Current Medications Dextrose 1,000 ml @ 100 mls/hr Q10H IV Last administered on 05/23/17 15:10; Start 05/22/17 at 19:10 Dextrose 12.5 gm PRN Q15MIN PRN IV SEE COMMENTS; Start 05/22/17 at 19:00 Acetaminophen (Tylenol) 650 mg PRN Q6HRS PRN PO PAIN / TEMP; Start 05/22/17 at 19:15 Aspirin (Children'S Aspirin) 81 mg DAILY PO Last administered on 05/23/17 09: 35; Start 05/23/17 at 09:00 Cyanocobalamin (Vitamin B-12) 1,000 mcg DAILY PO Last administered on 09:35; Start 05/23/17 at 09:00 Divalproex Sodium (Depakote Sprinkles) 125 mg QID PO Last administered on 20:26; Start 05/22/17 at 21:00 Docusate Sodium (Colace) 100 mg DAILY PO Last administered on 05/23/17 09:35; Start 05/23/17 at 09:00 Insulin Aspart (NovoLOG) 8 units TIDWMEALS SQ Last administered on 05/23/17 12 :12; Start 05/23/17 at 08:00; Stop 05/23/17 at 12:56; Status DC Al Hydroxide/Mg Hydroxide (Mylanta Plus Xs) 15 ml QIDPRN PRN PO HEARTBURN / GAS ; Start 05/22/17 at 19:15 Multi-Ingredient Ointment (Analgesic Roscoe) 1 prisca QIDPRN PRN TP MUSCLE PAIN; Start 05/22/17 at 19:15 Metoprolol Tartrate (Lopressor) 37.5 mg BID PO Last administered on 05/23/17 09:36; Start 05/22/17 at 21:00 Mirtazapine (Remeron) 7.5 mg QHS PO Last administered on 05/23/17 20:26; Start 05/22/17 at 21:00 Nitroglycerin (Nitrostat) 0.4 mg PRN Q5MIN PRN SL CHEST PAIN; Start 05/22/17 at 19:15 Olanzapine (ZyPREXA ZYDIS) 2.5 mg PRN Q2HR PRN PO ANXIETY / AGITATION Last administered on 05/23/17 23:33; Start 05/22/17 at 19:15 Polyethylene Glycol (miraLAX) 17 gm DAILY PO Last administered on 05/23/17 09: 35; Start 05/23/17 at 09:00 Tamsulosin HCl (Flomax) 0.4 mg HS PO Last administered on 05/23/17 20:26; Start 05/22/17 at 21:00 Tramadol HCl (Ultram) 50 mg PRN Q8HRS PRN PO PAIN Last administered on 17:14; Start 05/22/17 at 19:15 Trazodone HCl (Desyrel) 50 mg PRN QHS PRN PO INSOMNIA, MAY REPEAT X1 Last administered on 05/23/17 23:34; Start 05/22/17 at 19:15 Atorvastatin Calcium (Lipitor) 80 mg QHS PO Last administered on 05/23/17 20: 26; Start 05/22/17 at 21:00 Non-Formulary Medication 10 mg DAILY PO Last administered on 05/23/17 09:00; Start 05/23/17 at 09:00; Stop 05/23/17 at 10:03; Status DC Insulin Detemir (Levemir) 15 units QHS SQ Last administered on 05/22/17 21:01 ; Start 05/22/17 at 21:00; Stop 05/23/17 at 12:56; Status DC Magnesium Hydroxide (Milk Of Magnesia) 2,400 mg PRN QHS PRN PO CONSTIPATION Last administered on 05/23/17 17:13; Start 05/22/17 at 20:15 Petrolatum (Aquaphor Healing) 1 prisca PRN BID PRN TP meatus; Start 05/22/17 at 20 :15; Stop 05/23/17 at 14:42; Status DC Prenat Multivit/ Mitchell/Iron/Folic Ac (Multivitamin ) 1 tab DAILY PO Last administered on 05/23/17 09:35; Start 05/23/17 at 09:00 Haloperidol Lactate (Haldol) 5 mg PRN Q4HRS PRN IM ANXIETY / AGITATION Last administered on 05/23/17 22:33; Start 05/22/17 at 23:00 Haloperidol Lactate (Haldol) 5 mg PRN Q4HRS PRN IVP AGITATION; Start 05/22/17 at 23:00; Stop 05/22/17 at 23:05; Status DC Escitalopram Oxalate (Lexapro) 10 mg DAILY PO ; Start 05/24/17 at 09:00 Insulin Aspart (NovoLOG) 0-5 UNITS Q6H PRN SQ SEE COMMENTS; Start 05/23/17 at 13:00; Stop 05/23/17 at 14:37; Status DC Dextrose 12.5 gm PRN Q15MIN PRN IV SEE COMMENTS; Start 05/23/17 at 13:00; Status UNV Sodium Chloride 1,000 ml @ 1,000 mls/hr 1X ONCE IV Last administered on 13:36; Start 05/23/17 at 13:00; Stop 05/23/17 at 13:59; Status DC Insulin Aspart (NovoLOG) 0-5 UNITS Q6H SQ Last administered on 05/24/17 05:59 ; Start 05/23/17 at 18:00 Petrolatum (Aquaphor Healing) 1 prisca PRN BID PRN TP meatus; Start 05/23/17 at 14 :42 Ceftriaxone Sodium 1 gm/ Sodium Chloride 50 ml @ 100 mls/hr Q24H IV ; Start at 17:00; Stop 05/23/17 at 17:00; Status DC Ceftriaxone Sodium 1 gm/ Sodium Chloride 50 ml @ 100 mls/hr Q24H IV Last administered on 05/23/17 17:03; Start 05/23/17 at 17:00 Active Scripts Active Reported Vitamin A & D Ointment (Petrolatum,White/Lanolin) 113 Gm Oint...g. 1 Prisca TP PRN BID PRN Vitamins ( Vits W-Ca,Fe,Fa(<1MG)) 1 Each Tablet 1 Each PO DAILY Escitalopram Oxalate 10 Mg Tablet 10 Mg PO DAILY Vitamin B-12 (Cyanocobalamin (Vitamin B-12)) 1,000 Mcg Tablet 1,000 Mcg PO DAILY Trazodone Hcl 50 Mg Tablet 50 Mg PO PRN QHS PRN Lantus Solostar (Insulin Glargine,Hum.rec.anlog) 100 Unit/1 Ml Insuln.pen 15 Unit SQ QHS Tramadol Hcl (Tramadol HCl) 50 Mg Tablet 50 Mg PO PRN Q8HRS PRN Flomax (Tamsulosin Hcl) 0.4 Mg Cap.er.24h 1 Cap PO HS Docusate Sodium 100 Mg Capsule 1 Cap PO DAILY Atorvastatin Calcium 80 Mg Tablet 80 Mg PO HS hIGH CHOLESTEROL Zyprexa Zydis (Olanzapine) 5 Mg Tab.rapdis 2.5 Mg PO PRN Q2HR PRN Remeron (Mirtazapine) 15 Mg Tablet 7.5 Mg PO QHS Depakote Sprinkle (Divalproex Sodium) 125 Mg Cap.sprink 125 Mg PO QID Miralax (Polyethylene Glycol 3350) 17 Gm Powd.pack 1 Packet PO DAILY Analgesic Roscoe (Methyl Salicylate/Menthol) 29 Gm Oint...g. 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
[2017-05-24 07:39] LABS: HEMOGLOBIN 11.8 g/dL (13.0-17.5); RED BLOOD COUNT 3.64 x10^6/uL (4.30-5.70); RED CELL DISTRIBUTION WIDTH 13.3 % (11.5-14.5); WHITE BLOOD COUNT 5.1 x10^3/uL (4.0-11.0)
[2017-05-24] MEDS: DOCUSATE SODIUM 100 MG CAPSULE PO SCH (08:31)
[2017-05-24] MEDS: CYANOCOBALAMIN (VITAMIN B-12) 1,000 MCG TABLET. PO SCH (08:31)
[2017-05-24] MEDS: DIVALPROEX 125 MG CAP.SPRINK PO SCH ×4 (08:31→21:10)
[2017-05-24] MEDS: POLYETHYLENE GLYCOL 3350 17 GM PACKET. PO SCH (08:31)
[2017-05-24] MEDS: ASPIRIN 81 MG TAB.CHEW PO SCH (08:31)
[2017-05-24] MEDS: ESCITALOPRAM 10 MG TABLET. PO SCH (08:31)
[2017-05-24] MEDS: PRENATAL MULTIVITAMIN TABLET. PO SCH (08:32)
[2017-05-24] MEDS ORDERED: INSULIN ASPART 300 UNITS/3 ML INSULN.PEN SQ ONE ×2 (08:45→13:00)
[2017-05-24] MEDS: METOPROLOL TART IMMED RELEASE 25 MG TABLET PO SCH ×2 (09:04→21:10)
--- NOTE | 2017-05-24 09:06 | PN ---
DATE: 05/23/2017 PSYCHIATRIC PROGRESS NOTE This is a late entry of 05/23/2017, covers elements not covered in my initial note. SUBJECTIVE: The patient was seen individually, discussed with nursing staff, reviewed the chart. Temperature 98.4, pulse 76, BP 109/64: The patient was seen on [address] [place] [address], room 109, for a psychiatric consult requested by Dr. Jaimes, since the patient was transferred to [address] [place] [address] from [facility] on account of acute renal insufficiency. I have also discussed the patient directly with Dr. Jaimes. The patient remains confused, remains on one-on-one status since he was trying to pull out his IV lines, was hitting, pushing, biting staff, confused. He is not ____ to answer any review of systems questions. MENTAL STATUS EXAMINATION: Insight, judgment, recent and remote memory, attention, concentration, fund of knowledge poor, consistent with his diagnosis, unchanged from before. LABORATORY DATA: Reviewed. IMPRESSION: Major neurocognitive disorder, Alzheimer, vascular with depression, delusion, behavioral disturbance; anxiety disorder, unspecified; impulse control disorder, unspecified; acute renal insufficiency. PLAN: From a psychiatric standpoint, continue psychotropics mentioned in my initial note including Depakote Sprinkles 125 mg 4 times a day, Lexapro 10 mg a day, Haldol p.r.n., Remeron 7.5 mg at bedtime, Zyprexa p.r.n., trazodone 50 at bedtime p.r.n. GHULAM LEMON MD DR: ARMEN/germaine JOB#: [id number] / [id number]
[2017-05-24 11:04] VITALS: BP 138/59
[2017-05-24] MEDS ORDERED: INSULIN ASPART 300 UNITS/3 ML INSULN.PEN SQ SCH (11:30)
[2017-05-24] MEDS ORDERED: DEXTROSE 50% 25 GM / 50ML DISP.SYRIN. IV PRN (12:15)
[2017-05-24] MEDS: traMADol 50 MG TABLET PO PRN (13:57)
[2017-05-24 15:00] VITALS: BP 110/50
[2017-05-24] MEDS: MORPHINE SULFATE 2 MG/ML DISP.SYRIN. IV PRN ×2 (16:16→21:09)
--- NOTE | 2017-05-24 19:44 | NUR ---
Resumed care of pt from Mela BAILEY/Rosy BOLAÑOS. Pt resting peacefully in bed at this time. Will CTM.
--- NOTE | 2017-05-24 21:06 | PDOC ---
Exam Geraldo Demential Exam: Geraldo Note: Please also refer to the separate dictated note~for this date of service dictated separately.~Patient seen individually. Discussed the patient with Nursing staff reviewed the chart.~Reviewed interim history and current functioning. Reviewed vital signs,~Labs/ Radiology~and current medications noted below. Continue current treatment with the changes noted in the dictated addendum note Assessment: Vital Signs: Vital Signs Date Time Temp Pulse Resp B/P (MAP) Pulse Ox O2 Delivery O2 Flow Rate FiO2 05/24/17 15:00 97.7 81 110/50 (70) 98 05/24/17 05:24 18 Room Air I&O Intake and Output 05/24/17 07:00 Intake Total 2559 ml Output Total 2250 ml Balance 309 ml Intake Oral 580 ml IV Total 1979 ml Output Urine Total 2250 ml # Bowel Movements 1 Labs: Laboratory Tests Test 05/24/17 00:00 05/24/17 05:54 05/24/17 06:20 05/24/17 11:29 Glucose (Fingerstick) 242 mg/dL (70-99) H 229 mg/dL (70-99) H 354 mg/dL (70-99) H White Blood Count 5.1 x10^3/uL (4.0-11.0) Red Blood Count 3.64 x10^6/uL (4.30-5.70) L Hemoglobin 11.8 g/dL (13.0-17.5) L Hematocrit 34.0 % (39.0-53.0) L Mean Corpuscular Volume 93 fL (79-100) Mean Corpuscular Hemoglobin 32 pg (25-35) Mean Corpuscular Hemoglobin Concent 35 g/dL (31-37) Red Cell Distribution Width 13.3 % (11.5-14.5) Platelet Count 145 x10^3/uL (140-400) Erythrocyte Sedimentation Rate 15 (0-15) Sodium Level 141 mmol/L (136-145) Potassium Level 4.3 mmol/L (3.5-5.1) Chloride Level 106 mmol/L (98-107) Carbon Dioxide Level 29 mmol/L (21-32) Anion Gap 6 (6-14) Blood Urea Nitrogen 29 mg/dL (8-26) H Creatinine 1.8 mg/dL (0.7-1.3) H Estimated GFR (Cockcroft-Gault) 36.9 BUN/Creatinine Ratio 16 (6-20) Glucose Level 237 mg/dL (70-99) H Calcium Level 9.8 mg/dL (8.5-10.1) Magnesium Level 2.0 mg/dL (1.8-2.4) Total Bilirubin 0.7 mg/dL (0.2-1.0) Aspartate Amino Transferase (AST) 22 U/L (15-37) Alanine Aminotransferase (ALT) 28 U/L (16-63) Alkaline Phosphatase 103 U/L (46-116) C-Reactive Protein 21.0 mg/L (0-3.3) H Total Protein 6.0 g/dL (6.4-8.2) L Albumin 2.7 g/dL (3.4-5.0) L Albumin/Globulin Ratio 0.8 (1.0-1.7) L Test 05/24/17 17:21 05/24/17 20:48 Glucose (Fingerstick) 127 mg/dL (70-99) H 310 mg/dL (70-99) H Current Medications: Meds: Current Medications Dextrose 1,000 ml @ 100 mls/hr Q10H IV Last administered on 05/24/17 13:58; Start 05/22/17 at 19:10 Dextrose 12.5 gm PRN Q15MIN PRN IV SEE COMMENTS; Start 05/22/17 at 19:00 Acetaminophen (Tylenol) 650 mg PRN Q6HRS PRN PO PAIN / TEMP; Start 05/22/17 at 19:15 Aspirin (Children'S Aspirin) 81 mg DAILY PO Last administered on 05/24/17 08: 31; Start 05/23/17 at 09:00 Cyanocobalamin (Vitamin B-12) 1,000 mcg DAILY PO Last administered on 08:31; Start 05/23/17 at 09:00 Divalproex Sodium (Depakote Sprinkles) 125 mg QID PO Last administered on 16:15; Start 05/22/17 at 21:00 Docusate Sodium (Colace) 100 mg DAILY PO Last administered on 05/24/17 08:31; Start 05/23/17 at 09:00 Insulin Aspart (NovoLOG) 8 units TIDWMEALS SQ Last administered on 05/23/17 12 :12; Start 05/23/17 at 08:00; Stop 05/23/17 at 12:56; Status DC Al Hydroxide/Mg Hydroxide (Mylanta Plus Xs) 15 ml QIDPRN PRN PO HEARTBURN / GAS ; Start 05/22/17 at 19:15 Multi-Ingredient Ointment (Analgesic [place]) 1 prisca QIDPRN PRN TP MUSCLE PAIN; Start 05/22/17 at 19:15 Metoprolol Tartrate (Lopressor) 37.5 mg BID PO Last administered on 05/24/17 09:04; Start 05/22/17 at 21:00 Mirtazapine (Remeron) 7.5 mg QHS PO Last administered on 05/23/17 20:26; Start 05/22/17 at 21:00 Nitroglycerin (Nitrostat) 0.4 mg PRN Q5MIN PRN SL CHEST PAIN; Start 05/22/17 at 19:15 Olanzapine (ZyPREXA ZYDIS) 2.5 mg PRN Q2HR PRN PO ANXIETY / AGITATION Last administered on 05/23/17 23:33; Start 05/22/17 at 19:15 Polyethylene Glycol (miraLAX) 17 gm DAILY PO Last administered on 05/24/17 08: 31; Start 05/23/17 at 09:00 Tamsulosin HCl (Flomax) 0.4 mg HS PO Last administered on 05/23/17 20:26; Start 05/22/17 at 21:00 Tramadol HCl (Ultram) 50 mg PRN Q8HRS PRN PO PAIN Last administered on 13:57; Start 05/22/17 at 19:15 Trazodone HCl (Desyrel) 50 mg PRN QHS PRN PO INSOMNIA, MAY REPEAT X1 Last administered on 05/23/17 23:34; Start 05/22/17 at 19:15 Atorvastatin Calcium (Lipitor) 80 mg QHS PO Last administered on 05/23/17 20: 26; Start 05/22/17 at 21:00 Non-Formulary Medication 10 mg DAILY PO Last administered on 05/23/17 09:00; Start 05/23/17 at 09:00; Stop 05/23/17 at 10:03; Status DC Insulin Detemir (Levemir) 15 units QHS SQ Last administered on 05/22/17 21:01 ; Start 05/22/17 at 21:00; Stop 05/23/17 at 12:56; Status DC Magnesium Hydroxide (Milk Of Magnesia) 2,400 mg PRN QHS PRN PO CONSTIPATION Last administered on 05/23/17 17:13; Start 05/22/17 at 20:15 Petrolatum (Aquaphor Healing) 1 prisca PRN BID PRN TP meatus; Start 05/22/17 at 20 :15; Stop 05/23/17 at 14:42; Status DC Prenat Multivit/ Financial Services Director/Iron/Folic Ac (Multivitamin ) 1 tab DAILY PO Last administered on 05/24/17 08:32; Start 05/23/17 at 09:00 Haloperidol Lactate (Haldol) 5 mg PRN Q4HRS PRN IM ANXIETY / AGITATION Last administered on 05/23/17 22:33; Start 05/22/17 at 23:00 Haloperidol Lactate (Haldol) 5 mg PRN Q4HRS PRN IVP AGITATION; Start 05/22/17 at 23:00; Stop 05/22/17 at 23:05; Status DC Escitalopram Oxalate (Lexapro) 10 mg DAILY PO Last administered on 05/24/17 08 :31; Start 05/24/17 at 09:00 Insulin Aspart (NovoLOG) 0-5 UNITS Q6H PRN SQ SEE COMMENTS; Start 05/23/17 at 13:00; Stop 05/23/17 at 14:37; Status DC Dextrose 12.5 gm PRN Q15MIN PRN IV SEE COMMENTS; Start 05/23/17 at 13:00; Status UNV Sodium Chloride 1,000 ml @ 1,000 mls/hr 1X ONCE IV Last administered on 13:36; Start 05/23/17 at 13:00; Stop 05/23/17 at 13:59; Status DC Insulin Aspart (NovoLOG) 0-5 UNITS Q6H SQ Last administered on 05/24/17 05:59 ; Start 05/23/17 at 18:00; Stop 05/24/17 at 08:42; Status DC Petrolatum (Aquaphor Healing) 1 prisca PRN BID PRN TP meatus; Start 05/23/17 at 14 :42 Ceftriaxone Sodium 1 gm/ Sodium Chloride 50 ml @ 100 mls/hr Q24H IV ; Start at 17:00; Stop 05/23/17 at 17:00; Status DC Ceftriaxone Sodium 1 gm/ Sodium Chloride 50 ml @ 100 mls/hr Q24H IV Last administered on 05/24/17 16:15; Start 05/23/17 at 17:00 Insulin Aspart (NovoLOG) 0-5 UNITS TIDACHC SQ ; Start 05/24/17 at 11:30; Stop at 12:03; Status DC Insulin Aspart (NovoLOG) 3 units 1X ONCE SQ Last administered on 05/24/17 08: 51; Start 05/24/17 at 08:45; Stop 05/24/17 at 08:56; Status DC Insulin Aspart (NovoLOG) 0-9 UNITS TIDAC SQ ; Start 05/24/17 at 16:30 Dextrose 12.5 gm PRN Q15MIN PRN IV SEE COMMENTS; Start 05/24/17 at 12:15; Stop 05/24/17 at 12:15; Status DC Insulin Aspart (NovoLOG) 9 units 1X ONCE SQ Last administered on 05/24/17 16: 14; Start 05/24/17 at 13:00; Stop 05/24/17 at 13:01; Status DC Morphine Sulfate (Morphine 2mg Syringe) 2 mg PRN Q4HRS PRN IV PAIN Last administered on 05/24/17 16:16; Start 05/24/17 at 15:45 Active Scripts Active Reported Vitamin A & D Ointment (Petrolatum,White/Lanolin) 113 Gm Oint...g. 1 Prisca TP PRN BID PRN Vitamins ( Vits W-Ca,Fe,Fa(<1MG)) 1 Each Tablet 1 Each PO DAILY Escitalopram Oxalate 10 Mg Tablet 10 Mg PO DAILY Vitamin B-12 (Cyanocobalamin (Vitamin B-12)) 1,000 Mcg Tablet 1,000 Mcg PO DAILY Trazodone Hcl 50 Mg Tablet 50 Mg PO PRN QHS PRN Lantus Solostar (Insulin Glargine,Hum.rec.anlog) 100 Unit/1 Ml Insuln.pen 15 Unit SQ QHS Tramadol Hcl (Tramadol HCl) 50 Mg Tablet 50 Mg PO PRN Q8HRS PRN Flomax (Tamsulosin Hcl) 0.4 Mg Cap.er.24h 1 Cap PO HS Docusate Sodium 100 Mg Capsule 1 Cap PO DAILY Atorvastatin Calcium 80 Mg Tablet 80 Mg PO HS hIGH CHOLESTEROL Zyprexa Zydis (Olanzapine) 5 Mg Tab.rapdis 2.5 Mg PO PRN Q2HR PRN Remeron (Mirtazapine) 15 Mg Tablet 7.5 Mg PO QHS Depakote Sprinkle (Divalproex Sodium) 125 Mg Cap.sprink 125 Mg PO QID Miralax (Polyethylene Glycol 3350) 17 Gm Powd.pack 1 Packet PO DAILY Analgesic [place] (Methyl Salicylate/Menthol) 29 Gm Oint...g. 1 Prisca TP QIDPRN PRN Milk Of Magnesia (Magnesium Hydroxide) 2,400 Mg/10 Ml Oral.susp 2,400 Mg PO HS PRN Mag-Al Plus Xs Suspension (Mag Hydrox/Al Hydrox/Simeth) 30 Ml Oral.susp 15 Ml PO QIDPRN PRN Novolog Flexpen (Insulin Aspart) 100 Unit/1 Ml Insuln.pen 8 Unit SQ TIDWMEALS Tylenol (Acetaminophen) 325 Mg Tablet 650 Mg PO PRN Q6HRS PRN Nitrostat (Nitroglycerin) 0.4 Mg Tab.subl 0.4 Mg SL PRN PRN Metoprolol Tartrate 25 Mg Tablet 37.5 Mg PO BID Aspirin 81 Mg Tab.chew 81 Mg PO DAILY Diagnosis: Problems: (1) Anxiety disorder (2) Impulse control disorder (3) Dementia in Alzheimer's disease with delusions (4) Dementia in Alzheimer's disease with depression (5) Dementia, vascular, with depression GHULAM LEMON MD May 24, 2017 21:06
[2017-05-24] MEDS: traZODone 50 MG TABLET. PO PRN (21:09)
[2017-05-24] MEDS: TAMSULOSIN 0.4 MG CAP.ER.24H. PO SCH (21:09)
[2017-05-24] MEDS: MIRTAZAPINE 7.5 MG TABLET. PO SCH (21:10)
[2017-05-24] MEDS: ATORVASTATIN CALCIUM 20 MG TABLET PO SCH (21:10)
--- NOTE | 2017-05-24 21:22 | PDOC ---
Exam Geraldo Demential Exam: Geraldo Note: Please also refer to the separate dictated note~for this date of service dictated separately.~Patient seen individually. Discussed the patient with Nursing staff reviewed the chart.~Reviewed interim history and current functioning. Reviewed vital signs,~Labs/ Radiology~and current medications noted below. Continue current treatment with the changes noted in the dictated addendum note Assessment: Vital Signs: Vital Signs Date Time Temp Pulse Resp B/P (MAP) Pulse Ox O2 Delivery O2 Flow Rate FiO2 05/24/17 21:10 81 110/50 05/24/17 15:00 97.7 98 05/24/17 05:24 18 Room Air I&O Intake and Output 05/24/17 07:00 Intake Total 2559 ml Output Total 2250 ml Balance 309 ml Intake Oral 580 ml IV Total 1979 ml Output Urine Total 2250 ml # Bowel Movements 1 Labs: Laboratory Tests Test 05/24/17 00:00 05/24/17 05:54 05/24/17 06:20 05/24/17 11:29 Glucose (Fingerstick) 242 mg/dL (70-99) H 229 mg/dL (70-99) H 354 mg/dL (70-99) H White Blood Count 5.1 x10^3/uL (4.0-11.0) Red Blood Count 3.64 x10^6/uL (4.30-5.70) L Hemoglobin 11.8 g/dL (13.0-17.5) L Hematocrit 34.0 % (39.0-53.0) L Mean Corpuscular Volume 93 fL (79-100) Mean Corpuscular Hemoglobin 32 pg (25-35) Mean Corpuscular Hemoglobin Concent 35 g/dL (31-37) Red Cell Distribution Width 13.3 % (11.5-14.5) Platelet Count 145 x10^3/uL (140-400) Erythrocyte Sedimentation Rate 15 (0-15) Sodium Level 141 mmol/L (136-145) Potassium Level 4.3 mmol/L (3.5-5.1) Chloride Level 106 mmol/L (98-107) Carbon Dioxide Level 29 mmol/L (21-32) Anion Gap 6 (6-14) Blood Urea Nitrogen 29 mg/dL (8-26) H Creatinine 1.8 mg/dL (0.7-1.3) H Estimated GFR (Cockcroft-Gault) 36.9 BUN/Creatinine Ratio 16 (6-20) Glucose Level 237 mg/dL (70-99) H Calcium Level 9.8 mg/dL (8.5-10.1) Magnesium Level 2.0 mg/dL (1.8-2.4) Total Bilirubin 0.7 mg/dL (0.2-1.0) Aspartate Amino Transferase (AST) 22 U/L (15-37) Alanine Aminotransferase (ALT) 28 U/L (16-63) Alkaline Phosphatase 103 U/L (46-116) C-Reactive Protein 21.0 mg/L (0-3.3) H Total Protein 6.0 g/dL (6.4-8.2) L Albumin 2.7 g/dL (3.4-5.0) L Albumin/Globulin Ratio 0.8 (1.0-1.7) L Test 05/24/17 17:21 05/24/17 20:48 Glucose (Fingerstick) 127 mg/dL (70-99) H 310 mg/dL (70-99) H Current Medications: Meds: Current Medications Dextrose 1,000 ml @ 100 mls/hr Q10H IV Last administered on 05/24/17 13:58; Start 05/22/17 at 19:10 Dextrose 12.5 gm PRN Q15MIN PRN IV SEE COMMENTS; Start 05/22/17 at 19:00 Acetaminophen (Tylenol) 650 mg PRN Q6HRS PRN PO PAIN / TEMP Last administered on 05/24/17 21:09; Start 05/22/17 at 19:15 Aspirin (Children'S Aspirin) 81 mg DAILY PO Last administered on 05/24/17 08: 31; Start 05/23/17 at 09:00 Cyanocobalamin (Vitamin B-12) 1,000 mcg DAILY PO Last administered on 08:31; Start 05/23/17 at 09:00 Divalproex Sodium (Depakote Sprinkles) 125 mg QID PO Last administered on 21:10; Start 05/22/17 at 21:00 Docusate Sodium (Colace) 100 mg DAILY PO Last administered on 05/24/17 08:31; Start 05/23/17 at 09:00 Insulin Aspart (NovoLOG) 8 units TIDWMEALS SQ Last administered on 05/23/17 12 :12; Start 05/23/17 at 08:00; Stop 05/23/17 at 12:56; Status DC Al Hydroxide/Mg Hydroxide (Mylanta Plus Xs) 15 ml QIDPRN PRN PO HEARTBURN / GAS ; Start 05/22/17 at 19:15 Multi-Ingredient Ointment (Analgesic [place]) 1 prisca QIDPRN PRN TP MUSCLE PAIN; Start 05/22/17 at 19:15 Metoprolol Tartrate (Lopressor) 37.5 mg BID PO Last administered on 05/24/17 21:10; Start 05/22/17 at 21:00 Mirtazapine (Remeron) 7.5 mg QHS PO Last administered on 05/24/17 21:10; Start 05/22/17 at 21:00 Nitroglycerin (Nitrostat) 0.4 mg PRN Q5MIN PRN SL CHEST PAIN; Start 05/22/17 at 19:15 Olanzapine (ZyPREXA ZYDIS) 2.5 mg PRN Q2HR PRN PO ANXIETY / AGITATION Last administered on 05/24/17 21:11; Start 05/22/17 at 19:15 Polyethylene Glycol (miraLAX) 17 gm DAILY PO Last administered on 05/24/17 08: 31; Start 05/23/17 at 09:00 Tamsulosin HCl (Flomax) 0.4 mg HS PO Last administered on 05/24/17 21:09; Start 05/22/17 at 21:00 Tramadol HCl (Ultram) 50 mg PRN Q8HRS PRN PO PAIN Last administered on 13:57; Start 05/22/17 at 19:15 Trazodone HCl (Desyrel) 50 mg PRN QHS PRN PO INSOMNIA, MAY REPEAT X1 Last administered on 05/24/17 21:09; Start 05/22/17 at 19:15 Atorvastatin Calcium (Lipitor) 80 mg QHS PO Last administered on 05/24/17 21: 10; Start 05/22/17 at 21:00 Non-Formulary Medication 10 mg DAILY PO Last administered on 05/23/17 09:00; Start 05/23/17 at 09:00; Stop 05/23/17 at 10:03; Status DC Insulin Detemir (Levemir) 15 units QHS SQ Last administered on 05/22/17 21:01 ; Start 05/22/17 at 21:00; Stop 05/23/17 at 12:56; Status DC Magnesium Hydroxide (Milk Of Magnesia) 2,400 mg PRN QHS PRN PO CONSTIPATION Last administered on 05/23/17 17:13; Start 05/22/17 at 20:15 Petrolatum (Aquaphor Healing) 1 prisca PRN BID PRN TP meatus; Start 05/22/17 at 20 :15; Stop 05/23/17 at 14:42; Status DC Prenat Multivit/ Pre Kindergarten Teacher/Iron/Folic Ac (Multivitamin ) 1 tab DAILY PO Last administered on 05/24/17 08:32; Start 05/23/17 at 09:00 Haloperidol Lactate (Haldol) 5 mg PRN Q4HRS PRN IM ANXIETY / AGITATION Last administered on 05/23/17 22:33; Start 05/22/17 at 23:00 Haloperidol Lactate (Haldol) 5 mg PRN Q4HRS PRN IVP AGITATION; Start 05/22/17 at 23:00; Stop 05/22/17 at 23:05; Status DC Escitalopram Oxalate (Lexapro) 10 mg DAILY PO Last administered on 05/24/17 08 :31; Start 05/24/17 at 09:00 Insulin Aspart (NovoLOG) 0-5 UNITS Q6H PRN SQ SEE COMMENTS; Start 05/23/17 at 13:00; Stop 05/23/17 at 14:37; Status DC Dextrose 12.5 gm PRN Q15MIN PRN IV SEE COMMENTS; Start 05/23/17 at 13:00; Status UNV Sodium Chloride 1,000 ml @ 1,000 mls/hr 1X ONCE IV Last administered on 13:36; Start 05/23/17 at 13:00; Stop 05/23/17 at 13:59; Status DC Insulin Aspart (NovoLOG) 0-5 UNITS Q6H SQ Last administered on 05/24/17 05:59 ; Start 05/23/17 at 18:00; Stop 05/24/17 at 08:42; Status DC Petrolatum (Aquaphor Healing) 1 prisca PRN BID PRN TP meatus; Start 05/23/17 at 14 :42 Ceftriaxone Sodium 1 gm/ Sodium Chloride 50 ml @ 100 mls/hr Q24H IV ; Start at 17:00; Stop 05/23/17 at 17:00; Status DC Ceftriaxone Sodium 1 gm/ Sodium Chloride 50 ml @ 100 mls/hr Q24H IV Last administered on 05/24/17 16:15; Start 05/23/17 at 17:00 Insulin Aspart (NovoLOG) 0-5 UNITS TIDACHC SQ ; Start 05/24/17 at 11:30; Stop at 12:03; Status DC Insulin Aspart (NovoLOG) 3 units 1X ONCE SQ Last administered on 05/24/17 08: 51; Start 05/24/17 at 08:45; Stop 05/24/17 at 08:56; Status DC Insulin Aspart (NovoLOG) 0-9 UNITS TIDAC SQ ; Start 05/24/17 at 16:30 Dextrose 12.5 gm PRN Q15MIN PRN IV SEE COMMENTS; Start 05/24/17 at 12:15; Stop 05/24/17 at 12:15; Status DC Insulin Aspart (NovoLOG) 9 units 1X ONCE SQ Last administered on 05/24/17 16: 14; Start 05/24/17 at 13:00; Stop 05/24/17 at 13:01; Status DC Morphine Sulfate (Morphine 2mg Syringe) 2 mg PRN Q4HRS PRN IV PAIN Last administered on 05/24/17 21:09; Start 05/24/17 at 15:45 Active Scripts Active Reported Vitamin A & D Ointment (Petrolatum,White/Lanolin) 113 Gm Oint...g. 1 Prisca TP PRN BID PRN Vitamins ( Vits W-Ca,Fe,Fa(<1MG)) 1 Each Tablet 1 Each PO DAILY Escitalopram Oxalate 10 Mg Tablet 10 Mg PO DAILY Vitamin B-12 (Cyanocobalamin (Vitamin B-12)) 1,000 Mcg Tablet 1,000 Mcg PO DAILY Trazodone Hcl 50 Mg Tablet 50 Mg PO PRN QHS PRN Lantus Solostar (Insulin Glargine,Hum.rec.anlog) 100 Unit/1 Ml Insuln.pen 15 Unit SQ QHS Tramadol Hcl (Tramadol HCl) 50 Mg Tablet 50 Mg PO PRN Q8HRS PRN Flomax (Tamsulosin Hcl) 0.4 Mg Cap.er.24h 1 Cap PO HS Docusate Sodium 100 Mg Capsule 1 Cap PO DAILY Atorvastatin Calcium 80 Mg Tablet 80 Mg PO HS hIGH CHOLESTEROL Zyprexa Zydis (Olanzapine) 5 Mg Tab.rapdis 2.5 Mg PO PRN Q2HR PRN Remeron (Mirtazapine) 15 Mg Tablet 7.5 Mg PO QHS Depakote Sprinkle (Divalproex Sodium) 125 Mg Cap.sprink 125 Mg PO QID Miralax (Polyethylene Glycol 3350) 17 Gm Powd.pack 1 Packet PO DAILY Analgesic [place] (Methyl Salicylate/Menthol) 29 Gm Oint...g. 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
[2017-05-24 21:36] VITALS: BP 107/52
--- NOTE | 2017-05-24 22:04 | PN ---
DATE: 05/24/2017 SUBJECTIVE: The patient is resting, slightly propped up in his recliner in no apparent distress. He apparently did not sleep well last night and did manage to walk with a nursing consultant. He ate about 70% of his breakfast and is now dozing in his recliner. He did not offer any complaint, in particular. No complaint of any pain, no shortness of breath. PHYSICAL EXAMINATION: GENERAL: When I examined him, he looked pale, no jaundice, cyanosis, or thyromegaly. No jugular venous distension. No limb edema. VITAL SIGNS: His heart rate was 86, blood pressure was 138/59, temperature was 98, respiratory rate was 18 and oxygen saturation was 94% on room air. HEAD, EYES, EARS, NOSE AND THROAT: Showed normocephalic, atraumatic. NECK: Supple. HEART: Showed normal first and second heart sounds with no gallop, rub or murmur. CHEST: Clear to auscultation. No crepitation or rhonchi. ABDOMEN: Distended, soft, nontender. No guarding or rigidity. No organomegaly. Hernial orifices intact. Bowel sounds normal. NEUROLOGIC: He has marked cognitive impairment; however, all cranial nerves are intact. He moves extremities without difficulty, ambulates with assistance. His intake over the last 24 hours was 3559, output was 3150. LABORATORY DATA: Lab work this morning showed a white cell count 5100, hemoglobin 11.8, hematocrit 34, MCV 93, and platelet count 145,000. His chemistry showed a serum sodium 141, potassium 4.3, chloride 106, bicarbonate 29, anion gap of 6, BUN 29, creatinine 1.8, estimated GFR was 37 mL per minute. His glucose was 237. Calcium was 9.8, magnesium 2. Total bilirubin, AST, ALT, alkaline phosphatase were normal. His total protein 6, albumin 2.7. His C-reactive protein was 21 mg/dL. His sedimentation rate was 15 mm per hour. His nasal screen for MRSA babesia was positive. His urine culture showed Enterobacter aerogenes greater than 100,000 colony-forming as per mL, susceptible to ceftriaxone. ASSESSMENT: Acute kidney injury, slowly resolving. His serum creatinine is trending down from 2.1 to 1.8 and his BUN is coming down from 37 to 29, hypernatremia has resolved, hypokalemia has resolved. The patient apparently is known to have secondary hyperparathyroidism and perhaps primary serum calcium at 10.7, and intact PTH was 127. Parathyroidectomy was actually recommended before but the family declined the offer. PLAN: My plan is to continue with IV fluids in the form of D5W. Continue with IV ceftriaxone. I do not think that he needs any urgent cystoscopy and retrograde pyelography and stent deployment given that his kidney function is already improving and he is pain-free. I will repeat all these lab works tomorrow and discuss with Dr. Benjamin and the patient's family the option of being transferred to [facility] for cystoscopy, retrograde pyelography and retrieval of distal stone by extracorporeal lithotripsy. Given that he has a urinary tract infection and I showed it is an option available to be done soon given that his kidney function is improving. GIBSON CORTEZ MD DR: KAILA/germaine JOB#: [id number] / [id number]
--- NOTE | 2017-05-24 22:40 | NUR ---
Went to administer medications and obtain vital signs, pt become agitated and restless. Insisting on walking and getting up when the pt is extremely unsteady. Assistance from LYNN Guan to help pt up to walk, pt still restless and agitated. PRN's administered, see eMAR. Assisted pt to recliner, continues to be restless. Assisted pt back to bed after pt insisted on getting out of recliner. Pt resting bed at this time.
--- NOTE | 2017-05-25 03:09 | PN ---
DATE: 05/24/2017 SUBJECTIVE: The patient was seen on rounds the morning of 05/24/2017. Discussed with nursing staff, reviewed the chart. Overall, the patient remains confused, but has not been aggressive. The patient remains on one-on-one status. REVIEW OF SYSTEMS: No CV, , pulmonary, eye, ENT system symptoms on review. Reliability poor. MENTAL STATUS EXAM: Oriented to himself. Insight, judgment, recent and remote memory, attention, concentration, fund of knowledge poor, consistent with his diagnosis. He was seated in the Broda chair in his room, compliant with the IV in place. LABORATORY DATA: Reviewed. IMPRESSION: Major neurocognitive disorder, Alzheimer, vascular with depression, delusion and behavioral disturbance; anxiety disorder, unspecified; impulse control disorder, unspecified. PLAN: I have reviewed the patient's current psychotropics, drug interactions and risk/benefit ratio favors no changes at this time. Once he is medically stable behaviorally, he is doing well, [facility] MAN Telma LEMON MD DR: ARMEN/germaine JOB#: [id number] / [id number]
[2017-05-25] MEDS: IV DEXTROSE 5% 1,000 ML IV SCH ×3 (04:14→20:04)
--- NOTE | 2017-05-25 04:17 | NUR ---
Pt is resting peacefully in bed. 1:1 at bedside. Will CTM.
[2017-05-25 06:17] LABS: CALCIUM 9.7 mg/dL (8.5-10.1); CREATININE 1.2 mg/dL (0.7-1.3); GFR 58.9; POTASSIUM 4.4 mmol/L (3.5-5.1)
[2017-05-25 06:24] VITALS: BP 134/78
--- NOTE | 2017-05-25 08:17 | NUR ---
IP: patient has +MRSA nasal screen, requires contact precautions while on the medical unit until 2 negative results 7 days apart
[2017-05-25] MEDS: POLYETHYLENE GLYCOL 3350 17 GM PACKET. PO SCH (09:00)
--- NOTE | 2017-05-25 09:19 | NUR ---
ELVIS spoke with pt this am as she called ELVIS. Pt states she tried to meet with ELVIS on Thursday. ELVIS informed pt , SW was out of the office on Thursday afternoon. Pt stated she is upset as ELVIS has been sending notes to facility with "wrong information" Pt states pt has never "beaten her" and that the note states he is unable to ambulate. ELVIS explained information would have been given from intake process as well as at the time met with pt. Pt states she understands this. Pt states she will not let her "just go anywhere" ELVIS explained at this time SW is trying to find a placement that feels they can meet pt needs and if pt is stable and placement is found this would be the option for pt. Pt asked about [facility] SW informed her ELVIS had faxed information as well as called and hadn't heard anything, and that ELVIS was informed by admissions currently no beds available on their unit. Pt became upset and stated [facility] had told her a bed was available for "elva", she also asked about [facility], ELVIS informed her she had a message from them and would return their call however the message didn't sound as if they were able to accept pt. ELVIS also informed pt that [facility] not able to accept pt. Pt wanted to know a reason. ELVIS stated facilities do not always or have to provide a reason as must just state "unable to meet pt needs."
[2017-05-25] MEDS: ESCITALOPRAM 10 MG TABLET. PO SCH (10:17)
[2017-05-25] MEDS: ASPIRIN 81 MG TAB.CHEW PO SCH (10:17)
[2017-05-25] MEDS: CYANOCOBALAMIN (VITAMIN B-12) 1,000 MCG TABLET. PO SCH (10:18)
[2017-05-25] MEDS: DOCUSATE SODIUM 100 MG CAPSULE PO SCH (10:18)
[2017-05-25] MEDS: PRENATAL MULTIVITAMIN TABLET. PO SCH (10:18)
[2017-05-25] MEDS: DIVALPROEX 125 MG CAP.SPRINK PO SCH ×4 (10:18→20:04)
[2017-05-25] MEDS: METOPROLOL TART IMMED RELEASE 25 MG TABLET PO SCH ×2 (10:19→20:20)
--- NOTE | 2017-05-25 10:53 | NUR ---
SW has had calls from [facility], [facility], and [facility] this am all have declined pt.
[2017-05-25] MEDS: INSULIN ASPART 300 UNITS/3 ML INSULN.PEN SQ SCH ×2 (12:04→16:54)
[2017-05-25 13:02] LABS: BACTERIA,URINE MOD /HPF (0-FEW); BILIRUBIN,URINE NEG (NEG); CLARITY,URINE HAZY; COLOR,URINE YELLOW; GLUCOSE,URINE NEG (NEG); NITRITE,URINE NEG (NEG); RBC,URINE 20-40 /HPF (0-2); UROBILINOGEN,URINE 0.2 mg/dL (0.2 mg/dL); WBC,URINE >40 /HPF (0-4)
[2017-05-25 13:03] LABS: HYALINE CASTS, URINE OCC /HPF; SQUAMOUS EPITHELIAL CELL,UR OCC /LPF
[2017-05-25 13:06] VITALS: BP 105/65
--- NOTE | 2017-05-25 13:19 | NUR ---
pt has been calm all day, sleeping most of the time. pt took pills fine, refused breakfast and lunch today
[2017-05-25 19:23] VITALS: BP 97/67
[2017-05-25] MEDS: TAMSULOSIN 0.4 MG CAP.ER.24H. PO SCH (20:04)
[2017-05-25] MEDS: traZODone 50 MG TABLET. PO PRN (20:04)
[2017-05-25] MEDS: MIRTAZAPINE 7.5 MG TABLET. PO SCH (20:04)
[2017-05-25] MEDS: ATORVASTATIN CALCIUM 20 MG TABLET PO SCH (20:05)
[2017-05-25 22:45] VITALS: BP 119/73
[2017-05-26 05:10] VITALS: BP 122/71
[2017-05-26 06:38] LABS: BASO % 1 % (0-3); EOS # 0.2 x10^3/uL (0.0-0.7); EOS % 4 % (0-3); HEMATOCRIT 34.7 % (39.0-53.0); HEMOGLOBIN 12.2 g/dL (13.0-17.5); LYMPH # 0.9 x10^3/uL (1.0-4.8); LYMPH % 15 % (24-48); MEAN CORPUSCULAR HEMOGLOBIN 33 pg (25-35); MEAN CORPUSCULAR HGB CONC 35 g/dL (31-37); MEAN CORPUSCULAR VOLUME 93 fL (79-100); MONO # 0.5 x10^3/uL (0.0-1.1); MONO % 9 % (0-9); NEUT # 4.1 x10^3uL (1.8-7.7); NEUT % 72 % (31-73); PLATELET COUNT 153 x10^3/uL (140-400); RED BLOOD COUNT 3.73 x10^6/uL (4.30-5.70); RED CELL DISTRIBUTION WIDTH 13.4 % (11.5-14.5); WHITE BLOOD COUNT 5.7 x10^3/uL (4.0-11.0)
[2017-05-26 06:58] LABS: ALBUMIN 2.7 g/dL (3.4-5.0); ALBUMIN/GLOBULIN RATIO 0.8 (1.0-1.7); CALCIUM 9.7 mg/dL (8.5-10.1); CREATININE 1.2 mg/dL (0.7-1.3); GFR 58.9; MAGNESIUM 1.8 mg/dL (1.8-2.4); TOTAL BILIRUBIN 0.8 mg/dL (0.2-1.0); TOTAL PROTEIN 6.1 g/dL (6.4-8.2)
[2017-05-26] MEDS: METOPROLOL TART IMMED RELEASE 25 MG TABLET PO SCH ×2 (09:00→20:15)
[2017-05-26] MEDS: PRENATAL MULTIVITAMIN TABLET. PO SCH (09:56)
[2017-05-26] MEDS: DIVALPROEX 125 MG CAP.SPRINK PO SCH ×4 (09:56→20:14)
[2017-05-26] MEDS: ESCITALOPRAM 10 MG TABLET. PO SCH (09:56)
[2017-05-26] MEDS: CYANOCOBALAMIN (VITAMIN B-12) 1,000 MCG TABLET. PO SCH (09:56)
[2017-05-26] MEDS: DOCUSATE SODIUM 100 MG CAPSULE PO SCH (09:56)
[2017-05-26] MEDS: POLYETHYLENE GLYCOL 3350 17 GM PACKET. PO SCH (10:00)
[2017-05-26] MEDS: ASPIRIN 81 MG TAB.CHEW PO SCH (10:01)
[2017-05-26] MEDS: INSULIN ASPART 300 UNITS/3 ML INSULN.PEN SQ SCH ×3 (10:16→18:43)
[2017-05-26] MEDS ORDERED: VANCOMYCIN PER PHARMACY MC PRN (11:00)
[2017-05-26 11:45] VITALS: BP 95/59
[2017-05-26] MEDS ORDERED: VANCOMYCIN 2 GM in IV NORMAL SALINE 500ML 500 ML IV ONE (12:00)
--- NOTE | 2017-05-26 13:04 | NUR ---
Pharmacy Vancomycin Dosing Note S:Consulted to monitor and dose vancomycin started 05/26/17. O:VIJAY DURÁN is a 77 year old M with Sepsis UTI (ENTEROCOCCUS). Height: 6 feet, 0 inches Weight: 73.531097 kg [place] Body Weight: Adjusted Body Weight: Dosing Weight: Actual Other Antibiotics: LABS: Last BUN: 16 Last Creatinine: 1.2 Creatinine Clearance: Last WBC: 5.7 Last Platelets: 153 Tmax (past 24 hours): Microbiology: I/O: Drug Levels: Last level: on Last dose given 05/26/17 at 1217 Vancomycin Dosing: Loading Dose: 2000 mg x1 Dosing Weight: Actual Target Trough: 15-20 A: Based on: P: 1. Begin Vancomycin 1000 mg IV q12h 2. Follow up Trough level on 05/27/17 at 1130 3. Pharmacy will continue to monitor, follow and adjust therapy as needed. RAIN VILLANUEVA RP, 05/26/17 1926
[2017-05-26 15:12] VITALS: BP 110/69
[2017-05-26] MEDS: IV DEXTROSE 5% 1,000 ML IV SCH ×2 (18:38→20:26)
[2017-05-26 19:35] VITALS: BP 97/61
[2017-05-26] MEDS: ATORVASTATIN CALCIUM 20 MG TABLET PO SCH (20:14)
[2017-05-26] MEDS: MIRTAZAPINE 7.5 MG TABLET. PO SCH (20:15)
[2017-05-26] MEDS: traZODone 50 MG TABLET. PO PRN (20:15)
[2017-05-26] MEDS: TAMSULOSIN 0.4 MG CAP.ER.24H. PO SCH (20:15)
[2017-05-26 22:30] VITALS: BP 116/83
[2017-05-27] MEDS ORDERED: VANCOMYCIN 1 GM in IV NORMAL SALINE 250ML 250 ML IV SCH ×2
[2017-05-27 05:35] VITALS: BP 131/79
[2017-05-27] MEDS: IV DEXTROSE 5% 1,000 ML IV SCH (06:07)
[2017-05-27] MEDS: CYANOCOBALAMIN (VITAMIN B-12) 1,000 MCG TABLET. PO SCH (08:45)
[2017-05-27] MEDS: DIVALPROEX 125 MG CAP.SPRINK PO SCH (08:45)
[2017-05-27] MEDS: PRENATAL MULTIVITAMIN TABLET. PO SCH (08:45)
[2017-05-27] MEDS: ASPIRIN 81 MG TAB.CHEW PO SCH (08:45)
[2017-05-27] MEDS: ESCITALOPRAM 10 MG TABLET. PO SCH (08:45)
[2017-05-27] MEDS: METOPROLOL TART IMMED RELEASE 25 MG TABLET PO SCH (08:46)
[2017-05-27] MEDS: traMADol 50 MG TABLET PO PRN (08:46)
[2017-05-27] MEDS: POLYETHYLENE GLYCOL 3350 17 GM PACKET. PO SCH (08:54)
[2017-05-27] MEDS: DOCUSATE SODIUM 100 MG CAPSULE PO SCH (08:54)
[2017-05-27] MEDS: INSULIN ASPART 300 UNITS/3 ML INSULN.PEN SQ SCH (08:55)
--- NOTE | 2017-05-27 09:42 | PDOC ---
PROVIDER NOTE PROVIDER NOTE PROVIDER NOTE Patient Name: Sachin Tello Unit Number: [id number] Date of : 1940 Patient Status: Admitted Inpatient Attending Doctor: Essence Jaimes MD PROGRESS NOTES PROGRESS NOTES Assessment 1. OBSTRUCTIONG STONE ON THE RIGHT CAUSING URETEROLNEPHROSIS, 2. ISHA RESOLVING 3. DEHYDRATION RESOLVING 4. DEMENTIA WITH BEHAVIOR DISTURBANCE AND AGITATION 5. UTI-ON ANTIBIOTICS 6. 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 HYPERNATREMIA-RESOLVING Problems: Plan of Care: Continue current Tx, Mgmt, Other (TRANSFER TO [facility] WHEN BED AVAILABLE) still waiting for bed at [facility]. Subjective DICTATION LINE AND BACK-UP LINE DOWN. THIS IS A PROGRESS NOTE FOR 05/26/2017. HAVE INITIATED TRANSFER REQUEST VIA THE TRANSFER LINE AT [facility] WHERE HE IA A PRIMARY CARE PATIENT OF DR. VERGARA. NEEDS UROLOGICAL INTERVENTION FOR A LAGRE 8X5MM STONE AT UV JUNCTION ON THE RIGHT CAUSING RIGHT HYDROURETERONEPHROSIS.HAS BEEN HYDRATED AND KIDNEY FUNCTION IMPROVING. Objective Vital Signs Date Time Temp Pulse Resp B/P (MAP) Pulse Ox O2 Delivery O2 Flow Rate FiO2 05/27/17 08:46 96 05/27/17 08:46 92 131/79 05/27/17 05:35 97.3 18 Room Air Intake and Output 05/27/17 07:00 Intake Total 2985.19 ml Output Total 2300 ml Balance 685.19 ml Intake Oral 210 ml IV Total 2775.19 ml Output Urine Total 2300 ml Abdomen: Normal bowel sounds Heart: Regular rate Extremities: No edema General: Alert, Other HEENT: Mucous membr. moist/pink Lungs: Clear to auscultation Neck: Supple Psych/Mental Status: Other (CONFUSED, MILDLY AGITATED) Skin: No rashes, No breakdown, No significant lesion Review of Relevant I have reviewed the following items alfredo (where applicable) has been applied. Labs Laboratory Tests Test 05/25/17 11:40 05/25/17 11:44 05/25/17 16:23 05/25/17 20:08 Urine Collection Type Unknown Urine Color Yellow Urine Clarity Hazy Urine pH 6.0 Urine Specific [place] 1.010 Urine Protein 100 mg/dl (NEG-TRACE) Urine Glucose (UA) Neg mg/dL (NEG) Urine Ketones (Stick) Neg mg/dL (NEG) Urine Blood Mod (NEG) Urine Nitrite Neg (NEG) Urine Bilirubin Neg (NEG) Urine Urobilinogen Dipstick 0.2 mg/dL (0.2 mg/dL) Urine Leukocyte Esterase Mod (NEG) Urine RBC 20-40 /HPF (0-2) Urine WBC >40 /HPF (0-4) Urine Squamous Epithelial Cells Occ /LPF Urine Bacteria Mod /HPF (0-FEW) Urine Hyaline Casts Occ /HPF Urine Mucus Mod /LPF Glucose (Fingerstick) 238 mg/dL (70-99) 196 mg/dL (70-99) 178 mg/dL (70-99) Test 05/26/17 06:11 05/26/17 07:40 05/26/17 11:44 05/26/17 16:54 White Blood Count 5.7 x10^3/uL (4.0-11.0) Red Blood Count 3.73 x10^6/uL (4.30-5.70) Hemoglobin 12.2 g/dL (13.0-17.5) Hematocrit 34.7 % (39.0-53.0) Mean Corpuscular Volume 93 fL (79-100) Mean Corpuscular Hemoglobin 33 pg (25-35) Mean Corpuscular Hemoglobin Concent 35 g/dL (31-37) Red Cell Distribution Width 13.4 % (11.5-14.5) Platelet Count 153 x10^3/uL (140-400) Neutrophils (%) (Auto) 72 % (31-73) Lymphocytes (%) (Auto) 15 % (24-48) Monocytes (%) (Auto) 9 % (0-9) Eosinophils (%) (Auto) 4 % (0-3) Basophils (%) (Auto) 1 % (0-3) Neutrophils # (Auto) 4.1 x10^3uL (1.8-7.7) Lymphocytes # (Auto) 0.9 x10^3/uL (1.0-4.8) Monocytes # (Auto) 0.5 x10^3/uL (0.0-1.1) Eosinophils # (Auto) 0.2 x10^3/uL (0.0-0.7) Basophils # (Auto) 0.0 x10^3/uL (0.0-0.2) Sodium Level 140 mmol/L (136-145) Potassium Level 4.0 mmol/L (3.5-5.1) Chloride Level 106 mmol/L (98-107) Carbon Dioxide Level 27 mmol/L (21-32) Anion Gap 7 (6-14) Blood Urea Nitrogen 16 mg/dL (8-26) Creatinine 1.2 mg/dL (0.7-1.3) Estimated GFR (Cockcroft-Gault) 58.9 BUN/Creatinine Ratio 13 (6-20) Glucose Level 279 mg/dL (70-99) Calcium Level 9.7 mg/dL (8.5-10.1) Magnesium Level 1.8 mg/dL (1.8-2.4) Total Bilirubin 0.8 mg/dL (0.2-1.0) Aspartate Amino Transf (AST/SGOT) 17 U/L (15-37) Alanine Aminotransferase (ALT/SGPT) 23 U/L (16-63) Alkaline Phosphatase 108 U/L (46-116) Total Protein 6.1 g/dL (6.4-8.2) Albumin 2.7 g/dL (3.4-5.0) Albumin/Globulin Ratio 0.8 (1.0-1.7) Glucose (Fingerstick) 278 mg/dL (70-99) 272 mg/dL (70-99) 186 mg/dL (70-99) Test 05/26/17 20:19 05/27/17 07:44 Glucose (Fingerstick) 326 mg/dL (70-99) 245 mg/dL (70-99) Microbiology 05/25/17 Urine Culture - Preliminary, Resulted 05/25/17 Urine Culture Result 1 (ULISES) - Preliminary, Resulted Medications Current Medications Dextrose 1,000 ml @ 100 mls/hr Q10H IV Last administered on 05/27/17 06:07; Start 05/22/17 at 19:10; Stop 05/27/17 at 07:54; Status DC Dextrose 12.5 gm PRN Q15MIN PRN IV SEE COMMENTS; Start 05/22/17 at 19:00 Acetaminophen (Tylenol) 650 mg PRN Q6HRS PRN PO PAIN / TEMP Last administered on 05/24/17 21:09; Start 05/22/17 at 19:15 Aspirin (Children'S Aspirin) 81 mg DAILY PO Last administered on 05/27/17 08: 45; Start 05/23/17 at 09:00 Cyanocobalamin (Vitamin B-12) 1,000 mcg DAILY PO Last administered on 08:45; Start 05/23/17 at 09:00 Divalproex Sodium (Depakote Sprinkles) 125 mg QID PO Last administered on 08:45; Start 05/22/17 at 21:00 Docusate Sodium (Colace) 100 mg DAILY PO Last administered on 05/26/17 09:56; Start 05/23/17 at 09:00 Insulin Aspart (NovoLOG) 8 units TIDWMEALS SQ Last administered on 05/23/17 12 :12; Start 05/23/17 at 08:00; Stop 05/23/17 at 12:56; Status DC Al Hydroxide/Mg Hydroxide (Mylanta Plus Xs) 15 ml QIDPRN PRN PO HEARTBURN / GAS Last administered on 05/26/17 12:43; Start 05/22/17 at 19:15 Multi-Ingredient Ointment (Analgesic Christine) 1 prisca QIDPRN PRN TP MUSCLE PAIN; Start 05/22/17 at 19:15 Metoprolol Tartrate (Lopressor) 37.5 mg BID PO Last administered on 05/27/17 08:46; Start 05/22/17 at 21:00 Mirtazapine (Remeron) 7.5 mg QHS PO Last administered on 05/26/17 20:15; Start 05/22/17 at 21:00 Nitroglycerin (Nitrostat) 0.4 mg PRN Q5MIN PRN SL CHEST PAIN; Start 05/22/17 at 19:15 Olanzapine (ZyPREXA ZYDIS) 2.5 mg PRN Q2HR PRN PO ANXIETY / AGITATION Last administered on 05/26/17 20:14; Start 05/22/17 at 19:15 Polyethylene Glycol (miraLAX) 17 gm DAILY PO Last administered on 05/26/17 10: 00; Start 05/23/17 at 09:00 Tamsulosin HCl (Flomax) 0.4 mg HS PO Last administered on 05/26/17 20:15; Start 05/22/17 at 21:00 Tramadol HCl (Ultram) 50 mg PRN Q8HRS PRN PO PAIN Last administered on 08:46; Start 05/22/17 at 19:15 Trazodone HCl (Desyrel) 50 mg PRN QHS PRN PO INSOMNIA, MAY REPEAT X1 Last administered on 05/26/17 20:15; Start 05/22/17 at 19:15 Atorvastatin Calcium (Lipitor) 80 mg QHS PO Last administered on 05/26/17 20: 14; Start 05/22/17 at 21:00 Non-Formulary Medication 10 mg DAILY PO Last administered on 05/23/17 09:00; Start 05/23/17 at 09:00; Stop 05/23/17 at 10:03; Status DC Insulin Detemir (Levemir) 15 units QHS SQ Last administered on 05/22/17 21:01 ; Start 05/22/17 at 21:00; Stop 05/23/17 at 12:56; Status DC Magnesium Hydroxide (Milk Of Magnesia) 2,400 mg PRN QHS PRN PO CONSTIPATION Last administered on 05/23/17 17:13; Start 05/22/17 at 20:15 Petrolatum (Aquaphor Healing) 1 prisca PRN BID PRN TP meatus; Start 05/22/17 at 20 :15; Stop 05/23/17 at 14:42; Status DC Prenat Multivit/ [place]/Iron/Folic Ac (Multivitamin ) 1 tab DAILY PO Last administered on 05/27/17 08:45; Start 05/23/17 at 09:00 Haloperidol Lactate (Haldol) 5 mg PRN Q4HRS PRN IM ANXIETY / AGITATION Last administered on 05/23/17 22:33; Start 05/22/17 at 23:00 Haloperidol Lactate (Haldol) 5 mg PRN Q4HRS PRN IVP AGITATION; Start 05/22/17 at 23:00; Stop 05/22/17 at 23:05; Status DC Escitalopram Oxalate (Lexapro) 10 mg DAILY PO Last administered on 05/27/17 08 :45; Start 05/24/17 at 09:00 Insulin Aspart (NovoLOG) 0-5 UNITS Q6H PRN SQ SEE COMMENTS; Start 05/23/17 at 13:00; Stop 05/23/17 at 14:37; Status DC Dextrose 12.5 gm PRN Q15MIN PRN IV SEE COMMENTS; Start 05/23/17 at 13:00; Status UNV Sodium Chloride 1,000 ml @ 1,000 mls/hr 1X ONCE IV Last administered on 13:36; Start 05/23/17 at 13:00; Stop 05/23/17 at 13:59; Status DC Insulin Aspart (NovoLOG) 0-5 UNITS Q6H SQ Last administered on 05/24/17 05:59 ; Start 05/23/17 at 18:00; Stop 05/24/17 at 08:42; Status DC Petrolatum (Aquaphor Healing) 1 prisca PRN BID PRN TP meatus; Start 05/23/17 at 14 :42 Ceftriaxone Sodium 1 gm/ Sodium Chloride 50 ml @ 100 mls/hr Q24H IV ; Start at 17:00; Stop 05/23/17 at 17:00; Status DC Ceftriaxone Sodium 1 gm/ Sodium Chloride 50 ml @ 100 mls/hr Q24H IV Last administered on 05/25/17 16:53; Start 05/23/17 at 17:00; Stop 05/26/17 at 11:04 ; Status DC Insulin Aspart (NovoLOG) 0-5 UNITS TIDACHC SQ ; Start 05/24/17 at 11:30; Stop at 12:03; Status DC Insulin Aspart (NovoLOG) 3 units 1X ONCE SQ Last administered on 05/24/17 08: 51; Start 05/24/17 at 08:45; Stop 05/24/17 at 08:56; Status DC Insulin Aspart (NovoLOG) 0-9 UNITS TIDAC SQ Last administered on 05/27/17 08: 55; Start 05/24/17 at 16:30 Dextrose 12.5 gm PRN Q15MIN PRN IV SEE COMMENTS; Start 05/24/17 at 12:15; Stop 05/24/17 at 12:15; Status DC Insulin Aspart (NovoLOG) 9 units 1X ONCE SQ Last administered on 05/24/17 16: 14; Start 05/24/17 at 13:00; Stop 05/24/17 at 13:01; Status DC Morphine Sulfate (Morphine 2mg Syringe) 2 mg PRN Q4HRS PRN IV PAIN Last administered on 05/24/17 21:09; Start 05/24/17 at 15:45 Vancomycin HCl (Vanco Per Pharmacy) 1 each PRN DAILY PRN MC SEE COMMENTS Last administered on 05/26/17 13:04; Start 05/26/17 at 11:00 Vancomycin HCl 2 gm/Sodium Chloride 500 ml @ 250 mls/hr 1X ONCE IV Last administered on 05/26/17 12:17; Start 05/26/17 at 12:00; Stop 05/26/17 at 13:59 ; Status DC Escitalopram Oxalate (Lexapro) 10 mg STK-MED ONCE .ROUTE ; Start 05/23/17 at 09: 00; Stop 05/26/17 at 12:29; Status DC Vancomycin HCl 1 gm/Sodium Chloride 250 ml @ 250 mls/hr Q12H IV Last administered on 05/26/17 23:43; Start 05/27/17 at 00:00 Vancomycin HCl 1 each 1X ONCE MC ; Start 05/26/17 at 17:00; Stop 05/26/17 at 17 :02; Status DC Vancomycin HCl 1 each 1X ONCE MC ; Start 05/27/17 at 11:30; Stop 05/27/17 at 11 :31 Active Scripts Active Reported Vitamin A & D Ointment (Petrolatum,White/Lanolin) 113 Gm Oint...g. 1 Prisca TP PRN BID PRN Vitamins ( Vits W-Ca,Fe,Fa(<1MG)) 1 Each Tablet 1 Each PO DAILY Escitalopram Oxalate 10 Mg Tablet 10 Mg PO DAILY Vitamin B-12 (Cyanocobalamin (Vitamin B-12)) 1,000 Mcg Tablet 1,000 Mcg PO DAILY Trazodone Hcl 50 Mg Tablet 50 Mg PO PRN QHS PRN Lantus Solostar (Insulin Glargine,Hum.rec.anlog) 100 Unit/1 Ml Insuln.pen 15 Unit SQ QHS Tramadol Hcl (Tramadol HCl) 50 Mg Tablet 50 Mg PO PRN Q8HRS PRN Flomax (Tamsulosin Hcl) 0.4 Mg Cap.er.24h 1 Cap PO HS Docusate Sodium 100 Mg Capsule 1 Cap PO DAILY Atorvastatin Calcium 80 Mg Tablet 80 Mg PO HS hIGH CHOLESTEROL Zyprexa Zydis (Olanzapine) 5 Mg Tab.rapdis 2.5 Mg PO PRN Q2HR PRN Remeron (Mirtazapine) 15 Mg Tablet 7.5 Mg PO QHS Depakote Sprinkle (Divalproex Sodium) 125 Mg Cap.sprink 125 Mg PO QID Miralax (Polyethylene Glycol 3350) 17 Gm Powd.pack 1 Packet PO DAILY Analgesic Christine (Methyl Salicylate/Menthol) 29 Gm Oint...g. 1 Prisca TP QIDPRN PRN Milk Of Magnesia (Magnesium Hydroxide) 2,400 Mg/10 Ml Oral.susp 2,400 Mg PO HS PRN Mag-Al Plus Xs Suspension (Mag Hydrox/Al Hydrox/Simeth) 30 Ml Oral.susp 15 Ml PO QIDPRN PRN Novolog Flexpen (Insulin Aspart) 100 Unit/1 Ml Insuln.pen 8 Unit SQ TIDWMEALS Tylenol (Acetaminophen) 325 Mg Tablet 650 Mg PO PRN Q6HRS PRN Nitrostat (Nitroglycerin) 0.4 Mg Tab.subl 0.4 Mg SL PRN PRN Metoprolol Tartrate 25 Mg Tablet 37.5 Mg PO BID Aspirin 81 Mg Tab.chew 81 Mg PO DAILY Vitals/I & O Vital Sign - Last 24 Hours 05/26/17 05/26/17 05/26/17 05/26/17 11:45 15:12 19:35 20:15 Temp 97.5 97.4 98.0 Pulse 101 83 103 103 Resp 20 20 18 B/P (MAP) 95/59 (71) 110/69 (83) 97/61 (73) 97/61 Pulse Ox 96 97 96 O2 Delivery Room Air Room Air Room Air 05/26/17 05/27/17 05/27/17 05/27/17 22:30 05:35 08:46 08:46 Temp 98.0 97.3 Pulse 101 92 92 Resp 18 18 B/P (MAP) 116/83 (94) 131/79 (96) 131/79 Pulse Ox 97 96 96 O2 Delivery Room Air Room Air Intake and Output 05/26/17 05/26/17 05/27/17 15:00 23:00 07:00 Intake Total 60 ml 1749.19 ml 1176 ml Output Total 1550 ml 750 ml Balance 60 ml 199.19 ml 426 ml AC,VAL M May 27, 2017 09:22 VAL SHEN May 27, 2017 09:42
[2017-05-27 10:56] VITALS: BP 91/57
--- NOTE | 2017-05-27 11:37 | NUR ---
Patient transferred to [facility]. Report called to LYNN Zaragoza. Chart copied and sent with patient. Belongings sent with patient. Patient transported via [facility].
--- NOTE | 2017-05-27 14:31 | PDOC3 ---
Discharge Summary Visit Information Date of Admission: May 23, 2017 Date of Discharge: May 27, 2017 Admitting Diagnosis: hypernatremia, dementia with behavior disturbance, Final Diagnosis #1 mild to moderate right [place] ureteral nephrosis secondary to 8x5 mm calculus at the ureterovesicular junction #2 hypernatremia resolved #3 dementia with behavior disturbance #4 agitation #5 urinary retention 6 type 2 diabetes with hyperglycemia 8 of normal-appearing bladder on CAT scan 9 acute kidney injury secondary to hypoperfusion now resolved #9 secondary hyperparathyroidism #10 aortic aneurysm with stent Problems: (1) Impulse control disorder (2) Dementia in Alzheimer's disease with delusions (3) Dementia, vascular, with depression (4) At high risk for falls Brief Hospital Course Allergies Allergies Coded Allergies Type Severity Reaction Last Updated Verified codeine Allergy Intermediate Nausea 03/13/17 Yes iodine Allergy Intermediate Itching 03/13/17 Yes meperidine Allergy Intermediate Nausea and Vomiting 03/13/17 Yes shellfish derived Allergy Intermediate Hives 03/13/17 Yes I S O L A T I O N *CONTACT* Allergy Unknown 05/25/17 Yes Vital Signs Vital Signs Date Time Temp Pulse Resp B/P (MAP) Pulse Ox O2 Delivery O2 Flow Rate FiO2 05/27/17 10:56 97.5 65 20 91/57 (68) 100 Room Air Lab Results Laboratory Tests Test 05/25/17 16:23 05/25/17 20:08 05/26/17 06:11 05/26/17 07:40 Glucose (Fingerstick) 196 mg/dL (70-99) 178 mg/dL (70-99) 278 mg/dL (70-99) White Blood Count 5.7 x10^3/uL (4.0-11.0) Red Blood Count 3.73 x10^6/uL (4.30-5.70) Hemoglobin 12.2 g/dL (13.0-17.5) Hematocrit 34.7 % (39.0-53.0) Mean Corpuscular Volume 93 fL (79-100) Mean Corpuscular Hemoglobin 33 pg (25-35) Mean Corpuscular Hemoglobin Concent 35 g/dL (31-37) Red Cell Distribution Width 13.4 % (11.5-14.5) Platelet Count 153 x10^3/uL (140-400) Neutrophils (%) (Auto) 72 % (31-73) Lymphocytes (%) (Auto) 15 % (24-48) Monocytes (%) (Auto) 9 % (0-9) Eosinophils (%) (Auto) 4 % (0-3) Basophils (%) (Auto) 1 % (0-3) Neutrophils # (Auto) 4.1 x10^3uL (1.8-7.7) Lymphocytes # (Auto) 0.9 x10^3/uL (1.0-4.8) Monocytes # (Auto) 0.5 x10^3/uL (0.0-1.1) Eosinophils # (Auto) 0.2 x10^3/uL (0.0-0.7) Basophils # (Auto) 0.0 x10^3/uL (0.0-0.2) Sodium Level 140 mmol/L (136-145) Potassium Level 4.0 mmol/L (3.5-5.1) Chloride Level 106 mmol/L (98-107) Carbon Dioxide Level 27 mmol/L (21-32) Anion Gap 7 (6-14) Blood Urea Nitrogen 16 mg/dL (8-26) Creatinine 1.2 mg/dL (0.7-1.3) Estimated GFR (Cockcroft-Gault) 58.9 BUN/Creatinine Ratio 13 (6-20) Glucose Level 279 mg/dL (70-99) Calcium Level 9.7 mg/dL (8.5-10.1) Magnesium Level 1.8 mg/dL (1.8-2.4) Total Bilirubin 0.8 mg/dL (0.2-1.0) Aspartate Amino Transf (AST/SGOT) 17 U/L (15-37) Alanine Aminotransferase (ALT/SGPT) 23 U/L (16-63) Alkaline Phosphatase 108 U/L (46-116) Total Protein 6.1 g/dL (6.4-8.2) Albumin 2.7 g/dL (3.4-5.0) Albumin/Globulin Ratio 0.8 (1.0-1.7) Test 05/26/17 11:44 05/26/17 16:54 05/26/17 20:19 05/27/17 07:44 Glucose (Fingerstick) 272 mg/dL (70-99) 186 mg/dL (70-99) 326 mg/dL (70-99) 245 mg/dL (70-99) Brief Hospital Course Mr. Tello is a 77 old who presented with hypernatremia, urinary retention, and dehydration,. He was transferred down from the [facility] to the medical floor for treatment of these medical conditions. While on the medical floor he was found to have stretching stone measuring 8 x 4 mm that was causing a right hydro-ureteral nephrosis on the right. He received D5W over the course of his admission and his neck is hypernatremia resolved. His acute kidney injury also resolved. He remained confused and combative at times. He also had a urinary tract infection and was treated with antibiotics for that. Attempts were made to transfer him to [facility] wheret where he is a primary care patient to the care of Dr. VERGARA. We were unsuccessful in transferring him to [facility] for 3 days as hospital service was full. We were able to get him to [facility] under care of the hospitalist there on May 27. Discharge Information Condition at Discharge: Improved Follow Up: As Needed Disposition/Orders: D/C to Another Facility Dischare Medications Current Medications Dextrose 1,000 ml @ 100 mls/hr Q10H IV Last administered on 05/27/17 06:07; Start 05/22/17 at 19:10; Stop 05/27/17 at 07:54; Status DC Dextrose 12.5 gm PRN Q15MIN PRN IV SEE COMMENTS; Start 05/22/17 at 19:00; Stop 05/27/17 at 13:32; Status DC Acetaminophen (Tylenol) 650 mg PRN Q6HRS PRN PO PAIN / TEMP Last administered on 05/24/17 21:09; Start 05/22/17 at 19:15; Stop 05/27/17 at 13:32; Status DC Aspirin (Children'S Aspirin) 81 mg DAILY PO Last administered on 05/27/17 08: 45; Start 05/23/17 at 09:00; Stop 05/27/17 at 13:32; Status DC Cyanocobalamin (Vitamin B-12) 1,000 mcg DAILY PO Last administered on 08:45; Start 05/23/17 at 09:00; Stop 05/27/17 at 13:32; Status DC Divalproex Sodium (Depakote Sprinkles) 125 mg QID PO Last administered on 08:45; Start 05/22/17 at 21:00; Stop 05/27/17 at 13:32; Status DC Docusate Sodium (Colace) 100 mg DAILY PO Last administered on 05/26/17 09:56; Start 05/23/17 at 09:00; Stop 05/27/17 at 13:32; Status DC Insulin Aspart (NovoLOG) 8 units TIDWMEALS SQ Last administered on 05/23/17 12 :12; Start 05/23/17 at 08:00; Stop 05/23/17 at 12:56; Status DC Al Hydroxide/Mg Hydroxide (Mylanta Plus Xs) 15 ml QIDPRN PRN PO HEARTBURN / GAS Last administered on 05/26/17 12:43; Start 05/22/17 at 19:15; Stop at 13:32; Status DC Multi-Ingredient Ointment (Analgesic Nikolai) 1 prisca QIDPRN PRN TP MUSCLE PAIN; Start 05/22/17 at 19:15; Stop 05/27/17 at 13:32; Status DC Metoprolol Tartrate (Lopressor) 37.5 mg BID PO Last administered on 05/27/17 08:46; Start 05/22/17 at 21:00; Stop 05/27/17 at 13:32; Status DC Mirtazapine (Remeron) 7.5 mg QHS PO Last administered on 05/26/17 20:15; Start 05/22/17 at 21:00; Stop 05/27/17 at 13:32; Status DC Nitroglycerin (Nitrostat) 0.4 mg PRN Q5MIN PRN SL CHEST PAIN; Start 05/22/17 at 19:15; Stop 05/27/17 at 13:32; Status DC Olanzapine (ZyPREXA ZYDIS) 2.5 mg PRN Q2HR PRN PO ANXIETY / AGITATION Last administered on 05/26/17 20:14; Start 05/22/17 at 19:15; Stop 05/27/17 at 13:32 ; Status DC Polyethylene Glycol (miraLAX) 17 gm DAILY PO Last administered on 05/26/17 10: 00; Start 05/23/17 at 09:00; Stop 05/27/17 at 13:32; Status DC Tamsulosin HCl (Flomax) 0.4 mg HS PO Last administered on 05/26/17 20:15; Start 05/22/17 at 21:00; Stop 05/27/17 at 13:32; Status DC Tramadol HCl (Ultram) 50 mg PRN Q8HRS PRN PO PAIN Last administered on 08:46; Start 05/22/17 at 19:15; Stop 05/27/17 at 13:32; Status DC Trazodone HCl (Desyrel) 50 mg PRN QHS PRN PO INSOMNIA, MAY REPEAT X1 Last administered on 05/26/17 20:15; Start 05/22/17 at 19:15; Stop 05/27/17 at 13:32 ; Status DC Atorvastatin Calcium (Lipitor) 80 mg QHS PO Last administered on 05/26/17 20: 14; Start 05/22/17 at 21:00; Stop 05/27/17 at 13:32; Status DC Non-Formulary Medication 10 mg DAILY PO Last administered on 05/23/17 09:00; Start 05/23/17 at 09:00; Stop 05/23/17 at 10:03; Status DC Insulin Detemir (Levemir) 15 units QHS SQ Last administered on 05/22/17 21:01 ; Start 05/22/17 at 21:00; Stop 05/23/17 at 12:56; Status DC Magnesium Hydroxide (Milk Of Magnesia) 2,400 mg PRN QHS PRN PO CONSTIPATION Last administered on 05/23/17 17:13; Start 05/22/17 at 20:15; Stop 05/27/17 at 13:32; Status DC Petrolatum (Aquaphor Healing) 1 prisca PRN BID PRN TP meatus; Start 05/22/17 at 20 :15; Stop 05/23/17 at 14:42; Status DC Prenat Multivit/ Photostat Operator Helper/Iron/Folic Ac (Multivitamin ) 1 tab DAILY PO Last administered on 05/27/17 08:45; Start 05/23/17 at 09:00; Stop 05/27/17 at 13:32; Status DC Haloperidol Lactate (Haldol) 5 mg PRN Q4HRS PRN IM ANXIETY / AGITATION Last administered on 05/23/17 22:33; Start 05/22/17 at 23:00; Stop 05/27/17 at 13:32 ; Status DC Haloperidol Lactate (Haldol) 5 mg PRN Q4HRS PRN IVP AGITATION; Start 05/22/17 at 23:00; Stop 05/22/17 at 23:05; Status DC Escitalopram Oxalate (Lexapro) 10 mg DAILY PO Last administered on 05/27/17 08 :45; Start 05/24/17 at 09:00; Stop 05/27/17 at 13:32; Status DC Insulin Aspart (NovoLOG) 0-5 UNITS Q6H PRN SQ SEE COMMENTS; Start 05/23/17 at 13:00; Stop 05/23/17 at 14:37; Status DC Dextrose 12.5 gm PRN Q15MIN PRN IV SEE COMMENTS; Start 05/23/17 at 13:00; Status UNV Sodium Chloride 1,000 ml @ 1,000 mls/hr 1X ONCE IV Last administered on 13:36; Start 05/23/17 at 13:00; Stop 05/23/17 at 13:59; Status DC Insulin Aspart (NovoLOG) 0-5 UNITS Q6H SQ Last administered on 05/24/17 05:59 ; Start 05/23/17 at 18:00; Stop 05/24/17 at 08:42; Status DC Petrolatum (Aquaphor Healing) 1 prisca PRN BID PRN TP meatus; Start 05/23/17 at 14 :42; Stop 05/27/17 at 13:32; Status DC Ceftriaxone Sodium 1 gm/ Sodium Chloride 50 ml @ 100 mls/hr Q24H IV ; Start at 17:00; Stop 05/23/17 at 17:00; Status DC Ceftriaxone Sodium 1 gm/ Sodium Chloride 50 ml @ 100 mls/hr Q24H IV Last administered on 05/25/17 16:53; Start 05/23/17 at 17:00; Stop 05/26/17 at 11:04 ; Status DC Insulin Aspart (NovoLOG) 0-5 UNITS TIDACHC SQ ; Start 05/24/17 at 11:30; Stop at 12:03; Status DC Insulin Aspart (NovoLOG) 3 units 1X ONCE SQ Last administered on 05/24/17 08: 51; Start 05/24/17 at 08:45; Stop 05/24/17 at 08:56; Status DC Insulin Aspart (NovoLOG) 0-9 UNITS TIDAC SQ Last administered on 05/27/17 08: 55; Start 05/24/17 at 16:30; Stop 05/27/17 at 13:32; Status DC Dextrose 12.5 gm PRN Q15MIN PRN IV SEE COMMENTS; Start 05/24/17 at 12:15; Stop 05/24/17 at 12:15; Status DC Insulin Aspart (NovoLOG) 9 units 1X ONCE SQ Last administered on 05/24/17 16: 14; Start 05/24/17 at 13:00; Stop 05/24/17 at 13:01; Status DC Morphine Sulfate (Morphine 2mg Syringe) 2 mg PRN Q4HRS PRN IV PAIN Last administered on 05/24/17 21:09; Start 05/24/17 at 15:45; Stop 05/27/17 at 13:32 ; Status DC Vancomycin HCl (Vanco Per Pharmacy) 1 each PRN DAILY PRN MC SEE COMMENTS Last administered on 05/26/17 13:04; Start 05/26/17 at 11:00; Stop 05/27/17 at 13:32 ; Status DC Vancomycin HCl 2 gm/Sodium Chloride 500 ml @ 250 mls/hr 1X ONCE IV Last administered on 05/26/17 12:17; Start 05/26/17 at 12:00; Stop 05/26/17 at 13:59 ; Status DC Escitalopram Oxalate (Lexapro) 10 mg STK-MED ONCE .ROUTE ; Start 05/23/17 at 09: 00; Stop 05/26/17 at 12:29; Status DC Vancomycin HCl 1 gm/Sodium Chloride 250 ml @ 250 mls/hr Q12H IV Last administered on 05/26/17 23:43; Start 05/27/17 at 00:00; Stop 05/27/17 at 13:32 ; Status DC Vancomycin HCl 1 each 1X ONCE MC ; Start 05/26/17 at 17:00; Stop 05/26/17 at 17 :02; Status DC Vancomycin HCl 1 each 1X ONCE MC ; Start 05/27/17 at 11:30; Stop 05/27/17 at 11 :31; Status DC Active Scripts Active Reported Vitamin A & D Ointment (Petrolatum,White/Lanolin) 113 Gm Oint...g. 1 Prisca TP PRN BID PRN Vitamins ( Vits W-Ca,Fe,Fa(<1MG)) 1 Each Tablet 1 Each PO DAILY Escitalopram Oxalate 10 Mg Tablet 10 Mg PO DAILY Vitamin B-12 (Cyanocobalamin (Vitamin B-12)) 1,000 Mcg Tablet 1,000 Mcg PO DAILY Trazodone Hcl 50 Mg Tablet 50 Mg PO PRN QHS PRN Lantus Solostar (Insulin Glargine,Hum.rec.anlog) 100 Unit/1 Ml Insuln.pen 15 Unit SQ QHS Tramadol Hcl (Tramadol HCl) 50 Mg Tablet 50 Mg PO PRN Q8HRS PRN Flomax (Tamsulosin Hcl) 0.4 Mg Cap.er.24h 1 Cap PO HS Docusate Sodium 100 Mg Capsule 1 Cap PO DAILY Atorvastatin Calcium 80 Mg Tablet 80 Mg PO HS hIGH CHOLESTEROL Zyprexa Zydis (Olanzapine) 5 Mg Tab.rapdis 2.5 Mg PO PRN Q2HR PRN Remeron (Mirtazapine) 15 Mg Tablet 7.5 Mg PO QHS Depakote Sprinkle (Divalproex Sodium) 125 Mg Cap.sprink 125 Mg PO QID Miralax (Polyethylene Glycol 3350) 17 Gm Powd.pack 1 Packet PO DAILY Analgesic Nikolai (Methyl Salicylate/Menthol) 29 Gm Oint...g. 1 Prisca TP QIDPRN PRN Milk Of Magnesia (Magnesium Hydroxide) 2,400 Mg/10 Ml Oral.susp 2,400 Mg PO HS PRN Mag-Al Plus Xs Suspension (Mag Hydrox/Al Hydrox/Simeth) 30 Ml Oral.susp 15 Ml PO QIDPRN PRN Novolog Flexpen (Insulin Aspart) 100 Unit/1 Ml Insuln.pen 8 Unit SQ TIDWMEALS Tylenol (Acetaminophen) 325 Mg Tablet 650 Mg PO PRN Q6HRS PRN Nitrostat (Nitroglycerin) 0.4 Mg Tab.subl 0.4 Mg SL PRN PRN Metoprolol Tartrate 25 Mg Tablet 37.5 Mg PO BID Aspirin 81 Mg Tab.chew 81 Mg PO DAILY Patient Instructions Patient Instuctions He was discharged in good condition and for medications see VAL KRUGER DO May 27, 2017 14:31
== END 2017-05-27 12:30 | disposition short-term general hospital (02) | DRG 682 ==
LOC: 1 SOUTH 17:00
PROVIDERS: ADMIT Internal Medicine; ATTEND Internal Medicine
DX: N17.0 Acute kidney failure with tubular necrosis (principal); E43 Unspecified severe protein-calorie malnutrition; N39.0 Urinary tract infection, site not specified; E87.1 Hypo-osmolality and hyponatremia; E87.0 Hyperosmolality and hypernatremia; F02.81 Dementia in other diseases classified elsewhere, unspecified severity, with behavioral disturbance; F01.51 Vascular dementia, unspecified severity, with behavioral disturbance; E11.65 Type 2 diabetes mellitus with hyperglycemia; E78.5 Hyperlipidemia, unspecified; E87.6 Hypokalemia; N18.9 Chronic kidney disease, unspecified; E11.51 Type 2 diabetes mellitus with diabetic peripheral angiopathy without gangrene; I12.9 Hypertensive chronic kidney disease with stage 1 through stage 4 chronic kidney disease, or unspecified chronic kidney disease; N13.2 Hydronephrosis with renal and ureteral calculous obstruction; F32.9 Major depressive disorder, single episode, unspecified; F41.9 Anxiety disorder, unspecified; F63.9 Impulse disorder, unspecified; G30.9 Alzheimer's disease, unspecified; H90.5 Unspecified sensorineural hearing loss; I25.10 Atherosclerotic heart disease of native coronary artery without angina pectoris; E86.0 Dehydration; Z82.49 Family history of ischemic heart disease and other diseases of the circulatory system; Z85.46 Personal history of malignant neoplasm of prostate; Z86.79 Personal history of other diseases of the circulatory system; Z95.2 Presence of prosthetic heart valve; Z90.49 Acquired absence of other specified parts of digestive tract; Z91.041 Radiographic dye allergy status; Z88.5 Allergy status to narcotic agent; Z91.013 Allergy to seafood; Z90.89 Acquired absence of other organs
CPT/HCPCS: 36415; 74176; 80048; 80053; 81001; 82947; 83735; 85027; 85651; 86140; 87086; 87186; 87641; J0696; J1630; J1815; J2270; J3370; J7040; J7050; J7030

== ENCOUNTER 2017-06-06 19:49 | Emergency (ER) | payer MEDICARE, OTHER ==
[~2017-06-06] VITALS: Ht 365.8 cm; Wt 73.5 kg
[~2017-06-06 19:49] MED LIST changes: +CYAN10005 PO; +ESCITALOPRAM OX10 MG PO; +PETR113O TP; +PREN1TAB58 PO
[2017-06-06 19:50] VITALS: BP 112/81
--- NOTE | 2017-06-06 20:22 | PHYS DOC ---
Past History Past Medical History: Dementia, Kidney Stones Adult General Chief Complaint Chief Complaint: PSYCH EVALUATION HPI HPI Patient is a 77-year-old male with history of dementia who is presently living in a long-term presents tonight because the long-term was not able to his behavior control. He has a history of dementia where he typically exposed himself and has a tendency to urinate on services and on people. There is nothing new about this history or behavior today. Apparently according to the nursing notes from the long-term facility they have been using IM Haldol to reduce his agitation and his aggressive behavior. This is been very successful but the spouse did not like this treatment. Today this behavior was again exhibited they gave him an IM dose of Haldol but never called report to the emergency department here he came from [facility] from [facility]. The patient has no complete this time is resting comfortably. He is quite compliant with our requests and is exhibited no aggressive behavior whatsoever. He has no complaint of chest pain, abdominal pain he will follow instructions without issue. It is the request of the facility do a medical screening exam and to ensure no medical condition exists that will require hospitalization. And to be returned back to the long-term. Review of Systems Review of Systems There is a limited history provided by patient given his dementia Constitutional: Denies fever or chills [] Eyes: Denies change in visual acuity, redness, or eye pain [] HENT: Denies nasal congestion or sore throat [] Respiratory: Denies cough or shortness of breath [] Cardiovascular: No additional information not addressed in HPI [] GI: Denies abdominal pain, nausea, vomiting, bloody stools or diarrhea [] : Denies dysuria or hematuria [] Musculoskeletal: Denies back pain or joint pain [] Integument: Denies rash or skin lesions [] Neurologic: Denies headache, focal weakness or sensory changes [] History was provided by the long-term notes. Allergies Allergies Allergies Coded Allergies Type Severity Reaction Last Updated Verified codeine Allergy Intermediate Nausea 03/13/17 Yes iodine Allergy Intermediate Itching 03/13/17 Yes meperidine Allergy Intermediate Nausea and Vomiting 03/13/17 Yes shellfish derived Allergy Intermediate Hives 03/13/17 Yes I S O L A T I O N *CONTACT* Allergy Unknown 05/25/17 Yes Physical Exam Physical Exam vital signs show a heart rate of Constitutional he is thin mildly cachectic but well developed. He is mildly dehydrated with dry mucous in his oropharynx. He is appropriate and interactive with staff and follow instructions without issue or violence. HENT: Normocephalic, atraumatic, bilateral external ears normal, oropharynx moist, no oral exudates, nose normal. [] Eyes: PERRLA, EOMI, conjunctiva normal, no discharge. [] Neck: Normal range of motion, no tenderness, supple, no stridor. [] Cardiovascular:Heart rate regular rhythm, no murmur [] Lungs & Thorax: Bilateral breath sounds clear to auscultation [] Abdomen: Bowel sounds normal, soft, no tenderness, no masses, no pulsatile masses. [] Skin: Warm, dry, no erythema, no rash. [] Extremities: No tenderness, no cyanosis, no clubbing, ROM intact, no edema. [] Neurologic: Alert and oriented X 0, normal motor function, normal sensory function, no focal deficits noted. [] Psychologic: He is a decreased affect likely secondary to Haldol provided prior to arrival. He is appropriate and responsive to questions. Current Patient Data Lab Results Laboratory Tests Test 06/06/17 20:14 06/06/17 20:22 06/06/17 20:33 White Blood Count 5.4 x10^3/uL (4.0-11.0) Red Blood Count 3.37 x10^6/uL (4.30-5.70) L Hemoglobin 11.0 g/dL (13.0-17.5) L Hematocrit 31.3 % (39.0-53.0) L Mean Corpuscular Volume 93 fL (79-100) Mean Corpuscular Hemoglobin 33 pg (25-35) Mean Corpuscular Hemoglobin Concent 35 g/dL (31-37) Red Cell Distribution Width 13.5 % (11.5-14.5) Platelet Count 155 x10^3/uL (140-400) Neutrophils (%) (Auto) 76 % (31-73) H Lymphocytes (%) (Auto) 12 % (24-48) L Monocytes (%) (Auto) 8 % (0-9) Eosinophils (%) (Auto) 4 % (0-3) H Basophils (%) (Auto) 1 % (0-3) Neutrophils # (Auto) 4.1 x10^3uL (1.8-7.7) Lymphocytes # (Auto) 0.6 x10^3/uL (1.0-4.8) L Monocytes # (Auto) 0.4 x10^3/uL (0.0-1.1) Eosinophils # (Auto) 0.2 x10^3/uL (0.0-0.7) Basophils # (Auto) 0.0 x10^3/uL (0.0-0.2) Sodium Level 142 mmol/L (136-145) Potassium Level 3.9 mmol/L (3.5-5.1) Chloride Level 107 mmol/L (98-107) Carbon Dioxide Level 26 mmol/L (21-32) Anion Gap 9 (6-14) Blood Urea Nitrogen 29 mg/dL (8-26) H Creatinine 1.3 mg/dL (0.7-1.3) Estimated GFR (Cockcroft-Gault) 53.7 BUN/Creatinine Ratio 22 (6-20) H Glucose Level 299 mg/dL (70-99) H Calcium Level 9.9 mg/dL (8.5-10.1) Magnesium Level 1.7 mg/dL (1.8-2.4) L Total Bilirubin 0.9 mg/dL (0.2-1.0) Aspartate Amino Transferase (AST) 19 U/L (15-37) Alanine Aminotransferase (ALT) 25 U/L (16-63) Alkaline Phosphatase 102 U/L (46-116) Total Protein 5.9 g/dL (6.4-8.2) L Albumin 2.9 g/dL (3.4-5.0) L Albumin/Globulin Ratio 1.0 (1.0-1.7) Salicylates Level < 2.8 mg/dL (2.8-20.0) L Salicylate Last Dose Date 06/05/17 Salicylate Last Dose Time 0000 Acetaminophen Level < 2 mcg/mL (10-30) L Acetaminophen Last Dose Date 06/05/17 Acetaminophen Last Dose Time 0000 Ethyl Alcohol Level < 10 mg/dL (0-10) Glucose (Fingerstick) 266 mg/dL (70-99) H Urine Collection Type U cath Urine Color Yellow Urine Clarity Hazy Urine pH 5.5 Urine Specific [place] 1.020 Urine Protein Neg (NEG-TRACE) Urine Glucose (UA) 500 mg/dL (NEG) Urine Ketones (Stick) Neg mg/dL (NEG) Urine Blood Small (NEG) Urine Nitrite Neg (NEG) Urine Bilirubin Neg (NEG) Urine Urobilinogen Dipstick 0.2 mg/dL (0.2 mg/dL) Urine Leukocyte Esterase Trace (NEG) Urine RBC Occ /HPF (0-2) Urine WBC 1-4 /HPF (0-4) Urine Squamous Epithelial Cells None /LPF Urine Bacteria 0 /HPF (0-FEW) Urine Yeast Present /HPF Urine Opiates Screen Neg (NEG) Urine Methadone Screen Neg (NEG) Urine Barbiturates Neg (NEG) Urine Phencyclidine Screen Neg (NEG) Urine Amphetamine/Methamphetamine Neg (NEG) Urine Benzodiazepines Screen Neg (NEG) Urine Cocaine Screen Neg (NEG) Urine Cannabinoids Screen Neg (NEG) Urine Ethyl Alcohol Pos (NEG) EKG EKG [] Radiology/Procedures Radiology/Procedures [] Course & Med Decision Making Course & Med Decision Making Pertinent Labs and Imaging studies reviewed. (See chart for details) this patient was transported to the emergency department for an evaluation for possible medical condition continued contributing to his acute psychosis. Patient has a history of dementia with aggressive behavior continually exposing himself and urinating on personnel and staff. There is nothing new about this behavior in fact they have been treating him with IM Haldol to some degree of success. If there is no medical condition extremity to his symptoms he'll be returned to the long-term. Patient's labs are unremarkable. Patient does have some yeast in his urine and given how red and irritated his glans of his penis are we will treat him empirically with a consult to treat a urinary cystitis. Associated with yeast. We will give him a dose of fluconazole here orally and provide him a two-week course of daily for consult to treat this infection. It is patient has been hemodynamics stable comfortable and quiet resting without issue. He's been screened for medical treatment to reduce symptoms. At this point his x-ray of his shoulder timed 8:57 PM 06/06/2017 demonstrates no cold fracture in the 4 view x-ray read by Dr. Collins. Osteoporosis but no other signs of fracture. Impression: Cystitis likely candidal nature, chronic dementia Disposition: Back to the long-term with fluconazole treatment. [] Dragbrent Disclaimer Dragon Disclaimer This chart was dictated in whole or in part using Voice Recognition software in a busy, high-work load, and often noisy Emergency Department environment. It may contain unintended and wholly unrecognized errors or omissions. Departure Departure: Impression: Primary Impression: Impulse control disorder Additional Impressions: Dementia in Alzheimer's disease with delusions Other cystitis without hematuria Candidiasis of urogenital site Disposition: HOME, SELF-CARE Condition: IMPROVED Referrals: JORDIN STAPLES MD (PCP) Patient Instructions: Cutaneous Candidiasis, Dementia Additional Instructions: You have yEast and urine which is consistent with candidal cystitis. Although you are not clearly symptomatic we will treat with, as all for 2 weeks. I would encourage her to follow-up with your primary care doctor for reevaluation to ensure that this is clearing up. Most of the transaminase and tonight patient she would not need to treat this but given your dementia we'll treat him empirically. Scripts Fluconazole (FLUCONAZOLE) 200 Mg Tablet 1 TAB PO DAILY, #14 TAB Prov: FRED COLLINS MD 06/06/17 Problem Qualifiers FRED COLLINS MD Jun 06, 2017 20:22
[2017-06-06 20:42] LABS: BASO % 1 % (0-3); EOS # 0.2 x10^3/uL (0.0-0.7); EOS % 4 % (0-3); HEMATOCRIT 31.3 % (39.0-53.0); LYMPH # 0.6 x10^3/uL (1.0-4.8); LYMPH % 12 % (24-48); MEAN CORPUSCULAR HEMOGLOBIN 33 pg (25-35); MEAN CORPUSCULAR HGB CONC 35 g/dL (31-37); MEAN CORPUSCULAR VOLUME 93 fL (79-100); MONO # 0.4 x10^3/uL (0.0-1.1); MONO % 8 % (0-9); NEUT # 4.1 x10^3uL (1.8-7.7); NEUT % 76 % (31-73); PLATELET COUNT 155 x10^3/uL (140-400); RED BLOOD COUNT 3.37 x10^6/uL (4.30-5.70); RED CELL DISTRIBUTION WIDTH 13.5 % (11.5-14.5); WHITE BLOOD COUNT 5.4 x10^3/uL (4.0-11.0)
[2017-06-06 20:50] LABS: ALBUMIN 2.9 g/dL (3.4-5.0); CALCIUM 9.9 mg/dL (8.5-10.1); CREATININE 1.3 mg/dL (0.7-1.3); GFR 53.7; MAGNESIUM 1.7 mg/dL (1.8-2.4); POTASSIUM 3.9 mmol/L (3.5-5.1); TOTAL BILIRUBIN 0.9 mg/dL (0.2-1.0); TOTAL PROTEIN 5.9 g/dL (6.4-8.2)
[2017-06-06 20:52] LABS: ACETAMIN < 2 mcg/mL (10-30)
[2017-06-06 20:53] LABS: ETHANOL < 10 mg/dL (0-10); SALIC < 2.8 mg/dL (2.8-20.0)
[2017-06-06 20:59] LABS: CLARITY,URINE HAZY; COLOR,URINE YELLOW; GLUCOSE,URINE 500 mg/dL (NEG)
[2017-06-06 21:00] LABS: BACTERIA,URINE 0 /HPF (0-FEW); BILIRUBIN,URINE NEG (NEG); NITRITE,URINE NEG (NEG); RBC,URINE OCC /HPF (0-2); UROBILINOGEN,URINE 0.2 mg/dL (0.2 mg/dL)
[2017-06-06 21:01] LABS: YEAST,URINE PRESENT /HPF
[2017-06-06 21:03] LABS: AMPHETAMINE/METHAMPHETAMINE NEG (NEG); BARBITURATES NEG (NEG); BENZODIAZEPINES NEG (NEG); CANNABINOIDS NEG (NEG); COCAINE NEG (NEG); METHADONE NEG (NEG); OPIATES NEG (NEG); PHENCYCLIDINE NEG (NEG)
[2017-06-06] MEDS ORDERED: FLUC200T4 PO (21:56)
[2017-06-06] MEDS ORDERED: FLUCONAZOLE 100 MG TABLET. PO ONE (22:00)
--- NOTE | 2017-06-07 09:43 | RAD ---
Examination: 3 views of the right shoulder History: History of right shoulder pain Comparison: None available Findings: The humerus head is within the glenoid. There is questionable subtle lucent line identified in the distal clavicle at the acromioclavicular joint region could be artifactual or a subtle nondisplaced fracture. Differentiation is difficult due to osseous demineralization. Mild degenerative changes identified in the acromioclavicular joint, glenohumeral joint. Impression: There is questionable subtle lucent line identified in the distal clavicle at the acromioclavicular joint region could be artifactual or a subtle nondisplaced fracture. Differentiation is difficult due to osseous demineralization. Follow-up radiograph of the clavicle is recommended. ER physician informed at time of dictation.
== END 2017-06-07 01:05 | disposition home or self-care (01) ==
LOC: ER 19:49 → EEVIPCON 19:49 → ER 06-07 01:05
DX: F63.89 Other impulse disorders (principal); F02.80 Dementia in other diseases classified elsewhere, unspecified severity, without behavioral disturbance, psychotic disturbance, mood disturbance, and anxiety; B37.49 Other urogenital candidiasis; N30.90 Cystitis, unspecified without hematuria; G30.9 Alzheimer's disease, unspecified; M25.511 Pain in right shoulder; F22 Delusional disorders; Z87.442 Personal history of urinary calculi; Z88.8 Allergy status to other drugs, medicaments and biological substances; Z91.041 Radiographic dye allergy status; Z88.5 Allergy status to narcotic agent; Z91.013 Allergy to seafood
CPT/HCPCS: 36415; 51701; 73030; 80053; 80305; 81001; 82306; 82607; 82947; 83540; 83550; 83735; 85027; 87086; 99285; G0480; G0481